=== PATIENT | male | born 1950 | race Caucasian/White ===

== ENCOUNTER 2017-09-17 17:34 | Inpatient (IN) ==
--- NOTE | 2017-09-17 17:44 | ED ---
HPI General Chief Complaint: Stroke Alert Stated Complaint: Evac/Stroke Alert Time Seen by Provider: 09/17/17 17:40 History of Present Illness HPI Narrative: Patient presents to the emergency department as a stroke alert. Apparently patient was at home and he developed left-sided weakness, slurred speech and called his son stating that I think I had a stroke. Son called 911 and stated that his father's speech was in fact slurred. Per EMS patient was complaining of posterior headache that migrated for, he could not do finger to nose, speech was slurred, and he was weak on the left side. Patient denies fever chills, chest pain, shortness of breath, visual change, but is diaphoretic. He also currently does not denies a headache and also denies numbness or tingling but stated that the left side of his face was numb initially. Related Data Home Medications Medication Instructions Recorded Confirmed No Known Home Medications 09/17/17 09/17/17 Allergies Allergy/AdvReac Type Severity Reaction Status Date / Time No Known Allergies Allergy Verified 09/17/17 18:35 Review of Systems ROS: all other systems reviewed are negative [facility] Medical History Medical History Patient denies medical problems (Acute) Surgical History Surgical History No history of previous surgery (Acute) Family History Family History Other Family history of stroke Social History Social History Substance History: No History of Abuse Smoking Status: Former smoker Tobacco Type: Cigarettes How Often Do You Have a Drink Containing Alcohol: Never Recent Travel in [facility] within the Last 8 Weeks: No Recent Out of Country Travel within the Last 8 Weeks: No Exam Narrative Exam Narrative: GENERAL: No acute distress. SKIN: Focused skin assessment diaphoretic HEAD: Atraumatic. Normocephalic. EYES: Pupils equal and round. No scleral icterus. Extraocular muscles intact bilaterally. No injection or drainage. ENT: No nasal bleeding or discharge. Mucous membranes pink and moist. NECK: Trachea midline. No JVD. CARDIOVASCULAR: Regular rate and rhythm. No murmur appreciated. RESPIRATORY: No accessory muscle use. Clear to auscultation. Breath sounds equal bilaterally. GASTROINTESTINAL: Abdomen soft, non-tender, nondistended. Hepatic and splenic margins not palpable. MUSCULOSKELETAL: No obvious deformities. No clubbing. No cyanosis. No edema. NEUROLOGICAL: Awake and alert. No obvious cranial nerve deficits. Motor grossly within normal limits. Normal speech. GCS 15, 5 out of 5 strength bilateral upper and lower extremities, stroke scale score of 0. PSYCHIATRIC: Appropriate mood and affect; insight and judgment normal. Course Initial Documented Vital Signs Temperature 98.5 F 09/17/17 17:37 Pulse Rate 58 L 09/17/17 17:37 Respiratory Rate 16 09/17/17 17:37 Blood Pressure 176/80 H 09/17/17 17:37 Pulse Oximetry 98 09/17/17 17:37 Last Documented Vital Signs Temperature 98.5 F 09/17/17 17:37 Pulse Rate 65 09/17/17 21:36 Respiratory Rate 16 09/17/17 21:36 Blood Pressure 155/90 H 09/17/17 21:36 Pulse Oximetry 99 09/17/17 21:36 Critical Care Time Critical Care Time: Yes Total Critical Care Time: 35 Attestation: Aggregate critical care time was 35 minutes. Time to perform other separately billable procedures was not included in the critical care time. My time did not include minutes spent treating any other patients simultaneously or on activities that did not directly contribute to the patient's treatment. The services I provided to this patient were to treat and/or prevent clinically significant deterioration that could result in: increased morbidity, I provided critical care services requiring my management, as noted below: Chart data review, documentation time, medication orders and management, vital sign assessments/reviewing monitor data, ordering and reviewing lab tests, ordering and interpreting/reviewing x-rays and diagnostic studies, care of the patient and discussion of the patient with the admitting physicians. Sign Out Sign Out Data: Patient Sign Out occurred on 09/17/17 at 20:25. Patient's care was discussed, and care was transferred from Miya Ventura MD to Flo Miller. Sign Out Comment: Patient signed out to Dr. Miller for MRI results, neurology consult, and final dispo. Last updated by Miya Ventura MD at 09/17/17 18:54 Post-Handoff Eval: Patient symptoms have completely resolved he has no left-sided weakness he has no speech difficulties he is awake alert MRI is done of his head patient will be admitted Dr. Prieto was bedside aspirin is given an MRA of the neck is pending at this time admitted to [facility]. PT HAS ACUTE CEREBELLAR INFARCT SEEN ON MRI BRAIN LEFT SIDED RESULTS MRA NECK DONE ORDERED BY FLOYD Medical Decision Making MDM Narrative Medical decision making narrative: Patient presents to the emergency department as a stroke alert. Patient placed on a bus driver/monitor, continuous pulse ox, IV access obtained. Accu-Chek was 121. Labs, chest x-ray, EKG, CT scans ordered. Gas with Dr. Prieto at 1740 (lay flat, NS at 100cc/hr, triple study CT, ASA 325mg po if head CT negative). Patient needs stat MRI per neurologist, Dr. Prieto. Snf monitor cut off by sd, , with permission of family for stat MRI, life and situation. 1756: Dr Lambert advises no acute findings on head CT. Patient given 10mg IV compazine 2/[address] No tPA as patient's symptoms have resolved. CTA head: CONCLUSION:1. No acute occlusive disease demonstrated.2. Intracranial atherosclerosis.3. 2 mm anterior communicating aneurysm. CTA neck: CONCLUSION:1. Occluded left vertebral artery, age indeterminate. Widely patent right vertebral artery and basilar artery.2. Otherwise essentially normal. Trace atherosclerosis seen of both carotid bifurcations without narrowing. Per Dr. Prieto, [facility] MRI brain w/wo ordered. Differential Diagnosis Differential Diagnosis: CVA, TIA, ICH Lab Data Result diagrams: 09/17/17 17:39 09/17/17 17:39 Lab Results 09/17/17 09/17/17 09/17/17 Range/Units 17:39 17:39 17:39 WBC 8.3 (4.0-11.0) th/mm3 RBC 4.72 (4.50-5.90) mil/mm3 Hgb 14.2 (13.0-17.0) gm/dL POC Hgb (Calc) 13.6 (13.0-17.0) g/dL Hct 42.3 (39.0-51.0) % POC Hct 40.0 (39-51.0) % MCV 89.5 (80.0-100.0) fL MCH 30.1 (27.0-34.0) pg MCHC 33.7 (32.0-36.0) % RDW 15.0 (11.6-17.2) % Plt Count 268 (150-450) th/mm3 MPV 6.9 L (7.0-11.0) fL Neut % (Auto) 55.4 (16.0-70.0) % Lymph % (Auto) 36.1 (9.0-44.0) % [place] % (Auto) 6.6 (0.0-8.0) % Eos % (Auto) 1.1 (0.0-4.0) % Baso % (Auto) 0.8 (0.0-2.0) % Neut # (Auto) 4.6 (1.8-7.7) th/mm3 Lymph # (Auto) 3.0 (1.0-4.8) th/mm3 [place] # (Auto) 0.6 (0.0-0.9) th/mm3 Eos # (Auto) 0.1 (0.0-0.4) th/mm3 Baso # (Auto) 0.1 (0.0-0.2) th/mm3 WBC Differential . Differential Comment Auto diff final ESR (0-20) mm/hr PT 10.1 (9.8-11.6) sec INR 1.0 Ratio APTT 21.5 L (24.3-30.1) sec Fibrinogen 375 (227-377) mg/dL POC Sodium 142 (137-144) mmol/L Sodium 142 (136-145) meq/L POC Potassium 3.6 (3.6-5.0) mmol/L Potassium 3.7 (3.5-5.1) meq/L POC Chloride 109 (102-111) mmol/L Chloride 110 H (98-107) meq/L Carbon Dioxide 23.7 (21.0-32.0) meq/L Anion Gap 8 (5-15) meq/L POC BUN 21 (5-21) mg/dL BUN 21 H (7-18) mg/dL Creatinine 0.91 (0.60-1.30) mg/dL POC Creatinine 0.8 (0.6-1.3) mg/dL Estimated GFR 84 L (>89) mL/min POC Glucose 119 H (68-110) mg/dL Random Glucose 115 H (74-106) mg/dL Calcium 8.6 (8.5-10.1) mg/dL Total Creatine Kinase 140 (39-308) U/L Troponin I Less than 0.02 L (0.02-0.05) ng/mL Triglycerides (42-150) mg/dL Cholesterol (120-200) mg/dL LDL Cholesterol, Calc (0-99) mg/dL HDL Cholesterol (40.0-60.0) mg/dL Cholesterol/HDL Ratio Ratio Vitamin B12 (193-986) pg/mL Folate (3.1-17.5) ng/mL TSH (0.358-3.740) uIU/mL Free T4 (0.76-1.46) ng/dL Blood Type Antibody Screen 09/17/17 09/17/17 09/17/17 Range/Units 17:39 19:55 19:55 WBC (4.0-11.0) th/mm3 RBC (4.50-5.90) mil/mm3 Hgb (13.0-17.0) gm/dL POC Hgb (Calc) (13.0-17.0) g/dL Hct (39.0-51.0) % POC Hct (39-51.0) % MCV (80.0-100.0) fL MCH (27.0-34.0) pg MCHC (32.0-36.0) % RDW (11.6-17.2) % Plt Count (150-450) th/mm3 MPV (7.0-11.0) fL Neut % (Auto) (16.0-70.0) % Lymph % (Auto) (9.0-44.0) % [place] % (Auto) (0.0-8.0) % Eos % (Auto) (0.0-4.0) % Baso % (Auto) (0.0-2.0) % Neut # (Auto) (1.8-7.7) th/mm3 Lymph # (Auto) (1.0-4.8) th/mm3 [place] # (Auto) (0.0-0.9) th/mm3 Eos # (Auto) (0.0-0.4) th/mm3 Baso # (Auto) (0.0-0.2) th/mm3 WBC Differential Differential Comment ESR 8 (0-20) mm/hr PT (9.8-11.6) sec INR Ratio APTT (24.3-30.1) sec Fibrinogen (227-377) mg/dL POC Sodium (137-144) mmol/L Sodium (136-145) meq/L POC Potassium (3.6-5.0) mmol/L Potassium (3.5-5.1) meq/L POC Chloride (102-111) mmol/L Chloride (98-107) meq/L Carbon Dioxide (21.0-32.0) meq/L Anion Gap (5-15) meq/L POC BUN (5-21) mg/dL BUN (7-18) mg/dL Creatinine (0.60-1.30) mg/dL POC Creatinine (0.6-1.3) mg/dL Estimated GFR (>89) mL/min POC Glucose (68-110) mg/dL Random Glucose (74-106) mg/dL Calcium (8.5-10.1) mg/dL Total Creatine Kinase (39-308) U/L Troponin I (0.02-0.05) ng/mL Triglycerides 72 (42-150) mg/dL Cholesterol 192 (120-200) mg/dL LDL Cholesterol, Calc 126 H (0-99) mg/dL HDL Cholesterol 51.2 (40.0-60.0) mg/dL Cholesterol/HDL Ratio 3.75 Ratio Vitamin B12 141 L (193-986) pg/mL Folate Greater than 20.0 H (3.1-17.5) ng/mL TSH 0.726 (0.358-3.740) uIU/mL Free T4 1.00 (0.76-1.46) ng/dL Blood Type A Positive Antibody Screen Negative Imaging Data Radiologist's impression: Neck MRA 09/17/17 00:00 CONCLUSION: 1. Near-complete occlusion right vertebral artery, age indeterminant. Prominent caliber and widely patent left vertebral artery. 2. No significant carotid occlusive disease. Percent stenosis is calculated using the diameter of the stenotic region over the diameter of the normal distal internal carotid artery Chest X-Ray 09/17/17 17:37 CONCLUSION: Trace basilar atelectasis. Head CT 09/17/17 17:37 CONCLUSION: 1. No acute intracranial abnormalities. 2. Findings called by telephone by Dr. Lambert to Dr. Ventura at the time of dictation. . Head CTA 09/17/17 17:37 CONCLUSION: 1. No acute occlusive disease demonstrated. 2. Intracranial atherosclerosis. 3. 2 mm anterior communicating aneurysm. Neck CTA 09/17/17 17:37 CONCLUSION: 1. Occluded left vertebral artery, age indeterminate. Widely patent right vertebral artery and basilar artery. 2. Otherwise essentially normal. Trace atherosclerosis seen of both carotid bifurcations without narrowing. Head MRI 09/17/17 18:33 CONCLUSION: 1. Focal acute infarct of the left-sided cerebellum. 2. The rest of the brain is within normal limits. ECG Data Attestation: I personally reviewed and interpreted this ECG as follows: (Sinus bradycardia, rate 42, left axis deviation, T-wave inversion in lead V1, right ventricular conduction delay) Discharge Plan Discharge Disposition Patient Disposition: 30 Still Patient Discharge Details Diagnosis: Acute CVA (cerebrovascular accident) Physicians Team ED Provider: Flo Miller Primary Care Provider: UNKNOWN, Attending Provider: Anna Lunsford Other Providers: Rohan Prieto Discharge Interventions Interventions: Vital Signs Last Done: 09/17/17 20:00 Status ED Status: Admitted Patient
--- NOTE | 2017-09-17 17:57 | CT ---
EXAM DATE: 09/17/2017 5:49 PM EDT AGE/SEX: 66 years / Male INDICATIONS: Stroke alert left sided weakness CLINICAL DATA: This is the patient's initial encounter. Patient reports that signs and symptoms have been present for 1 day and indicates a pain score of 0/10. MEDICAL/SURGICAL HISTORY: . unable to obtain . unable to obtain RADIATION DOSE: 56.35 CTDI (mGy) COMPARISON: No prior exams available for comparison. TECHNIQUE: CT of the head without contrast. Using automated exposure control and adjustment of the mA and/or kV according to patient size, radiation dose was kept as low as reasonably achievable to ob tain optimal diagnostic quality images. DICOM format image data is available electronically for revi ew and comparison. FINDINGS: Cerebrum: No intracranial mass, hemorrhage or shift. No hydrocephalus. No abnormal extra-axial fluid collections. Posterior Fossa: The cerebellum and brainstem are intact. The 4th ventricle is midline . The cerebellopontine angle is unremarkable. Extracranial: The visualized portion of the orbits is intact. Skull: The calvaria is intact. No evidence of skull fracture. CONCLUSION: 1. No acute intracranial abnormalities. 2. Findings called by telephone by Dr. Lambert to Dr. Ventura at the time of dictation. . Electronically signed by: Galileo Lambert MD 09/17/2017 5:56 PM EDT
[2017-09-17] MEDS: Sod Chloride 0.9% Inj 1,000 ML IV.CONT SCH (18:00)
[2017-09-17 18:03] LABS: Baso # (Auto) 0.1 th/mm3 (0.0-0.2); Baso % (Auto) 0.8 % (0.0-2.0); Eos # (Auto) 0.1 th/mm3 (0.0-0.4); Eos % (Auto) 1.1 % (0.0-4.0); Hematocrit 42.3 % (39.0-51.0); Hemoglobin 14.2 gm/dL (13.0-17.0); Lymph % (Auto) 36.1 % (9.0-44.0); Mean Corpuscular HGB Conc 33.7 % (32.0-36.0); Mean Corpuscular Hemoglobin 30.1 pg (27.0-34.0); Mean Corpuscular Volume 89.5 fL (80.0-100.0); Mean Platelet Volume 6.9 fL (7.0-11.0); Mono # (Auto) 0.6 th/mm3 (0.0-0.9); Mono % (Auto) 6.6 % (0.0-8.0); Neut # (Auto) 4.6 th/mm3 (1.8-7.7); Neut % (Auto) 55.4 % (16.0-70.0); Platelet Count 268 th/mm3 (150-450); Red Blood Count 4.72 mil/mm3 (4.50-5.90); White Blood Count 8.3 th/mm3 (4.0-11.0)
--- NOTE | 2017-09-17 18:11 | CT ---
EXAM DATE: 09/17/2017 6:04 PM EDT AGE/SEX: 66 years / Male INDICATIONS: Left side weakness CLINICAL DATA: This is the patient's initial encounter. Patient reports that signs and symptoms have been present for 1 day and indicates a pain score of 3/10. MEDICAL/SURGICAL HISTORY: . Unable to obtain None. unable to abtain RADIATION DOSE: 10.11 CTDI (mGy) ; Combined studies COMPARISON: [facility] [place], CT HEAD W/O CONTRAST, 09/17/2017. . TECHNIQUE: Volumetric scanning was performed using a multi-row detector CT scanner during bolus infu charlie of 75 ml Omnipaque 350 (iohexol) nonionic water-soluble contrast as a cumulative dose for multi ple exams. The data was post processed with a variety of visualization algorithms including full vo lume maximum intensity projection, multi-planar sliding thin slab reformation, curved planar reformat ion, and surface rendering techniques. Using automated exposure control and adjustment of the mA and /or kV according to patient size, radiation dose was kept as low as reasonably achievable to obtain o ptimal diagnostic quality images. DICOM format image data is available electronically for review and comparison. FINDINGS: There is excellent visualization of the major intracranial arteries out to the second-order branch ve ssels. Mild diffuse luminal irregularity typical of intracranial atherosclerosis noted. 2 mm anterio r communicating aneurysm seen, series 309 image 11 There is no evidence for large aneurysm, vessel tr uncation or stenosis, and no evidence for vascular malformation. CONCLUSION: 1. No acute occlusive disease demonstrated. 2. Intracranial atherosclerosis. 3. 2 mm anterior communicating aneurysm. Electronically signed by: Bernabe Pruitt MD 09/17/2017 6:10 PM EDT
--- NOTE | 2017-09-17 18:20 | XR ---
EXAM DATE: 09/17/2017 6:10 PM EDT AGE/SEX: 66 years / Male INDICATIONS: Stroke alert. Congestion. CLINICAL DATA: This is the patient's initial encounter. Patient reports that signs and symptoms have been present for 1 day and indicates a pain score of 4/10. MEDICAL/SURGICAL HISTORY: None. None. COMPARISON: No prior exams available for comparison. FINDINGS: Trace atelectasis at the bases, mostly on the left. No pleural effusion. No pneumothorax. Heart size within normal limits. Thoracic aorta is tortuous and atherosclerotic. CONCLUSION: Trace basilar atelectasis. Electronically signed by: Bernabe Pruitt MD 09/17/2017 6:19 PM EDT
[2017-09-17 18:23] LABS: Activated Partial Thrombo Time 21.5 sec (24.3-30.1); Prothrombin Time 10.1 sec (9.8-11.6)
[2017-09-17 18:32] LABS: Anion Gap 8 meq/L (5-15); Blood Urea Nitrogen 21 mg/dL (7-18); Calcium 8.6 mg/dL (8.5-10.1); Carbon Dioxide 23.7 meq/L (21.0-32.0); Chloride 110 meq/L (98-107); Glomerular Filtration Rate 84 mL/min (>89); Glucose,Random 115 mg/dL (74-106); Potassium 3.7 meq/L (3.5-5.1); Sodium 142 meq/L (136-145)
--- NOTE | 2017-09-17 18:35 | CT ---
EXAM DATE: 09/17/2017 6:27 PM EDT AGE/SEX: 66 years / Male INDICATIONS: Left side weakness CLINICAL DATA: This is the patient's initial encounter. Patient reports that signs and symptoms have been present for 1 day and indicates a pain score of 0/10. MEDICAL/SURGICAL HISTORY: . unable to obtain . unable to obtain RADIATION DOSE: 10.11 CTDI (mGy) ; Combined studies COMPARISON: [facility], CTA HEAD W CONTRAST W 3D, 09/17/2017. . TECHNIQUE: Volumetric scanning was performed using a multirow detector CT scanner during bolus infus ion of 70 ml Omnipaque 350 (iohexol) nonionic water-soluble contrast as a cumulative dose for multip le exams. The data was postprocessed with a variety of visualization algorithms including full-volu me maximum intensity projection, multiplanar sliding thin-slab reformation, curved-planar reformation , and surface-rendering techniques. Using automated exposure control and adjustment of the mA and/or kV according to patient size, radiation dose was kept as low as reasonably achievable to obtain opti mal diagnostic quality images. DICOM format image data is available electronically for review and co mparison. Percent stenosis is calculated using the diameter of the stenotic region over the diameter of the nor mal distal internal carotid artery. FINDINGS: Aortic Arch: There is a three-vessel origin of the great vessels from the aorta. No evidence of ost ial narrowing Right Carotid: The common carotid artery is intact. Trace atherosclerosis of the bulb and proximal ICA without narrowing. The carotid bulb has a otherwise normal configuration without ulceration or na rrowing. The internal carotid artery lumen is otherwise smooth without stenosis. The external carot id artery is intact. Left Carotid: The common carotid artery is intact. Trace atherosclerosis of the bulb and proximal I CA without narrowing. The carotid bulb otherwise has a normal configuration without ulceration or bill rowing. The internal carotid artery lumen is otherwise smooth without stenosis. The external caroti d artery is intact. Vertebrals: Left vertebral artery is occluded at its origin, age indeterminate. Right vertebral italia ry appears to have been slightly dominant relative to the left and is widely patent. The basilar italia ry is well-developed and widely patent. CONCLUSION: 1. Occluded left vertebral artery, age indeterminate. Widely patent right vertebral artery and basil ar artery. 2. Otherwise essentially normal. Trace atherosclerosis seen of both carotid bifurcations without bill rowing. Electronically signed by: Bernabe Pruitt MD 09/17/2017 6:33 PM EDT
[2017-09-17 18:37] LABS: Creatine Kinase 140 U/L (39-308)
[2017-09-17] MEDS ORDERED: Aspirin 325 MG Tablet PO ONE (18:51)
[2017-09-17] MEDS ORDERED: Gadobutrol PF 10 MMOL/10 ML Vial (for RAD) IV.SIG ONE ×2 (19:34→21:43)
--- NOTE | 2017-09-17 19:52 | MR ---
EXAM DATE: 09/17/2017 7:45 PM EDT AGE/SEX: 66 years / Male INDICATIONS: Stroke. Left sided weakness and slurred speech. CLINICAL DATA: This is the patient's initial encounter. Patient reports that signs and symptoms have been present for 1 day and indicates a pain score of 3/10. MEDICAL/SURGICAL HISTORY: None. None. [place] [facility] [place] 09[place]17/2017. . TECHNIQUE: Multiplanar, multisequence examination of the brain was performed without and with 8 ml Ga davist (gadobutrol) contrast as a single exam dose. FINDINGS: Cerebrum: The ventricles are normal for age. No evidence of midline shift, mass lesion, hemorrhage or acute infarction. No extraaxial fluid collections are seen. The pituitary gland and suprasellar cistern are normal in configuration. White Matter: No significant signal abnormalities are seen in the white matter. Posterior Fossa: The cerebellum and brainstem are intact. The 4th ventricle is midline. The cerebel lopontine angle is unremarkable. The cerebellar tonsils are normal in position. Diffusion Imagin x 25 mm focus of restricted diffusion seen posteromedially of the left side of the cerebellum. Extracranial: The visualized portions of the orbits and paranasal sinuses are unremarkable. Post Contrast: No abnormal areas of parenchymal or dural enhancement. No evidence of blood-brain ba rrier breakdown. CONCLUSION: 1. Focal acute infarct of the left-sided cerebellum. 2. The rest of the brain is within normal limits. Electronically signed by: Bernabe Pruitt MD 09/17/2017 7:50 PM EDT
[2017-09-17 20:32] LABS: Cholesterol 192 mg/dL (120-200)
[2017-09-17 20:58] LABS: Chol/HDL Ratio 3.75 Ratio; HDL Cholesterol 51.2 mg/dL (40.0-60.0); LDL Cholesterol,Calculated 126 mg/dL (0-99); Thyroid Stimulating Hormone 0.726 uIU/mL (0.358-3.740); Triglycerides 72 mg/dL (42-150); Vitamin B12 141 pg/mL (193-986)
[2017-09-17] MEDS ORDERED: Dextrose 50% in Water 50 ML Vial IV.PUSH PRN (21:19)
[2017-09-17] MEDS ORDERED: Bisacodyl 10 MG Supp RECTAL PRN (21:20)
--- NOTE | 2017-09-17 21:21 | P.HPIM ---
History of Present Illness Primary Care Physician: UNKNOWN History of Present Illness: This is a 66-year-old male with no significant PMH was brought to the ER by EMS as a Stroke Alert. Pt reports acute onset of posterior headache followed by left-sided facial numbness/droop, slurred speech and unsteady gait. States Son In Law with him and called EMS. No h/o CVA in the past. Not on ASA or anticoagulation. On arrival, BP 176/80, HR 58, O2 sat 98% on 2L NC, Afebrile. CBC unremarkable. INR 1.0. Chemistry essentially unremarkable except for BUN 21. S/p eval by Dr. Prieto in ER, CT Head with no acute findings. CTA Head negative. CTA Neck with occluded left vertebral artery, age indeterminate, widely patent right vertebral artery and basilar artery. MRI Head with focal acute infarct of the left cerebellum. MRA Neck pending. Symptoms currently resolved except for mild residual slurred speech. - Diagnosis (1) CVA (cerebral vascular accident) Review of Systems All other systems reviewed negative except as stated in [facility] - History History Provided By: Patient - Medical History Medical History: Medical History (Last Updated 09/17/17 @ 18:35 by Mahsa Gamble RN) Patient denies medical problems - Surgical History Surgical History: Surgical History (Last Updated 09/17/17 @ 18:35 by Mahsa Gamble RN) No history of previous surgery - Family History Family History: Family History (Last Updated 09/17/17 @ 22:35 by Anna Lunsford MD) Other Family history of stroke - Tobacco History Smoking Status: Former smoker Tobacco Type: Cigarettes - Alcohol History How Often Do You Have a Drink Containing Alcohol: Never - Substance Use History Substance History: No History of Abuse - Travel History Recent Travel in the [place] Within the Last 8 Weeks: No Recent Travel Out of the Country Within the Last 8 Weeks: No - Immunization History Tetanus Immunization: Unsure Hx Influenza Vaccine This Season: No Medications and Allergies Active Medications: Active Medications Aspirin (Aspirin) 325 mg PO DAILY [facility] Heparin Sodium (Porcine) (Heparin Inj) 5,000 units SQ Q8HR [facility] Sodium Chloride (Ns Inj) 1,000 mls @ 100 mls/hr IV.CONT .Q10H [facility] Last Admin: 09/17/17 18:00 Dose: 100 mls/hr Allergies Allergy/AdvReac Type Severity Reaction Status Date / Time No Known Allergies Allergy Verified 09/17/17 18:35 Home Medications Medication Instructions Recorded Confirmed Type No Known Home Medications 09/17/17 09/17/17 History Exam Vital signs: Vital Signs 09/17/17 17:37 09/17/17 17:43 09/17/17 18:17 Temperature 98.5 F Pulse Rate 58 L 61 70 Respiratory Rate 16 18 Blood Pressure 176/80 H 159/97 H Pulse Oximetry 98 98 09/17/17 20:00 Temperature Pulse Rate 55 L Respiratory Rate 16 Blood Pressure 161/83 H Pulse Oximetry 99 Intake & Output 09/17/17 09/17/17 09/18/17 06:59 18:59 06:59 Output Total 500 / 500 Balance -500 / -500 Weight 84.4 kg Output: Urine 500 / 500 Other: # Voids 1 Narrative: PE: GENERAL: Very pleasant middle-aged white male in no acute distress. Family at bedside. HEENT: PERRLA, EOMI. No scleral icterus or conjunctival pallor. No lid lag or facial droop. Minimal slurred speech CARDIOVASCULAR: Regular rate and rhythm. No obvious murmurs to auscultation. No chest tenderness to palpation. RESPIRATORY: No obvious rhonchi or wheezing. Clear to auscultation. Breath sounds equal bilaterally. GASTROINTESTINAL: Abdomen soft, non-tender, nondistended. BS normal. MUSCULOSKELETAL: Extremities without clubbing, cyanosis, or edema. No obvious deformities. NEUROLOGICAL: Awake, alert and oriented x4. No focal neurologic deficits. Moving both upper and lower extremities spontaneously. Results - Labs CBC & Chem 7: 09/17/17 17:39 09/17/17 17:39 Labs: Short CBC 09/17/17 Range/Units 17:39 WBC 8.3 (4.0-11.0) th/mm3 Hgb 14.2 (13.0-17.0) gm/dL Hct 42.3 (39.0-51.0) % Plt Count 268 (150-450) th/mm3 BMP 09/17/17 17:39 Sodium 142 Potassium 3.7 Chloride 110 H Carbon Dioxide 23.7 BUN 21 H Creatinine 0.91 Calcium 8.6 Cardiac Enzymes 09/17/17 Range/Units 17:39 Total Creatine Kinase 140 (39-308) U/L Troponin I Less than 0.02 L (0.02-0.05) ng/mL - Imaging Impressions Chest X-Ray 09/17/17 17:37 CONCLUSION: Trace basilar atelectasis. Head CT 09/17/17 17:37 CONCLUSION: 1. No acute intracranial abnormalities. 2. Findings called by telephone by Dr. Lambert to Dr. Ventura at the time of dictation. . Head CTA 09/17/17 17:37 CONCLUSION: 1. No acute occlusive disease demonstrated. 2. Intracranial atherosclerosis. 3. 2 mm anterior communicating aneurysm. Neck CTA 09/17/17 17:37 CONCLUSION: 1. Occluded left vertebral artery, age indeterminate. Widely patent right vertebral artery and basilar artery. 2. Otherwise essentially normal. Trace atherosclerosis seen of both carotid bifurcations without narrowing. Head MRI 09/17/17 18:33 CONCLUSION: 1. Focal acute infarct of the left-sided cerebellum. 2. The rest of the brain is within normal limits. Caprini VTE Risk Assessment Caprini VTE Risk Assessment: No/Low Risk (score <= 1) Caprini Risk Assessment Model: Point Value = 1 Point Value = 2 Point Value = 3 Point Value = 5 Age 41-60 Minor surgery BMI > 25 kg/m2 Swollen legs Varicose veins or History of unexplained or recurrent spontaneous Oral contraceptives or hormone replacement Sepsis (< 1 month) Serious lung disease, including pneumonia (< 1 month) Abnormal pulmonary function Acute myocardial infarction Congestive heart failure (< 1 month) History of inflammatory bowel disease Medical patient at bed rest Age 61-74 Arthroscopic surgery Major open surgery (> 45 min) Laparoscopic surgery (> 45 min) Malignancy Confined to bed (> 72 hours) Immobilizing plaster cast Central venous access Age >= 75 History of VTE Family history of VTE Factor V Leiden Prothrombin [id number] Lupus anticoagulant Anticardiolipin antibodies Elevated serum homocysteine Heparin-induced thrombocytopenia Other congenital or acquired thrombophilia Stroke (< 1 month) Elective arthroplasty Hip, pelvis, or leg fracture Acute spinal cord injury (< 1 month) Prophylaxis Regimen: Total Risk Factor Score Risk Level Prophylaxis Regimen 0-1 Low Early ambulation 2 Moderate Order ONE of the following: *Sequential Compression Device (SCD) *Heparin 5000 units SQ BID 3-4 Higher Order ONE of the following medications: *Heparin 5000 units SQ TID *Enoxaparin/Lovenox 40 mg SQ daily (WT < 150 kg, CrCl > 30 mL/min) *Enoxaparin/Lovenox 30 mg SQ daily (WT < 150 kg, CrCl > 10-29 mL/min) *Enoxaparin/Lovenox 30 mg SQ BID (WT < 150 kg, CrCl > 30 mL/min) AND/OR *Sequential Compression Device (SCD) 5 or more Highest Order ONE of the following medications: *Heparin 5000 units SQ TID (Preferred with Epidurals) *Enoxaparin/Lovenox 40 mg SQ daily (WT < 150 kg, CrCl > 30 mL/min) *Enoxaparin/Lovenox 30 mg SQ daily (WT < 150 kg, CrCl > 10-29 mL/min) *Enoxaparin/Lovenox 30 mg SQ BID (WT < 150 kg, CrCl > 30 mL/min) AND *Sequential Compression Device (SCD) Assessment and Plan - Assessment (1) CVA (cerebral vascular accident) Code(s): I63.9 - Cerebral infarction, unspecified Status: Acute - Plan A/P: 1. CVA: acute onset left-sided facial droop, slurred speech and gait instability, s/p Stroke Alert. CT Head/CTA Head negative, CTA Neck w/ occluded left vertebral artery, MRI Head w/ acute left cerebellar CVA, MRA Neck pending. S/p eval by Dr. Prieto. NPO, IVF, Neuro Checks, permissive HTN, PT/OT for eval/tx, Speech Tx as needed. On ASA, start Statin. Check Lipid Profile/Hgb A1c. 2. DVT Prophylaxis: SCD/Teds, Heparin sq 3. Social work for d/c planning as needed 4. Case discussed w/ ER physician at length, labs/records/imaging reviewed by me.
[2017-09-17] MEDS: Heparin - SQ 10,000 UNITS/ML Vial SQ SCH ×2 (21:33→22:09)
--- NOTE | 2017-09-17 22:00 | MR ---
EXAM DATE: 09/17/2017 9:42 PM EDT AGE/SEX: 66 years / Male INDICATIONS: . CVA, left vert occlusion. CLINICAL DATA: This is the patient's initial encounter. Patient reports that signs and symptoms have been present for 1 day and indicates a pain score of 1/10. MEDICAL/SURGICAL HISTORY: None. None. COMPARISON: [facility] [place], CTA NECK W CONTRAST W 3D, 09/17/2017. . TECHNIQUE: 10 ml Gadavist (gadobutrol) contrast infused MRA (single exam dose) of the extracranial circulation was performed using a neurovascular coil. Postprocessing was performed, including rotati ng sub-volume maximum intensity projections of each carotid artery, rotating full-volume maximum inte nsity projections of both carotid arteries, sagittal and coronal sliding thin-slab reformations of ea ch carotid artery, and left oblique sliding thin-slab reformation through the aortic arch to include the origin of the arch branch vessels. FINDINGS: Aortic Arch : There is a three-vessel origin of the great vessels from the aorta. No evidence of o stial narrowing. Right Carotid : The common carotid artery is intact. The carotid bulb has a normal configuration wi thout ulceration or narrowing. The internal carotid artery lumen is smooth without stenosis. The ex ternal carotid artery is intact. Left Carotid : The common carotid artery is intact. The carotid bulb has a normal configuration wit hout ulceration or narrowing. The internal carotid artery lumen is smooth without stenosis. The ext ernal carotid artery is intact. Vertebrals : There is very poor flow diffusely in the right vertebral artery. Some flow is seen in t he distal portion of the vessel which is probably retrograde from the left vertebral artery. The left vertebral artery is widely patent. CONCLUSION: 1. Near-complete occlusion right vertebral artery, age indeterminant. Prominent caliber and widely p atent left vertebral artery. 2. No significant carotid occlusive disease. Percent stenosis is calculated using the diameter of the stenotic region over the diameter of the nor mal distal internal carotid artery Electronically signed by: Bernabe Pruitt MD 09/17/2017 9:58 PM [facility]
[2017-09-17 23:00] LABS: Amphetamine Urine With Conf Neg (Neg); Barbiturate Urine With Conf Neg (Neg); Benzodiazepine Urine With Conf Neg (Neg)
[2017-09-17 23:01] LABS: Bacteria,Urine Rare /hpf; Bilirubin,Urine Negative (Negative); Clarity,Urine Clear (Clear); Color,Urine Yellow (Yellw/Straw); Glucose,Urine (UA) Negative (Negative); Leukocyte Esterase,Urine Negative (Negative); Mucus,Urine Few /lpf (Occasional); Nitrite,Urine Negative (Negative); Specific Gravity,Urine 1.036 (1.002-1.035)
[2017-09-18] MEDS: Sod Chloride 0.9% Inj 1,000 ML IV.CONT SCH ×3 (03:26→14:00)
[2017-09-18] MEDS: Heparin - SQ 10,000 UNITS/ML Vial SQ SCH ×3 (06:06→22:18)
[2017-09-18 06:26] LABS: Baso % (Auto) 0.4 % (0.0-2.0); Eos % (Auto) 0.5 % (0.0-4.0); Hematocrit 38.3 % (39.0-51.0); Hemoglobin 12.8 gm/dL (13.0-17.0); Lymph # (Auto) 1.9 th/mm3 (1.0-4.8); Lymph % (Auto) 25.1 % (9.0-44.0); Mean Corpuscular HGB Conc 33.4 % (32.0-36.0); Mean Corpuscular Hemoglobin 29.8 pg (27.0-34.0); Mean Corpuscular Volume 89.3 fL (80.0-100.0); Mean Platelet Volume 7.1 fL (7.0-11.0); Mono # (Auto) 0.6 th/mm3 (0.0-0.9); Mono % (Auto) 7.8 % (0.0-8.0); Neut % (Auto) 66.2 % (16.0-70.0); Platelet Count 238 th/mm3 (150-450); Red Blood Count 4.29 mil/mm3 (4.50-5.90); Red Cell Distribution Width 14.9 % (11.6-17.2); White Blood Count 7.6 th/mm3 (4.0-11.0)
[2017-09-18 06:31] LABS: Alanine Aminotransferase 21 U/L (12-78); Albumin 2.9 g/dL (3.4-5.0); Anion Gap 7 meq/L (5-15); Aspartate Aminotransferase 16 U/L (15-37); Blood Urea Nitrogen 19 mg/dL (7-18); Calcium 7.9 mg/dL (8.5-10.1); Carbon Dioxide 25.2 meq/L (21.0-32.0); Chloride 111 meq/L (98-107); Glomerular Filtration Rate Greater Than 89 mL/min (>89); Glucose,Random 101 mg/dL (74-106); Potassium 3.5 meq/L (3.5-5.1); Sodium 143 meq/L (136-145)
[2017-09-18 06:34] LABS: Alkaline Phosphatase 83 U/L (45-117)
--- NOTE | 2017-09-18 08:01 | ECG ---
Date Performed: 09/17/2017 Time Performed: 18:24:48 PTAGE: 66 years EKG: SINUS BRADYCARDIA WITH SINUS ARRHYTHMIA MARKED LEFT AXIS DEVIATION POSSIBLE RIGHT VENTRICUL AR CONDUCTION DELAY ABNORMAL ECG NO PREVIOUS TRACING DOCTOR: Steve Sutton Interpretating Date/Time 09/18/2017 08:00:39
[2017-09-18] MEDS: Insulin NovoLOG Aspart Correctional Sugar Inj SQ SCH ×4 (08:45→22:19)
[2017-09-18] MEDS: Aspirin 325 MG Tablet PO SCH (08:46)
[2017-09-18] MEDS: Senna/Docusate Sodium 8.6/50 MG Tablet PO SCH ×2 (08:46→22:18)
--- NOTE | 2017-09-18 10:10 | P.PNNEU ---
Subjective Subjective Comments: No acute events reported No headache No chest pain No dyspnea Active Medications: Active Medications Acetaminophen (Tylenol) 650 mg PO Q4H PRN PRN Reason: Temp > 100.4 Al Hydroxide/Mg Hydroxide (Milk Of Magnesia Liq) 30 ml PO Q12H PRN PRN Reason: Mild Constipation Aspirin (Aspirin) 325 mg PO DAILY [facility] Last Admin: 09/18/17 08:46 Dose: 325 mg Bisacodyl (Dulcolax Supp) 10 mg RECTAL DAILY PRN PRN Reason: SEVERE CONSITIPATION Dextrose (D50w Vial) 50 ml IV.PUSH UNSCH PRN PRN Reason: PER HYPOGLYCEMIA PROTOCOL Enalaprilat (Vasotec Inj) 1.25 mg IV.PUSH Q4H PRN PRN Reason: For SBP > 220 or DBP > 120 Glucagon (Glucagon Inj) 1 mg OTHER UNSCH PRN PRN Reason: for Hypoglycemia Protocol Heparin Sodium (Porcine) (Heparin Inj) 5,000 units SQ Q8HR [facility] Last Admin: 09/18/17 06:06 Dose: 5,000 units Sodium Chloride (Ns Inj) 1,000 mls @ 100 mls/hr IV.CONT .Q10H [facility] Last Admin: 09/18/17 08:44 Dose: Not Given Sodium Chloride (Ns Inj) 1,000 mls @ 70 mls/hr IV.CONT .[id number] [facility] Last Admin: 09/18/17 03:26 Dose: 70 mls/hr Insulin Aspart (Novolog Insulin Correctional Sugar Inj) 0 unit SQ [facility]; Protocol Last Admin: 09/18/17 08:45 Dose: Not Given Lactulose (Lactulose Liq) 30 ml PO DAILY PRN PRN Reason: SEVERE CONSITIPATION Ondansetron HCl (Zofran Odt) 4 mg PO Q6H PRN PRN Reason: NAUSEA OR VOMITING Pravastatin Sodium (Pravachol) [address] [facility] Senna/Docusate Sodium (Paty-Colace) 1 tab PO BID [facility] Last Admin: 09/18/17 08:46 Dose: 1 tab Sennosides (Senokot) 17.2 mg PO Q12H PRN PRN Reason: Moderate Constipation Sodium Chloride (Ns Flush) 2 ml IV.FLUSH BID [facility] Last Admin: 09/18/17 09:31 Dose: 2 ml Sodium Chloride (Ns Flush) 2 ml IV.FLUSH PRN PRN PRN Reason: FLUSH AFTER USING IV ACCESS Allergies/Adverse Reactions: Allergies Allergy/AdvReac Type Severity Reaction Status Date / Time No Known Allergies Allergy Verified 09/17/17 18:35 Physical Exam Vital signs: Vital Signs 09/17/17 17:37 09/17/17 17:43 09/17/17 18:17 Temperature 98.5 F Pulse Rate 58 L 61 70 Respiratory Rate 16 18 Blood Pressure 176/80 H 159/97 H Pulse Oximetry 98 98 09/17/17 20:00 09/17/17 21:36 09/17/17 22:30 Temperature Pulse Rate 55 L 65 Respiratory Rate 16 16 Blood Pressure 161/83 H 155/90 H Pulse Oximetry 99 99 98 09/17/17 23:07 09/18/17 00:00 09/18/17 02:00 Temperature 97.6 F Pulse Rate 85 75 87 Respiratory Rate 18 17 Blood Pressure 153/68 H 122/62 Pulse Oximetry 96 98 09/18/17 04:00 09/18/17 08:00 Temperature 97.4 F L 97.6 F Pulse Rate 70 81 Respiratory Rate 16 20 Blood Pressure 126/66 106/62 Pulse Oximetry 95 95 Intake & Output 09/17/17 09/18/17 09/18/17 18:59 06:59 18:59 Intake Total 1000 / 1000 Output Total 500 / 500 Balance 500 / 500 Weight 84.4 kg 84.4 kg Intake: IV 1000 / 1000 NS Inj 1,000 ML @ 100 mls/hr IV 1000 / 1000 .CONT .Q10H [facility] Rx#:[id number] Output: Urine 500 / 500 Other: # Voids 3 Date of Last Bowel Movement 09/17/17 Weight On Admission 84.4 kg Narrative: vff no nystag 5/5 t/o nl neuro exam Objective Laboratory Results - last 24 hr 09/17/17 09/17/17 09/17/17 17:39 17:39 17:39 WBC 8.3 RBC 4.72 Hgb 14.2 POC Hgb (Calc) 13.6 Hct 42.3 POC Hct 40.0 MCV 89.5 MCH 30.1 MCHC 33.7 RDW 15.0 Plt Count 268 MPV 6.9 L Neut % (Auto) 55.4 Lymph % (Auto) 36.1 [place] % (Auto) 6.6 Eos % (Auto) 1.1 Baso % (Auto) 0.8 Neut # (Auto) 4.6 Lymph # (Auto) 3.0 [place] # (Auto) 0.6 Eos # (Auto) 0.1 Baso # (Auto) 0.1 WBC Differential . Differential Comment Auto diff final ESR PT 10.1 INR 1.0 APTT 21.5 L Fibrinogen 375 POC Sodium 142 Sodium 142 POC Potassium 3.6 Potassium 3.7 POC Chloride 109 Chloride 110 H Carbon Dioxide 23.7 Anion Gap 8 POC BUN 21 BUN 21 H Creatinine 0.91 POC Creatinine 0.8 Estimated GFR 84 L POC Glucose 119 H Random Glucose 115 H Calcium 8.6 Total Bilirubin AST ALT Alkaline Phosphatase Total Creatine Kinase 140 Troponin I Less than 0.02 L Total Protein Albumin Triglycerides Cholesterol LDL Cholesterol, Calc HDL Cholesterol Cholesterol/HDL Ratio Vitamin B12 Folate TSH Free T4 Urine Color Urine Clarity Urine pH Ur Specific [place] Urine Protein Urine Glucose (UA) Urine Ketones Urine Occult Blood Urine Nitrate Urine Bilirubin Urine Urobilinogen Ur Leukocyte Esterase Urine RBC Urine WBC Urine Bacteria Urine Mucus Micro UA Comment Urine Culture Comments Urine Opiates Screen Ur Barbiturates Screen Ur Amphetamine Screen U Benzodiazepines Scrn Urine Cocaine Screen U Cannabinoids Screen Blood Type Antibody Screen 09/17/17 09/17/17 09/17/17 17:39 19:55 19:55 WBC RBC Hgb POC Hgb (Calc) Hct POC Hct MCV MCH MCHC RDW Plt Count MPV Neut % (Auto) Lymph % (Auto) [place] % (Auto) Eos % (Auto) Baso % (Auto) Neut # (Auto) Lymph # (Auto) [place] # (Auto) Eos # (Auto) Baso # (Auto) WBC Differential Differential Comment ESR 8 PT INR APTT Fibrinogen POC Sodium Sodium POC Potassium Potassium POC Chloride Chloride Carbon Dioxide Anion Gap POC BUN BUN Creatinine POC Creatinine Estimated GFR POC Glucose Random Glucose Calcium Total Bilirubin AST ALT Alkaline Phosphatase Total Creatine Kinase Troponin I Total Protein Albumin Triglycerides 72 Cholesterol 192 LDL Cholesterol, Calc 126 H HDL Cholesterol 51.2 Cholesterol/HDL Ratio 3.75 Vitamin B12 141 L Folate Greater than 20.0 H TSH 0.726 Free T4 1.00 Urine Color Urine Clarity Urine pH Ur Specific [place] Urine Protein Urine Glucose (UA) Urine Ketones Urine Occult Blood Urine Nitrate Urine Bilirubin Urine Urobilinogen Ur Leukocyte Esterase Urine RBC Urine WBC Urine Bacteria Urine Mucus Micro UA Comment Urine Culture Comments Urine Opiates Screen Ur Barbiturates Screen Ur Amphetamine Screen U Benzodiazepines Scrn Urine Cocaine Screen U Cannabinoids Screen Blood Type A Positive Antibody Screen Negative 09/17/17 09/17/17 09/18/17 20:50 20:50 05:10 WBC 7.6 RBC 4.29 L Hgb 12.8 L POC Hgb (Calc) Hct 38.3 L POC Hct MCV 89.3 MCH 29.8 MCHC 33.4 RDW 14.9 Plt Count 238 MPV 7.1 Neut % (Auto) 66.2 Lymph % (Auto) 25.1 [place] % (Auto) 7.8 Eos % (Auto) 0.5 Baso % (Auto) 0.4 Neut # (Auto) 5.0 Lymph # (Auto) 1.9 [place] # (Auto) 0.6 Eos # (Auto) 0.0 Baso # (Auto) 0.0 WBC Differential . Differential Comment Auto diff final ESR PT INR APTT Fibrinogen POC Sodium Sodium POC Potassium Potassium POC Chloride Chloride Carbon Dioxide Anion Gap POC BUN BUN Creatinine POC Creatinine Estimated GFR POC Glucose Random Glucose Calcium Total Bilirubin AST ALT Alkaline Phosphatase Total Creatine Kinase Troponin I Total Protein Albumin Triglycerides Cholesterol LDL Cholesterol, Calc HDL Cholesterol Cholesterol/HDL Ratio Vitamin B12 Folate TSH Free T4 Urine Color Yellow Urine Clarity Clear Urine pH 7.0 Ur Specific [place] 1.036 H Urine Protein Negative Urine Glucose (UA) Negative Urine Ketones Negative Urine Occult Blood Negative Urine Nitrate Negative Urine Bilirubin Negative Urine Urobilinogen Less than 2 Ur Leukocyte Esterase Negative Urine RBC 4 H Urine WBC 1 Urine Bacteria Rare H Urine Mucus Few H Micro UA Comment Culture not ind Urine Culture Comments Culture not ind Urine Opiates Screen Neg Ur Barbiturates Screen Neg Ur Amphetamine Screen Neg U Benzodiazepines Scrn Neg Urine Cocaine Screen Neg U Cannabinoids Screen Neg Blood Type Antibody Screen 09/18/17 09/18/17 05:10 08:43 WBC RBC Hgb POC Hgb (Calc) Hct POC Hct MCV MCH MCHC RDW Plt Count MPV Neut % (Auto) Lymph % (Auto) [place] % (Auto) Eos % (Auto) Baso % (Auto) Neut # (Auto) Lymph # (Auto) [place] # (Auto) Eos # (Auto) Baso # (Auto) WBC Differential Differential Comment ESR PT INR APTT Fibrinogen POC Sodium Sodium 143 POC Potassium Potassium 3.5 POC Chloride Chloride 111 H Carbon Dioxide 25.2 Anion Gap 7 POC BUN BUN 19 H Creatinine 0.74 POC Creatinine Estimated GFR Greater than 89 POC Glucose 99 Random Glucose 101 Calcium 7.9 L Total Bilirubin 0.9 AST 16 ALT 21 Alkaline Phosphatase 83 Total Creatine Kinase Troponin I Total Protein 6.0 L Albumin 2.9 L Triglycerides Cholesterol LDL Cholesterol, Calc HDL Cholesterol Cholesterol/HDL Ratio Vitamin B12 Folate TSH Free T4 Urine Color Urine Clarity Urine pH Ur Specific [place] Urine Protein Urine Glucose (UA) Urine Ketones Urine Occult Blood Urine Nitrate Urine Bilirubin Urine Urobilinogen Ur Leukocyte Esterase Urine RBC Urine WBC Urine Bacteria Urine Mucus Micro UA Comment Urine Culture Comments Urine Opiates Screen Ur Barbiturates Screen Ur Amphetamine Screen U Benzodiazepines Scrn Urine Cocaine Screen U Cannabinoids Screen Blood Type Antibody Screen Review/Management - Review/Management Plan: imp left vert acute occlusion most ho needs coumadin started tonight and coumadin for 2 months to prevent stump embolism sq hep and asa can be dced when inr>1.9 med team plz start b12 shot ldl 126 on statin ivh keep bp up
[2017-09-18 12:39] LABS: Hemoglobin A1c 5.9 % (4.3-6.0)
--- NOTE | 2017-09-18 13:01 | P.PN ---
Subjective Interval history: Follow-up acute left cerebellar CVA September 18, 2017-patient seen and examined, denies any weakness. No longer with slurred speech per patient's daughter. No acute event overnight. Physical Exam Vital signs: Vital Signs 09/17/17 17:37 09/17/17 17:43 09/17/17 18:17 Temperature 98.5 F Pulse Rate 58 L 61 70 Respiratory Rate 16 18 Blood Pressure 176/80 H 159/97 H Pulse Oximetry 98 98 09/17/17 20:00 09/17/17 21:36 09/17/17 22:30 Temperature Pulse Rate 55 L 65 Respiratory Rate 16 16 Blood Pressure 161/83 H 155/90 H Pulse Oximetry 99 99 98 09/17/17 23:07 09/18/17 00:00 09/18/17 02:00 Temperature 97.6 F Pulse Rate 85 75 87 Respiratory Rate 18 17 Blood Pressure 153/68 H 122/62 Pulse Oximetry 96 98 09/18/17 04:00 09/18/17 08:00 09/18/17 12:00 Temperature 97.4 F L 97.6 F 97.8 F Pulse Rate 70 81 70 Respiratory Rate 16 20 20 Blood Pressure 126/66 106/62 128/66 Pulse Oximetry 95 95 94 L Intake & Output 09/17/17 09/18/17 09/18/17 18:59 06:59 18:59 Intake Total 1000 / 1000 Output Total 500 / 500 Balance 500 / 500 Weight 84.4 kg 84.4 kg Intake: IV 1000 / 1000 NS Inj 1,000 ML @ 100 mls/hr IV 1000 / 1000 .CONT .Q10H FREYA Rx#:[id number] Output: Urine 500 / 500 Other: # Voids 3 Date of Last Bowel Movement 09/17/17 Weight On Admission 84.4 kg Narrative: GENERAL: NAD SKIN: Warm and dry. HEAD: Atraumatic. Normocephalic. EYES: Pupils equal and round. No scleral icterus. No injection or drainage. ENT: No nasal bleeding or discharge. Mucous membranes pink and moist. NECK: Trachea midline. No JVD. CARDIOVASCULAR: Regular rate and rhythm. RESPIRATORY: No accessory muscle use. Clear to auscultation. Breath sounds equal bilaterally. GASTROINTESTINAL: Abdomen soft, non-tender, nondistended. Hepatic and splenic margins not palpable. MUSCULOSKELETAL: Extremities without clubbing, cyanosis, or edema. No obvious deformities. NEUROLOGICAL: Awake and alert. No obvious cranial nerve deficits. Motor grossly within normal limits. Five out of 5 muscle strength in the arms and legs. Normal speech. PSYCHIATRIC: Appropriate mood and affect; insight and judgment normal. Results - Labs CBC & Chem 7: 09/18/17 05:10 09/18/17 05:10 Laboratory Results - last 24 hr 09/17/17 09/17/17 09/17/17 17:39 17:39 17:39 WBC 8.3 RBC 4.72 Hgb 14.2 POC Hgb (Calc) 13.6 Hct 42.3 POC Hct 40.0 MCV 89.5 MCH 30.1 MCHC 33.7 RDW 15.0 Plt Count 268 MPV 6.9 L Neut % (Auto) 55.4 Lymph % (Auto) 36.1 Hamilton % (Auto) 6.6 Eos % (Auto) 1.1 Baso % (Auto) 0.8 Neut # (Auto) 4.6 Lymph # (Auto) 3.0 Hamilton # (Auto) 0.6 Eos # (Auto) 0.1 Baso # (Auto) 0.1 WBC Differential . Differential Comment Auto diff final ESR PT 10.1 INR 1.0 APTT 21.5 L Fibrinogen 375 POC Sodium 142 Sodium 142 POC Potassium 3.6 Potassium 3.7 POC Chloride 109 Chloride 110 H Carbon Dioxide 23.7 Anion Gap 8 POC BUN 21 BUN 21 H Creatinine 0.91 POC Creatinine 0.8 Estimated GFR 84 L POC Glucose 119 H Random Glucose 115 H Calcium 8.6 Total Bilirubin AST ALT Alkaline Phosphatase Total Creatine Kinase 140 Troponin I Less than 0.02 L Total Protein Albumin Triglycerides Cholesterol LDL Cholesterol, Calc HDL Cholesterol Cholesterol/HDL Ratio Vitamin B12 Folate TSH Free T4 Urine Color Urine Clarity Urine pH Ur Specific Harrah Urine Protein Urine Glucose (UA) Urine Ketones Urine Occult Blood Urine Nitrate Urine Bilirubin Urine Urobilinogen Ur Leukocyte Esterase Urine RBC Urine WBC Urine Bacteria Urine Mucus Micro UA Comment Urine Culture Comments Urine Opiates Screen Ur Barbiturates Screen Ur Amphetamine Screen U Benzodiazepines Scrn Urine Cocaine Screen U Cannabinoids Screen Blood Type Antibody Screen 09/17/17 09/17/17 09/17/17 17:39 19:55 19:55 WBC RBC Hgb POC Hgb (Calc) Hct POC Hct MCV MCH MCHC RDW Plt Count MPV Neut % (Auto) Lymph % (Auto) Hamilton % (Auto) Eos % (Auto) Baso % (Auto) Neut # (Auto) Lymph # (Auto) Hamilton # (Auto) Eos # (Auto) Baso # (Auto) WBC Differential Differential Comment ESR 8 PT INR APTT Fibrinogen POC Sodium Sodium POC Potassium Potassium POC Chloride Chloride Carbon Dioxide Anion Gap POC BUN BUN Creatinine POC Creatinine Estimated GFR POC Glucose Random Glucose Calcium Total Bilirubin AST ALT Alkaline Phosphatase Total Creatine Kinase Troponin I Total Protein Albumin Triglycerides 72 Cholesterol 192 LDL Cholesterol, Calc 126 H HDL Cholesterol 51.2 Cholesterol/HDL Ratio 3.75 Vitamin B12 141 L Folate Greater than 20.0 H TSH 0.726 Free T4 1.00 Urine Color Urine Clarity Urine pH Ur Specific Harrah Urine Protein Urine Glucose (UA) Urine Ketones Urine Occult Blood Urine Nitrate Urine Bilirubin Urine Urobilinogen Ur Leukocyte Esterase Urine RBC Urine WBC Urine Bacteria Urine Mucus Micro UA Comment Urine Culture Comments Urine Opiates Screen Ur Barbiturates Screen Ur Amphetamine Screen U Benzodiazepines Scrn Urine Cocaine Screen U Cannabinoids Screen Blood Type A Positive Antibody Screen Negative 09/17/17 09/17/17 09/18/17 20:50 20:50 05:10 WBC 7.6 RBC 4.29 L Hgb 12.8 L POC Hgb (Calc) Hct 38.3 L POC Hct MCV 89.3 MCH 29.8 MCHC 33.4 RDW 14.9 Plt Count 238 MPV 7.1 Neut % (Auto) 66.2 Lymph % (Auto) 25.1 Hamilton % (Auto) 7.8 Eos % (Auto) 0.5 Baso % (Auto) 0.4 Neut # (Auto) 5.0 Lymph # (Auto) 1.9 Hamilton # (Auto) 0.6 Eos # (Auto) 0.0 Baso # (Auto) 0.0 WBC Differential . Differential Comment Auto diff final ESR PT INR APTT Fibrinogen POC Sodium Sodium POC Potassium Potassium POC Chloride Chloride Carbon Dioxide Anion Gap POC BUN BUN Creatinine POC Creatinine Estimated GFR POC Glucose Random Glucose Calcium Total Bilirubin AST ALT Alkaline Phosphatase Total Creatine Kinase Troponin I Total Protein Albumin Triglycerides Cholesterol LDL Cholesterol, Calc HDL Cholesterol Cholesterol/HDL Ratio Vitamin B12 Folate TSH Free T4 Urine Color Yellow Urine Clarity Clear Urine pH 7.0 Ur Specific Harrah 1.036 H Urine Protein Negative Urine Glucose (UA) Negative Urine Ketones Negative Urine Occult Blood Negative Urine Nitrate Negative Urine Bilirubin Negative Urine Urobilinogen Less than 2 Ur Leukocyte Esterase Negative Urine RBC 4 H Urine WBC 1 Urine Bacteria Rare H Urine Mucus Few H Micro UA Comment Culture not ind Urine Culture Comments Culture not ind Urine Opiates Screen Neg Ur Barbiturates Screen Neg Ur Amphetamine Screen Neg U Benzodiazepines Scrn Neg Urine Cocaine Screen Neg U Cannabinoids Screen Neg Blood Type Antibody Screen 09/18/17 09/18/17 09/18/17 05:10 08:43 11:35 WBC RBC Hgb POC Hgb (Calc) Hct POC Hct MCV MCH MCHC RDW Plt Count MPV Neut % (Auto) Lymph % (Auto) Hamilton % (Auto) Eos % (Auto) Baso % (Auto) Neut # (Auto) Lymph # (Auto) Hamilton # (Auto) Eos # (Auto) Baso # (Auto) WBC Differential Differential Comment ESR PT INR APTT Fibrinogen POC Sodium Sodium 143 POC Potassium Potassium 3.5 POC Chloride Chloride 111 H Carbon Dioxide 25.2 Anion Gap 7 POC BUN BUN 19 H Creatinine 0.74 POC Creatinine Estimated GFR Greater than 89 POC Glucose 99 107 Random Glucose 101 Calcium 7.9 L Total Bilirubin 0.9 AST 16 ALT 21 Alkaline Phosphatase 83 Total Creatine Kinase Troponin I Total Protein 6.0 L Albumin 2.9 L Triglycerides Cholesterol LDL Cholesterol, Calc HDL Cholesterol Cholesterol/HDL Ratio Vitamin B12 Folate TSH Free T4 Urine Color Urine Clarity Urine pH Ur Specific Harrah Urine Protein Urine Glucose (UA) Urine Ketones Urine Occult Blood Urine Nitrate Urine Bilirubin Urine Urobilinogen Ur Leukocyte Esterase Urine RBC Urine WBC Urine Bacteria Urine Mucus Micro UA Comment Urine Culture Comments Urine Opiates Screen Ur Barbiturates Screen Ur Amphetamine Screen U Benzodiazepines Scrn Urine Cocaine Screen U Cannabinoids Screen Blood Type Antibody Screen - Imaging Impressions Neck MRA 09/17/17 00:00 CONCLUSION: 1. Near-complete occlusion right vertebral artery, age indeterminant. Prominent caliber and widely patent left vertebral artery. 2. No significant carotid occlusive disease. Percent stenosis is calculated using the diameter of the stenotic region over the diameter of the normal distal internal carotid artery Chest X-Ray 09/17/17 17:37 CONCLUSION: Trace basilar atelectasis. Head CT 09/17/17 17:37 CONCLUSION: 1. No acute intracranial abnormalities. 2. Findings called by telephone by Dr. Lambert to Dr. Ventura at the time of dictation. . Head CTA 09/17/17 17:37 CONCLUSION: 1. No acute occlusive disease demonstrated. 2. Intracranial atherosclerosis. 3. 2 mm anterior communicating aneurysm. Neck CTA 09/17/17 17:37 CONCLUSION: 1. Occluded left vertebral artery, age indeterminate. Widely patent right vertebral artery and basilar artery. 2. Otherwise essentially normal. Trace atherosclerosis seen of both carotid bifurcations without narrowing. Head MRI 09/17/17 18:33 CONCLUSION: 1. Focal acute infarct of the left-sided cerebellum. 2. The rest of the brain is within normal limits. Assessment and Plan - Assessment (1) CVA (cerebral vascular accident) Code(s): I63.9 - Cerebral infarction, unspecified Status: Acute - Plan 66-year-old man with Left acute cerebellar CVA Continue treatment per stroke protocol Start Coumadin tonight, continue with aspirin and subcu heparin however discontinue for INR>1.9 Continue with permissive hypertension Appreciate input from neurology Continue treatment with statin PT/OT/speech therapy for treatment DVT prophylaxis: Coumadin
[2017-09-18] MEDS ORDERED: Warfarin Consult Pharmacy 1 EACH OTHER SCH (14:00)
[2017-09-19] MEDS: Sod Chloride 0.9% Inj 1,000 ML IV.CONT SCH ×3 (02:49→15:37)
[2017-09-19] MEDS: Heparin - SQ 10,000 UNITS/ML Vial SQ SCH ×3 (05:47→21:29)
[2017-09-19] MEDS: Aspirin 325 MG Tablet PO SCH (08:13)
[2017-09-19] MEDS: Insulin NovoLOG Aspart Correctional Sugar Inj SQ SCH ×3 (08:13→17:02)
[2017-09-19] MEDS: Senna/Docusate Sodium 8.6/50 MG Tablet PO SCH (08:14)
--- NOTE | 2017-09-19 08:55 | P.PNNEU ---
Subjective Subjective Comments: No acute events reported No headache No chest pain No dyspnea sr Active Medications: Active Medications Acetaminophen (Tylenol) 650 mg PO Q4H PRN PRN Reason: Temp > 100.4 Al Hydroxide/Mg Hydroxide (Milk Of Magnesia Liq) 30 ml PO Q12H PRN PRN Reason: Mild Constipation Aspirin (Aspirin) 325 mg PO DAILY [facility] Last Admin: 09/19/17 08:13 Dose: 325 mg Bisacodyl (Dulcolax Supp) 10 mg RECTAL DAILY PRN PRN Reason: SEVERE CONSITIPATION Cyanocobalamin (Vitamin B12 Inj) 1,000 mcg SQ DAILY [facility] Last Admin: 09/19/17 08:14 Dose: 1,000 mcg Dextrose (D50w Vial) 50 ml IV.PUSH UNSCH PRN PRN Reason: PER HYPOGLYCEMIA PROTOCOL Enalaprilat (Vasotec Inj) 1.25 mg IV.PUSH Q4H PRN PRN Reason: For SBP > 220 or DBP > 120 Glucagon (Glucagon Inj) 1 mg OTHER UNSCH PRN PRN Reason: for Hypoglycemia Protocol Heparin Sodium (Porcine) (Heparin Inj) 5,000 units SQ Q8HR [facility] Last Admin: 09/19/17 05:47 Dose: 5,000 units Sodium Chloride (Ns Inj) 1,000 mls @ 100 mls/hr IV.CONT .Q10H [facility] Last Admin: 09/19/17 02:49 Dose: Not Given Pharmacy Profile Note (Coumadin Consult Pharmacy) 0 mls @ 0 mls/hr OTHER UNSCH [facility] Insulin Aspart (Novolog Insulin Correctional Sugar Inj) 0 unit SQ ACHS [facility]; Protocol Last Admin: 09/19/17 08:13 Dose: Not Given Lactulose (Lactulose Liq) 30 ml PO DAILY PRN PRN Reason: SEVERE CONSITIPATION Multivitamins (Theragran) 1 tab PO DAILY [facility] Last Admin: 09/19/17 08:14 Dose: 1 tab Ondansetron HCl (Zofran Odt) 4 mg PO Q6H PRN PRN Reason: NAUSEA OR VOMITING Pravastatin Sodium (Pravachol) 40 mg PO HS [facility] Last Admin: 09/18/17 22:18 Dose: 40 mg Senna/Docusate Sodium (Paty-Colace) 1 tab PO BID [facility] Last Admin: 09/19/17 08:14 Dose: Not Given Sennosides (Senokot) 17.2 mg PO Q12H PRN PRN Reason: Moderate Constipation Sodium Chloride (Ns Flush) 2 ml IV.FLUSH BID [facility] Last Admin: 09/19/17 08:13 Dose: 2 ml Sodium Chloride (Ns Flush) 2 ml IV.FLUSH PRN PRN PRN Reason: FLUSH AFTER USING IV ACCESS Warfarin Sodium (Coumadin) 5 mg PO DAILY@1600 [facility] Last Admin: 09/18/17 16:42 Dose: 5 mg Allergies/Adverse Reactions: Allergies Allergy/AdvReac Type Severity Reaction Status Date / Time No Known Allergies Allergy Verified 09/17/17 18:35 Physical Exam Vital signs: Vital Signs 09/18/17 12:00 09/18/17 16:00 09/18/17 20:00 Temperature 97.8 F 97.8 F 98.4 F Pulse Rate 70 68 71 Respiratory Rate 20 18 18 Blood Pressure 128/66 148/83 H 124/75 Pulse Oximetry 94 L 95 95 09/19/17 00:10 09/19/17 02:30 09/19/17 03:28 Temperature 98.3 F 98.2 F Pulse Rate 67 65 Respiratory Rate 18 16 18 Blood Pressure 133/67 123/72 Pulse Oximetry 96 97 09/19/17 06:30 Temperature Pulse Rate Respiratory Rate 16 Blood Pressure Pulse Oximetry Intake & Output 09/18/17 09/19/17 09/19/17 18:59 06:59 18:59 Intake Total 480 / 480 360 / 360 Balance 480 / 480 360 / 360 Weight 84.4 kg Intake: Oral 480 / 480 360 / 360 Other: # Voids 2 1 Date of Last Bowel Movement 09/18/17 # Bowel Movements 0 Narrative: vff face sym nl gait and up walking around Objective Laboratory Results - last 24 hr 09/18/17 09/18/17 09/18/17 05:10 11:35 16:40 POC Glucose 107 92 Hemoglobin A1c 5.9 09/18/17 09/19/17 20:08 08:11 POC Glucose 98 101 Hemoglobin A1c Review/Management - Review/Management Plan: imp left vert acute occlusion most likley needs coumadin started tonight and coumadin for 2 months to prevent stump embolism sq hep and asa can be dced when inr>1.9 med team plz start b12 shot ldl 126 on statin ivh keep bp up looking well echo and holter pend sr so far on statin inr pend he can dc when inr>1.9 erendira cordova keep ivf on
[2017-09-19 09:32] LABS: INR 1.1 Ratio; Prothrombin Time 10.7 sec (9.8-11.6)
--- NOTE | 2017-09-19 11:29 | ECHRPT ---
Indication: CEREBRAL EMBOLISM CONCLUSIONS Normal left ventricular size. Wall thickness is normal. The left ventricular systolic function is normal with an estimated ejection fraction in the range of 55-60%. Trace mitral valve regurgitation. There is trace tricuspid valve regurgitation. BP: / HR: Rhythm: Sinus MEASUREMENTS (Male / Female) Normal Values Technical Quality:Very technically difficult study 2D ECHO LV Diastolic Diameter PLAX 4.8 cm 4.2 - 5.9 / 3.9 - 5.3 cm LV Systolic Diameter PLAX 3.3 cm IVS Diastolic Thickness 1.0 cm 0.6 - 1.0 / 0.6 - 0.9 cm LVPW Diastolic Thickness 1.0 cm 0.6 - 1.0 / 0.6 - 0.9 cm LV Relative Wall Thickness 0.4 RV Internal Dim ED PLAX 2.2 cm LVOT Diameter 2.3 cm Aortic Root Diameter 4.0 cm LA Systolic Diameter LX 3.0 cm 3.0 - 4.0 / 2.7 - 3.8 cm M-MODE AV Cusp Separation MM 1.9 cm DOPPLER AV Peak Velocity 113.0 cm/s AV Peak Gradient 5.1 mmHg AV Mean Gradient 3.0 mmHg AV Velocity Time Integral 20.7 cm LVOT Peak Velocity 88.0 cm/s LVOT Peak Gradient 3.1 mmHg LVOT Velocity Time Integral 20.1 cm AV Area Cont Eq vti 4.0 cm AV Area Cont Eq pk 3.2 cm Mitral E Point Velocity 80.9 cm/s Mitral A Point Velocity 86.9 cm/s Mitral E to A Ratio 0.9 LV E' Lateral Velocity 9.6 cm/s Mitral E to LV E' Lateral Ratio 8.5 LV E' Septal Velocity 8.4 cm/s Mitral E to LV E' Septal Ratio 9.7 TR Peak Velocity 176.0 cm/s TR Peak Gradient 12.4 mmHg Right Atrial Pressure 10.0 mmHg Pulmonary Artery Systolic Pressu 22.4 mmHg Right Ventricular Systolic Press 22.4 mmHg PV Peak Velocity 42.9 cm/s PV Peak Gradient 0.7 mmHg FINDINGS LEFT VENTRICLE Normal left ventricular size. Wall thickness is normal. The left ventricular systolic function is normal with an estimated ejection fraction in the range of 55-60%. RIGHT VENTRICLE Normal right ventricular size and systolic function. LEFT ATRIUM The left atrial size is normal. RIGHT ATRIUM The right atrial size is normal. ATRIAL SEPTUM No atrial level shunt is demonstrated by color flow Doppler interrogation. AORTA The aortic root and proximal ascending aorta are not well visualized. MITRAL VALVE Trace mitral valve regurgitation. AORTIC VALVE Trileaflet aortic valve. No aortic valve stenosis or regurgitation. TRICUSPID VALVE There is trace tricuspid valve regurgitation. PULMONARY VALVE No pulmonary valve regurgitation or stenosis. VESSELS The inferior vena cava is normal in size. PERICARDIUM No pericardial effusion. Panchito Casey MD (Electronically Signed) Final Date:19 September 2017 11:28
--- NOTE | 2017-09-19 15:29 | P.PN ---
Subjective Interval history: Nursing denies any deterioration since last night. Patient himself has no new complaints. He expresses relief in noticing his clinical recovery. Physical Exam Vital signs: Vital Signs 09/18/17 16:00 09/18/17 20:00 09/19/17 00:10 Temperature 97.8 F 98.4 F 98.3 F Pulse Rate 68 71 67 Respiratory Rate 18 18 18 Blood Pressure 148/83 H 124/75 133/67 Pulse Oximetry 95 95 96 09/19/17 02:30 09/19/17 03:28 09/19/17 06:30 Temperature 98.2 F Pulse Rate 65 Respiratory Rate 16 18 16 Blood Pressure 123/72 Pulse Oximetry 97 09/19/17 08:00 09/19/17 12:00 Temperature 97.4 F L 98.0 F Pulse Rate 65 62 Respiratory Rate 18 16 Blood Pressure 131/72 100/58 L Pulse Oximetry 94 L 96 Intake & Output 09/18/17 09/19/17 09/19/17 18:59 06:59 18:59 Intake Total 480 / 480 360 / 360 Balance 480 / 480 360 / 360 Weight 84.4 kg Intake: Oral 480 / 480 360 / 360 Other: # Voids 2 1 Date of Last Bowel Movement 09/18/17 09/18/17 # Bowel Movements 0 Narrative: Ambulating in room from restroom to bed very well Unlabored breathing, clear lungs bilaterally Heart sounds regular rate rhythm, no murmurs No facial droop, no slurred speech Results - Labs CBC & Chem 7: 09/18/17 05:10 09/18/17 05:10 Laboratory Results - last 24 hr 09/18/17 09/18/17 09/19/17 16:40 20:08 08:11 PT INR POC Glucose 92 98 101 09/19/17 09/19/17 08:40 11:52 PT 10.7 INR 1.1 POC Glucose 140 H Assessment and Plan - Assessment (1) CVA (cerebral vascular accident) Code(s): I63.9 - Cerebral infarction, unspecified Status: Acute - Plan 66-year-old man with Left acute cerebellar CVA Continue treatment per stroke protocol Coumadin dose increased to 7.5 mg at 1600 daily, continue with aspirin and subcu heparin however discontinue for INR>1.9 per neurology Continue with permissive hypertension Continue treatment with statin PT/OT/speech therapy for treatment Echo unremarkable Neck CTA demonstrates occluded left vertebral artery of unknown chronicity. otherwise neg on telemetry Vit b12 def b12 daily shot, can be transitioned to po upon discharge DVT prophylaxis: Coumadin
[2017-09-20] MEDS: Insulin NovoLOG Aspart Correctional Sugar Inj SQ SCH ×5 (02:52→20:33)
[2017-09-20] MEDS: Senna/Docusate Sodium 8.6/50 MG Tablet PO SCH ×3 (02:53→20:24)
[2017-09-20] MEDS: Heparin - SQ 10,000 UNITS/ML Vial SQ SCH (06:04)
[2017-09-20 07:19] LABS: INR 1.5 Ratio; Prothrombin Time 14.7 sec (9.8-11.6)
--- NOTE | 2017-09-20 07:39 | MB ---
cc: Rohan Prieot MD DATE: 09/17/2017 HISTORY OF PRESENT ILLNESS: A 66-year-old right-handed man with hypertension and hypercholesterolemia who developed slurred speech and left-sided hemisensory loss in the face and arm for about 30 minutes and then he vomited afterwards. No vertigo or spinning. No chest pain, palpitations. He did have a headache behind his left eye at that time. SOCIAL HISTORY: He is not a smoker or drinker. He lives by himself. He quit smoking and drinking about 8 years ago. For some reason, he has an ankle monitor on. FAMILY HISTORY: Negative for cancer or seizure but positive for stroke in his mother and daughter. REVIEW OF SYSTEMS: He denies any diabetes, [place], stent, angioplasty, AFib, Coumadin, CABG, heart problems, renal, hepatic or pulmonary disease, thyroid disease, lupus, ulcer, cancer, seizure, stroke. SOCIAL HISTORY: He denies any drug use, cocaine, shooting up drugs. MEDICATIONS AT HOME: None. PHYSICAL EXAMINATION: VITAL SIGNS: Afebrile, 176/80, 16, 58. VASCULAR: There are no carotid bruits or vertebral bruits. HEART: Regular rate and rhythm. I did not detect a murmur. NEUROLOGIC: Pupils are equal. Visual perez are full. He does have some fine nystagmus on bihorizontal gaze, but not primary gaze. Face is symmetric with normal sensation. Tongue is midline. There is no drift. He has normal strength in upper and lower extremities bilaterally. DTRs trace throughout. Toes downgoing bilaterally. Pinprick is diminished in the right arm and leg compared to the left side and the right trunk compared to the left side, even though it was his left side that he thought was numb before and he had not noticed that prior. He is not ataxic on [id number] bilaterally. Speech is fluent. He is not aphasic. DIAGNOSTIC DATA: He had a CTA of his head done with a 2 mm anterior communicating artery aneurysm only. It looks like he is right vertebral dominant and may have some disease in the left vertebral artery and some intermittent flow. A left vertebral artery dissection could be considered, although I would have to wait for the official report from the radiologist. The basilar artery fills well. MCAs and dust brush assembler fill well. CTA of the neck results pending. CT of the brain negative. LABORATORY DATA: CBC is normal. Coags normal. Basic metabolic profile is normal. Creatinine is normal. Glucose 119. Other labs are pending at this time. CTA, the radiologist read it as occluded left vertebral artery at its origin with a dominant right vertebral artery. It is unclear if that is new or old. The basilar artery fills well. IMPRESSION: Possibly a posterior circulation infarct with the vomiting that he had, the pain behind the left eye, the nystagmus. We will check an MRI of the brain and give him an aspirin for now and give him IV hydration. Depending on what the MRI looks like, we could consider this left vertebral artery could be an acute occlusion, but we could start him on some heparin. We will see what the rest shows. MD HILLRAY Pink/noe , 06:30 PM , 06:38 PM
--- NOTE | 2017-09-20 07:46 | P.PNNEU ---
Subjective Subjective Comments: No acute events reported No headache No chest pain No dyspnea Active Medications: Active Medications Acetaminophen (Tylenol) 650 mg PO Q4H PRN PRN Reason: Temp > 100.4 Al Hydroxide/Mg Hydroxide (Milk Of Magnesia Liq) 30 ml PO Q12H PRN PRN Reason: Mild Constipation Aspirin (Aspirin) 325 mg PO DAILY [facility] Last Admin: 09/19/17 08:13 Dose: 325 mg Atorvastatin Calcium (Lipitor) 40 mg PO HS [facility] Last Admin: 09/19/17 21:29 Dose: 40 mg Bisacodyl (Dulcolax Supp) 10 mg RECTAL DAILY PRN PRN Reason: SEVERE CONSITIPATION Cyanocobalamin (Vitamin B12 Inj) 1,000 mcg SQ DAILY [facility] Last Admin: 09/19/17 08:14 Dose: 1,000 mcg Dextrose (D50w Vial) 50 ml IV.PUSH UNSCH PRN PRN Reason: PER HYPOGLYCEMIA PROTOCOL Enalaprilat (Vasotec Inj) 1.25 mg IV.PUSH Q4H PRN PRN Reason: For SBP > 220 or DBP > 120 Glucagon (Glucagon Inj) 1 mg OTHER UNSCH PRN PRN Reason: for Hypoglycemia Protocol Heparin Sodium (Porcine) (Heparin Inj) 5,000 units SQ Q8HR [facility] Last Admin: 09/20/17 06:04 Dose: 5,000 units Pharmacy Profile Note (Coumadin Consult Pharmacy) 0 mls @ 0 mls/hr OTHER UNSCH [facility] Sodium Chloride (Ns Inj) 1,000 mls @ 84 mls/hr IV.CONT .[id number] [facility] Last Admin: 09/19/17 15:37 Dose: 84 mls/hr Insulin Aspart (Novolog Insulin Correctional Sugar Inj) 0 unit SQ [facility]; Protocol Last Admin: 09/20/17 02:52 Dose: Not Given Lactulose (Lactulose Liq) 30 ml PO DAILY PRN PRN Reason: SEVERE CONSITIPATION Multivitamins (Theragran) 1 tab PO DAILY [facility] Last Admin: 09/19/17 08:14 Dose: 1 tab Ondansetron HCl (Zofran Odt) 4 mg PO Q6H PRN PRN Reason: NAUSEA OR VOMITING Senna/Docusate Sodium (Paty-Colace) 1 tab PO BID [facility] Last Admin: 09/20/17 02:53 Dose: Not Given Sennosides (Senokot) 17.2 mg PO Q12H PRN PRN Reason: Moderate Constipation Sodium Chloride (Ns Flush) 2 ml IV.FLUSH BID [facility] Last Admin: 09/19/17 21:29 Dose: 2 ml Sodium Chloride (Ns Flush) 2 ml IV.FLUSH PRN PRN PRN Reason: FLUSH AFTER USING IV ACCESS Warfarin Sodium (Coumadin) 7.5 mg PO DAILY@1600 [facility] Last Admin: 09/19/17 15:37 Dose: 7.5 mg Allergies/Adverse Reactions: Allergies Allergy/AdvReac Type Severity Reaction Status Date / Time No Known Allergies Allergy Verified 09/17/17 18:35 Physical Exam Vital signs: Vital Signs 09/19/17 08:00 09/19/17 08:06 09/19/17 12:00 Temperature 97.4 F L 98.0 F Pulse Rate 65 69 62 Respiratory Rate 18 16 Blood Pressure 131/72 100/58 L Pulse Oximetry 94 L 96 09/19/17 16:00 09/19/17 19:57 09/19/17 20:00 Temperature 97.7 F 97.7 F Pulse Rate 59 L 62 Respiratory Rate 17 18 Blood Pressure 118/69 123/74 Pulse Oximetry 97 97 96 09/20/17 00:00 09/20/17 01:30 09/20/17 05:09 Temperature 98.1 F 97.4 F L Pulse Rate 80 63 Respiratory Rate 18 15 18 Blood Pressure 133/72 133/83 Pulse Oximetry 97 96 Intake & Output 09/19/17 09/20/17 09/20/17 18:59 06:59 18:59 Intake Total 300 / 300 480 / 480 Balance 300 / 300 480 / 480 Weight 84.4 kg Intake: Oral 480 / 480 Tube Feeding 300 / 300 Other: # Voids 3 2 Date of Last Bowel Movement 09/18/17 09/18/17 # Bowel Movements 0 Narrative: sr vff face sym 5/5 t/o no ataxic Objective Laboratory Results - last 24 hr 09/19/17 09/19/17 09/19/17 08:11 08:40 11:52 PT 10.7 INR 1.1 POC Glucose 101 140 H 09/19/17 09/19/17 09/20/17 16:03 21:43 06:27 PT 14.7 H INR 1.5 POC Glucose 101 115 H Review/Management - Review/Management Plan: imp left vert acute occlusion most ho needs coumadin started tonight and coumadin for 2 months to prevent stump embolism sq hep and asa can be dced when inr>1.9 med team valentín set all this up thank u mahad laura start b12 shot ldl 126 on statin ivh keep bp up looking well echo and holter pend sr so far on statin inr pend he can dc when inr>1.9 keft vert occlusion keep ivf on 09/20/17 doing well echo nl sr inr 1.5 ok to dc when inr >1.9 will need residents clinic o/p inr draws daily this week and someone to follow it reliably will need [place] [facility] [place] and fu with me after that in office so i can review it med kiran laura set all this up thank you
[2017-09-20] MEDS: Aspirin 325 MG Tablet PO SCH (10:30)
[2017-09-20 10:43] LABS: Baso # (Auto) 0.1 th/mm3 (0.0-0.2); Baso % (Auto) 0.6 % (0.0-2.0); Eos # (Auto) 0.2 th/mm3 (0.0-0.4); Eos % (Auto) 1.6 % (0.0-4.0); Hemoglobin 15.1 gm/dL (13.0-17.0); Lymph # (Auto) 4.5 th/mm3 (1.0-4.8); Lymph % (Auto) 41.8 % (9.0-44.0); Mean Corpuscular HGB Conc 34.2 % (32.0-36.0); Mean Corpuscular Hemoglobin 30.3 pg (27.0-34.0); Mean Corpuscular Volume 88.4 fL (80.0-100.0); Mean Platelet Volume 6.9 fL (7.0-11.0); Mono # (Auto) 0.9 th/mm3 (0.0-0.9); Mono % (Auto) 8.5 % (0.0-8.0); Neut # (Auto) 5.1 th/mm3 (1.8-7.7); Neut % (Auto) 47.5 % (16.0-70.0); Platelet Count 336 th/mm3 (150-450); Red Blood Count 4.97 mil/mm3 (4.50-5.90); Red Cell Distribution Width 14.6 % (11.6-17.2); White Blood Count 10.8 th/mm3 (4.0-11.0)
--- NOTE | 2017-09-20 10:51 | CT ---
EXAM DATE: 09/20/2017 10:45 AM EDT AGE/SEX: 66 years / Male INDICATIONS: Stroke alert, change in consciousness, right sided gaze and slurred speech. CLINICAL DATA: This is the patient's initial encounter. Patient reports that signs and symptoms have been present for 1 day and indicates a pain score of 0/10. MEDICAL/SURGICAL HISTORY: Congestive heart failure. None. RADIATION DOSE: 56.35 CTDI (mGy) COMPARISON: [facility] [place] HEAD W/O CONTRAST, 09/20/2017. . TECHNIQUE: CT of the head without contrast. Using automated exposure control and adjustment of the mA and/or kV according to patient size, radiation dose was kept as low as reasonably achievable to ob tain optimal diagnostic quality images. DICOM format image data is available electronically for revi ew and comparison. FINDINGS: Cerebrum: The ventricles are normal for age. No evidence of midline shift, mass lesion, hemorrhage or acute infarction. No extraaxial fluid collections are seen. Posterior Fossa: The cerebellum and brainstem are intact. The 4th ventricle is midline. The cerebe llopontine angle is unremarkable. Extracranial: The visualized portion of the orbits is intact. Skull: The calvaria is intact. No evidence of skull fracture. CONCLUSION: 1. Negative for hemorrhage. Cerebellum remains normal. Report was called to Dr. Prieto Electronically signed by: Brijesh Chao MD 09/20/2017 10:50 AM EDT
[2017-09-20 10:52] LABS: Activated Partial Thrombo Time 26.8 sec (24.3-30.1); INR 1.5 Ratio; Prothrombin Time 15.4 sec (9.8-11.6)
[2017-09-20 11:04] LABS: Creatine Kinase 66 U/L (39-308)
--- NOTE | 2017-09-20 11:16 | MR ---
EXAM DATE: 09/20/2017 11:08 AM EDT AGE/SEX: 66 years / Male INDICATIONS: Stroke alert. Altered mental status. CLINICAL DATA: This is the patient's initial encounter. Patient reports that signs and symptoms have been present for 1 day and indicates a pain score of 0/10. MEDICAL/SURGICAL HISTORY: None. None. COMPARISON: [facility] – [place], [place] HEAD W & W/O CONTRAST, 09/17/2017. . TECHNIQUE: Multiplanar, multisequence examination of the brain was performed without contrast. FINDINGS: There is significant progression of the restricted diffusion in the left perihilar hemisphere, PICA d istribution. The right cerebellar hemisphere is spared. There is no supratentorial restricted diffusi on. Ventricular size remains appropriate. There is no parenchymal hemorrhage on the gradient echo acquisi tion. There is minimal localized mass effect. There is moderate periventricular white matter changes evident. CONCLUSION: 1. Significant interval change with a large area redistribution in the left cerebellar hemisphere, P ICA distribution without hemorrhage. Electronically signed by: Brijesh Chao MD 09/20/2017 11:14 AM EDT
--- NOTE | 2017-09-20 11:20 | P.PN ---
Subjective Interval history: Stroke alert was called this morning. Patient was experiencing left-sided weakness nausea and vomiting. Denies having any chest pain. I myself spoke to the patient, he denies having any headache. Highly cat nurse noted that the patient was having a deviated right-sided gaze. Physical Exam Vital signs: Vital Signs 09/19/17 12:00 09/19/17 16:00 09/19/17 19:57 Temperature 98.0 F 97.7 F Pulse Rate 62 59 L Respiratory Rate 16 17 Blood Pressure 100/58 L 118/69 Pulse Oximetry 96 97 97 09/19/17 20:00 09/20/17 00:00 09/20/17 01:30 Temperature 97.7 F 98.1 F Pulse Rate 62 80 Respiratory Rate 18 18 15 Blood Pressure 123/74 133/72 Pulse Oximetry 96 97 09/20/17 05:09 09/20/17 05:30 09/20/17 08:00 Temperature 97.4 F L 97.5 F L Pulse Rate 63 59 L Respiratory Rate 18 16 18 Blood Pressure 133/83 127/79 Pulse Oximetry 96 94 L 09/20/17 09:15 Temperature Pulse Rate Respiratory Rate Blood Pressure Pulse Oximetry 96 Intake & Output 09/19/17 09/20/17 09/20/17 18:59 06:59 18:59 Intake Total 300 / 300 480 / 480 Balance 300 / 300 480 / 480 Weight 84.4 kg Intake: Oral 480 / 480 Tube Feeding 300 / 300 Other: # Voids 3 2 Date of Last Bowel Movement 09/18/17 09/18/17 # Bowel Movements 0 Narrative: Diaphoretic appearance Unlabored breathing Right-sided gaze, pupils are minimally reactive, about 3 mm symmetrical otherwise Unable to track finger across midline to the left Has 3/5 proximal left upper extremity strength, 5 out of 5 on the right, 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, 5 out of 5 mold shop supervisor strength on the right 5/5 strength on left straight leg raise as well as the right Has intact sensation to right upper and lower extremities to soft finger touch, Has decreased sensation to finger touch on the left upper and lower extremities Results - Labs CBC & Chem 7: 09/20/17 10:20 09/18/17 05:10 Laboratory Results - last 24 hr 09/17/17 09/19/17 09/19/17 19:55 11:52 16:03 WBC RBC Hgb Hct MCV MCH MCHC RDW Plt Count MPV Neut % (Auto) Lymph % (Auto) Elbert % (Auto) Eos % (Auto) Baso % (Auto) Neut # (Auto) Lymph # (Auto) Elbert # (Auto) Eos # (Auto) Baso # (Auto) WBC Differential Differential Comment PT INR APTT Fibrinogen POC Glucose 140 H 101 Total Creatine Kinase Troponin I RPR Nonreactive 09/19/17 09/20/17 09/20/17 21:43 06:27 10:14 WBC RBC Hgb Hct MCV MCH MCHC RDW Plt Count MPV Neut % (Auto) Lymph % (Auto) Elbert % (Auto) Eos % (Auto) Baso % (Auto) Neut # (Auto) Lymph # (Auto) Elbert # (Auto) Eos # (Auto) Baso # (Auto) WBC Differential Differential Comment PT 14.7 H INR 1.5 APTT Fibrinogen POC Glucose 115 H 119 H Total Creatine Kinase Troponin I RPR 09/20/17 09/20/17 09/20/17 10:20 10:20 10:20 WBC 10.8 RBC 4.97 Hgb 15.1 Hct 44.0 MCV 88.4 MCH 30.3 MCHC 34.2 RDW 14.6 Plt Count 336 D MPV 6.9 L Neut % (Auto) 47.5 Lymph % (Auto) 41.8 Elbert % (Auto) 8.5 H Eos % (Auto) 1.6 Baso % (Auto) 0.6 Neut # (Auto) 5.1 Lymph # (Auto) 4.5 Elbert # (Auto) 0.9 Eos # (Auto) 0.2 Baso # (Auto) 0.1 WBC Differential . Differential Comment Auto diff final PT 15.4 H INR 1.5 APTT 26.8 Fibrinogen 392 H POC Glucose Total Creatine Kinase 66 Troponin I Less than 0.02 L RPR - Imaging Impressions Head CT 09/20/17 10:35 CONCLUSION: 1. Negative for hemorrhage. Cerebellum remains normal. Report was called to Dr. Prieto Assessment and Plan - Assessment (1) CVA (cerebral vascular accident) Code(s): I63.9 - Cerebral infarction, unspecified Status: Acute - Plan 66-year-old man with Stroke alert called, nurse already spoke with Dr. Prieto from neurology, ordering stat head CT which is negative for any acute bleeds. MRI is pending. Per patient's request, daughter has been updated. Will be transferred to [facility]. Left acute cerebellar CVA Continue treatment per stroke protocol Coumadin 7.5 mg at 1600 daily, continue with aspirin and subcu heparin however discontinue for INR>1.9 per neurology Continue with permissive hypertension Continue treatment with statin PT/OT/speech therapy for treatment Echo unremarkable Neck CTA demonstrates occluded left vertebral artery of unknown chronicity. otherwise neg on telemetry Vit b12 def b12 daily shot, can be transitioned to po upon discharge DVT prophylaxis: Coumadin
[2017-09-20] MEDS: Sod Chloride 0.9% Inj 1,000 ML IV.CONT SCH ×3 (11:42→17:04)
[2017-09-20 12:28] LABS: Anti-Nuclear Antibody Screen Neg (Neg)
--- NOTE | 2017-09-20 13:17 | P.CONCC ---
History of Present Illness Service: Critical Care Consult date: 09/20/17 Requesting Physician: Geo Landry Reason for Consult: Worsening stroke symptoms Primary Care Provider: UNKNOWN Chief Complaint: Worsening stroke History of Present Illness: Patient is a 66-year-old male who was admitted to the hospital on 09/17/2017 for acute left cerebellar stroke secondary to acute left vertebral artery occlusion. Patient was seen by Dr. Prieto. Patient had denied any previous medical problems. He had been placed on aspirin, subcu heparin and Coumadin had been started. INR 1.[address] Prieto saw the patient today he had 5 out of 5 power all 4 extremities. A Stroke alert was called later this morning as the patient developed left-sided weakness nausea and vomiting. He also had a right-sided gaze, and worsening aphasia. An MRI done in the a.m. today showed worsening left cerebellar stroke. I evaluated the patient in the ICU. He has expressive aphasia, follows commands on the right side. He has right-sided gaze unable to look to the left side, his left upper extremity is flaccid, 3 out of 5 power on the left lower extremity. These findings were new. I reviewed the MRI with Dr. 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 Start patient on IV heparin ischemic stroke protocol. Continue Coumadin Review of Systems unobtainable due to mental condition PMFSH - History History Provided By: Patient - Medical History Medical History: Medical History (Last Reviewed 09/20/17 @ 13:55 by Osmel Kidd MD) Patient denies medical problems - Surgical History Surgical History: Surgical History (Last Reviewed 09/20/17 @ 13:55 by Osmel Kidd MD) No history of previous surgery - Family History Family History: Family History (Last Reviewed 09/20/17 @ 13:55 by Osmel Kidd MD) Other Family history of stroke - Tobacco History Second Hand Smoke Exposure: No Tobacco Use In Past 30 Days: No Smoking Status: Former smoker Tobacco Type: Cigarettes - Alcohol History How Often Do You Have a Drink Containing Alcohol: Never - Substance Use History Substance History: No History of Abuse - Travel History Recent Travel in the [place] Within the Last 8 Weeks: No Recent Travel Out of the Country Within the Last 8 Weeks: No - Immunization History Tetanus Immunization: Unsure Hx Influenza Vaccine This Season: No Medications and Allergies Active Medications: Active Medications Acetaminophen (Tylenol) 650 mg PO Q4H PRN PRN Reason: Temp > 100.4 Al Hydroxide/Mg Hydroxide (Milk Of Magnesia Liq) 30 ml PO Q12H PRN PRN Reason: Mild Constipation Aspirin (Aspirin) 325 mg PO DAILY [facility] Last Admin: 09/20/17 10:30 Dose: Not Given Atorvastatin Calcium (Lipitor) 40 mg PO HS [facility] Last Admin: 09/19/17 21:29 Dose: 40 mg Bisacodyl (Dulcolax Supp) 10 mg RECTAL DAILY PRN PRN Reason: SEVERE CONSITIPATION Cyanocobalamin (Vitamin B12 Inj) 1,000 mcg SQ DAILY [facility] Last Admin: 09/20/17 10:30 Dose: Not Given Dextrose (D50w Vial) 50 ml IV.PUSH UNSCH PRN PRN Reason: PER HYPOGLYCEMIA PROTOCOL Enalaprilat (Vasotec Inj) 1.25 mg IV.PUSH Q4H PRN PRN Reason: For SBP > 220 or DBP > 120 Glucagon (Glucagon Inj) 1 mg OTHER UNSCH PRN PRN Reason: for Hypoglycemia Protocol Pharmacy Profile Note (Coumadin Consult Pharmacy) 0 mls @ 0 mls/hr OTHER UNSCH [facility] Sodium Chloride (Ns Inj) 1,000 mls @ 84 mls/hr IV.CONT .[id number] [facility] Last Admin: 09/20/17 12:24 Dose: Not Given Insulin Aspart (Novolog Insulin Correctional Sugar Inj) 0 unit SQ ACHS [facility]; Protocol Last Admin: 09/20/17 08:00 Dose: Not Given Lactulose (Lactulose Liq) 30 ml PO DAILY PRN PRN Reason: SEVERE CONSITIPATION Multivitamins (Theragran) 1 tab PO DAILY [facility] Last Admin: 09/20/17 10:30 Dose: Not Given Ondansetron HCl (Zofran Odt) 4 mg PO Q6H PRN PRN Reason: NAUSEA OR VOMITING Senna/Docusate Sodium (Paty-Colace) 1 tab PO BID [facility] Last Admin: 09/20/17 10:30 Dose: Not Given Sennosides (Senokot) 17.2 mg PO Q12H PRN PRN Reason: Moderate Constipation Sodium Chloride (Ns Flush) 2 ml IV.FLUSH BID [facility] Last Admin: 09/20/17 10:30 Dose: Not Given Sodium Chloride (Ns Flush) 2 ml IV.FLUSH PRN PRN PRN Reason: FLUSH AFTER USING IV ACCESS Warfarin Sodium (Coumadin) 7.5 mg PO DAILY@1600 [facility] Last Admin: 09/19/17 15:37 Dose: 7.5 mg Allergies Allergy/AdvReac Type Severity Reaction Status Date / Time No Known Allergies Allergy Verified 09/17/17 18:35 Home Medications Medication Instructions Recorded Confirmed Type No Known Home Medications 09/17/17 09/17/17 History Physical Exam Vital signs: Vital Signs 09/19/17 16:00 09/19/17 19:57 09/19/17 20:00 Temperature 97.7 F 97.7 F Pulse Rate 59 L 62 Respiratory Rate 17 18 Blood Pressure 118/69 123/74 Pulse Oximetry 97 97 96 09/20/17 00:00 09/20/17 01:30 09/20/17 05:09 Temperature 98.1 F 97.4 F L Pulse Rate 80 63 Respiratory Rate 18 15 18 Blood Pressure 133/72 133/83 Pulse Oximetry 97 96 09/20/17 05:30 09/20/17 08:00 09/20/17 09:15 Temperature 97.5 F L Pulse Rate 68 Respiratory Rate 16 18 Blood Pressure 127/79 Pulse Oximetry 94 L 96 09/20/17 11:54 09/20/17 12:00 Temperature Pulse Rate 60 Respiratory Rate Blood Pressure Pulse Oximetry 99 Intake & Output 09/19/17 09/20/17 09/20/17 18:59 06:59 18:59 Intake Total 300 / 300 1480 / 1480 Balance 300 / 300 1480 / 1480 Weight 84.4 kg Intake: IV 1000 / 1000 NS Inj 1,000 ML @ 84 mls/hr IV. 1000 / 1000 CONT .[id number] [facility] Rx#:[id number] Oral 480 / 480 Tube Feeding 300 / 300 Other: # Voids 3 2 Date of Last Bowel Movement 09/18/17 09/18/17 # Bowel Movements 0 Narrative: GEN: 66-year-old male lying in bed, moderate distress prominent expressive aphasia HEENT: PERRL. Left gaze palsy with, left horizontal nystagmus. Left facial droop CARDIOVASCULAR: Regular rate and rhythm. No obvious murmurs to auscultation. RESPIRATORY: No obvious rhonchi or wheezing. Clear to auscultation. Breath sounds equal bilaterally. GASTROINTESTINAL: Abdomen soft, non-tender, nondistended. BS normal. MUSCULOSKELETAL: Extremities without clubbing, cyanosis, or edema. NEURO: Right-sided gaze, pupils are minimally reactive, patient has left gaze palsy. Positive expressive aphasia. Attempt to look to the left elicits horizontal nystagmus. Positive left facial droop. Has 3/5 proximal left upper and lower extremity strength, 5 out of 5 on the right side. 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 Patient is agreeable to anticoagulation -Target systolic blood pressure 180-200 -Keep head of the blood flat -Continue pravastatin RESP: -DuoNeb every 2 hours as needed -Aggressive pulmonary toilet -Watch closely for airway protection CV: -Normal saline IV fluids 84 ml per hour -Keep systolic blood pressure 180-200 -IV enalapril to treat SBP more than 200 diastolic more than 110 -2d echo essentially normal GI: -N.p.o., IV famotidine -Speech therapy for aphasia and swallow eval : -Monitor renal function closely. Mcbride catheter if needed. ID: -Monitor closely for infection HEME: -Monitor CBC, coags -IV heparin per ischemic stroke protocol -Continue vitamin B12 replacements ENDO: -Electrolyte replacement per protocol -Sliding scale insulin PROPH: -Bilateral lower extremity SCDs. IV Heparin/famotidine LINES: -Utilize peripheral IVs, central line if needed CC time 55 min Code Status: Full Discussed Condition With: Dr. Prieto neurology Dr. Landry hospitalist Dr. Barton radiology Also updated patient and patient's daughter Teri Samuels
[2017-09-20] MEDS ORDERED: Heparin Drip 25,000 UNIT/250 ML BAG IV.CONT PRN (13:19)
[2017-09-20] MEDS ORDERED: Potassium Chlor 40 mEq Premix 40 MEQ/100 ML PIGGYBACK IV.SIG PRN ×2 (14:07)
[2017-09-20] MEDS ORDERED: Sodium Phosphate Inj 30 MMOL in Sodium Chlor 0.9% Inj 250 ML IV.SIG PRN (14:07)
[2017-09-20] MEDS ORDERED: Potassium Phosphate Inj 30 MMOL in Sodium Chlor 0.9% Inj 250 ML IV.SIG PRN (14:07)
[2017-09-20] MEDS ORDERED: Potassium Chlor 20 mEq Premix 20 MEQ/100 ML PIGGYBACK IV.SIG PRN ×2 (14:07)
[2017-09-20] MEDS ORDERED: Potassium Phosphate 500 MG Soluble Tablet PO PRN ×2 (14:07)
[2017-09-20] MEDS ORDERED: Potassium Chloride 25 MEQ Effervescent Tablet PO PRN (14:07)
[2017-09-20] MEDS ORDERED: Magnesium Sulfate Inj 2 GM in Sodium Chlor 0.9% Inj 96 ML IV.SIG PRN (14:07)
[2017-09-20] MEDS ORDERED: Magnesium Sulfate Inj 4 GM in Sodium Chlor 0.9% Inj 92 ML IV.SIG PRN (14:07)
[2017-09-20] MEDS ORDERED: Magnesium Oxide 400 MG Tablet PO PRN (14:07)
[2017-09-20 14:58] LABS: Alanine Aminotransferase 26 U/L (12-78); Albumin 3.6 g/dL (3.4-5.0); Alkaline Phosphatase 100 U/L (45-117); Anion Gap 8 meq/L (5-15); Aspartate Aminotransferase 22 U/L (15-37); Blood Urea Nitrogen 15 mg/dL (7-18); Calcium 8.9 mg/dL (8.5-10.1); Carbon Dioxide 27.2 meq/L (21.0-32.0); Chloride 107 meq/L (98-107); Glomerular Filtration Rate 85 mL/min (>89); Glucose,Random 110 mg/dL (74-106); Potassium 4.2 meq/L (3.5-5.1); Sodium 142 meq/L (136-145); Total Protein 7.1 g/dL (6.4-8.2)
[2017-09-20] MEDS ORDERED: Gadobutrol PF 10 MMOL/10 ML Vial (for RAD) IV.SIG ONE (15:30)
--- NOTE | 2017-09-20 15:39 | P.PNNEU ---
Subjective Subjective Comments: late this am sudden worse mri shows new left pica cva and transfer to icu iv heparin started Active Medications: Active Medications Acetaminophen (Tylenol) 650 mg PO Q4H PRN PRN Reason: Temp > 100.4 Al Hydroxide/Mg Hydroxide (Milk Of Kandice Liq) 30 ml PO Q12H PRN PRN Reason: Mild Constipation Albuterol (Duoneb Neb (Prn)) 1 ampul NEB Q2HR NEB PRN PRN Reason: SHORTNESS OF BREATH Aspirin (Aspirin) 325 mg PO DAILY [facility] Last Admin: 09/20/17 10:30 Dose: Not Given Atorvastatin Calcium (Lipitor) 40 mg PO HS [facility] Last Admin: 09/19/17 21:29 Dose: 40 mg Bisacodyl (Dulcolax Supp) 10 mg RECTAL DAILY PRN PRN Reason: SEVERE CONSITIPATION Cyanocobalamin (Vitamin B12 Inj) 1,000 mcg SQ DAILY [facility] Last Admin: 09/20/17 10:30 Dose: Not Given Dextrose (D50w Vial) 50 ml IV.PUSH UNSCH PRN PRN Reason: PER HYPOGLYCEMIA PROTOCOL Enalaprilat (Vasotec Inj) 1.25 mg IV.PUSH Q4H PRN PRN Reason: For SBP > 220 or DBP > 120 Famotidine (Pepcid Pf Inj) 20 mg IV.PUSH Q12HR [facility] Glucagon (Glucagon Inj) 1 mg OTHER UNSCH PRN PRN Reason: for Hypoglycemia Protocol Pharmacy Profile Note (Coumadin Consult Pharmacy) 0 mls @ 0 mls/hr OTHER UNSCH [facility] Sodium Chloride (Ns Inj) 1,000 mls @ 84 mls/hr IV.CONT .[id number] [facility] Last Admin: 09/20/17 12:24 Dose: Not Given Heparin Sodium/Dextrose (Heparin/D5w 25,000 U/250 Ml) 25,000 unit in 250 mls @ 10 mls/hr IV.CONT TITRATE PRN; Protocol PRN Reason: Per Protocol Last Admin: 09/20/17 13:45 Dose: 1,200 units/hr, 12 mls/hr Magnesium Sulfate Inj 4 gm/ (Sodium Chloride) 100 mls @ 50 mls/hr IV.SIG UNSCH PRN PRN Reason: For Magnesium 0.9 - 1.1 mg/dL Magnesium Sulfate Inj 2 gm/ (Sodium Chloride) 100 mls @ 50 mls/hr IV.SIG UNSCH PRN PRN Reason: For Magnesium 1.2 - 1.6 mg/dL Potassium Chloride (Kcl 40 Meq Premix Inj) 40 meq in 100 mls @ 50 mls/hr IV.SIG Q2H PRN PRN Reason: For Potassium 2.8 - 3.2 mEq/L Potassium Chloride (Kcl 20 Meq Premix Inj) 20 meq in 100 mls @ 50 mls/hr IV.SIG Q2H PRN PRN Reason: For Potassium 3.3 - 3.5 mEq/L Potassium Chloride (Kcl 40 Meq Premix Inj) 40 meq in 100 mls @ 25 mls/hr IV.SIG UNSCH PRN PRN Reason: For Potassium 3.3 - 3.5 mEq/L Potassium Phosphate 30 mmol/ (Sodium Chloride) 260 mls @ 42 mls/hr IV.SIG UNSCH PRN PRN Reason: SEE LABEL COMMENTS Sodium Phosphate 30 mmol/ (Sodium Chloride) 260 mls @ 42 mls/hr IV.SIG UNSCH PRN PRN Reason: For Phosphorus < 2.5 mg/dL Potassium Chloride (Kcl 20 Meq Premix Inj) 20 meq in 100 mls @ 50 mls/hr IV.SIG Q2H PRN PRN Reason: For Potassium 2.8 - 3.2 mEq/L Insulin Aspart (Novolog Insulin Correctional Sugar Inj) 0 unit SQ ACHS [facility]; Protocol Last Admin: 09/20/17 13:19 Dose: Not Given Lactulose (Lactulose Liq) 30 ml PO DAILY PRN PRN Reason: SEVERE CONSITIPATION Magnesium Oxide (Mag-Ox) 800 mg PO UNSCH PRN PRN Reason: For Magnesium 1.2 - 1.6 mg/dL Multivitamins (Theragran) 1 tab PO DAILY [facility] Last Admin: 09/20/17 10:30 Dose: Not Given Ondansetron HCl (Zofran Odt) 4 mg PO Q6H PRN PRN Reason: NAUSEA OR VOMITING Potassium Bicarb/Potassium Chloride (K-Lyte Cl Eff) 50 meq PO UNSCH PRN PRN Reason: For Potassium 3.3 - 3.5 mEq/L Potassium Phosphate (K-Phos Original) 2,000 mg PO Q4H PRN PRN Reason: Phosphorus Less Than 2.5 mg/dL Potassium Phosphate (K-Phos Original) 2,000 mg PO UNSCH PRN PRN Reason: SEE LABEL COMMENTS Senna/Docusate Sodium (Paty-Colace) 1 tab PO BID [facility] Last Admin: 09/20/17 10:30 Dose: Not Given Sennosides (Senokot) 17.2 mg PO Q12H PRN PRN Reason: Moderate Constipation Sodium Chloride (Ns Flush) 2 ml IV.FLUSH BID [facility] Last Admin: 09/20/17 10:30 Dose: Not Given Sodium Chloride (Ns Flush) 2 ml IV.FLUSH PRN PRN PRN Reason: FLUSH AFTER USING IV ACCESS Warfarin Sodium (Coumadin) 7.5 mg PO DAILY@1600 [facility] Last Admin: 09/19/17 15:37 Dose: 7.5 mg Allergies/Adverse Reactions: Allergies Allergy/AdvReac Type Severity Reaction Status Date / Time No Known Allergies Allergy Verified 09/17/17 18:35 Physical Exam Vital signs: Vital Signs 09/19/17 16:00 09/19/17 19:57 09/19/17 20:00 Temperature 97.7 F 97.7 F Pulse Rate 59 L 62 Respiratory Rate 17 18 Blood Pressure 118/69 123/74 Pulse Oximetry 97 97 96 09/20/17 00:00 09/20/17 01:30 09/20/17 05:09 Temperature 98.1 F 97.4 F L Pulse Rate 80 63 Respiratory Rate 18 15 18 Blood Pressure 133/72 133/83 Pulse Oximetry 97 96 09/20/17 05:30 09/20/17 08:00 09/20/17 09:15 Temperature 97.5 F L Pulse Rate 68 Respiratory Rate 16 18 Blood Pressure 127/79 Pulse Oximetry 94 L 96 09/20/17 11:54 09/20/17 12:00 09/20/17 14:00 Temperature 96.7 F L Pulse Rate 65 70 Respiratory Rate 14 Blood Pressure 148/70 H Pulse Oximetry 99 98 Intake & Output 09/19/17 09/20/17 09/20/17 18:59 06:59 18:59 Intake Total 300 / 300 1480 / 1480 Balance 300 / 300 1480 / 1480 Weight 84.4 kg Intake: IV 1000 / 1000 NS Inj 1,000 ML @ 84 mls/hr IV. 1000 / 1000 CONT .[id number] [facility] Rx#:[id number] Oral 480 / 480 Tube Feeding 300 / 300 Other: # Voids 3 2 Date of Last Bowel Movement 09/18/17 09/18/17 # Bowel Movements 0 Narrative: awke alert looks like lhh nystagmus 5/5 lue and lle Objective Laboratory Results - last 24 hr 09/17/17 09/19/17 09/19/17 19:55 16:03 21:43 WBC RBC Hgb Hct MCV MCH MCHC RDW Plt Count MPV Neut % (Auto) Lymph % (Auto) Glynn % (Auto) Eos % (Auto) Baso % (Auto) Neut # (Auto) Lymph # (Auto) Glynn # (Auto) Eos # (Auto) Baso # (Auto) WBC Differential Differential Comment PT INR APTT Fibrinogen Sodium Potassium Chloride Carbon Dioxide Anion Gap BUN Creatinine Estimated GFR POC Glucose 101 115 H Random Glucose Calcium Total Bilirubin AST ALT Alkaline Phosphatase Total Creatine Kinase Troponin I Total Protein Albumin JHON Screen Neg RPR Nonreactive 09/20/17 09/20/17 09/20/17 06:27 10:14 10:20 WBC 10.8 RBC 4.97 Hgb 15.1 Hct 44.0 MCV 88.4 MCH 30.3 MCHC 34.2 RDW 14.6 Plt Count 336 D MPV 6.9 L Neut % (Auto) 47.5 Lymph % (Auto) 41.8 Glynn % (Auto) 8.5 H Eos % (Auto) 1.6 Baso % (Auto) 0.6 Neut # (Auto) 5.1 Lymph # (Auto) 4.5 Glynn # (Auto) 0.9 Eos # (Auto) 0.2 Baso # (Auto) 0.1 WBC Differential . Differential Comment Auto diff final PT 14.7 H INR 1.5 APTT Fibrinogen Sodium Potassium Chloride Carbon Dioxide Anion Gap BUN Creatinine Estimated GFR POC Glucose 119 H Random Glucose Calcium Total Bilirubin AST ALT Alkaline Phosphatase Total Creatine Kinase Troponin I Total Protein Albumin JHON Screen RPR 09/20/17 09/20/17 09/20/17 10:20 10:20 13:09 WBC RBC Hgb Hct MCV MCH MCHC RDW Plt Count MPV Neut % (Auto) Lymph % (Auto) Glynn % (Auto) Eos % (Auto) Baso % (Auto) Neut # (Auto) Lymph # (Auto) Glynn # (Auto) Eos # (Auto) Baso # (Auto) WBC Differential Differential Comment PT 15.4 H INR 1.5 APTT 26.8 Fibrinogen 392 H Sodium Potassium Chloride Carbon Dioxide Anion Gap BUN Creatinine Estimated GFR POC Glucose 103 Random Glucose Calcium Total Bilirubin AST ALT Alkaline Phosphatase Total Creatine Kinase 66 Troponin I Less than 0.02 L Total Protein Albumin JHON Screen RPR 09/20/17 13:37 WBC RBC Hgb Hct MCV MCH MCHC RDW Plt Count MPV Neut % (Auto) Lymph % (Auto) Glynn % (Auto) Eos % (Auto) Baso % (Auto) Neut # (Auto) Lymph # (Auto) Glynn # (Auto) Eos # (Auto) Baso # (Auto) WBC Differential Differential Comment PT INR APTT Fibrinogen Sodium 142 Potassium 4.2 Chloride 107 Carbon Dioxide 27.2 Anion Gap 8 BUN 15 Creatinine 0.90 Estimated GFR 85 L POC Glucose Random Glucose 110 H Calcium 8.9 Total Bilirubin 0.8 AST 22 ALT 26 Alkaline Phosphatase 100 Total Creatine Kinase Troponin I Total Protein 7.1 D Albumin 3.6 JHON Screen RPR Review/Management - Review/Management Plan: imp left vert acute occlusion most antunezcrista needs coumadin started tonight and coumadin for 2 months to prevent stump embolism sq hep and asa can be dced when inr>1.9 med team plz set all this up thank u med team plz start b12 shot ldl 126 on statin ivh keep bp up looking well echo and holter pend sr so far on statin inr pend he can dc when inr>1.9 keft vert occlusion keep ivf on 09/20/17 doing well echo nl sr inr 1.5 ok to dc when inr >1.9 will need residents clinic o/p inr draws daily this week and someone to follow it reliably will need repeat mra neck in 2 months [place] [facility] [place] and fu with me after that in office so i can review it med team plz set all this up thank you ----- 09/20/17 mraprelim no clot in basilar 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
--- NOTE | 2017-09-20 15:45 | MR ---
EXAM DATE: 09/20/2017 3:36 PM EDT AGE/SEX: 66 years / Male INDICATIONS: Stroke. Left sided weakness. CLINICAL DATA: This is the patient's initial encounter. Patient reports that signs and symptoms have been present for 2 days and indicates a pain score of 0/10. MEDICAL/SURGICAL HISTORY: None. None. [place] [facility] [place]. . TECHNIQUE: MR cerebral venography is performed without contrast. Source images, 3D volume MIP, and s liding thin slab MIP reconstructions were reviewed. FINDINGS: MRV shows some narrowing of the dural sinuses in the region of the torcula. However, this may be dickson omic. Dural sinuses are otherwise patent. CONCLUSION: 1. Narrowing of the dural sinuses at the confluence of the torcula. This is probably anatomic, howev er. No obvious thrombosis identified on the previous MRI. 2. Dural sinuses are otherwise widely patent. Electronically signed by: Shola Barton MD 09/20/2017 3:44 PM EDT
--- NOTE | 2017-09-20 16:22 | MR ---
EXAM DATE: 09/20/2017 4:11 PM EDT AGE/SEX: 66 years / Male INDICATIONS: Stroke. CLINICAL DATA: This is the patient's initial encounter. Patient reports that signs and symptoms have been present for 1 day and indicates a pain score of 0/10. MEDICAL/SURGICAL HISTORY: None. None. COMPARISON: [facility] – [place]ECK W CONTRAST, 09/17/2017. . TECHNIQUE: 10 ml Gadavist (gadobutrol) contrast infused MRA (single exam dose) of the extracranial circulation was performed using a neurovascular coil. Postprocessing was performed, including rotati ng sub-volume maximum intensity projections of each carotid artery, rotating full-volume maximum inte nsity projections of both carotid arteries, sagittal and coronal sliding thin-slab reformations of ea ch carotid artery, and left oblique sliding thin-slab reformation through the aortic arch to include the origin of the arch branch vessels. FINDINGS: Aortic Arch : There is a three-vessel origin of the great vessels from the aorta. No evidence of o stial narrowing. Right Carotid : The common carotid artery is intact. The carotid bulb has a normal configuration wi thout ulceration or narrowing. The internal carotid artery lumen is smooth without stenosis. The ex ternal carotid artery is intact. Left Carotid : The common carotid artery is intact. The carotid bulb has a normal configuration wit hout ulceration or narrowing. The internal carotid artery lumen is smooth without stenosis. The ext ernal carotid artery is intact. Vertebrals : Patient is right vertebral dominant. Left vertebral is diffusely diminutive with possib ly a high-grade stenosis or near occlusion at the origin. Remaining portions of the vessel are patent up to the basilar. CONCLUSION: 1. Arch vessels and both carotids are widely patent throughout. 2. Patient is right vertebral dominant. Right vertebral artery is patent throughout. 3. The origin of the left vertebral is not well seen and there may be a high-grade stenosis or near occlusion in this location. Remaining portions of the left vertebral artery are diminutive but patent . CTA of the cervical vessels could be performed for further characterization if clinically warranted . Percent stenosis is calculated using the diameter of the stenotic region over the diameter of the nor mal distal internal carotid artery Electronically signed by: Shola Barton MD 09/20/2017 4:20 PM [facility]
--- NOTE | 2017-09-20 16:23 | MR ---
EXAM DATE: 09/20/2017 4:16 PM EDT AGE/SEX: 66 years / Male INDICATIONS: CVA. Left sided numbness. CLINICAL DATA: This is the patient's initial encounter. Patient reports that signs and symptoms have been present for 2 days and indicates a pain score of 0/10. MEDICAL/SURGICAL HISTORY: None. None. COMPARISON: [facility] – [place], MRV HEAD W/O CONTRAST, 09/20/2017. . TECHNIQUE: 3D [id number] MRA was performed. Source images, multiplanar STS MIP, and 3D volum e MIP reconstructions were reviewed. FINDINGS: There is excellent visualization of the major intracranial arteries out to the second-order branch ve ssels. The right posterior cerebral artery occludes at the junction of the P1 and P2 segments. Intrac ranial vessels are otherwise patent CONCLUSION: 1. Occlusion of the right posterior cerebral artery at the junction of the P1 and P2 segments. 2. Intracranial vessels are otherwise patent. Electronically signed by: Shola Barton MD 09/20/2017 4:22 PM EDT
--- NOTE | 2017-09-20 16:54 | HM ---
Date Performed: 09/18/2017 Time Performed: 11:17:00 HOOKUP DATE: 09/18/17 11:17:00 AM Sat ANALYSIS START TIME: 09/18/2017 11:22:00 AM ANALYSIS END TIME: 09/19/2017 10:39:48 AM PATIENT AGE: 66 PATIENT HEIGHT: 69 PATIENT WEIGHT: 186 DRUG LIST: ROOM 1619 PATIENT DIAGNOSIS: STROKE ALERT TEST NARRATIVE: The patient's average heart rate was 69 BPM. No episodes of tachycardia wer e noted. No episodes of bradycardia were noted. No pauses exceeding 2.0 seconds were noted. 2 ventricular ectopics, which represented < 1% of the total beat count, were noted. The highest vent ricular ectopic frequency occurred from 12:00 AM to 01:00 AM Sun. During this time 1 VE(s) occurred. Ventricular ectopics were observed as 2 isolated beat(s) only. No couplets or runs were noted. 38 supraventricular ectopics, which represented < 1% of the total beat count, were noted. The highe st supraventricular ectopic frequency occurred from 12:00 AM to 01:00 AM Sun. During this time 5 SVE (s) occurred. No episodes of ST depression (defined as -1.0 mm or more) were noted in channel 1. No episodes of ST depression (defined as -1.0 mm or more) were noted in channel 2. No episodes of S T depression (defined as -1.0 mm or more) were noted in channel 3. NO DIARY WAS GIVEN TO PATIENT TEST INTERPRETATION: Minimum heart rate 51, maximum 102, average 69. Underlying rhythm is normal sinus. occasional PVC's, occasional PAC's, no atrial fibrillation seen. Signed by : Yanet Patel
[2017-09-20 18:43] LABS: Activated Partial Thrombo Time 43.6 sec (24.3-30.1); INR 1.8 Ratio; Prothrombin Time 18.1 sec (9.8-11.6)
[2017-09-20] MEDS: Famotidine PF Inj 20 MG/2 ML Vial IV.PUSH SCH (20:24)
[2017-09-21] MEDS: Sod Chloride 0.9% Inj 1,000 ML IV.CONT SCH ×2 (01:00→11:12)
[2017-09-21 04:23] LABS: Hematocrit 41.8 % (39.0-51.0); Hemoglobin 14.1 gm/dL (13.0-17.0); Mean Corpuscular HGB Conc 33.7 % (32.0-36.0); Mean Corpuscular Hemoglobin 30.1 pg (27.0-34.0); Mean Corpuscular Volume 89.3 fL (80.0-100.0); Mean Platelet Volume 7.4 fL (7.0-11.0); Platelet Count 293 th/mm3 (150-450); Red Blood Count 4.68 mil/mm3 (4.50-5.90); Red Cell Distribution Width 14.3 % (11.6-17.2); White Blood Count 9.7 th/mm3 (4.0-11.0)
[2017-09-21 04:47] LABS: Activated Partial Thrombo Time 79.5 sec (24.3-30.1); INR 2.2 Ratio; Prothrombin Time 22.3 sec (9.8-11.6)
--- NOTE | 2017-09-21 06:10 | ECG ---
Date Performed: 09/20/2017 Time Performed: 10:15:52 PTAGE: 66 years EKG: Sinus rhythm MARKED LEFT AXIS DEVIATION MODERATE INTRAVENTRICULAR CONDUCTION DELAY ABNORMAL ECG Compared to prior electrocardiogram, rate has increased PREVIOUS TRACING : 09/17/2017 18.24 DOCTOR: Elan Lopez Interpretating Date/Time 09/21/2017 06:10:00
--- NOTE | 2017-09-21 06:59 | P.PNCC ---
Subjective Subjective Remarks/Hospital Course: Patient is a 66-year-old male who was admitted to the hospital on 09/17/2017 for acute left cerebellar stroke secondary to acute left vertebral artery occlusion. Patient was seen by Dr. Prieto. Patient had denied any previous medical problems. He had been placed on aspirin, subcu heparin and Coumadin had been started. INR 1.[address] Prieto saw the patient today he had 5 out of 5 power all 4 extremities. A Stroke alert was called later this morning as the patient developed left-sided weakness nausea and vomiting. He also had a right-sided gaze, and worsening aphasia. An MRI done in the a.m. today showed worsening left cerebellar stroke. I evaluated the patient in the ICU. He has expressive aphasia, follows commands on the right side. He has right-sided gaze unable to look to the left side, his left upper extremity is flaccid, 3 out of 5 power on the left lower extremity. These findings were new. I reviewed the MRI with Dr. 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 Start patient on IV heparin ischemic stroke protocol. Continue Coumadin SUBJ 09/21/17: INR up to goal, 2.2 IV Heparin DCd. Left side strength 4 out of 5. Aphasia improving. Left gaze palsy persist Objective Vital Signs / I&O: Vital Signs 09/20/17 08:00 09/20/17 09:15 09/20/17 11:54 Temperature 97.5 F L Pulse Rate 68 Respiratory Rate 18 Blood Pressure 127/79 Pulse Oximetry 94 L 96 99 09/20/17 12:00 09/20/17 14:00 09/20/17 16:00 Temperature 96.7 F L 98.0 F Pulse Rate 65 70 74 Respiratory Rate 14 11 L Blood Pressure 148/70 H 148/84 H Pulse Oximetry 98 96 09/20/17 18:00 09/20/17 19:47 09/20/17 20:00 Temperature 97.9 F Pulse Rate 88 85 Respiratory Rate 13 Blood Pressure 136/68 Pulse Oximetry 96 97 09/20/17 22:00 09/21/17 00:00 09/21/17 02:00 Temperature 98.2 F Pulse Rate 80 87 81 Respiratory Rate 15 Blood Pressure 149/79 H Pulse Oximetry 97 09/21/17 04:00 09/21/17 06:00 Temperature 98.2 F Pulse Rate 59 L 67 Respiratory Rate 20 Blood Pressure 162/86 H Pulse Oximetry 98 Intake & Output 09/20/17 09/20/17 09/21/17 06:59 18:59 06:59 Intake Total 1480 / 1480 1000 / 1000 1750 / 1750 Output Total 650 / 650 600 / 600 Balance 1480 / 1480 350 / 350 1150 / 1150 Weight 84.4 kg 83.3 kg Intake: IV 1000 / 1000 1000 / 1000 1710 / 1710 Heparin/D5W 25,000 U/250 mL 25, 150 / 150 000 unit In 250 ml @ Per Protocol 10 mls/hr IV.CONT TITRATE PRN Rx#:[id number] NS Inj 1,000 ML @ 100 mls/hr IV 1000 / 1000 1000 / 1000 1560 / 1560 .CONT .Q10H [facility] Rx#:[id number] Oral 480 / 480 Tube Irrigant 40 / 40 Output: Urine Amount (Catheter) 650 / 650 600 / 600 Indwelling Urethral Catheter 650 / 650 600 / 600 Other: # Voids 2 Date of Last Bowel Movement 09/18/17 09/18/17 # Bowel Movements 0 Result Diagrams: 09/21/17 03:26 09/20/17 13:37 Objective Remarks: GEN: 66-year-old male lying in bed, no distress prominent expressive aphasia improving HEENT: PERRL. Left gaze palsy no horizontal nystagmus today. Left facial droop CARDIOVASCULAR: Regular rate and rhythm. No obvious murmurs to auscultation. RESPIRATORY: No obvious rhonchi or wheezing. Clear to auscultation. Breath sounds equal bilaterally. GASTROINTESTINAL: Abdomen soft, non-tender, nondistended. BS normal. MUSCULOSKELETAL: Extremities without clubbing, cyanosis, or edema. NEURO: Pupils are minimally reactive, patient has left gaze palsy. Improving expressive aphasia. Positive left facial droop. Has 4/5 left upper and lower extremity strength, 5 out of 5 on the right side. 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 Clark has discontinued aspirin 09/20/17 -There is increased risk of bleeding and hemorrhagic conversion because of the extensive left cerebellar stroke however patient is at risk of further ischemic strokes, which may itself have life-threatening consequences. Patient is agreeable to anticoagulation -Target systolic blood pressure 180-200 -Keep head of the blood flat per Dr. Prieto request -Continue pravastatin RESP: -DuoNeb every 2 hours as needed -Aggressive pulmonary toilet -Watch closely for airway protection CV: -Normal saline IV fluids 50 ml per hour -Keep systolic blood pressure 180-200 -IV enalapril to treat SBP more than 200 diastolic more than 110 -2d echo essentially normal GI: -N.p.o., IV famotidine. Continue NG tube -Speech therapy for aphasia and swallow eval : -Monitor renal function closely. Mcbride catheter if needed. ID: -Monitor closely for infection HEME: -Monitor CBC, coags. INR 2.2 Pharmacy is dosing coumadin -IV heparin discontinued, continue Coumadin and pharmacy to dose -Continue vitamin B12 replacements ENDO: -Electrolyte replacement per protocol -Sliding scale insulin PROPH: -Bilateral lower extremity SCDs. IV Heparin/famotidine LINES: -Utilize peripheral IVs, central line if needed Level 3 Continue ICU for another 24 hours. Consult [facility] to assume care 09/22/2017. Patient previously known to Dr. Landry consult placed for him Code Status: Full
--- NOTE | 2017-09-21 07:23 | P.PNNEU ---
Subjective Subjective Comments: sr Active Medications: Active Medications Acetaminophen (Tylenol) 650 mg PO Q4H PRN PRN Reason: Temp > 100.4 Al Hydroxide/Mg Hydroxide (Milk Of Magncrissy Liq) 30 ml PO Q12H PRN PRN Reason: Mild Constipation Albuterol (Duoneb Neb (Prn)) 1 ampul NEB Q2HR NEB PRN PRN Reason: SHORTNESS OF BREATH Atorvastatin Calcium (Lipitor) 40 mg PO HS [facility] Last Admin: 09/20/17 20:24 Dose: 40 mg Bisacodyl (Dulcolax Supp) 10 mg RECTAL DAILY PRN PRN Reason: SEVERE CONSITIPATION Cyanocobalamin (Vitamin B12 Inj) 1,000 mcg SQ DAILY [facility] Last Admin: 09/20/17 10:30 Dose: Not Given Dextrose (D50w Vial) 50 ml IV.PUSH UNSCH PRN PRN Reason: PER HYPOGLYCEMIA PROTOCOL Enalaprilat (Vasotec Inj) 1.25 mg IV.PUSH Q4H PRN PRN Reason: For SBP > 220 or DBP > 120 Famotidine (Pepcid Pf Inj) 20 mg IV.PUSH Q12HR [facility] Last Admin: 09/20/17 20:24 Dose: 20 mg Glucagon (Glucagon Inj) 1 mg OTHER UNSCH PRN PRN Reason: for Hypoglycemia Protocol Pharmacy Profile Note (Coumadin Consult Pharmacy) 0 mls @ 0 mls/hr OTHER UNSCH [facility] Magnesium Sulfate Inj 4 gm/ (Sodium Chloride) 100 mls @ 50 mls/hr IV.SIG UNSCH PRN PRN Reason: For Magnesium 0.9 - 1.1 mg/dL Magnesium Sulfate Inj 2 gm/ (Sodium Chloride) 100 mls @ 50 mls/hr IV.SIG UNSCH PRN PRN Reason: For Magnesium 1.2 - 1.6 mg/dL Potassium Chloride (Kcl 40 Meq Premix Inj) 40 meq in 100 mls @ 50 mls/hr IV.SIG Q2H PRN PRN Reason: For Potassium 2.8 - 3.2 mEq/L Potassium Chloride (Kcl 20 Meq Premix Inj) 20 meq in 100 mls @ 50 mls/hr IV.SIG Q2H PRN PRN Reason: For Potassium 3.3 - 3.5 mEq/L Potassium Chloride (Kcl 40 Meq Premix Inj) 40 meq in 100 mls @ 25 mls/hr IV.SIG UNSCH PRN PRN Reason: For Potassium 3.3 - 3.5 mEq/L Potassium Phosphate 30 mmol/ (Sodium Chloride) 260 mls @ 42 mls/hr IV.SIG UNSCH PRN PRN Reason: SEE LABEL COMMENTS Sodium Phosphate 30 mmol/ (Sodium Chloride) 260 mls @ 42 mls/hr IV.SIG UNSCH PRN PRN Reason: For Phosphorus < 2.5 mg/dL Potassium Chloride (Kcl 20 Meq Premix Inj) 20 meq in 100 mls @ 50 mls/hr IV.SIG Q2H PRN PRN Reason: For Potassium 2.8 - 3.2 mEq/L Sodium Chloride (Ns Inj) 1,000 mls @ 50 mls/hr IV.CONT .Q20H [facility] Last Infusion: 09/21/17 06:44 Dose: 100 mls/hr Insulin Aspart (Novolog Insulin Correctional Sugar Inj) 0 unit SQ ACHS [facility]; Protocol Last Admin: 09/20/17 20:33 Dose: Not Given Lactulose (Lactulose Liq) 30 ml PO DAILY PRN PRN Reason: SEVERE CONSITIPATION Magnesium Oxide (Mag-Ox) 800 mg PO UNSCH PRN PRN Reason: For Magnesium 1.2 - 1.6 mg/dL Multivitamins (Theragran) 1 tab PO DAILY [facility] Last Admin: 09/20/17 10:30 Dose: Not Given Ondansetron HCl (Zofran Odt) 4 mg PO Q6H PRN PRN Reason: NAUSEA OR VOMITING Potassium Bicarb/Potassium Chloride (K-Lyte Cl Eff) 50 meq PO UNSCH PRN PRN Reason: For Potassium 3.3 - 3.5 mEq/L Potassium Phosphate (K-Phos Original) 2,000 mg PO Q4H PRN PRN Reason: Phosphorus Less Than 2.5 mg/dL Potassium Phosphate (K-Phos Original) 2,000 mg PO UNSCH PRN PRN Reason: SEE LABEL COMMENTS Senna/Docusate Sodium (Paty-Colace) 1 tab PO BID [facility] Last Admin: 09/20/17 20:24 Dose: 1 tab Sennosides (Senokot) 17.2 mg PO Q12H PRN PRN Reason: Moderate Constipation Sodium Chloride (Ns Flush) 2 ml IV.FLUSH BID [facility] Last Admin: 09/20/17 20:24 Dose: 2 ml Sodium Chloride (Ns Flush) 2 ml IV.FLUSH PRN PRN PRN Reason: FLUSH AFTER USING IV ACCESS Warfarin Sodium (Coumadin) 7.5 mg PO DAILY@1600 [facility] Last Admin: 09/20/17 18:05 Dose: 7.5 mg Allergies/Adverse Reactions: Allergies Allergy/AdvReac Type Severity Reaction Status Date / Time No Known Allergies Allergy Verified 09/17/17 18:35 Physical Exam Vital signs: Vital Signs 09/20/17 08:00 09/20/17 09:15 09/20/17 11:54 Temperature 97.5 F L Pulse Rate 68 Respiratory Rate 18 Blood Pressure 127/79 Pulse Oximetry 94 L 96 99 09/20/17 12:00 09/20/17 14:00 09/20/17 16:00 Temperature 96.7 F L 98.0 F Pulse Rate 65 70 74 Respiratory Rate 14 11 L Blood Pressure 148/70 H 148/84 H Pulse Oximetry 98 96 09/20/17 18:00 09/20/17 19:47 09/20/17 20:00 Temperature 97.9 F Pulse Rate 88 85 Respiratory Rate 13 Blood Pressure 136/68 Pulse Oximetry 96 97 09/20/17 22:00 09/21/17 00:00 09/21/17 02:00 Temperature 98.2 F Pulse Rate 80 87 81 Respiratory Rate 15 Blood Pressure 149/79 H Pulse Oximetry 97 09/21/17 04:00 09/21/17 06:00 Temperature 98.2 F Pulse Rate 59 L 67 Respiratory Rate 20 Blood Pressure 162/86 H Pulse Oximetry 98 Intake & Output 09/20/17 09/21/17 09/21/17 18:59 06:59 18:59 Intake Total 1000 / 1000 1750 / 1750 5 / 5 Output Total 650 / 650 600 / 600 Balance 350 / 350 1150 / 1150 5 / 5 Weight 83.3 kg Intake: IV 1000 / 1000 1710 / 1710 5 / 5 Heparin/D5W 25,000 U/250 mL 25, 150 / 150 5 / 5 000 unit In 250 ml @ Per Protocol 10 mls/hr IV.CONT TITRATE PRN Rx#:[id number] NS Inj 1,000 ML @ 100 mls/hr IV 1000 / 1000 1560 / 1560 .CONT .Q10H [facility] Rx#:[id number] Tube Irrigant 40 / 40 Output: Urine Amount (Catheter) 650 / 650 600 / 600 Indwelling Urethral Catheter 650 / 650 600 / 600 Other: Date of Last Bowel Movement 09/18/17 Narrative: l hh 5/5 lue and lle some inc tone left ankle awake alert can see to right left visual neglect too - Urinary Catheter Management Indwelling Urethral Catheter Cath placed during this visit: yes Reason for continuing: Acute urinary retention Insertion date: 09/20/17 Insertion time: 18:04 Objective Laboratory Results - last 24 hr 09/17/17 09/20/17 09/20/17 19:55 10:14 10:20 WBC 10.8 RBC 4.97 Hgb 15.1 Hct 44.0 MCV 88.4 MCH 30.3 MCHC 34.2 RDW 14.6 Plt Count 336 D MPV 6.9 L Neut % (Auto) 47.5 Lymph % (Auto) 41.8 [place] % (Auto) 8.5 H Eos % (Auto) 1.6 Baso % (Auto) 0.6 Neut # (Auto) 5.1 Lymph # (Auto) 4.5 [place] # (Auto) 0.9 Eos # (Auto) 0.2 Baso # (Auto) 0.1 WBC Differential . Differential Comment Auto diff final PT INR APTT Fibrinogen Sodium Potassium Chloride Carbon Dioxide Anion Gap BUN Creatinine Estimated GFR POC Glucose 119 H Random Glucose Calcium Total Bilirubin AST ALT Alkaline Phosphatase Total Creatine Kinase Troponin I Total Protein Albumin JHON Screen Neg RPR Nonreactive 09/20/17 09/20/17 09/20/17 10:20 10:20 13:09 WBC RBC Hgb Hct MCV MCH MCHC RDW Plt Count MPV Neut % (Auto) Lymph % (Auto) [place] % (Auto) Eos % (Auto) Baso % (Auto) Neut # (Auto) Lymph # (Auto) [place] # (Auto) Eos # (Auto) Baso # (Auto) WBC Differential Differential Comment PT 15.4 H INR 1.5 APTT 26.8 Fibrinogen 392 H Sodium Potassium Chloride Carbon Dioxide Anion Gap BUN Creatinine Estimated GFR POC Glucose 103 Random Glucose Calcium Total Bilirubin AST ALT Alkaline Phosphatase Total Creatine Kinase 66 Troponin I Less than 0.02 L Total Protein Albumin JHON Screen RPR 09/20/17 09/20/17 09/20/17 13:37 17:17 17:55 WBC RBC Hgb Hct MCV MCH MCHC RDW Plt Count MPV Neut % (Auto) Lymph % (Auto) [place] % (Auto) Eos % (Auto) Baso % (Auto) Neut # (Auto) Lymph # (Auto) [place] # (Auto) Eos # (Auto) Baso # (Auto) WBC Differential Differential Comment PT 18.1 H INR 1.8 APTT 43.6 H D Fibrinogen Sodium 142 Potassium 4.2 Chloride 107 Carbon Dioxide 27.2 Anion Gap 8 BUN 15 Creatinine 0.90 Estimated GFR 85 L POC Glucose 111 H Random Glucose 110 H Calcium 8.9 Total Bilirubin 0.8 AST 22 ALT 26 Alkaline Phosphatase 100 Total Creatine Kinase Troponin I Total Protein 7.1 D Albumin 3.6 JHON Screen RPR 09/20/17 09/20/17 09/21/17 20:26 20:47 03:26 WBC 9.7 RBC 4.68 Hgb 14.1 Hct 41.8 MCV 89.3 MCH 30.1 MCHC 33.7 RDW 14.3 Plt Count 293 MPV 7.4 Neut % (Auto) Lymph % (Auto) [place] % (Auto) Eos % (Auto) Baso % (Auto) Neut # (Auto) Lymph # (Auto) [place] # (Auto) Eos # (Auto) Baso # (Auto) WBC Differential Differential Comment PT INR APTT 58.4 H D Fibrinogen Sodium Potassium Chloride Carbon Dioxide Anion Gap BUN Creatinine Estimated GFR POC Glucose 108 Random Glucose Calcium Total Bilirubin AST ALT Alkaline Phosphatase Total Creatine Kinase Troponin I Total Protein Albumin JHON Screen RPR 09/21/17 03:26 WBC RBC Hgb Hct MCV MCH MCHC RDW Plt Count MPV Neut % (Auto) Lymph % (Auto) [place] % (Auto) Eos % (Auto) Baso % (Auto) Neut # (Auto) Lymph # (Auto) [place] # (Auto) Eos # (Auto) Baso # (Auto) WBC Differential Differential Comment PT 22.3 H INR 2.2 APTT 79.5 H D Fibrinogen Sodium Potassium Chloride Carbon Dioxide Anion Gap BUN Creatinine Estimated GFR POC Glucose Random Glucose Calcium Total Bilirubin AST ALT Alkaline Phosphatase Total Creatine Kinase Troponin I Total Protein Albumin JHON Screen RPR Review/Management - Review/Management Plan: imp left vert acute occlusion most [place] needs coumadin started tonight and coumadin for 2 months to prevent stump embolism sq hep and asa can be dced when inr>1.9 med team plz set all this up thank u med team valentín start b12 shot ldl 126 on statin ivh keep bp up looking well echo and holter pend sr so far on statin inr pend he can dc when inr>1.9 keft vert occlusion keep ivf on 09/20/17 doing well echo nl sr inr 1.5 ok to dc when inr >1.9 will need residents clinic o/p inr draws daily this week and someone to follow it reliably will need repeat [place] [facility] [place] and fu with me after that in office so i can review it med team valentín set all this up thank you ----- 09/20/17 mraprelim no clot in basilar 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
[2017-09-21] MEDS: Famotidine PF Inj 20 MG/2 ML Vial IV.PUSH SCH ×2 (08:11→20:43)
[2017-09-21] MEDS: Senna/Docusate Sodium 8.6/50 MG Tablet PO SCH ×2 (08:11→20:43)
[2017-09-21] MEDS: Insulin NovoLOG Aspart Correctional Sugar Inj SQ SCH (11:42)
[2017-09-21] MEDS: Acetaminophen 325 MG Tablet PO PRN (20:44)
[2017-09-22] MEDS: Sod Chloride 0.9% Inj 1,000 ML IV.CONT SCH ×3 (02:48→23:41)
[2017-09-22 04:31] LABS: Hemoglobin 14.9 gm/dL (13.0-17.0); Mean Corpuscular HGB Conc 34.7 % (32.0-36.0); Mean Corpuscular Volume 86.4 fL (80.0-100.0); Platelet Count 283 th/mm3 (150-450); Red Blood Count 4.97 mil/mm3 (4.50-5.90); Red Cell Distribution Width 14.5 % (11.6-17.2); White Blood Count 8.7 th/mm3 (4.0-11.0)
[2017-09-22 04:48] LABS: INR 3.9 Ratio; Prothrombin Time 39.1 sec (9.8-11.6)
--- NOTE | 2017-09-22 07:44 | P.PNNEU ---
Subjective Subjective Comments: No acute events reported No headache No chest pain No dyspnea Active Medications: Active Medications Acetaminophen (Tylenol) 650 mg PO Q4H PRN PRN Reason: Temp > 100.4 Last Admin: 09/21/17 20:44 Dose: 650 mg Al Hydroxide/Mg Hydroxide (Milk Of Magncrissy Liq) 30 ml PO Q12H PRN PRN Reason: Mild Constipation Albuterol (Duoneb Neb (Prn)) 1 ampul NEB Q2HR NEB PRN PRN Reason: SHORTNESS OF BREATH Atorvastatin Calcium (Lipitor) 40 mg PO [facility] Last Admin: 09/21/17 21:31 Dose: 40 mg Bisacodyl (Dulcolax Supp) 10 mg RECTAL DAILY PRN PRN Reason: SEVERE CONSITIPATION Cyanocobalamin (Vitamin B12 Inj) 1,000 mcg SQ DAILY [facility] Last Admin: 09/21/17 10:04 Dose: Not Given Enalaprilat (Vasotec Inj) 1.25 mg IV.PUSH Q4H PRN PRN Reason: For SBP > 220 or DBP > 120 Famotidine (Pepcid Pf Inj) 20 mg IV.PUSH Q12HR [facility] Last Admin: 09/21/17 20:43 Dose: 20 mg Pharmacy Profile Note (Coumadin Consult Pharmacy) 0 mls @ 0 mls/hr OTHER UNSCH [facility] Magnesium Sulfate Inj 4 gm/ (Sodium Chloride) 100 mls @ 50 mls/hr IV.SIG UNSCH PRN PRN Reason: For Magnesium 0.9 - 1.1 mg/dL Magnesium Sulfate Inj 2 gm/ (Sodium Chloride) 100 mls @ 50 mls/hr IV.SIG UNSCH PRN PRN Reason: For Magnesium 1.2 - 1.6 mg/dL Potassium Chloride (Kcl 40 Meq Premix Inj) 40 meq in 100 mls @ 50 mls/hr IV.SIG Q2H PRN PRN Reason: For Potassium 2.8 - 3.2 mEq/L Potassium Chloride (Kcl 20 Meq Premix Inj) 20 meq in 100 mls @ 50 mls/hr IV.SIG Q2H PRN PRN Reason: For Potassium 3.3 - 3.5 mEq/L Potassium Chloride (Kcl 40 Meq Premix Inj) 40 meq in 100 mls @ 25 mls/hr IV.SIG UNSCH PRN PRN Reason: For Potassium 3.3 - 3.5 mEq/L Potassium Phosphate 30 mmol/ (Sodium Chloride) 260 mls @ 42 mls/hr IV.SIG UNSCH PRN PRN Reason: SEE LABEL COMMENTS Sodium Phosphate 30 mmol/ (Sodium Chloride) 260 mls @ 42 mls/hr IV.SIG UNSCH PRN PRN Reason: For Phosphorus < 2.5 mg/dL Potassium Chloride (Kcl 20 Meq Premix Inj) 20 meq in 100 mls @ 50 mls/hr IV.SIG Q2H PRN PRN Reason: For Potassium 2.8 - 3.2 mEq/L Sodium Chloride (Ns Inj) 1,000 mls @ 50 mls/hr IV.CONT .Q20H [facility] Last Admin: 09/22/17 02:48 Dose: 50 mls/hr Lactulose (Lactulose Liq) 30 ml PO DAILY PRN PRN Reason: SEVERE CONSITIPATION Magnesium Oxide (Mag-Ox) 800 mg PO UNSCH PRN PRN Reason: For Magnesium 1.2 - 1.6 mg/dL Multivitamins (Theragran) 1 tab PO DAILY [facility] Last Admin: 09/21/17 08:11 Dose: 1 tab Ondansetron HCl (Zofran Odt) 4 mg PO Q6H PRN PRN Reason: NAUSEA OR VOMITING Potassium Bicarb/Potassium Chloride (K-Lyte Cl Eff) 50 meq PO UNSCH PRN PRN Reason: For Potassium 3.3 - 3.5 mEq/L Potassium Phosphate (K-Phos Original) 2,000 mg PO Q4H PRN PRN Reason: Phosphorus Less Than 2.5 mg/dL Potassium Phosphate (K-Phos Original) 2,000 mg PO UNSCH PRN PRN Reason: SEE LABEL COMMENTS Senna/Docusate Sodium (Paty-Colace) 1 tab PO BID [facility] Last Admin: 09/21/17 20:43 Dose: 1 tab Sennosides (Senokot) 17.2 mg PO Q12H PRN PRN Reason: Moderate Constipation Sodium Chloride (Ns Flush) 2 ml IV.FLUSH BID [facility] Last Admin: 09/21/17 21:32 Dose: Not Given Sodium Chloride (Ns Flush) 2 ml IV.FLUSH PRN PRN PRN Reason: FLUSH AFTER USING IV ACCESS Warfarin Sodium (Coumadin) 6 mg PO DAILY@1600 [facility] Last Admin: 09/21/17 16:37 Dose: 6 mg Allergies/Adverse Reactions: Allergies Allergy/AdvReac Type Severity Reaction Status Date / Time No Known Allergies Allergy Verified 09/17/17 18:35 Physical Exam Vital signs: Vital Signs 09/21/17 08:00 09/21/17 08:11 09/21/17 09:00 Temperature 99.1 F Pulse Rate 67 74 Respiratory Rate 18 19 Blood Pressure 168/87 H 180/87 H Pulse Oximetry 98 99 98 09/21/17 10:00 09/21/17 11:00 09/21/17 12:00 Temperature 98.9 F Pulse Rate 61 79 62 Respiratory Rate 17 30 H 20 Blood Pressure 164/79 H 186/88 H 164/80 H Pulse Oximetry 98 99 97 09/21/17 13:00 09/21/17 14:00 09/21/17 15:00 Temperature Pulse Rate 67 68 66 Respiratory Rate 18 14 15 Blood Pressure 203/86 H 163/94 H 156/83 H Pulse Oximetry 97 96 97 09/21/17 16:00 09/21/17 17:00 09/21/17 18:00 Temperature 98.6 F Pulse Rate 72 70 70 Respiratory Rate 16 17 25 H Blood Pressure 164/87 H 149/88 H 191/93 H Pulse Oximetry 97 98 98 09/21/17 18:12 09/21/17 19:00 09/21/17 20:00 Temperature 97.6 F Pulse Rate 65 75 65 Respiratory Rate 19 30 H 21 Blood Pressure 160/81 H 162/85 H 168/83 H Pulse Oximetry 96 99 98 09/21/17 21:00 09/21/17 22:00 09/21/17 23:00 Temperature Pulse Rate 64 68 65 Respiratory Rate 15 20 19 Blood Pressure 169/87 H 175/88 H 160/86 H Pulse Oximetry 97 97 97 09/22/17 00:00 09/22/17 01:00 09/22/17 02:00 Temperature Pulse Rate 63 72 72 Respiratory Rate 14 27 H Blood Pressure 151/82 H 174/81 H Pulse Oximetry 95 95 09/22/17 04:00 09/22/17 06:00 Temperature 97.8 F Pulse Rate 61 61 Respiratory Rate 12 Blood Pressure 132/73 Pulse Oximetry 94 L Intake & Output 09/21/17 09/22/17 09/22/17 18:59 06:59 18:59 Intake Total 820 / 820 745 / 745 Output Total 1475 / 1475 2800 / 2800 Balance -655 / -655 -2054 / -2054 Weight 80.4 kg Intake: IV 820 / 820 625 / 625 Heparin/D5W 25,000 U/250 mL 25, 5 / 5 000 unit In 250 ml @ Per Protocol 10 mls/hr IV.CONT TITRATE PRN Rx#:[id number] NS Inj 1,000 ML @ 50 mls/hr IV. 815 / 815 625 / 625 CONT .Q20H [facility] Rx#:[id number] Oral 120 / 120 Output: Urine 2800 / 2800 Urine Amount (Catheter) 1475 / 1475 Indwelling Urethral Catheter 1475 / 1475 Other: Date of Last Bowel Movement 09/18/17 # Bowel Movements 0 0 Narrative: looks better can see to left some face sym speech clear moving ledft well follow commands some inc tone left still left vision neglects - Urinary Catheter Management Indwelling Urethral Catheter Cath placed during this visit: yes Reason for continuing: Acute urinary retention Insertion date: 09/20/17 Insertion time: 18:04 Objective Laboratory Results - last 24 hr 09/21/17 09/22/17 09/22/17 11:10 03:07 03:07 WBC 8.7 RBC 4.97 Hgb 14.9 Hct 43.0 MCV 86.4 MCH 30.0 MCHC 34.7 RDW 14.5 Plt Count 283 MPV 7.0 PT 39.1 H D INR 3.9 APTT 29.9 D Review/Management - Review/Management Plan: imp left vert acute occlusion most ho needs coumadin started tonight and coumadin for 2 months to prevent stump embolism sq hep and asa can be dced when inr>1.9 med team plz set all this up thank u med team plz start b12 shot ldl 126 on statin ivh keep bp up looking well echo and holter pend sr so far on statin inr pend he can dc when inr>1.9 keft vert occlusion keep ivf on 09/20/17 doing well echo nl sr inr 1.5 ok to dc when inr >1.9 will need residents clinic o/p inr draws daily this week and someone to follow it reliably will need repeat [place] [facility] [place] and fu with me after that in office so i can review it med team valentín set all this up thank you ----- 09/20/17 mraprelim no clot in basilar 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 09/22/17 doing better inr inc recheck 2 pm hold coumadin on statin watch for any digression with inr up i [facility] med team
[2017-09-22] MEDS: Famotidine PF Inj 20 MG/2 ML Vial IV.PUSH SCH ×2 (10:44→21:14)
[2017-09-22] MEDS: Senna/Docusate Sodium 8.6/50 MG Tablet PO SCH ×2 (10:45→21:14)
--- NOTE | 2017-09-22 12:20 | MR ---
EXAM DATE: 09/22/2017 12:10 PM EDT AGE/SEX: 66 years / Male INDICATIONS: CVA. CLINICAL DATA: This is the patient's subsequent encounter. Patient reports that signs and symptoms h ave been present for 4 - 6 days and indicates a pain score of 0/10. MEDICAL/SURGICAL HISTORY: None. None. COMPARISON: [facility], MR HEAD W/O CONTRAST, 09/20/2017. . TECHNIQUE: Multiplanar, multisequence examination of the brain was performed without contrast. FINDINGS: There is a large left-sided cerebellar infarct measuring up to 5.6 cm in diameter. The signal abnorma lity associated with this infarct is more intense than on prior examination. There is also a tiny lac unar infarct in the right cerebellar hemisphere not seen on the prior exam. There is interval evolution of an infarct in the posterior right thalamic region measuring about 2.8 cm in diameter which appears slightly more prominent in size than the previous exam on September 20. Inf arct in the medial right temporal lobe also appears slightly more prominent but this may simply be du e to evolution of signal abnormality and not actual increase in size of infarct. No significant assoc iated hemorrhage is identified There is some mass effect on the posterior brainstem at the sariah from the left cerebellar infarct. Th is is increased since September 20. No hydrocephalus. No abnormal extra-axial fluid collections. CONCLUSION: 1. Evolving infarcts in the left cerebellum, right posterior thalamus and right medial temporal lobe as above. Signal abnormality of infarcts has clearly increased with questionable increase in size. T here is slightly more mass effect and some compression on the sariah from the left posterior aspect. Al so tiny lacunar infarct right cerebellar hemisphere not seen on prior exam Electronically signed by: Galileo Lambert MD 09/22/2017 12:19 PM EDT
--- NOTE | 2017-09-22 14:28 | P.PN ---
Subjective Interval history: Nursing denies any deterioration since last night. Patient denies any nausea vomiting or sweating. Physical Exam Vital signs: Vital Signs 09/21/17 15:00 09/21/17 16:00 09/21/17 17:00 Temperature 98.6 F Pulse Rate 66 72 70 Respiratory Rate 15 16 17 Blood Pressure 156/83 H 164/87 H 149/88 H Pulse Oximetry 97 97 98 09/21/17 18:00 09/21/17 18:12 09/21/17 19:00 Temperature Pulse Rate 70 65 75 Respiratory Rate 25 H 19 30 H Blood Pressure 191/93 H 160/81 H 162/85 H Pulse Oximetry 98 96 99 09/21/17 20:00 09/21/17 21:00 09/21/17 22:00 Temperature 97.6 F Pulse Rate 65 64 68 Respiratory Rate 21 15 20 Blood Pressure 168/83 H 169/87 H 175/88 H Pulse Oximetry 98 97 97 09/21/17 23:00 09/22/17 00:00 09/22/17 01:00 Temperature Pulse Rate 65 63 72 Respiratory Rate 19 14 27 H Blood Pressure 160/86 H 151/82 H 174/81 H Pulse Oximetry 97 95 95 09/22/17 02:00 09/22/17 04:00 09/22/17 06:00 Temperature 97.8 F Pulse Rate 72 61 61 Respiratory Rate 12 Blood Pressure 132/73 Pulse Oximetry 94 L 09/22/17 08:00 09/22/17 10:00 09/22/17 12:00 Temperature 98.8 F 97.5 F L Pulse Rate 61 63 60 Respiratory Rate 13 21 Blood Pressure 172/86 H 137/68 Pulse Oximetry 96 96 Intake & Output 09/21/17 09/22/17 09/22/17 18:59 06:59 18:59 Intake Total 820 / 820 745 / 745 660 / 660 Output Total 1475 / 1475 2800 / 2800 Balance -655 / -655 -2055 / -2055 660 / 660 Weight 80.4 kg Intake: IV 820 / 820 625 / 625 Heparin/D5W 25,000 U/250 mL 25, 5 / 5 000 unit In 250 ml @ Per Protocol 10 mls/hr IV.CONT TITRATE PRN Rx#:[id number] NS Inj 1,000 ML @ 50 mls/hr IV. 815 / 815 625 / 625 CONT .Q20H [facility] Rx#:[id number] Oral 120 / 120 660 / 660 Output: Urine 2800 / 2800 Urine Amount (Catheter) 1475 / 1475 Indwelling Urethral Catheter 147 / 147 Other: Date of Last Bowel Movement 09/18/17 # Bowel Movements 0 0 Narrative: Patient has 3/5 left shoulder shrug while 5/5 on the right shoulder strength, 5/ 5 left upper extremity proximal growth strength today, right side is all normal strength in upper and lower extremities Has a facial droop on the left face Has slowed tracking across the midline today and has intact but slow extraocular movements all throughout today Has intact sensation to light finger touch on bilateral feet - Urinary Catheter Management Indwelling Urethral Catheter Cath placed during this visit: yes Reason for continuing: Acute urinary retention Insertion date: 09/20/17 Insertion time: 18:04 Results - Labs CBC & Chem 7: 09/22/17 03:07 09/20/17 13:37 Laboratory Results - last 24 hr 09/22/17 09/22/17 03:07 03:07 WBC 8.7 RBC 4.97 Hgb 14.9 Hct 43.0 MCV 86.4 MCH 30.0 MCHC 34.7 RDW 14.5 Plt Count 283 MPV 7.0 PT 39.1 H D INR 3.9 - Imaging Impressions Head MRI 09/22/17 06:00 CONCLUSION: 1. Evolving infarcts in the left cerebellum, right posterior thalamus and right medial temporal lobe as above. Signal abnormality of infarcts has clearly increased with questionable increase in size. There is slightly more mass effect and some compression on the sariah from the left posterior aspect. Also tiny lacunar infarct right cerebellar hemisphere not seen on prior exam Assessment and Plan - Assessment (1) CVA (cerebral vascular accident) Code(s): I63.9 - Cerebral infarction, unspecified Status: Acute - Plan 66-year-old man admitted with stroke like symptoms. Originally was admitted to the floor, started on heparin, neurology was consulted and started Coumadin with bridge. However patient had recurring and extension of original stroke, was transferred to the ICU. Now stable and back on hospitalist service. Extensive stroke Originally left cerebellar hemisphere, now is now has extended to right medial temporal lobe and right posterior thalamus. Radiology report read off to Dr. Prieto. Midline compression shift is also reported as well. Will maintain in ICU and recheck INR today and tomorrow morning. Continue aspirin, holding Coumadin, continuing heparin Continue treatment with statin PT/OT/speech therapy for treatment Echo unremarkable on telemetry Vit b12 def b12 daily shot, can be transitioned to po upon discharge DVT prophylaxis: Coumadin
[2017-09-22 15:50] LABS: INR 4.9 Ratio; Prothrombin Time 49.5 sec (9.8-11.6)
[2017-09-22] MEDS ORDERED: Phytonadione Inj 10 MG/ML Vial SQ ONE (18:45)
--- NOTE | 2017-09-22 20:14 | P.CONNS ---
History of Present Illness Primary Care Provider: UNKNOWN Chief Complaint: Cerebellar ischemic stroke History of Present Illness: Mr. Samuels is a 66 y/o male who presented on 09/17/17 with headache, nausea, dizziness, and vomiting. 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 He was initiated on anti-coagulant therapy and was neurologically stable until 09/20 when he developed worsening headache, renewed vomiting, and a new right gaze deviation. He underwent a stat MRI that demonstrated a new, more extensive left cerebellar infarction in a left PICA distribution and a new right thalamic stroke infarction. He was transferred to the ICU. He has been neurologically stable. He underwent a new routine MRI of the brain this morning that demonstrated worsening cerebellar edema with compression of the left cerebellar peduncle with moderate brainstem compression. His fourth ventricle is patent, no evidence of ventriculomegaly or hydrocephalus. INR is 4.9. His coumadin has been discontinued and he was administered 5 mg of vitamin K. Neurosurgery was consulted to be aware of the patient should he experience neurologic deterioration and need a decompressive suboccipital craniectomy. His daughter, Teri, is his health care surrogate should he not be able to make decisions on his own. Review of Systems All other systems reviewed negative except as stated in HPI PMFSH - History History Provided By: Patient - Medical History Medical History: Medical History (Last Reviewed 09/22/17 @ 19:29 by Jessica Post RN) Patient denies medical problems - Surgical History Surgical History: Surgical History (Last Reviewed 09/22/17 @ 08:05 by Parker Maravilla) No history of previous surgery - Family History Family History: Family History (Last Reviewed 09/22/17 @ 08:05 by Parker Maravilla) Other Family history of stroke - Tobacco History Second Hand Smoke Exposure: No Tobacco Use In Past 30 Days: No Smoking Status: Former smoker Tobacco Type: Cigarettes - Alcohol History How Often Do You Have a Drink Containing Alcohol: Never - Substance Use History Substance History: No History of Abuse - Travel History Recent Travel in the [place] Within the Last 8 Weeks: No Recent Travel Out of the Country Within the Last 8 Weeks: No - Immunization History Tetanus Immunization: Unsure Hx Influenza Vaccine This Season: No Medications and Allergies Active Medications: Active Medications Acetaminophen (Tylenol) 650 mg PO Q4H PRN PRN Reason: Temp > 100.4 Last Admin: 09/21/17 20:44 Dose: 650 mg Al Hydroxide/Mg Hydroxide (Milk Of Kandice Liq) 30 ml PO Q12H PRN PRN Reason: Mild Constipation Albuterol (Duoneb Neb (Prn)) 1 ampul NEB Q2HR NEB PRN PRN Reason: SHORTNESS OF BREATH Bisacodyl (Dulcolax Supp) 10 mg RECTAL DAILY PRN PRN Reason: SEVERE CONSITIPATION Cyanocobalamin (Vitamin B12 Inj) 1,000 mcg SQ DAILY [facility] Last Admin: 09/22/17 10:48 Dose: 1,000 mcg Enalaprilat (Vasotec Inj) 1.25 mg IV.PUSH Q4H PRN PRN Reason: For SBP > 220 or DBP > 120 Famotidine (Pepcid Pf Inj) 20 mg IV.PUSH Q12HR [facility] Last Admin: 09/22/17 10:44 Dose: 20 mg Pharmacy Profile Note (Coumadin Consult Pharmacy) 0 mls @ 0 mls/hr OTHER UNSCH [facility] Magnesium Sulfate Inj 4 gm/ (Sodium Chloride) 100 mls @ 50 mls/hr IV.SIG UNSCH PRN PRN Reason: For Magnesium 0.9 - 1.1 mg/dL Magnesium Sulfate Inj 2 gm/ (Sodium Chloride) 100 mls @ 50 mls/hr IV.SIG UNSCH PRN PRN Reason: For Magnesium 1.2 - 1.6 mg/dL Potassium Chloride (Kcl 40 Meq Premix Inj) 40 meq in 100 mls @ 50 mls/hr IV.SIG Q2H PRN PRN Reason: For Potassium 2.8 - 3.2 mEq/L Potassium Chloride (Kcl 20 Meq Premix Inj) 20 meq in 100 mls @ 50 mls/hr IV.SIG Q2H PRN PRN Reason: For Potassium 3.3 - 3.5 mEq/L Potassium Chloride (Kcl 40 Meq Premix Inj) 40 meq in 100 mls @ 25 mls/hr IV.SIG UNSCH PRN PRN Reason: For Potassium 3.3 - 3.5 mEq/L Potassium Phosphate 30 mmol/ (Sodium Chloride) 260 mls @ 42 mls/hr IV.SIG UNSCH PRN PRN Reason: SEE LABEL COMMENTS Sodium Phosphate 30 mmol/ (Sodium Chloride) 260 mls @ 42 mls/hr IV.SIG UNSCH PRN PRN Reason: For Phosphorus < 2.5 mg/dL Potassium Chloride (Kcl 20 Meq Premix Inj) 20 meq in 100 mls @ 50 mls/hr IV.SIG Q2H PRN PRN Reason: For Potassium 2.8 - 3.2 mEq/L Sodium Chloride (Ns Inj) 1,000 mls @ 50 mls/hr IV.CONT .Q20H [facility] Last Admin: 09/22/17 10:47 Dose: Not Given Lactulose (Lactulose Liq) 30 ml PO DAILY PRN PRN Reason: SEVERE CONSITIPATION Magnesium Oxide (Mag-Ox) 800 mg PO UNSCH PRN PRN Reason: For Magnesium 1.2 - 1.6 mg/dL Multivitamins (Theragran) 1 tab PO DAILY [facility] Last Admin: 09/22/17 10:45 Dose: 1 tab Ondansetron HCl (Zofran Odt) 4 mg PO Q6H PRN PRN Reason: NAUSEA OR VOMITING Potassium Bicarb/Potassium Chloride (K-Lyte Cl Eff) 50 meq PO UNSCH PRN PRN Reason: For Potassium 3.3 - 3.5 mEq/L Potassium Phosphate (K-Phos Original) 2,000 mg PO Q4H PRN PRN Reason: Phosphorus Less Than 2.5 mg/dL Potassium Phosphate (K-Phos Original) 2,000 mg PO UNSCH PRN PRN Reason: SEE LABEL COMMENTS Senna/Docusate Sodium (Paty-Colace) 1 tab PO BID [facility] Last Admin: 09/22/17 10:45 Dose: 1 tab Sennosides (Senokot) 17.2 mg PO Q12H PRN PRN Reason: Moderate Constipation Sodium Chloride (Ns Flush) 2 ml IV.FLUSH BID [facility] Last Admin: 09/22/17 10:45 Dose: 2 ml Sodium Chloride (Ns Flush) 2 ml IV.FLUSH PRN PRN PRN Reason: FLUSH AFTER USING IV ACCESS Warfarin Sodium (Coumadin) 6 mg PO DAILY@1600 [facility] Last Admin: 09/21/17 16:37 Dose: 6 mg Allergies Allergy/AdvReac Type Severity Reaction Status Date / Time No Known Allergies Allergy Verified 09/17/17 18:35 Home Medications Medication Instructions Recorded Confirmed Type No Known Home Medications 09/17/17 09/17/17 History Exam Vital signs: Vital Signs 09/21/17 21:00 08/14/18 22:00 09/21/17 23:00 Temperature Pulse Rate 64 68 65 Respiratory Rate 15 20 19 Blood Pressure 169/87 H 175/88 H 160/86 H Pulse Oximetry 97 97 97 09/22/17 00:00 09/22/17 01:00 09/22/17 02:00 Temperature Pulse Rate 63 72 72 Respiratory Rate 14 27 H Blood Pressure 151/82 H 174/81 H Pulse Oximetry 95 95 09/22/17 04:00 09/22/17 06:00 09/22/17 08:00 Temperature 97.8 F 98.8 F Pulse Rate 61 61 61 Respiratory Rate 12 13 Blood Pressure 132/73 172/86 H Pulse Oximetry 94 L 96 09/22/17 10:00 09/22/17 12:00 09/22/17 14:00 Temperature 97.5 F L Pulse Rate 63 60 64 Respiratory Rate 21 Blood Pressure 137/68 Pulse Oximetry 96 09/22/17 16:00 09/22/17 18:00 Temperature 98.4 F Pulse Rate 68 82 Respiratory Rate 16 Blood Pressure 167/99 H Pulse Oximetry 95 Intake & Output 09/22/17 09/22/17 09/23/17 06:59 18:59 06:59 Intake Total 745 / 745 1210 / 1210 Output Total 2800 / 2800 675 / 675 Balance -2054 / -2054 535 / 535 Weight 80.4 kg Intake: IV 625 / 625 NS Inj 1,000 ML @ 50 mls/hr IV. 625 / 625 CONT .Q20H [facility] Rx#:[id number] Oral 120 / 120 1210 / 1210 Output: Urine 2800 / 2800 Urine Amount (Catheter) 675 / 675 Indwelling Urethral Catheter 675 / 675 Other: Date of Last Bowel Movement 09/18/17 09/20/17 # Bowel Movements 0 Narrative: Opens eyes spontaneously Bright, awake Alert and oriented x3 Conversant PERRL EOMI Diminished trapezius on the left Tongue midline Follows commands x4; 5/5 strength on the right; ~4/5 strength throughout left upper and left lower extremity Left upper extremity and left lower extremity slower to activate Impaired finger to nose and coordination with left upper extremity - Constitutional no acute distress - Routine HEENT Exam Head: Present: normocephalic Eye: Present: EOMI, PERRL ENT: Present: mucous membranes moist - Routine Neck Exam Present: supple - Routine Chest/Breast/Axilla Exam Chest wall: Absent: tenderness - Routine Respiratory Exam Absent: respiratory distress - Routine Cardiovascular Exam Present: RRR - Routine Abdominal Exam Present: soft - Routine Extremities Exam Present: cyanosis - Routine Skin Exam Present: intact - Routine Neurological Exam Present: alert, oriented X3 Results - Laboratory Findings CBC and BMP: 09/22/17 03:07 09/20/17 13:37 Abnormal lab findings: Abnormal Labs 09/17/17 09/17/17 09/17/17 17:39 17:39 17:39 RBC Hgb Hct MPV 6.9 L [place] % (Auto) PT APTT 21.5 L Fibrinogen Chloride 110 H BUN 21 H Estimated GFR 84 L POC Glucose 119 H Random Glucose 115 H Calcium Troponin I Less than 0.02 L Total Protein Albumin LDL Cholesterol, Calc Vitamin B12 Folate Ur Specific [place] Urine RBC Urine Bacteria Urine Mucus 09/17/17 09/17/17 09/18/17 19:55 20:50 05:10 RBC 4.29 L Hgb 12.8 L Hct 38.3 L MPV [place] % (Auto) PT APTT Fibrinogen Chloride BUN Estimated GFR POC Glucose Random Glucose Calcium Troponin I Total Protein Albumin LDL Cholesterol, Calc 126 H Vitamin B12 141 L Folate Greater than 20.0 H Ur Specific [place] 1.036 H Urine RBC 4 H Urine Bacteria Rare H Urine Mucus Few H 09/18/17 09/19/17 09/19/17 05:10 11:52 21:43 RBC Hgb Hct MPV [place] % (Auto) PT APTT Fibrinogen Chloride 111 H BUN 19 H Estimated GFR POC Glucose 140 H 115 H Random Glucose Calcium 7.9 L Troponin I Total Protein 6.0 L Albumin 2.9 L LDL Cholesterol, Calc Vitamin B12 Folate Ur Specific [place] Urine RBC Urine Bacteria Urine Mucus 09/20/17 09/20/17 09/20/17 06:27 10:14 10:20 RBC Hgb Hct MPV 6.9 L [place] % (Auto) 8.5 H PT 14.7 H APTT Fibrinogen Chloride BUN Estimated GFR POC Glucose 119 H Random Glucose Calcium Troponin I Total Protein Albumin LDL Cholesterol, Calc Vitamin B12 Folate Ur Specific [place] Urine RBC Urine Bacteria Urine Mucus 08/13/18 08/13/18 08/13/18 10:20 10:20 13:37 RBC Hgb Hct MPV [place] % (Auto) PT 15.4 H APTT Fibrinogen 392 H Chloride BUN Estimated GFR 85 L POC Glucose Random Glucose 110 H Calcium Troponin I Less than 0.02 L Total Protein Albumin LDL Cholesterol, Calc Vitamin B12 Folate Ur Specific [place] Urine RBC Urine Bacteria Urine Mucus 09/20/17 09/20/17 09/20/17 17:17 17:55 20:47 RBC Hgb Hct MPV [place] % (Auto) PT 18.1 H APTT 43.6 H D 58.4 H D Fibrinogen Chloride BUN Estimated GFR POC Glucose 111 H Random Glucose Calcium Troponin I Total Protein Albumin LDL Cholesterol, Calc Vitamin B12 Folate Ur Specific [place] Urine RBC Urine Bacteria Urine Mucus 09/21/17 09/22/17 09/22/17 03:26 03:07 15:34 RBC Hgb Hct MPV [place] % (Auto) PT 22.3 H 39.1 H D 49.5 H D APTT 79.5 H D Fibrinogen Chloride BUN Estimated GFR POC Glucose Random Glucose Calcium Troponin I Total Protein Albumin LDL Cholesterol, Calc Vitamin B12 Folate Ur Specific [place] Urine RBC Urine Bacteria Urine Mucus - Diagnostic Findings Additional findings: MRI of the brain 09/22 demonstrates worsening left cerebellar edema with compression of the left cerebellar peduncle with moderate brainstem compression. His fourth ventricle is patent, no evidence of ventriculomegaly or hydrocephalus. Assessment and Plan - Assessment (1) CVA (cerebral vascular accident) Code(s): I63.9 - Cerebral infarction, unspecified Status: Acute - Plan Mr. Samuels is a 66 y/o male on coumadin who presented with a left vertebral artery occlusion. 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 His left cerebellar infarct has a significant amount of edema associated with it and is resulting in mass effect upon the brainstem. He does not have hydrocephalus. On examination, he is conversant, bright and awake. He does not meet criteria for surgical intervention (suboccipital decompressive craniectomy) as this point in time. I counseled him on the natural history of cerebellar infarctions and discussed with him the need for possible surgery in the future. He expressed understanding and assented to surgery should he need it. I discussed his care with Dr. Swann, his neurologist. Specifically, we discussed that we would not rapidly reverse his elevated INR given his thromboembolic strokes that he has experienced during his admission. While he is at an elevated risk for hemorrhagic conversion of his ischemic stroke, the risk of a thromboembolic event with rapid reversal of his INR is also high. We agreed that 5 mg of Vitamin K, cessation of his coumadin, and daily INR checks is appropriate for now. Should he develop a hemorrhagic conversion or necessitate surgical intervention, we will administer KCentra to normalize his INR. Plan: 1. Q1H neuro checks. Notify neurosurgery if patient experiences neurologic deterioration. 2. Avoid narcotics/sedating medications that could confound his neurologic examination 3. Monitor INR, hold coumadin. KCentra if need for operative intervention. 4. Na goal 145-150
[2017-09-23] MEDS: Sod Chloride 0.9% Inj 1,000 ML IV.CONT SCH (03:45)
[2017-09-23 04:46] LABS: Prothrombin Time 40.6 sec (9.8-11.6)
--- NOTE | 2017-09-23 08:50 | P.PNNEU ---
Subjective Active Medications: Active Medications Acetaminophen (Tylenol) 650 mg PO Q4H PRN PRN Reason: Temp > 100.4 Last Admin: 09/21/17 20:44 Dose: 650 mg Al Hydroxide/Mg Hydroxide (Milk Of Kandice Seo) 30 ml PO Q12H PRN PRN Reason: Mild Constipation Albuterol (Duoneb Neb (Prn)) 1 ampul NEB Q2HR NEB PRN PRN Reason: SHORTNESS OF BREATH Bisacodyl (Dulcolax Supp) 10 mg RECTAL DAILY PRN PRN Reason: SEVERE CONSITIPATION Cyanocobalamin (Vitamin B12 Inj) 1,000 mcg SQ DAILY [facility] Last Admin: 09/22/17 10:48 Dose: 1,000 mcg Enalaprilat (Vasotec Inj) 1.25 mg IV.PUSH Q4H PRN PRN Reason: For SBP > 220 or DBP > 120 Famotidine (Pepcid Pf Inj) 20 mg IV.PUSH Q12HR [facility] Last Admin: 09/22/17 21:14 Dose: 20 mg Pharmacy Profile Note (Coumadin Consult Pharmacy) 0 mls @ 0 mls/hr OTHER UNSCH [facility] Magnesium Sulfate Inj 4 gm/ (Sodium Chloride) 100 mls @ 50 mls/hr IV.SIG UNSCH PRN PRN Reason: For Magnesium 0.9 - 1.1 mg/dL Magnesium Sulfate Inj 2 gm/ (Sodium Chloride) 100 mls @ 50 mls/hr IV.SIG UNSCH PRN PRN Reason: For Magnesium 1.2 - 1.6 mg/dL Potassium Chloride (Kcl 40 Meq Premix Inj) 40 meq in 100 mls @ 50 mls/hr IV.SIG Q2H PRN PRN Reason: For Potassium 2.8 - 3.2 mEq/L Potassium Chloride (Kcl 20 Meq Premix Inj) 20 meq in 100 mls @ 50 mls/hr IV.SIG Q2H PRN PRN Reason: For Potassium 3.3 - 3.5 mEq/L Potassium Chloride (Kcl 40 Meq Premix Inj) 40 meq in 100 mls @ 25 mls/hr IV.SIG UNSCH PRN PRN Reason: For Potassium 3.3 - 3.5 mEq/L Potassium Phosphate 30 mmol/ (Sodium Chloride) 260 mls @ 42 mls/hr IV.SIG UNSCH PRN PRN Reason: SEE LABEL COMMENTS Sodium Phosphate 30 mmol/ (Sodium Chloride) 260 mls @ 42 mls/hr IV.SIG UNSCH PRN PRN Reason: For Phosphorus < 2.5 mg/dL Potassium Chloride (Kcl 20 Meq Premix Inj) 20 meq in 100 mls @ 50 mls/hr IV.SIG Q2H PRN PRN Reason: For Potassium 2.8 - 3.2 mEq/L Sodium Chloride (Ns Inj) 1,000 mls @ 50 mls/hr IV.CONT .Q20H [facility] Last Admin: 09/23/17 03:45 Dose: Not Given Lactulose (Lactulose Liq) 30 ml PO DAILY PRN PRN Reason: SEVERE CONSITIPATION Magnesium Oxide (Mag-Ox) 800 mg PO UNSCH PRN PRN Reason: For Magnesium 1.2 - 1.6 mg/dL Multivitamins (Theragran) 1 tab PO DAILY [facility] Last Admin: 09/22/17 10:45 Dose: 1 tab Ondansetron HCl (Zofran Odt) 4 mg PO Q6H PRN PRN Reason: NAUSEA OR VOMITING Potassium Bicarb/Potassium Chloride (K-Lyte Cl Eff) 50 meq PO UNSCH PRN PRN Reason: For Potassium 3.3 - 3.5 mEq/L Potassium Phosphate (K-Phos Original) 2,000 mg PO Q4H PRN PRN Reason: Phosphorus Less Than 2.5 mg/dL Potassium Phosphate (K-Phos Original) 2,000 mg PO UNSCH PRN PRN Reason: SEE LABEL COMMENTS Senna/Docusate Sodium (Paty-Colace) 1 tab PO BID [facility] Last Admin: 09/22/17 21:14 Dose: 1 tab Sennosides (Senokot) 17.2 mg PO Q12H PRN PRN Reason: Moderate Constipation Sodium Chloride (Ns Flush) 2 ml IV.FLUSH BID [facility] Last Admin: 09/22/17 21:14 Dose: 2 ml Sodium Chloride (Ns Flush) 2 ml IV.FLUSH PRN PRN PRN Reason: FLUSH AFTER USING IV ACCESS Allergies/Adverse Reactions: Allergies Allergy/AdvReac Type Severity Reaction Status Date / Time No Known Allergies Allergy Verified 09/17/17 18:35 Physical Exam Vital signs: Vital Signs 09/22/17 10:00 09/22/17 12:00 08/15/18 14:00 Temperature 97.5 F L Pulse Rate 63 60 64 Respiratory Rate 21 Blood Pressure 137/68 Pulse Oximetry 96 09/22/17 16:00 09/22/17 18:00 09/22/17 20:00 Temperature 98.4 F 97.7 F Pulse Rate 68 82 78 Respiratory Rate 16 15 Blood Pressure 167/99 H 158/83 H Pulse Oximetry 95 94 L 09/22/17 22:00 09/23/17 00:00 09/23/17 02:00 Temperature 98.0 F Pulse Rate 86 80 72 Respiratory Rate 19 Blood Pressure 143/84 H Pulse Oximetry 94 L 09/23/17 04:00 09/23/17 06:00 Temperature 98.0 F Pulse Rate 72 60 Respiratory Rate 24 Blood Pressure 127/66 Pulse Oximetry 97 Intake & Output 09/22/17 09/23/17 09/23/17 18:59 06:59 18:59 Intake Total 1210 / 1210 1480 / 1480 Output Total 675 / 675 1100 / 1100 Balance 535 / 535 380 / 380 Weight 83.8 kg Intake: IV 1000 / 1000 NS Inj 1,000 ML @ 50 mls/hr IV. 1000 / 1000 CONT .Q20H [facility] Rx#:[id number] Oral 1210 / 1210 480 / 480 Output: Urine 1100 / 1100 Urine Amount (Catheter) 675 / 675 Indwelling Urethral Catheter 675 / 675 Other: # Voids 2 Date of Last Bowel Movement 09/20/17 09/20/17 Narrative: pupil = 5/5 left side but inc tone no moore awake alert can see to left less neglect and turns head to left - Urinary Catheter Management Indwelling Urethral Catheter Cath placed during this visit: yes, but has since been removed by the nurse Reason for continuing: Not indwelling catheter Insertion date: 09/20/17 Insertion time: 18:04 Removal date: 09/22/17 Removal time: 15:00 Objective Laboratory Results - last 24 hr 09/22/17 09/23/17 15:34 03:29 PT 49.5 H D 40.6 H INR 4.9 4.0 Review/Management - Review/Management Plan: imp left vert acute occlusion most ho needs coumadin started tonight and coumadin for 2 months to prevent stump embolism sq hep and asa can be dced when inr>1.9 med team plz set all this up thank u med team plguadalupe start b12 shot ldl 126 on statin ivh keep bp up looking well echo and holter pend sr so far on statin inr pend he can dc when inr>1.9 jaelft vert occlusion keep ivf on 09/20/17 doing well echo nl sr inr 1.5 ok to dc when inr >1.9 will need residents clinic o/p inr draws daily this week and someone to follow it reliably will need repeat [place] [facility] [place] and fu with me after that in office so i can review it med team plguadalupe set all this up thank you ----- 09/20/17 mraprelim no clot in basilar probably threw a clot 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 09/22/17 doing better inr inc recheck 2 pm hold coumadin on statin watch for any digression with inr up i dw med team 09/23/17 stable overnoc inr 4.0 after 5 sq vit k would like lower so will give 2mg po vit k recheck mri hob 40 degrees nusu on case
[2017-09-23] MEDS ORDERED: Phytonadione 5 MG/SWFI 5 ML Oral Syringe PO ONE (08:51)
[2017-09-23] MEDS: Senna/Docusate Sodium 8.6/50 MG Tablet PO SCH ×2 (09:33→20:26)
--- NOTE | 2017-09-23 10:45 | MR ---
EXAM DATE: 09/23/2017 10:23 AM EDT AGE/SEX: 66 years / Male INDICATIONS: CVA. CLINICAL DATA: This is the patient's subsequent encounter. Patient reports that signs and symptoms h ave been present for 4 - 6 days and indicates a pain score of 0/10. MEDICAL/SURGICAL HISTORY: None. None. COMPARISON: [facility] [place], MR HEAD W/O CONTRAST, 09/22/2017. . TECHNIQUE: Multiplanar, multisequence examination of the brain was performed without contrast. FINDINGS: Cerebrum: There is mild generalized atrophy with ventricular size within normal limits given the degr ee of atrophy. No midline shift, mass lesion, or hemorrhage. There is persistent edema in the right thalamus and right medial temporal lobe with associated restricted diffusion. No hemorrhagic transfor mation. No extraaxial fluid collections are seen. The pituitary gland and suprasellar cistern are n ormal in configuration. White Matter: There is mild periventricular and subcortical white matter signal change. Posterior Fossa: There is a stable large area of restricted diffusion involving most of the left cere bellar hemisphere. Punctate area of restricted diffusion also remains present in the left sariah. The e ramya related to the infarct causes local mass effect and impression upon the brainstem and causes com pression of the cerebral aqueduct and mass effect on the fourth ventricle. Diffusion Imaging: There is stable restricted diffusion in the right thalamus, right medial temporal lobe, left cerebellum, left sariah, and right cerebellum versus right occipital lobe. Extracranial: The visualized sinuses are clear. CONCLUSION: 1. Stable examination with multifocal areas of edema related to recent ischemia. The edema associate d with the left cerebellar infarct has local mass effect on the brainstem and narrows the cerebral aq ueduct and fourth ventricle. However, ventricles remain stable in size and not enlarged. 2. No hemorrhagic transformation has occurred. Electronically signed by: Bernabe Stinson MD 09/23/2017 10:44 AM EDT
[2017-09-23] MEDS: Famotidine PF Inj 20 MG/2 ML Vial IV.PUSH SCH ×2 (11:44→20:26)
--- NOTE | 2017-09-23 17:38 | P.PN ---
Subjective Interval history: Follow-up left cerebellar infarct September 23, 2017-patient seen and examined, stable and no acute event overnight Physical Exam Vital signs: Vital Signs 09/22/17 18:00 09/22/17 20:00 09/22/17 22:00 Temperature 97.7 F Pulse Rate 82 78 86 Respiratory Rate 15 Blood Pressure 158/83 H Pulse Oximetry 94 L 09/23/17 00:00 09/23/17 02:00 09/23/17 04:00 Temperature 98.0 F 98.0 F Pulse Rate 80 72 72 Respiratory Rate 19 24 Blood Pressure 143/84 H 127/66 Pulse Oximetry 94 L 97 09/23/17 06:00 09/23/17 08:00 09/23/17 10:00 Temperature 97.1 F L Pulse Rate 60 60 64 Respiratory Rate 24 Blood Pressure 140/74 Pulse Oximetry 95 09/23/17 12:00 09/23/17 14:00 09/23/17 16:00 Temperature 97 F L 98.3 F Pulse Rate 65 98 H 74 Respiratory Rate 19 22 Blood Pressure 176/82 H 128/69 Pulse Oximetry 99 100 Intake & Output 09/22/17 09/23/17 09/23/17 18:59 06:59 18:59 Intake Total 1210 / 1210 1480 / 1480 Output Total 675 / 675 1100 / 1100 Balance 535 / 535 380 / 380 Weight 83.8 kg Intake: IV 1000 / 1000 NS Inj 1,000 ML @ 50 mls/hr IV. 1000 / 1000 CONT .Q20H [facility] Rx#:[id number] Oral 1210 / 1210 480 / 480 Output: Urine 1100 / 1100 Urine Amount (Catheter) 675 / 675 Indwelling Urethral Catheter 675 / 675 Other: # Voids 2 Date of Last Bowel Movement 09/20/17 09/20/17 09/20/17 Narrative: GENERAL: NAD SKIN: Warm and dry. HEAD: Normocephalic. EYES: No scleral icterus. No injection or drainage. NECK: Supple, trachea midline. No JVD or lymphadenopathy. CARDIOVASCULAR: Regular rate and rhythm without murmurs, gallops, or rubs. RESPIRATORY: Breath sounds equal bilaterally. No accessory muscle use. GASTROINTESTINAL: Abdomen soft, non-tender, nondistended. MUSCULOSKELETAL: No cyanosis, or edema. Neuro: Left-sided hemiparesis BACK: Nontender without obvious deformity. No CVA tenderness. - Urinary Catheter Management Indwelling Urethral Catheter Cath placed during this visit: yes, but has since been removed by the nurse Reason for continuing: Not indwelling catheter Insertion date: 09/20/17 Insertion time: 18:04 Removal date: 09/22/17 Removal time: 15:00 Results - Labs CBC & Chem 7: 09/22/17 03:07 09/20/17 13:37 Laboratory Results - last 24 hr 09/23/17 03:29 PT 40.6 H INR 4.0 - Imaging Impressions Head MRI 09/23/17 08:52 CONCLUSION: 1. Stable examination with multifocal areas of edema related to recent ischemia. The edema associated with the left cerebellar infarct has local mass effect on the brainstem and narrows the cerebral aqueduct and fourth ventricle. However, ventricles remain stable in size and not enlarged. 2. No hemorrhagic transformation has occurred. Assessment and Plan - Assessment (1) CVA (cerebral vascular accident) Code(s): I63.9 - Cerebral infarction, unspecified Status: Acute - Plan 66-year-old man with Left acute cerebellar CVA Continue treatment per stroke protocol Coumadin on hold due to supra therapeutic INR Brain MRI September 23, 2017 noted and reviewed by me Appreciate input from neurology Continue treatment with statin PT/OT/speech therapy for treatment Supratherapeutic INR Status post vitamin K, continue to monitor INR Hold Coumadin Vit b12 def b12 daily shot, can be transitioned to po upon discharge DVT prophylaxis: Coumadin
--- NOTE | 2017-09-23 21:43 | P.PNNS ---
Subjective Interval history: No events overnight, stable Physical Exam Vital signs: Vital Signs 09/22/17 22:00 09/23/17 00:00 09/23/17 02:00 Temperature 98.0 F Pulse Rate 86 80 72 Respiratory Rate 19 Blood Pressure 143/84 H Pulse Oximetry 94 L 09/23/17 04:00 09/23/17 06:00 09/23/17 08:00 Temperature 98.0 F 97.1 F L Pulse Rate 72 60 60 Respiratory Rate 24 24 Blood Pressure 127/66 140/74 Pulse Oximetry 97 95 09/23/17 10:00 09/23/17 12:00 09/23/17 14:00 Temperature 97 F L Pulse Rate 64 65 98 H Respiratory Rate 19 Blood Pressure 176/82 H Pulse Oximetry 99 09/23/17 16:00 09/23/17 18:00 09/23/17 20:00 Temperature 98.3 F 98.8 F Pulse Rate 74 72 69 Respiratory Rate 22 22 Blood Pressure 128/69 143/73 H Pulse Oximetry 100 99 Intake & Output 09/23/17 09/23/17 09/24/17 06:59 18:59 06:59 Intake Total 1480 / 1480 750 / 750 Output Total 1100 / 1100 Balance 380 / 380 750 / 750 Weight 83.8 kg Intake: IV 1000 / 1000 NS Inj 1,000 ML @ 50 mls/hr IV. 1000 / 1000 CONT .Q20H [facility] Rx#:[id number] Oral 480 / 480 750 / 750 Output: Urine 1100 / 1100 Other: # Voids 2 4 Date of Last Bowel Movement 09/20/17 09/20/17 09/20/17 Narrative: A&O x 3, bright awake No complaint of headache CN -- left sided neglect and left lateral gaze restriction Neuro: Left-sided hemiparesis 4/5, right side 5/5 Slow to activate left side - Urinary Catheter Management Indwelling Urethral Catheter Cath placed during this visit: yes, but has since been removed by the nurse Reason for continuing: Not indwelling catheter Insertion date: 09/20/17 Insertion time: 18:04 Removal date: 09/22/17 Removal time: 15:00 Assessment and Plan - Assessment (1) CVA (cerebral vascular accident) Code(s): I63.9 - Cerebral infarction, unspecified Status: Acute - Plan Mr. Arvind is a 66 y/o male on coumadin who presented with a left vertebral artery occlusion. 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 His left cerebellar infarct has a significant amount of edema associated with it and is resulting in mass effect upon the brainstem. He does not have hydrocephalus. On examination, he is conversant, bright and awake. He does not meet criteria for surgical intervention (suboccipital decompressive craniectomy) as this point in time. I counseled him on the natural history of cerebellar infarctions and discussed with him the need for possible surgery in the future. He expressed understanding and assented to surgery should he need it. 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 While he is at an elevated risk for hemorrhagic conversion of his ischemic stroke, the risk of a thromboembolic event with rapid reversal of his INR is also high. Planning for repeat Vit K today given persistently elevated INR > 4. Should he develop a hemorrhagic conversion or necessitate surgical intervention, we will administer KCentra to normalize his INR. Plan: 1. Q1H neuro checks. Notify neurosurgery if patient experiences neurologic deterioration. 2. Avoid narcotics/sedating medications that could confound his neurologic examination 3. Monitor INR, hold coumadin. KCentra if need for operative intervention. 4. Na goal 145-150 5. Repeat MRI stable today, no hydrocephalus but there is mass effect on the aqueduct and v4 as on day prior (09/22). Patient is now 3 days out from second stroke.
[2017-09-24] MEDS: Sod Chloride 0.9% Inj 1,000 ML IV.CONT SCH (00:27)
[2017-09-24 04:22] LABS: INR 1.5 Ratio; Prothrombin Time 14.9 sec (9.8-11.6)
--- NOTE | 2017-09-24 07:29 | P.PNNEU ---
Subjective Active Medications: Active Medications Acetaminophen (Tylenol) 650 mg PO Q4H PRN PRN Reason: Temp > 100.4 Last Admin: 09/21/17 20:44 Dose: 650 mg Al Hydroxide/Mg Hydroxide (Milk Of Kandice Seo) 30 ml PO Q12H PRN PRN Reason: Mild Constipation Albuterol (Duoneb Neb (Prn)) 1 ampul NEB Q2HR NEB PRN PRN Reason: SHORTNESS OF BREATH Bisacodyl (Dulcolax Supp) 10 mg RECTAL DAILY PRN PRN Reason: SEVERE CONSITIPATION Cyanocobalamin (Vitamin B12 Inj) 1,000 mcg SQ DAILY [facility] Last Admin: 09/23/17 09:33 Dose: 1,000 mcg Enalaprilat (Vasotec Inj) 1.25 mg IV.PUSH Q4H PRN PRN Reason: For SBP > 220 or DBP > 120 Famotidine (Pepcid Pf Inj) 20 mg IV.PUSH Q12HR [facility] Last Admin: 09/23/17 20:26 Dose: 20 mg Pharmacy Profile Note (Coumadin Consult Pharmacy) 0 mls @ 0 mls/hr OTHER UNSCH [facility] Magnesium Sulfate Inj 4 gm/ (Sodium Chloride) 100 mls @ 50 mls/hr IV.SIG UNSCH PRN PRN Reason: For Magnesium 0.9 - 1.1 mg/dL Magnesium Sulfate Inj 2 gm/ (Sodium Chloride) 100 mls @ 50 mls/hr IV.SIG UNSCH PRN PRN Reason: For Magnesium 1.2 - 1.6 mg/dL Potassium Chloride (Kcl 40 Meq Premix Inj) 40 meq in 100 mls @ 50 mls/hr IV.SIG Q2H PRN PRN Reason: For Potassium 2.8 - 3.2 mEq/L Potassium Chloride (Kcl 20 Meq Premix Inj) 20 meq in 100 mls @ 50 mls/hr IV.SIG Q2H PRN PRN Reason: For Potassium 3.3 - 3.5 mEq/L Potassium Chloride (Kcl 40 Meq Premix Inj) 40 meq in 100 mls @ 25 mls/hr IV.SIG UNSCH PRN PRN Reason: For Potassium 3.3 - 3.5 mEq/L Potassium Phosphate 30 mmol/ (Sodium Chloride) 260 mls @ 42 mls/hr IV.SIG UNSCH PRN PRN Reason: SEE LABEL COMMENTS Sodium Phosphate 30 mmol/ (Sodium Chloride) 260 mls @ 42 mls/hr IV.SIG UNSCH PRN PRN Reason: For Phosphorus < 2.5 mg/dL Potassium Chloride (Kcl 20 Meq Premix Inj) 20 meq in 100 mls @ 50 mls/hr IV.SIG Q2H PRN PRN Reason: For Potassium 2.8 - 3.2 mEq/L Sodium Chloride (Ns Inj) 1,000 mls @ 50 mls/hr IV.CONT .Q20H [facility] Last Admin: 09/24/17 00:27 Dose: 50 mls/hr Lactulose (Lactulose Liq) 30 ml PO DAILY PRN PRN Reason: SEVERE CONSITIPATION Magnesium Oxide (Mag-Ox) 800 mg PO UNSCH PRN PRN Reason: For Magnesium 1.2 - 1.6 mg/dL Multivitamins (Theragran) 1 tab PO DAILY [facility] Last Admin: 09/23/17 09:33 Dose: 1 tab Ondansetron HCl (Zofran Odt) 4 mg PO Q6H PRN PRN Reason: NAUSEA OR VOMITING Potassium Bicarb/Potassium Chloride (K-Lyte Cl Eff) 50 meq PO UNSCH PRN PRN Reason: For Potassium 3.3 - 3.5 mEq/L Potassium Phosphate (K-Phos Original) 2,000 mg PO Q4H PRN PRN Reason: Phosphorus Less Than 2.5 mg/dL Potassium Phosphate (K-Phos Original) 2,000 mg PO UNSCH PRN PRN Reason: SEE LABEL COMMENTS Senna/Docusate Sodium (Paty-Colace) 1 tab PO BID [facility] Last Admin: 09/23/17 20:26 Dose: 1 tab Sennosides (Senokot) 17.2 mg PO Q12H PRN PRN Reason: Moderate Constipation Sodium Chloride (Ns Flush) 2 ml IV.FLUSH BID [facility] Last Admin: 09/23/17 20:26 Dose: 2 ml Sodium Chloride (Ns Flush) 2 ml IV.FLUSH PRN PRN PRN Reason: FLUSH AFTER USING IV ACCESS Allergies/Adverse Reactions: Allergies Allergy/AdvReac Type Severity Reaction Status Date / Time No Known Allergies Allergy Verified 09/17/17 18:35 Physical Exam Vital signs: Vital Signs 09/23/17 08:00 09/23/17 10:00 09/23/17 12:00 Temperature 97.1 F L 97 F L Pulse Rate 60 64 65 Respiratory Rate 24 19 Blood Pressure 140/74 176/82 H Pulse Oximetry 95 99 09/23/17 14:00 09/23/17 16:00 09/23/17 18:00 Temperature 98.3 F Pulse Rate 98 H 74 72 Respiratory Rate 22 Blood Pressure 128/69 Pulse Oximetry 100 09/23/17 20:00 09/23/17 22:00 09/24/17 00:00 Temperature 98.8 F 97.3 F L Pulse Rate 69 66 59 L Respiratory Rate 22 15 Blood Pressure 143/73 H 162/61 H Pulse Oximetry 99 97 09/24/17 02:00 09/24/17 03:28 09/24/17 04:00 Temperature 97.8 F Pulse Rate 63 65 58 L Respiratory Rate Blood Pressure Pulse Oximetry 09/24/17 06:00 Temperature Pulse Rate 65 Respiratory Rate Blood Pressure Pulse Oximetry Intake & Output 09/23/17 09/24/17 09/24/17 18:59 06:59 18:59 Intake Total 750 / 750 1480 / 1480 Output Total 900 / 900 Balance 750 / 750 580 / 580 Intake: IV 1000 / 1000 NS Inj 1,000 ML @ 50 mls/hr IV. 1000 / 1000 CONT .Q20H [facility] Rx#:[id number] Oral 750 / 750 480 / 480 Output: Urine 900 / 900 Other: # Voids 4 2 Date of Last Bowel Movement 09/20/17 09/20/17 Narrative: r pupil just a hint larger than left both about 2mm some left vsion dec can look to left but restricted face minimal left droop 5/5 lue lle awakens alert well nl speech no moore - Urinary Catheter Management Indwelling Urethral Catheter Cath placed during this visit: yes, but has since been removed by the nurse Reason for continuing: Not indwelling catheter Insertion date: 09/20/17 Insertion time: 18:04 Removal date: 09/22/17 Removal time: 15:00 Objective Laboratory Results - last 24 hr 09/24/17 03:30 PT 14.9 H D INR 1.5 Review/Management - Review/Management Plan: imp left vert acute occlusion most [place] needs coumadin started tonight and coumadin for 2 months to prevent stump embolism sq hep and asa can be dced when inr>1.9 med team plz set all this up thank u med team plguadalupe start b12 shot ldl 126 on statin ivh keep bp up looking well echo and holter pend sr so far on statin inr pend he can dc when inr>1.9 keft vert occlusion keep ivf on 09/20/17 doing well echo nl sr inr 1.5 ok to dc when inr >1.9 will need residents clinic o/p inr draws daily this week and someone to follow it reliably will need repeat mra neck [place] 2 [place] [facility] [place] [facility] [place] and fu with me after that in office so i can review it med team plguadalupe set all this up thank you ----- 09/20/17 mraprelim no clot in basilar probably threw a clot to the r alcohol rubber 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 09/22/17 doing better inr inc recheck 2 pm hold coumadin on statin watch for any digression with inr up i dw med team 09/23/17 stable overnoc inr 4.0 after 5 sq vit k would like lower so will give 2mg po vit k recheck mri hob 40 degrees nusu on case 09/24/17 he needs to stay in icu mri no change but major mass effect on sariah and small left pontine cva no change 09/22-09/23 inr 1.5 i am conflicted but with that much mass effect i do not think he should be on anticoagulation stable overnoc
[2017-09-24] MEDS: Famotidine PF Inj 20 MG/2 ML Vial IV.PUSH SCH ×2 (08:12→21:17)
[2017-09-24] MEDS: Senna/Docusate Sodium 8.6/50 MG Tablet PO SCH ×2 (08:13→21:17)
--- NOTE | 2017-09-24 12:30 | P.PNNS ---
Subjective Interval history: No change, Mild headache at one point resolved Physical Exam Vital signs: Vital Signs 09/23/17 14:00 09/23/17 16:00 09/23/17 18:00 Temperature 98.3 F Pulse Rate 98 H 74 72 Respiratory Rate 22 Blood Pressure 128/69 Pulse Oximetry 100 09/23/17 20:00 09/23/17 22:00 09/24/17 00:00 Temperature 98.8 F 97.3 F L Pulse Rate 69 66 59 L Respiratory Rate 22 15 Blood Pressure 143/73 H 162/61 H Pulse Oximetry 99 97 09/24/17 02:00 09/24/17 03:28 09/24/17 04:00 Temperature 97.8 F Pulse Rate 63 65 58 L Respiratory Rate Blood Pressure Pulse Oximetry 09/24/17 06:00 09/24/17 08:00 09/24/17 10:00 Temperature 97.0 F L Pulse Rate 65 71 65 Respiratory Rate 16 Blood Pressure 123/62 Pulse Oximetry Intake & Output 09/23/17 09/24/17 09/24/17 18:59 06:59 18:59 Intake Total 750 / 750 1480 / 1480 Output Total 900 / 900 Balance 750 / 750 580 / 580 Intake: IV 1000 / 1000 NS Inj 1,000 ML @ 50 mls/hr IV. 1000 / 1000 CONT .Q20H [facility] Rx#:[id number] Oral 750 / 750 480 / 480 Output: Urine 900 / 900 Other: # Voids 4 2 Date of Last Bowel Movement 09/20/17 09/20/17 Narrative: r pupil just a hint larger than left both about 2mm some left vision dec can look to left but restricted face minimal left droop 5/5 LUE and LLE awakens alert well oriented x 3 nl speech, no headache - Urinary Catheter Management Indwelling Urethral Catheter Cath placed during this visit: yes, but has since been removed by the nurse Reason for continuing: Not indwelling catheter Insertion date: 09/20/17 Insertion time: 18:04 Removal date: 09/22/17 Removal time: 15:00 Assessment and Plan - Assessment (1) CVA (cerebral vascular accident) Code(s): I63.9 - Cerebral infarction, unspecified Status: Acute - Plan Mr. Samuels is a 66 y/o male on coumadin who presented with a left vertebral artery occlusion. 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 His left cerebellar infarct has a significant amount of edema associated with it and is resulting in mass effect upon the brainstem. He does not have hydrocephalus. On examination, he is conversant, bright and awake. He does not meet criteria for surgical intervention (suboccipital decompressive craniectomy) as this point in time. I counseled him on the natural history of cerebellar infarctions and discussed with him the need for possible surgery in the future. He expressed understanding and assented to surgery should he need it. 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 While he is at an elevated risk for hemorrhagic conversion of his ischemic stroke, the risk of a thromboembolic event with rapid reversal of his INR is also high. Planning for repeat Vit K today given persistently elevated INR > 4. Should he develop a hemorrhagic conversion or necessitate surgical intervention, we will administer KCentra to normalize his INR. Plan: 1. Q1H neuro checks. Notify neurosurgery if patient experiences neurologic deterioration. 2. Avoid narcotics/sedating medications that could confound his neurologic examination 3. Monitor INR, hold coumadin. KCentra if need for operative intervention. INR is now normalized. 4. Na goal 145-150 5. Repeat MRI 09/23 today, no hydrocephalus but there is mass effect on the aqueduct and v4 as on day prior (09/22). Patient is now 4 days out from second stroke (09/20), so will likely avoid surgery.
--- NOTE | 2017-09-24 12:41 | P.PN ---
Subjective Interval history: Follow-up left cerebellar infarct September 23, 2017-patient seen and examined, stable and no acute event overnight September 24, 2017-patient seen and examined, moving Left side better today. No slurred speech. Son by the bedside Physical Exam Vital signs: Vital Signs 09/23/17 14:00 09/23/17 16:00 09/23/17 18:00 Temperature 98.3 F Pulse Rate 98 H 74 72 Respiratory Rate 22 Blood Pressure 128/69 Pulse Oximetry 100 09/23/17 20:00 09/23/17 22:00 09/24/17 00:00 Temperature 98.8 F 97.3 F L Pulse Rate 69 66 59 L Respiratory Rate 22 15 Blood Pressure 143/73 H 162/61 H Pulse Oximetry 99 97 09/24/17 02:00 09/24/17 03:28 09/24/17 04:00 Temperature 97.8 F Pulse Rate 63 65 58 L Respiratory Rate Blood Pressure Pulse Oximetry 09/24/17 06:00 09/24/17 08:00 09/24/17 10:00 Temperature 97.0 F L Pulse Rate 65 71 65 Respiratory Rate 16 Blood Pressure 123/62 Pulse Oximetry Intake & Output 09/23/17 09/24/17 09/24/17 18:59 06:59 18:59 Intake Total 750 / 750 1480 / 1480 Output Total 900 / 900 Balance 750 / 750 580 / 580 Intake: IV 1000 / 1000 NS Inj 1,000 ML @ 50 mls/hr IV. 1000 / 1000 CONT .Q20H [facility] Rx#:[id number] Oral 750 / 750 480 / 480 Output: Urine 900 / 900 Other: # Voids 4 2 Date of Last Bowel Movement 09/20/17 09/20/17 Narrative: GENERAL: NAD SKIN: Warm and dry. HEAD: Normocephalic. EYES: No scleral icterus. No injection or drainage. NECK: Supple, trachea midline. No JVD or lymphadenopathy. CARDIOVASCULAR: Regular rate and rhythm without murmurs, gallops, or rubs. RESPIRATORY: Breath sounds equal bilaterally. No accessory muscle use. GASTROINTESTINAL: Abdomen soft, non-tender, nondistended. MUSCULOSKELETAL: No cyanosis, or edema. BACK: Nontender without obvious deformity. No CVA tenderness. - Urinary Catheter Management Indwelling Urethral Catheter Cath placed during this visit: yes, but has since been removed by the nurse Reason for continuing: Not indwelling catheter Insertion date: 09/20/17 Insertion time: 18:04 Removal date: 09/22/17 Removal time: 15:00 Results - Labs CBC & Chem 7: 09/22/17 03:07 09/20/17 13:37 Laboratory Results - last 24 hr 09/24/17 03:30 PT 14.9 H D INR 1.5 Assessment and Plan - Assessment (1) CVA (cerebral vascular accident) Code(s): I63.9 - Cerebral infarction, unspecified Status: Acute - Plan 66-year-old man with Left acute cerebellar CVA Continue treatment per stroke protocol Coumadin on hold due to supra therapeutic INR Brain MRI September 23, 2017 noted and reviewed by me Appreciate input from neurology, NSG Continue treatment with statin PT/OT/speech therapy for treatment Supratherapeutic INR Status post vitamin K, continue to monitor INR Hold Coumadin Vit b12 def b12 daily shot, DVT prophylaxis: Coumadin
[2017-09-25 04:38] LABS: INR 1.1 Ratio; Prothrombin Time 11.4 sec (9.8-11.6)
[2017-09-25] MEDS: Famotidine PF Inj 20 MG/2 ML Vial IV.PUSH SCH ×2 (09:41→20:19)
[2017-09-25] MEDS: Senna/Docusate Sodium 8.6/50 MG Tablet PO SCH ×2 (09:41→20:20)
--- NOTE | 2017-09-25 12:24 | P.PN ---
Subjective Interval history: Follow-up left cerebellar infarct September 23, 2017-patient seen and examined, stable and no acute event overnight September 24, 2017-patient seen and examined, moving Left side better today. No slurred speech. Son by the bedside September 25, 2017-patient seen and examined, resting comfortably, no acute event overnight. Physical Exam Vital signs: Vital Signs 09/24/17 14:00 09/24/17 16:00 09/24/17 18:00 Temperature 98.3 F Pulse Rate 65 79 65 Respiratory Rate 16 Blood Pressure 131/70 Pulse Oximetry 93 L 09/24/17 20:00 09/24/17 22:00 09/25/17 00:00 Temperature 98.0 F 98.0 F Pulse Rate 84 84 70 Respiratory Rate 19 12 Blood Pressure 147/75 H 137/85 Pulse Oximetry 09/25/17 04:00 09/25/17 06:00 09/25/17 08:00 Temperature 98.4 F 97.8 F Pulse Rate 76 76 62 Respiratory Rate 12 Blood Pressure 137/87 145/73 H Pulse Oximetry 96 97 09/25/17 08:39 09/25/17 10:00 09/25/17 12:00 Temperature Pulse Rate 72 76 Respiratory Rate Blood Pressure Pulse Oximetry 96 Intake & Output 09/24/17 09/25/17 09/25/17 18:59 06:59 18:59 Intake Total 480 / 480 Output Total 1400 / 1400 900 / 900 Balance -920 / -920 -900 / -900 Weight 87.2 kg Intake: Oral 480 / 480 Output: Urine 900 / 900 Urine Amount (Catheter) 1400 / 1400 Indwelling Urethral Catheter 1400 / 1400 Other: # Voids 2 # Incontinent Voids 2 Date of Last Bowel Movement 09/20/17 09/20/17 Narrative: GENERAL: NAD SKIN: Warm and dry. HEAD: Normocephalic. EYES: No scleral icterus. No injection or drainage. NECK: Supple, trachea midline. No JVD or lymphadenopathy. CARDIOVASCULAR: Regular rate and rhythm without murmurs, gallops, or rubs. RESPIRATORY: Breath sounds equal bilaterally. No accessory muscle use. GASTROINTESTINAL: Abdomen soft, non-tender, nondistended. MUSCULOSKELETAL: No cyanosis, or edema. BACK: Nontender without obvious deformity. No CVA tenderness. - Urinary Catheter Management Indwelling Urethral Catheter Cath placed during this visit: yes, but has since been removed by the nurse Reason for continuing: Not indwelling catheter Insertion date: 09/20/17 Insertion time: 18:04 Removal date: 09/22/17 Removal time: 15:00 Results - Labs CBC & Chem 7: 09/22/17 03:07 09/20/17 13:37 Laboratory Results - last 24 hr 09/25/17 03:55 PT 11.4 INR 1.1 Assessment and Plan - Assessment (1) CVA (cerebral vascular accident) Code(s): I63.9 - Cerebral infarction, unspecified Status: Acute - Plan 66-year-old man with Left acute cerebellar CVA Continue treatment per stroke protocol Coumadin on hold due to supra therapeutic INR Brain MRI September 23, 2017 noted and reviewed by me Appreciate input from neurology, NSG Continue treatment with statin PT/OT/speech therapy for treatment Supratherapeutic INR Status post vitamin K, continue to monitor INR Continue to hold Coumadin per neurology Vit b12 def b12 daily shot, DVT prophylaxis: Bilateral SCDs
--- NOTE | 2017-09-25 15:52 | P.PNNS ---
Subjective Interval history: patient without any issues Physical Exam Vital signs: Vital Signs 09/24/17 16:00 09/24/17 18:00 09/24/17 20:00 Temperature 98.3 F 98.0 F Pulse Rate 79 65 84 Respiratory Rate 16 19 Blood Pressure 131/70 147/75 H Pulse Oximetry 93 L 09/24/17 22:00 09/25/17 00:00 09/25/17 04:00 Temperature 98.0 F 98.4 F Pulse Rate 84 70 76 Respiratory Rate 12 Blood Pressure 137/85 137/87 Pulse Oximetry 96 09/25/17 06:00 09/25/17 08:00 09/25/17 08:39 Temperature 97.8 F Pulse Rate 76 62 Respiratory Rate 12 Blood Pressure 145/73 H Pulse Oximetry 97 96 09/25/17 10:00 09/25/17 12:00 09/25/17 14:00 Temperature 98.2 F Pulse Rate 72 76 80 Respiratory Rate 24 Blood Pressure 152/88 H Pulse Oximetry 97 Intake & Output 09/24/17 09/25/17 09/25/17 18:59 06:59 18:59 Intake Total 480 / 480 Output Total 1400 / 1400 900 / 900 Balance -920 / -920 -900 / -900 Weight 87.2 kg Intake: Oral 480 / 480 Output: Urine 900 / 900 Urine Amount (Catheter) 1400 / 1400 Indwelling Urethral Catheter 1400 / 1400 Other: # Voids 2 # Incontinent Voids 2 Date of Last Bowel Movement 09/20/17 09/20/17 Narrative: E4 bright AOx3 Fc x4 4/5 on the left 5/5 on the right - Urinary Catheter Management Indwelling Urethral Catheter Cath placed during this visit: yes, but has since been removed by the nurse Reason for continuing: Not indwelling catheter Insertion date: 09/20/17 Insertion time: 18:04 Removal date: 09/22/17 Removal time: 15:00 Assessment and Plan - Assessment (1) CVA (cerebral vascular accident) Code(s): I63.9 - Cerebral infarction, unspecified Status: Acute - Plan Mr. Samuels is a 66 y/o male with no signifant PMH found to have Lt vert occlusion on 09/17 with small cerebellar infarct. 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 Discussed with patients the current risks of further CVA while at the same time concern for anticoagulation. Patient now 5 days post significant CVA with stable neurological exam. Plan: -continue Q1H neuro checks. Notify neurosurgery if patient experiences neurologic deterioration. -continue aggressive medical prevention of cerebral edema with goal Na 140-150 -Due to high recurrent stroke risk, consider starting heparin ggt today -Will continue to monitor patient, if stable for 48 hours on heparin ggt, ok to transition to heparin
--- NOTE | 2017-09-25 17:41 | P.PNNEU ---
Subjective Subjective Comments: No new C/O Active Medications: Active Medications Acetaminophen (Tylenol) 650 mg PO Q4H PRN PRN Reason: Temp > 100.4 Last Admin: 09/21/17 20:44 Dose: 650 mg Al Hydroxide/Mg Hydroxide (Milk Of Kandice Seo) 30 ml PO Q12H PRN PRN Reason: Mild Constipation Albuterol (Duoneb Neb (Prn)) 1 ampul NEB Q2HR NEB PRN PRN Reason: SHORTNESS OF BREATH Bisacodyl (Dulcolax Supp) 10 mg RECTAL DAILY PRN PRN Reason: SEVERE CONSITIPATION Cyanocobalamin (Vitamin B12 Inj) 1,000 mcg SQ DAILY [facility] Last Admin: 09/25/17 09:42 Dose: 1,000 mcg Enalaprilat (Vasotec Inj) 1.25 mg IV.PUSH Q4H PRN PRN Reason: For SBP > 220 or DBP > 120 Famotidine (Pepcid Pf Inj) 20 mg IV.PUSH Q12HR [facility] Last Admin: 09/25/17 09:41 Dose: 20 mg Magnesium Sulfate Inj 4 gm/ (Sodium Chloride) 100 mls @ 50 mls/hr IV.SIG UNSCH PRN PRN Reason: For Magnesium 0.9 - 1.1 mg/dL Magnesium Sulfate Inj 2 gm/ (Sodium Chloride) 100 mls @ 50 mls/hr IV.SIG UNSCH PRN PRN Reason: For Magnesium 1.2 - 1.6 mg/dL Potassium Chloride (Kcl 40 Meq Premix Inj) 40 meq in 100 mls @ 50 mls/hr IV.SIG Q2H PRN PRN Reason: For Potassium 2.8 - 3.2 mEq/L Potassium Chloride (Kcl 20 Meq Premix Inj) 20 meq in 100 mls @ 50 mls/hr IV.SIG Q2H PRN PRN Reason: For Potassium 3.3 - 3.5 mEq/L Potassium Chloride (Kcl 40 Meq Premix Inj) 40 meq in 100 mls @ 25 mls/hr IV.SIG UNSCH PRN PRN Reason: For Potassium 3.3 - 3.5 mEq/L Potassium Phosphate 30 mmol/ (Sodium Chloride) 260 mls @ 42 mls/hr IV.SIG UNSCH PRN PRN Reason: SEE LABEL COMMENTS Sodium Phosphate 30 mmol/ (Sodium Chloride) 260 mls @ 42 mls/hr IV.SIG UNSCH PRN PRN Reason: For Phosphorus < 2.5 mg/dL Potassium Chloride (Kcl 20 Meq Premix Inj) 20 meq in 100 mls @ 50 mls/hr IV.SIG Q2H PRN PRN Reason: For Potassium 2.8 - 3.2 mEq/L Sodium Chloride (Ns Inj) 1,000 mls @ 50 mls/hr IV.CONT .Q20H [facility] Last Admin: 09/24/17 00:27 Dose: 50 mls/hr Lactulose (Lactulose Liq) 30 ml PO DAILY PRN PRN Reason: SEVERE CONSITIPATION Magnesium Oxide (Mag-Ox) 800 mg PO UNSCH PRN PRN Reason: For Magnesium 1.2 - 1.6 mg/dL Multivitamins (Theragran) 1 tab PO DAILY [facility] Last Admin: 09/25/17 09:43 Dose: 1 tab Ondansetron HCl (Zofran Odt) 4 mg PO Q6H PRN PRN Reason: NAUSEA OR VOMITING Potassium Bicarb/Potassium Chloride (K-Lyte Cl Eff) 50 meq PO UNSCH PRN PRN Reason: For Potassium 3.3 - 3.5 mEq/L Potassium Phosphate (K-Phos Original) 2,000 mg PO Q4H PRN PRN Reason: Phosphorus Less Than 2.5 mg/dL Potassium Phosphate (K-Phos Original) 2,000 mg PO UNSCH PRN PRN Reason: SEE LABEL COMMENTS Senna/Docusate Sodium (Paty-Colace) 1 tab PO BID [facility] Last Admin: 09/25/17 09:41 Dose: 1 tab Sennosides (Senokot) 17.2 mg PO Q12H PRN PRN Reason: Moderate Constipation Sodium Chloride (Ns Flush) 2 ml IV.FLUSH BID [facility] Last Admin: 09/25/17 09:43 Dose: Not Given Sodium Chloride (Ns Flush) 2 ml IV.FLUSH PRN PRN PRN Reason: FLUSH AFTER USING IV ACCESS Last Admin: 09/24/17 21:17 Dose: 2 ml Allergies/Adverse Reactions: Allergies Allergy/AdvReac Type Severity Reaction Status Date / Time No Known Allergies Allergy Verified 09/17/17 18:35 Physical Exam Vital signs: Vital Signs 09/24/17 18:00 09/24/17 20:00 09/24/17 22:00 Temperature 98.0 F Pulse Rate 65 84 84 Respiratory Rate 19 Blood Pressure 147/75 H Pulse Oximetry 09/25/17 00:00 09/25/17 04:00 09/25/17 06:00 Temperature 98.0 F 98.4 F Pulse Rate 70 76 76 Respiratory Rate 12 Blood Pressure 137/85 137/87 Pulse Oximetry 96 09/25/17 08:00 09/25/17 08:39 09/25/17 10:00 Temperature 97.8 F Pulse Rate 62 72 Respiratory Rate 12 Blood Pressure 145/73 H Pulse Oximetry 97 96 09/25/17 12:00 09/25/17 14:00 09/25/17 16:00 Temperature 98.2 F 98.0 F Pulse Rate 76 80 76 Respiratory Rate 24 16 Blood Pressure 152/88 H 147/85 H Pulse Oximetry 97 96 Intake & Output 09/24/17 09/25/17 09/25/17 18:59 06:59 18:59 Intake Total 480 / 480 Output Total 1400 / 1400 900 / 900 Balance -920 / -920 -900 / -900 Weight 87.2 kg Intake: Oral 480 / 480 Output: Urine 900 / 900 Urine Amount (Catheter) 1400 / 1400 Indwelling Urethral Catheter 1400 / 1400 Other: # Voids 2 # Incontinent Voids 2 Date of Last Bowel Movement 09/20/17 09/20/17 - Routine Neurological Exam alert, speech normal CN intact MOTOR 5/5 BUE - Urinary Catheter Management Indwelling Urethral Catheter Cath placed during this visit: yes, but has since been removed by the nurse Reason for continuing: Not indwelling catheter Insertion date: 09/20/17 Insertion time: 18:04 Removal date: 09/22/17 Removal time: 15:00 Objective Laboratory Results - last 24 hr 09/25/17 03:55 PT 11.4 INR 1.1 Review/Management - Diagnosis (1) CVA (cerebral vascular accident) Code(s): I63.9 - Cerebral infarction, unspecified Status: Acute Current Visit: Yes - Review/Management Plan: imp left vert acute occlusion most ho needs coumadin started tonight and coumadin for 2 months to prevent stump embolism sq hep and asa can be dced when inr>1.9 med team plz set all this up thank u med team plz start b12 shot ldl 126 on statin ivh keep bp up looking well echo and holter pend sr so far on statin inr pend he can dc when inr>1.9 keft vert occlusion keep ivf on 09/20/17 doing well echo nl sr inr 1.5 ok to dc when inr >1.9 will need residents clinic o/p inr draws daily this week and someone to follow it reliably will need repeat mra neck in 2 months at [facility] [place] as not insurance and fu with me after that in office so i can review it med team plguadalupe set all this up thank you ----- 09/20/17 mraprelim no clot in basilar 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
[2017-09-25] MEDS: Sod Chloride 0.9% Inj 1,000 ML IV.CONT SCH (20:19)
[2017-09-26 05:38] LABS: INR 1.1 Ratio; Prothrombin Time 10.7 sec (9.8-11.6)
[2017-09-26] MEDS: Famotidine PF Inj 20 MG/2 ML Vial IV.PUSH SCH ×2 (09:04→20:55)
[2017-09-26] MEDS: Senna/Docusate Sodium 8.6/50 MG Tablet PO SCH ×2 (09:04→20:57)
--- NOTE | 2017-09-26 12:36 | P.PN ---
Subjective Interval history: Follow-up left cerebellar infarct September 23, 2017-patient seen and examined, stable and no acute event overnight September 24, 2017-patient seen and examined, moving Left side better today. No slurred speech. Son by the bedside September 25, 2017-patient seen and examined, resting comfortably, no acute event overnight. September 26, 2017-patient seen and examined, remains stable, no complaints. Moving his left side of her body well. Physical Exam Vital signs: Vital Signs 09/25/17 13:00 09/25/17 14:00 09/25/17 14:08 Temperature Pulse Rate 83 81 81 Respiratory Rate 14 15 24 Blood Pressure 156/89 H 155/115 H 131/81 Pulse Oximetry 100 09/25/17 15:00 09/25/17 16:00 09/25/17 17:00 Temperature 98.0 F Pulse Rate 71 73 75 Respiratory Rate 11 L 17 26 H Blood Pressure 135/84 147/85 H 142/90 H Pulse Oximetry 96 97 09/25/17 18:00 09/25/17 19:00 09/25/17 20:00 Temperature 98.1 F Pulse Rate 71 88 78 Respiratory Rate 14 22 16 Blood Pressure 132/79 130/94 H 134/83 Pulse Oximetry 95 96 96 09/25/17 22:00 09/26/17 00:00 09/26/17 02:00 Temperature 98.0 F Pulse Rate 78 64 64 Respiratory Rate 17 Blood Pressure 121/56 L Pulse Oximetry 98 09/26/17 04:00 09/26/17 06:00 09/26/17 08:00 Temperature 98.4 F 97.8 F Pulse Rate 67 63 74 Respiratory Rate Blood Pressure 129/78 155/83 H Pulse Oximetry 99 95 09/26/17 10:00 09/26/17 12:00 Temperature Pulse Rate 67 72 Respiratory Rate Blood Pressure Pulse Oximetry Intake & Output 09/25/17 09/26/17 09/26/17 18:59 06:59 18:59 Intake Total 480 / 480 200 / 200 Output Total 975 / 975 1200 / 1200 Balance -495 / -495 -1000 / -1000 Weight 84.9 kg Intake: Oral 480 / 480 200 / 200 Output: Urine 975 / 975 1200 / 1200 Other: # Voids 2 3 Date of Last Bowel Movement 09/20/17 09/20/17 09/20/17 # Bowel Movements 0 Narrative: GENERAL: NAD SKIN: Warm and dry. HEAD: Normocephalic. EYES: No scleral icterus. No injection or drainage. NECK: Supple, trachea midline. No JVD or lymphadenopathy. CARDIOVASCULAR: Regular rate and rhythm without murmurs, gallops, or rubs. RESPIRATORY: Breath sounds equal bilaterally. No accessory muscle use. GASTROINTESTINAL: Abdomen soft, non-tender, nondistended. MUSCULOSKELETAL: No cyanosis, or edema. 4/5motor LLE BACK: Nontender without obvious deformity. No CVA tenderness. - Urinary Catheter Management Indwelling Urethral Catheter Cath placed during this visit: yes, but has since been removed by the nurse Reason for continuing: Not indwelling catheter Insertion date: 09/20/17 Insertion time: 18:04 Removal date: 09/22/17 Removal time: 15:00 Results - Labs CBC & Chem 7: 09/22/17 03:07 09/20/17 13:37 Laboratory Results - last 24 hr 09/26/17 04:15 PT 10.7 INR 1.1 Assessment and Plan - Assessment (1) CVA (cerebral vascular accident) Code(s): I63.9 - Cerebral infarction, unspecified Status: Acute - Plan 66-year-old man with Left acute cerebellar CVA Continue treatment per stroke protocol Coumadin on hold per Neurology Brain MRI September 23, 2017 noted and reviewed by me Appreciate input from neurology, NSG Continue treatment with statin PT/OT/speech therapy for treatment Supratherapeutic INR Status post vitamin K, continue to monitor INR Continue to hold Coumadin per neurology Vit b12 def b12 daily shot, DVT prophylaxis: Bilateral SCDs
--- NOTE | 2017-09-26 14:32 | P.PNNS ---
Subjective Interval history: patient without any issues. denies headache/nausea/vomiting Physical Exam Vital signs: Vital Signs 09/25/17 15:00 09/25/17 16:00 09/25/17 17:00 Temperature 98.0 F Pulse Rate 71 73 75 Respiratory Rate 11 L 17 26 H Blood Pressure 135/84 147/85 H 142/90 H Pulse Oximetry 96 97 09/25/17 18:00 09/25/17 19:00 09/25/17 20:00 Temperature 98.1 F Pulse Rate 71 88 78 Respiratory Rate 14 22 16 Blood Pressure 132/79 130/94 H 134/83 Pulse Oximetry 95 96 96 09/25/17 22:00 09/26/17 00:00 09/26/17 02:00 Temperature 98.0 F Pulse Rate 78 64 64 Respiratory Rate 17 Blood Pressure 121/56 L Pulse Oximetry 98 09/26/17 04:00 09/26/17 06:00 09/26/17 08:00 Temperature 98.4 F 97.8 F Pulse Rate 67 63 74 Respiratory Rate Blood Pressure 129/78 155/83 H Pulse Oximetry 99 95 09/26/17 10:00 09/26/17 12:00 Temperature 98.1 F Pulse Rate 67 72 Respiratory Rate 17 Blood Pressure 134/71 Pulse Oximetry 97 Intake & Output 09/25/17 09/26/17 09/26/17 18:59 06:59 18:59 Intake Total 480 / 480 200 / 200 Output Total 975 / 975 1200 / 1200 Balance -495 / -495 -1000 / -1000 Weight 84.9 kg Intake: Oral 480 / 480 200 / 200 Output: Urine 975 / 975 1200 / 1200 Other: # Voids 2 3 Date of Last Bowel Movement 09/20/17 09/20/17 09/20/17 # Bowel Movements 0 Narrative: E4 bright AOx3 Fc x4 4/5 on the left 5/5 on the right - Urinary Catheter Management Indwelling Urethral Catheter Cath placed during this visit: yes, but has since been removed by the nurse Reason for continuing: Not indwelling catheter Insertion date: 09/20/17 Insertion time: 18:04 Removal date: 09/22/17 Removal time: 15:00 Assessment and Plan - Assessment (1) CVA (cerebral vascular accident) Code(s): I63.9 - Cerebral infarction, unspecified Status: Acute - Plan Mr. 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 Discussed with patients the current risks of further CVA while at the same time concern for anticoagulation. Patient now 6 days post significant CVA with stable neurological exam. Plan: -continue Q1H neuro checks. Notify neurosurgery if patient experiences neurologic deterioration. -continue aggressive medical prevention of cerebral edema with goal Na 140-150 -Due to high recurrent stroke risk, consider starting heparin ggt -If exam stable on heparin for 48 hours, ok to transition to heparin
--- NOTE | 2017-09-26 14:55 | P.PNADD ---
Addendum to Inpatient Note Reason for Addendum: Additional Documentation Additional information: Case discussed with DR Prince, Jonathon READ, and states Due to high recurrent stroke risk, will should consider starting heparin ggt x couple days, then transition to OAC. Therefore will start Heparin ggt today
[2017-09-26] MEDS: Sod Chloride 0.9% Inj 1,000 ML IV.CONT SCH ×2 (16:20→17:09)
[2017-09-26 16:42] LABS: Activated Partial Thrombo Time 25.3 sec (24.3-30.1); INR 1.1 Ratio; Prothrombin Time 10.9 sec (9.8-11.6)
[2017-09-26] MEDS: Heparin 10,000 UNITS/10 ML Vial (for IV use) IV.PUSH STA ×2 (17:21→17:57)
[2017-09-26] MEDS: Heparin Drip 25,000 UNIT/250 ML BAG IV.CONT PRN (18:24)
--- NOTE | 2017-09-27 07:36 | P.PNNS ---
Subjective Interval history: Patient asymptomatic. stable left UE weakness and dysmetria Physical Exam Vital signs: Vital Signs 09/26/17 08:00 09/26/17 10:00 09/26/17 12:00 Temperature 97.8 F 98.1 F Pulse Rate 74 67 72 Respiratory Rate 17 Blood Pressure 155/83 H 134/71 Pulse Oximetry 95 97 09/26/17 14:00 09/26/17 16:00 09/26/17 18:00 Temperature 98.3 F Pulse Rate 68 75 70 Respiratory Rate 18 Blood Pressure 138/83 Pulse Oximetry 97 09/26/17 20:00 09/26/17 22:00 09/27/17 00:00 Temperature 98.0 F 98.1 F Pulse Rate 94 H 75 89 Respiratory Rate Blood Pressure 143/81 H 141/75 H Pulse Oximetry 95 95 09/27/17 02:00 09/27/17 04:00 09/27/17 06:00 Temperature 98.3 F Pulse Rate 64 79 72 Respiratory Rate 16 Blood Pressure 144/86 H Pulse Oximetry 96 Intake & Output 09/26/17 09/27/17 09/27/17 18:59 06:59 18:59 Intake Total 1480 / 1480 100 / 100 Output Total 1100 / 1100 900 / 900 Balance 380 / 380 -800 / -800 Weight 81.5 kg Intake: IV 1000 / 1000 NS Inj 1,000 ML @ 50 mls/hr IV. 1000 / 1000 CONT .Q20H FREYA Rx#:[id number] Oral 480 / 480 100 / 100 Output: Urine 1100 / 1100 900 / 900 Other: # Voids 2 Date of Last Bowel Movement 09/20/17 09/20/17 # Bowel Movements 0 0 Narrative: E4 bright AOx3 Fc x4 4/5 on the left 5/5 on the right dysmetria in b/l UEs - Urinary Catheter Management Indwelling Urethral Catheter Cath placed during this visit: yes, but has since been removed by the nurse Reason for continuing: Not indwelling catheter Insertion date: 09/20/17 Insertion time: 18:04 Removal date: 09/22/17 Removal time: 15:00 Assessment and Plan - Assessment (1) CVA (cerebral vascular accident) Code(s): I63.9 - Cerebral infarction, unspecified Status: Acute - Plan Mr. 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 Discussed with patients the current risks of further CVA while at the same time concern for anticoagulation. Patient now 6 days post significant CVA with stable neurological exam. Plan: -continue Q1H neuro checks. Notify neurosurgery if patient experiences neurologic deterioration. -begin to relax sodium goal -continue heparin ggt for 48 hours, bridge to coumadin on evening of 09/28 if clinically stable
[2017-09-27] MEDS: Famotidine PF Inj 20 MG/2 ML Vial IV.PUSH SCH ×2 (08:01→20:40)
[2017-09-27] MEDS: Senna/Docusate Sodium 8.6/50 MG Tablet PO SCH ×2 (08:02→20:41)
[2017-09-27] MEDS: Sod Chloride 0.9% Inj 1,000 ML IV.CONT SCH (09:15)
--- NOTE | 2017-09-27 09:30 | P.PNNEU ---
Subjective Subjective Comments: alejandrina started iv heparin and rec change to coumadin in am did well over weekend Active Medications: Active Medications Acetaminophen (Tylenol) 650 mg PO Q4H PRN PRN Reason: Temp > 100.4 Last Admin: 09/21/17 20:44 Dose: 650 mg Al Hydroxide/Mg Hydroxide (Milk Of Kandice Liq) 30 ml PO Q12H PRN PRN Reason: Mild Constipation Albuterol (Duoneb Neb (Prn)) 1 ampul NEB Q2HR NEB PRN PRN Reason: SHORTNESS OF BREATH Bisacodyl (Dulcolax Supp) 10 mg RECTAL DAILY PRN PRN Reason: SEVERE CONSITIPATION Cyanocobalamin (Vitamin B12 Inj) 1,000 mcg SQ DAILY [facility] Last Admin: 09/27/17 08:01 Dose: 1,000 mcg Enalaprilat (Vasotec Inj) 1.25 mg IV.PUSH Q4H PRN PRN Reason: For SBP > 220 or DBP > 120 Famotidine (Pepcid Pf Inj) 20 mg IV.PUSH Q12HR [facility] Last Admin: 09/27/17 08:01 Dose: 20 mg Magnesium Sulfate Inj 4 gm/ (Sodium Chloride) 100 mls @ 50 mls/hr IV.SIG UNSCH PRN PRN Reason: For Magnesium 0.9 - 1.1 mg/dL Magnesium Sulfate Inj 2 gm/ (Sodium Chloride) 100 mls @ 50 mls/hr IV.SIG UNSCH PRN PRN Reason: For Magnesium 1.2 - 1.6 mg/dL Potassium Chloride (Kcl 40 Meq Premix Inj) 40 meq in 100 mls @ 50 mls/hr IV.SIG Q2H PRN PRN Reason: For Potassium 2.8 - 3.2 mEq/L Potassium Chloride (Kcl 20 Meq Premix Inj) 20 meq in 100 mls @ 50 mls/hr IV.SIG Q2H PRN PRN Reason: For Potassium 3.3 - 3.5 mEq/L Potassium Chloride (Kcl 40 Meq Premix Inj) 40 meq in 100 mls @ 25 mls/hr IV.SIG UNSCH PRN PRN Reason: For Potassium 3.3 - 3.5 mEq/L Potassium Phosphate 30 mmol/ (Sodium Chloride) 260 mls @ 42 mls/hr IV.SIG UNSCH PRN PRN Reason: SEE LABEL COMMENTS Sodium Phosphate 30 mmol/ (Sodium Chloride) 260 mls @ 42 mls/hr IV.SIG UNSCH PRN PRN Reason: For Phosphorus < 2.5 mg/dL Potassium Chloride (Kcl 20 Meq Premix Inj) 20 meq in 100 mls @ 50 mls/hr IV.SIG Q2H PRN PRN Reason: For Potassium 2.8 - 3.2 mEq/L Sodium Chloride (Ns Inj) 1,000 mls @ 50 mls/hr IV.CONT .Q20H [facility] Last Admin: 09/27/17 09:15 Dose: Not Given Heparin Sodium/Dextrose (Heparin/D5w 25,000 U/250 Ml) 25,000 unit in 250 mls @ 10 mls/hr IV.CONT TITRATE PRN; Protocol PRN Reason: Per Protocol Last Titration: 09/27/17 00:50 Dose: 1,100 units/hr, 11 mls/hr Lactulose (Lactulose Liq) 30 ml PO DAILY PRN PRN Reason: SEVERE CONSITIPATION Magnesium Oxide (Mag-Ox) 800 mg PO UNSCH PRN PRN Reason: For Magnesium 1.2 - 1.6 mg/dL Multivitamins (Theragran) 1 tab PO DAILY [facility] Last Admin: 09/27/17 08:01 Dose: 1 tab Ondansetron HCl (Zofran Odt) 4 mg PO Q6H PRN PRN Reason: NAUSEA OR VOMITING Potassium Bicarb/Potassium Chloride (K-Lyte Cl Eff) 50 meq PO UNSCH PRN PRN Reason: For Potassium 3.3 - 3.5 mEq/L Potassium Phosphate (K-Phos Original) 2,000 mg PO Q4H PRN PRN Reason: Phosphorus Less Than 2.5 mg/dL Potassium Phosphate (K-Phos Original) 2,000 mg PO UNSCH PRN PRN Reason: SEE LABEL COMMENTS Senna/Docusate Sodium (Paty-Colace) 1 tab PO BID [facility] Last Admin: 09/27/17 08:02 Dose: Not Given Sennosides (Senokot) 17.2 mg PO Q12H PRN PRN Reason: Moderate Constipation Sodium Chloride (Ns Flush) 2 ml IV.FLUSH BID [facility] Last Admin: 09/27/17 08:01 Dose: 2 ml Sodium Chloride (Ns Flush) 2 ml IV.FLUSH PRN PRN PRN Reason: FLUSH AFTER USING IV ACCESS Last Admin: 09/24/17 21:17 Dose: 2 ml Allergies/Adverse Reactions: Allergies Allergy/AdvReac Type Severity Reaction Status Date / Time No Known Allergies Allergy Verified 09/17/17 18:35 Physical Exam Vital signs: Vital Signs 09/26/17 10:00 09/26/17 12:00 09/26/17 14:00 Temperature 98.1 F Pulse Rate 67 72 68 Respiratory Rate 17 Blood Pressure 134/71 Pulse Oximetry 97 09/26/17 16:00 09/26/17 18:00 09/26/17 20:00 Temperature 98.3 F 98.0 F Pulse Rate 75 70 94 H Respiratory Rate 18 Blood Pressure 138/83 143/81 H Pulse Oximetry 97 95 09/26/17 22:00 09/27/17 00:00 09/27/17 02:00 Temperature 98.1 F Pulse Rate 75 89 64 Respiratory Rate Blood Pressure 141/75 H Pulse Oximetry 95 09/27/17 04:00 09/27/17 06:00 09/27/17 08:00 Temperature 98.3 F 98.2 F Pulse Rate 79 72 60 Respiratory Rate 16 14 Blood Pressure 144/86 H 151/80 H Pulse Oximetry 96 98 Intake & Output 09/26/17 09/27/17 09/27/17 18:59 06:59 18:59 Intake Total 1480 / 1480 100 / 100 Output Total 1100 / 1100 900 / 900 Balance 380 / 380 -800 / -800 Weight 81.5 kg Intake: IV 1000 / 1000 NS Inj 1,000 ML @ 50 mls/hr IV. 1000 / 1000 CONT .Q20H [facility] Rx#:[id number] Oral 480 / 480 100 / 100 Output: Urine 1100 / 1100 900 / 900 Other: # Voids 2 Date of Last Bowel Movement 09/20/17 09/20/17 09/20/17 # Bowel Movements 0 0 Narrative: awake alert lhh vs severe neglect moving left well - Urinary Catheter Management Indwelling Urethral Catheter Cath placed during this visit: yes, but has since been removed by the nurse Reason for continuing: Not indwelling catheter Insertion date: 09/20/17 Insertion time: 18:04 Removal date: 09/22/17 Removal time: 15:00 Objective Laboratory Results - last 24 hr 09/26/17 09/27/17 15:55 00:05 PT 10.9 INR 1.1 APTT 25.3 36.7 H D Review/Management - Diagnosis (1) CVA (cerebral vascular accident) Code(s): I63.9 - Cerebral infarction, unspecified Status: Acute Current Visit: Yes - Review/Management Plan: imp left vert acute occlusion most ho needs coumadin started tonight and coumadin for 2 months to prevent stump embolism sq hep and asa can be dced when inr>1.9 med team plguadalupe set all this up thank u med team plguadalupe start b12 shot ldl 126 on statin ivh keep bp up looking well echo and holter pend sr so far on statin inr pend he can dc when inr>1.9 jaelft vert occlusion keep ivf on 09/20/17 doing well echo nl sr inr 1.5 ok to dc when inr >1.9 will need residents clinic o/p inr draws daily this week and someone to follow it reliably will need repeat mra neck in 2 months at [facility] [place] as not insurance and fu with me after that in office so i can review it med team plguadalupe set all this up thank you ----- 09/20/17 mraprelim no clot in basilar 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
--- NOTE | 2017-09-27 12:48 | P.PN ---
Subjective Interval history: Follow-up left cerebellar infarct September 23, 2017-patient seen and examined, stable and no acute event overnight September 24, 2017-patient seen and examined, moving Left side better today. No slurred speech. Son by the bedside September 25, 2017-patient seen and examined, resting comfortably, no acute event overnight. September 26, 2017-patient seen and examined, remains stable, no complaints. Moving his left side of her body well. September 27, 2017-patient seen and examined; doing well. Heparin drip started yesterday. Physical Exam Vital signs: Vital Signs 09/26/17 14:00 09/26/17 16:00 09/26/17 18:00 Temperature 98.3 F Pulse Rate 68 75 70 Respiratory Rate 18 Blood Pressure 138/83 Pulse Oximetry 97 09/26/17 20:00 09/26/17 22:00 09/27/17 00:00 Temperature 98.0 F 98.1 F Pulse Rate 94 H 75 89 Respiratory Rate Blood Pressure 143/81 H 141/75 H Pulse Oximetry 95 95 09/27/17 02:00 09/27/17 04:00 09/27/17 06:00 Temperature 98.3 F Pulse Rate 64 79 72 Respiratory Rate 16 Blood Pressure 144/86 H Pulse Oximetry 96 09/27/17 08:00 09/27/17 10:00 09/27/17 10:01 Temperature 98.2 F Pulse Rate 60 75 Respiratory Rate 14 Blood Pressure 151/80 H Pulse Oximetry 98 98 09/27/17 12:00 Temperature Pulse Rate 75 Respiratory Rate Blood Pressure Pulse Oximetry Intake & Output 09/26/17 09/27/17 09/27/17 18:59 06:59 18:59 Intake Total 1480 / 1480 100 / 100 Output Total 1100 / 1100 900 / 900 Balance 380 / 380 -800 / -800 Weight 81.5 kg Intake: IV 1000 / 1000 NS Inj 1,000 ML @ 50 mls/hr IV. 1000 / 1000 CONT .Q20H [facility] Rx#:[id number] Oral 480 / 480 100 / 100 Output: Urine 1100 / 1100 900 / 900 Other: # Voids 2 Date of Last Bowel Movement 09/20/17 09/20/17 09/27/17 # Bowel Movements 0 0 Narrative: GENERAL: NAD SKIN: Warm and dry. HEAD: Normocephalic. EYES: No scleral icterus. No injection or drainage. NECK: Supple, trachea midline. No JVD or lymphadenopathy. CARDIOVASCULAR: Regular rate and rhythm without murmurs, gallops, or rubs. RESPIRATORY: Breath sounds equal bilaterally. No accessory muscle use. GASTROINTESTINAL: Abdomen soft, non-tender, nondistended. MUSCULOSKELETAL: No cyanosis, or edema. BACK: Nontender without obvious deformity. No CVA tenderness. - Urinary Catheter Management Indwelling Urethral Catheter Cath placed during this visit: yes, but has since been removed by the nurse Reason for continuing: Not indwelling catheter Insertion date: 09/20/17 Insertion time: 18:04 Removal date: 09/22/17 Removal time: 15:00 Results - Labs CBC & Chem 7: 09/22/17 03:07 09/20/17 13:37 Laboratory Results - last 24 hr 09/26/17 09/27/17 15:55 00:05 PT 10.9 INR 1.1 APTT 25.3 36.7 H D Assessment and Plan - Assessment (1) CVA (cerebral vascular accident) Code(s): I63.9 - Cerebral infarction, unspecified Status: Acute - Plan 66-year-old man with Left acute cerebellar CVA Continue treatment per stroke protocol Currently on Heparin drip and bridge to Coumadin on 09/28/17 Brain MRI September 23, 2017 noted and reviewed by me Appreciate input from neurology, NSG Continue treatment with statin PT/OT/speech therapy for treatment Vit b12 def b12 daily shot, DVT prophylaxis: Bilateral SCDs
[2017-09-27] MEDS: Heparin Drip 25,000 UNIT/250 ML BAG IV.CONT PRN (13:05)
[2017-09-27 14:31] LABS: Hematocrit 42.9 % (39.0-51.0); Hemoglobin 14.7 gm/dL (13.0-17.0); Mean Corpuscular HGB Conc 34.1 % (32.0-36.0); Mean Corpuscular Volume 87.9 fL (80.0-100.0); Mean Platelet Volume 6.8 fL (7.0-11.0); Platelet Count 351 th/mm3 (150-450); Red Blood Count 4.89 mil/mm3 (4.50-5.90); Red Cell Distribution Width 14.5 % (11.6-17.2); White Blood Count 6.7 th/mm3 (4.0-11.0)
[2017-09-28] MEDS: Sod Chloride 0.9% Inj 1,000 ML IV.CONT SCH (03:50)
[2017-09-28 04:24] LABS: Hematocrit 43.2 % (39.0-51.0); Hemoglobin 14.4 gm/dL (13.0-17.0); Mean Corpuscular HGB Conc 33.3 % (32.0-36.0); Mean Corpuscular Hemoglobin 30.1 pg (27.0-34.0); Mean Corpuscular Volume 90.4 fL (80.0-100.0); Mean Platelet Volume 6.9 fL (7.0-11.0); Platelet Count 317 th/mm3 (150-450); Red Blood Count 4.78 mil/mm3 (4.50-5.90); Red Cell Distribution Width 14.5 % (11.6-17.2); White Blood Count 8.3 th/mm3 (4.0-11.0)
--- NOTE | 2017-09-28 07:25 | P.PNNEU ---
Subjective Active Medications: Active Medications Acetaminophen (Tylenol) 650 mg PO Q4H PRN PRN Reason: Temp > 100.4 Last Admin: 09/21/17 20:44 Dose: 650 mg Al Hydroxide/Mg Hydroxide (Milk Of Kandice Seo) 30 ml PO Q12H PRN PRN Reason: Mild Constipation Albuterol (Duoneb Neb (Prn)) 1 ampul NEB Q2HR NEB PRN PRN Reason: SHORTNESS OF BREATH Bisacodyl (Dulcolax Supp) 10 mg RECTAL DAILY PRN PRN Reason: SEVERE CONSITIPATION Cyanocobalamin (Vitamin B12 Inj) 1,000 mcg SQ DAILY [facility] Last Admin: 09/27/17 08:01 Dose: 1,000 mcg Enalaprilat (Vasotec Inj) 1.25 mg IV.PUSH Q4H PRN PRN Reason: For SBP > 220 or DBP > 120 Famotidine (Pepcid Pf Inj) 20 mg IV.PUSH Q12HR [facility] Last Admin: 09/27/17 20:40 Dose: 20 mg Magnesium Sulfate Inj 4 gm/ (Sodium Chloride) 100 mls @ 50 mls/hr IV.SIG UNSCH PRN PRN Reason: For Magnesium 0.9 - 1.1 mg/dL Magnesium Sulfate Inj 2 gm/ (Sodium Chloride) 100 mls @ 50 mls/hr IV.SIG UNSCH PRN PRN Reason: For Magnesium 1.2 - 1.6 mg/dL Potassium Chloride (Kcl 40 Meq Premix Inj) 40 meq in 100 mls @ 50 mls/hr IV.SIG Q2H PRN PRN Reason: For Potassium 2.8 - 3.2 mEq/L Potassium Chloride (Kcl 20 Meq Premix Inj) 20 meq in 100 mls @ 50 mls/hr IV.SIG Q2H PRN PRN Reason: For Potassium 3.3 - 3.5 mEq/L Potassium Chloride (Kcl 40 Meq Premix Inj) 40 meq in 100 mls @ 25 mls/hr IV.SIG UNSCH PRN PRN Reason: For Potassium 3.3 - 3.5 mEq/L Potassium Phosphate 30 mmol/ (Sodium Chloride) 260 mls @ 42 mls/hr IV.SIG UNSCH PRN PRN Reason: SEE LABEL COMMENTS Sodium Phosphate 30 mmol/ (Sodium Chloride) 260 mls @ 42 mls/hr IV.SIG UNSCH PRN PRN Reason: For Phosphorus < 2.5 mg/dL Potassium Chloride (Kcl 20 Meq Premix Inj) 20 meq in 100 mls @ 50 mls/hr IV.SIG Q2H PRN PRN Reason: For Potassium 2.8 - 3.2 mEq/L Sodium Chloride (Ns Inj) 1,000 mls @ 50 mls/hr IV.CONT .Q20H [facility] Last Admin: 09/28/17 03:50 Dose: Not Given Heparin Sodium/Dextrose (Heparin/D5w 25,000 U/250 Ml) 25,000 unit in 250 mls @ 10 mls/hr IV.CONT TITRATE PRN; Protocol PRN Reason: Per Protocol Last Titration: 09/27/17 21:50 Dose: 1,300 units/hr, 13 mls/hr Lactulose (Lactulose Liq) 30 ml PO DAILY PRN PRN Reason: SEVERE CONSITIPATION Magnesium Oxide (Mag-Ox) 800 mg PO UNSCH PRN PRN Reason: For Magnesium 1.2 - 1.6 mg/dL Multivitamins (Theragran) 1 tab PO DAILY [facility] Last Admin: 09/27/17 08:01 Dose: 1 tab Ondansetron HCl (Zofran Odt) 4 mg PO Q6H PRN PRN Reason: NAUSEA OR VOMITING Potassium Bicarb/Potassium Chloride (K-Lyte Cl Eff) 50 meq PO UNSCH PRN PRN Reason: For Potassium 3.3 - 3.5 mEq/L Potassium Phosphate (K-Phos Original) 2,000 mg PO Q4H PRN PRN Reason: Phosphorus Less Than 2.5 mg/dL Potassium Phosphate (K-Phos Original) 2,000 mg PO UNSCH PRN PRN Reason: SEE LABEL COMMENTS Senna/Docusate Sodium (Paty-Colace) 1 tab PO BID [facility] Last Admin: 09/27/17 20:41 Dose: Not Given Sennosides (Senokot) 17.2 mg PO Q12H PRN PRN Reason: Moderate Constipation Sodium Chloride (Ns Flush) 2 ml IV.FLUSH BID [facility] Last Admin: 09/27/17 20:41 Dose: 2 ml Sodium Chloride (Ns Flush) 2 ml IV.FLUSH PRN PRN PRN Reason: FLUSH AFTER USING IV ACCESS Last Admin: 09/24/17 21:17 Dose: 2 ml Allergies/Adverse Reactions: Allergies Allergy/AdvReac Type Severity Reaction Status Date / Time No Known Allergies Allergy Verified 09/17/17 18:35 Physical Exam Vital signs: Vital Signs 09/27/17 08:00 09/27/17 10:00 09/27/17 10:01 Temperature 98.2 F Pulse Rate 60 75 Respiratory Rate 14 Blood Pressure 151/80 H Pulse Oximetry 98 98 09/27/17 12:00 09/27/17 14:00 09/27/17 16:00 Temperature 98.7 F 98.4 F Pulse Rate 65 80 68 Respiratory Rate 24 18 Blood Pressure 122/71 138/72 Pulse Oximetry 97 97 09/27/17 18:00 09/27/17 20:00 09/27/17 20:32 Temperature 98.1 F Pulse Rate 66 75 Respiratory Rate 25 H Blood Pressure 129/74 Pulse Oximetry 95 94 L 09/27/17 22:00 09/28/17 00:00 09/28/17 02:00 Temperature 98.4 F Pulse Rate 70 86 86 Respiratory Rate 20 Blood Pressure 140/72 Pulse Oximetry 95 09/28/17 04:00 09/28/17 06:00 Temperature 98.4 F Pulse Rate 64 74 Respiratory Rate 21 Blood Pressure 116/73 Pulse Oximetry 95 Intake & Output 09/27/17 09/28/17 09/28/17 18:59 06:59 18:59 Intake Total 2250 / 2250 Output Total 1300 / 1300 400 / 400 Balance 950 / 950 -400 / -400 Weight 81.5 kg Intake: IV 1250 / 1250 Heparin/D5W 25,000 U/250 mL 25, 250 / 250 000 unit In 250 ml @ 1,000 UNITS/HR 10 mls/hr IV.CONT TITRATE PRN Rx#:[id number] NS Inj 1,000 ML @ 50 mls/hr IV. 1000 / 1000 CONT .Q20H [facility] Rx#:[id number] Oral 1000 / 1000 Output: Urine 1300 / 1300 400 / 400 Other: Date of Last Bowel Movement 09/20/17 09/20/17 Narrative: awake alert sees better to left oob in chair - Urinary Catheter Management Indwelling Urethral Catheter Cath placed during this visit: yes, but has since been removed by the nurse Reason for continuing: Not indwelling catheter Insertion date: 09/20/17 Insertion time: 18:04 Removal date: 09/22/17 Removal time: 15:00 Objective Laboratory Results - last 24 hr 09/27/17 09/27/17 09/27/17 14:23 14:23 21:46 WBC 6.7 RBC 4.89 Hgb 14.7 Hct 42.9 MCV 87.9 MCH 30.0 MCHC 34.1 RDW 14.5 Plt Count 351 MPV 6.8 L APTT 36.6 H 37.9 H 09/28/17 09/28/17 04:03 04:03 WBC 8.3 RBC 4.78 Hgb 14.4 Hct 43.2 MCV 90.4 MCH 30.1 MCHC 33.3 RDW 14.5 Plt Count 317 MPV 6.9 L APTT 59.4 H D Review/Management - Diagnosis (1) CVA (cerebral vascular accident) Code(s): I63.9 - Cerebral infarction, unspecified Status: Acute Current Visit: Yes - Review/Management Plan: imp left vert acute occlusion [place] needs coumadin started tonight and coumadin for 2 months to prevent stump embolism sq hep and asa can be dced when inr>1.9 med team plz set all this up thank u med team plguadalupe start b12 shot ldl 126 on statin ivh keep bp up looking well echo and holter pend sr so far on statin inr pend he can dc when inr>1.9 keft vert occlusion keep ivf on 09/20/17 doing well echo nl sr inr 1.5 ok to dc when inr >1.9 will need residents clinic o/p inr draws daily this week and someone to follow it reliably will need repeat mra neck in 2 months at [facility] [place] as not insurance and fu with me after that in office so i can review it med team plz set all this up thank you ----- 09/20/17 mraprelim no clot in basilar probably threw a clot to the r metal loader 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 09/22/17 doing better inr inc recheck 2 pm hold coumadin on statin watch for any digression with inr up i med team 09/23/17 stable overnoc inr 4.0 after 5 sq vit k would like lower so will give 2mg po vit k recheck mri hob 40 degrees [facility] on case 09/24/17 he needs to stay in icu mri no change but major mass effect on sariah and small left pontine cva no change 09/22-09/23 inr 1.5 i am conflicted but with that much mass effect i do not think he should be on anticoagulation stable overnoc 09/27/17 exam is stable doing well neurowise he is due for coumadin dose tomorrow per [facility] will defer to them on the bleed risk will recheck mri on 09/28/17 a little better every day check mr in am [facility] managing coumadin
[2017-09-28] MEDS: Heparin Drip 25,000 UNIT/250 ML BAG IV.CONT PRN (07:51)
[2017-09-28] MEDS: Famotidine PF Inj 20 MG/2 ML Vial IV.PUSH SCH ×2 (09:25→21:37)
[2017-09-28] MEDS: Senna/Docusate Sodium 8.6/50 MG Tablet PO SCH ×2 (09:26→21:37)
--- NOTE | 2017-09-28 12:11 | P.PNIM ---
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 Patient was seen by Dr. Prieto. Patient had denied any previous medical problems. He had been placed on aspirin, subcu heparin and Coumadin had been started. INR 1.[address] Prieto saw the patient today he had 5 out of 5 power all 4 extremities. A Stroke alert was called later this morning as the patient developed left-sided weakness nausea and vomiting. He also had a right-sided gaze, and worsening aphasia. An MRI done in the a.m. today showed worsening left cerebellar stroke. I evaluated the patient in the ICU. He has expressive aphasia, follows commands on the right side. He has right-sided gaze unable to look to the left side, his left upper extremity is flaccid, 3 out of 5 power on the left lower extremity. These findings were new. I reviewed the MRI with Dr. 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 Start patient on IV heparin ischemic stroke protocol. Continue Coumadin SUBJ 09/21/17: INR up to goal, 2.2 IV Heparin DCd. Left side strength 4 out of 5. Aphasia improving. Left gaze palsy persist Follow-up left cerebellar infarct September 23, 2017-patient seen and examined, stable and no acute event overnight September 24, 2017-patient seen and examined, moving Left side better today. No slurred speech. Son by the bedside September 25, 2017-patient seen and examined, resting comfortably, no acute event overnight. September 26, 2017-patient seen and examined, remains stable, no complaints. Moving his left side of her body well. September 27, 2017-patient seen and examined; doing well. Heparin drip started yesterday. 09-28 still on heparin drip KAREN RN AND PATIENT START COUMADIN 5MG PO DAILY TONIGHT AM LABS FOLLOW INRS PT AND OT AND ST Physical Exam Vital signs: Vital Signs 09/27/17 14:00 09/27/17 16:00 09/27/17 18:00 Temperature 98.4 F Pulse Rate 80 68 66 Respiratory Rate 18 Blood Pressure 138/72 Pulse Oximetry 97 09/27/17 20:00 09/27/17 20:32 09/27/17 22:00 Temperature 98.1 F Pulse Rate 75 70 Respiratory Rate 25 H Blood Pressure 129/74 Pulse Oximetry 95 94 L 09/28/17 00:00 09/28/17 02:00 09/28/17 04:00 Temperature 98.4 F 98.4 F Pulse Rate 86 86 64 Respiratory Rate 20 21 Blood Pressure 140/72 116/73 Pulse Oximetry 95 95 09/28/17 06:00 09/28/17 07:28 09/28/17 08:00 Temperature 97.6 F Pulse Rate 74 73 Respiratory Rate 21 Blood Pressure 148/89 H Pulse Oximetry 96 96 Intake & Output 09/27/17 09/28/17 09/28/17 18:59 06:59 18:59 Intake Total 2250 / 2250 250 / 250 Output Total 1300 / 1300 400 / 400 Balance 950 / 950 -400 / -400 250 / 250 Weight 81.5 kg Intake: IV 1250 / 1250 250 / 250 Heparin/D5W 25,000 U/250 mL 25, 250 / 250 250 / 250 000 unit In 250 ml @ 1,000 UNITS/HR 10 mls/hr IV.CONT TITRATE PRN Rx#:[id number] NS Inj 1,000 ML @ 50 mls/hr IV. 1000 / 1000 CONT .Q20H RFEYA Rx#:[id number] Oral 1000 / 1000 Output: Urine 1300 / 1300 400 / 400 Other: Date of Last Bowel Movement 09/20/17 09/20/17 09/20/17 Narrative: GENERAL: NAD SKIN: Warm and dry. HEAD: Normocephalic. EYES: No scleral icterus. No injection or drainage. NECK: Supple, trachea midline. No JVD or lymphadenopathy. CARDIOVASCULAR: Regular rate and rhythm without murmurs, gallops, or rubs. RESPIRATORY: Breath sounds equal bilaterally. No accessory muscle use. GASTROINTESTINAL: Abdomen soft, non-tender, nondistended. MUSCULOSKELETAL: No cyanosis, or edema. BACK: Nontender without obvious deformity. No CVA tenderness. - Urinary Catheter Management Indwelling Urethral Catheter Cath placed during this visit: yes, but has since been removed by the nurse Reason for continuing: Not indwelling catheter Insertion date: 09/20/17 Insertion time: 18:04 Removal date: 09/22/17 Removal time: 15:00 Results - Labs CBC & Chem 7: 09/28/17 04:03 09/20/17 13:37 Laboratory Results - last 24 hr 09/27/17 09/27/17 09/27/17 14:23 14:23 21:46 WBC 6.7 RBC 4.89 Hgb 14.7 Hct 42.9 MCV 87.9 MCH 30.0 MCHC 34.1 RDW 14.5 Plt Count 351 MPV 6.8 L APTT 36.6 H 37.9 H 09/28/17 09/28/17 09/28/17 04:03 04:03 11:02 WBC 8.3 RBC 4.78 Hgb 14.4 Hct 43.2 MCV 90.4 MCH 30.1 MCHC 33.3 RDW 14.5 Plt Count 317 MPV 6.9 L APTT 59.4 H D 73.2 H D - Imaging Neck MRA 09/17/17 00:00 CONCLUSION: 1. Near-complete occlusion right vertebral artery, age indeterminant. Prominent caliber and widely patent left vertebral artery. 2. No significant carotid occlusive disease. Percent stenosis is calculated using the diameter of the stenotic region over the diameter of the normal distal internal carotid artery Chest X-Ray 09/17/17 17:37 CONCLUSION: Trace basilar atelectasis. Head CT 09/17/17 17:37 CONCLUSION: 1. No acute intracranial abnormalities. 2. Findings called by telephone by Dr. Lambert to Dr. Ventura at the time of dictation. . Head CTA 09/17/17 17:37 CONCLUSION: 1. No acute occlusive disease demonstrated. 2. Intracranial atherosclerosis. 3. 2 mm anterior communicating aneurysm. Neck CTA 09/17/17 17:37 CONCLUSION: 1. Occluded left vertebral artery, age indeterminate. Widely patent right vertebral artery and basilar artery. 2. Otherwise essentially normal. Trace atherosclerosis seen of both carotid bifurcations without narrowing. Head MRI 09/17/17 18:33 CONCLUSION: 1. Focal acute infarct of the left-sided cerebellum. 2. The rest of the brain is within normal limits. Head MRA 09/20/17 00:00 CONCLUSION: 1. Occlusion of the right posterior cerebral artery at the junction of the P1 and P2 segments. 2. Intracranial vessels are otherwise patent. Head/Brain Mag Res Venography 09/20/17 00:00 CONCLUSION: 1. Narrowing of the dural sinuses at the confluence of the torcula. This is probably anatomic, however. No obvious thrombosis identified on the previous MRI. 2. Dural sinuses are otherwise widely patent. Neck MRA 09/20/17 00:00 CONCLUSION: 1. Arch vessels and both carotids are widely patent throughout. 2. Patient is right vertebral dominant. Right vertebral artery is patent throughout. 3. The origin of the left vertebral is not well seen and there may be a high- grade stenosis or near occlusion in this location. Remaining portions of the left vertebral artery are diminutive but patent. CTA of the cervical vessels could be performed for further characterization if clinically warranted. Percent stenosis is calculated using the diameter of the stenotic region over the diameter of the normal distal internal carotid artery Head MRI 09/20/17 10:28 CONCLUSION: 1. Significant interval change with a large area redistribution in the left cerebellar hemisphere, PICA distribution without hemorrhage. Head CT 09/20/17 10:35 CONCLUSION: 1. Negative for hemorrhage. Cerebellum remains normal. Report was called to Dr. Prieto Head MRI 09/22/17 06:00 CONCLUSION: 1. Evolving infarcts in the left cerebellum, right posterior thalamus and right medial temporal lobe as above. Signal abnormality of infarcts has clearly increased with questionable increase in size. There is slightly more mass effect and some compression on the sariah from the left posterior aspect. Also tiny lacunar infarct right cerebellar hemisphere not seen on prior exam Head MRI 09/23/17 08:52 CONCLUSION: 1. Stable examination with multifocal areas of edema related to recent ischemia. The edema associated with the left cerebellar infarct has local mass effect on the brainstem and narrows the cerebral aqueduct and fourth ventricle. However, ventricles remain stable in size and not enlarged. 2. No hemorrhagic transformation has occurred. - Procedures TPA Assessment and Plan - Assessment (1) CVA (cerebral vascular accident) Code(s): I63.9 - Cerebral infarction, unspecified Status: Acute - Plan 66-year-old man with Left acute cerebellar CVA AND ACUTE INFARCT INVOLVING RIGHT THALAMUS KNOWN NEAR COMPLETE OCCLUSION OF THE LEFT VERTEBRAL ARTERY Continue treatment per stroke protocol Currently on Heparin drip and bridge to Coumadin on 09/28/17 Brain MRI September 23, 2017 noted and reviewed by me Appreciate input from neurology, NSG Continue treatment with statin PT/OT/speech therapy for treatment Vit b12 def b12 daily shot, DVT prophylaxis: Bilateral SCDs PT AND OT AND ST Code Status: FULL CODED Discussed Condition With: RN AND PT Discharge Planning: NEEDS THERAPEUTIC INR 2.0 TO 3.0 PRIOR TO DISCHARGE
--- NOTE | 2017-09-28 17:04 | P.PNNS ---
Subjective Interval history: 09/28: reports to be doing well, denies headaches or neuro changes. <Misty Teresa - Last Filed: 09/28/17 17:02> Physical Exam Vital signs: Vital Signs 09/27/17 18:00 09/27/17 20:00 09/27/17 20:32 Temperature 98.1 F Pulse Rate 66 75 Respiratory Rate 25 H Blood Pressure 129/74 Pulse Oximetry 95 94 L 09/27/17 22:00 09/28/17 00:00 09/28/17 02:00 Temperature 98.4 F Pulse Rate 70 86 86 Respiratory Rate 20 Blood Pressure 140/72 Pulse Oximetry 95 09/28/17 04:00 09/28/17 06:00 09/28/17 07:28 Temperature 98.4 F Pulse Rate 64 74 Respiratory Rate 21 Blood Pressure 116/73 Pulse Oximetry 95 96 09/28/17 08:00 09/28/17 10:00 09/28/17 12:00 Temperature 97.6 F 98.2 F Pulse Rate 73 92 H 78 Respiratory Rate 21 20 Blood Pressure 148/89 H 135/84 Pulse Oximetry 96 99 09/28/17 14:00 09/28/17 16:00 Temperature 98.3 F Pulse Rate 89 83 Respiratory Rate 22 Blood Pressure 134/69 Pulse Oximetry 100 Intake & Output 09/27/17 09/28/17 09/28/17 18:59 06:59 18:59 Intake Total 2250 / 2250 850 / 850 Output Total 1300 / 1300 400 / 400 1000 / 1000 Balance 950 / 950 -400 / -400 -150 / -150 Weight 81.5 kg Intake: IV 1250 / 1250 250 / 250 Heparin/D5W 25,000 U/250 mL 25, 250 / 250 250 / 250 000 unit In 250 ml @ 1,000 UNITS/HR 10 mls/hr IV.CONT TITRATE PRN Rx#:[id number] NS Inj 1,000 ML @ 50 mls/hr IV. 1000 / 1000 CONT .Q20H FREYA Rx#:[id number] Oral 1000 / 1000 600 / 600 Output: Urine 1300 / 1300 400 / 400 1000 / 1000 Other: Date of Last Bowel Movement 09/20/17 09/20/17 09/20/17 # Bowel Movements 0 Narrative: GENERAL: NAD, Sitting up in chair SKIN: Warm and dry. HEAD: Normocephalic. EYES: No scleral icterus. No injection or drainage. NECK: Supple, trachea midline. No JVD or lymphadenopathy. CARDIOVASCULAR: Regular rate and rhythm RESPIRATORY: Breath sounds equal bilaterally. No accessory muscle use. MUSCULOSKELETAL: No cyanosis, or edema. NEURO: Awake, alert. Conversing well, speech fluent. Follows commands without difficulties. Motor: moves all four extremities with left hemiparesis, and dysmetria. - Urinary Catheter Management Indwelling Urethral Catheter Cath placed during this visit: yes, but has since been removed by the nurse Reason for continuing: Not indwelling catheter Insertion date: 09/20/17 Insertion time: 18:04 Removal date: 09/22/17 Removal time: 15:00 <Misty Teresa - Last Filed: 09/28/17 17:02> Vital signs: Vital Signs 09/27/17 20:00 09/27/17 20:32 09/27/17 22:00 Temperature 98.1 F Pulse Rate 75 70 Respiratory Rate 25 H Blood Pressure 129/74 Pulse Oximetry 95 94 L 09/28/17 00:00 09/28/17 02:00 09/28/17 04:00 Temperature 98.4 F 98.4 F Pulse Rate 86 86 64 Respiratory Rate 20 21 Blood Pressure 140/72 116/73 Pulse Oximetry 95 95 09/28/17 06:00 09/28/17 07:28 09/28/17 08:00 Temperature 97.6 F Pulse Rate 74 73 Respiratory Rate 21 Blood Pressure 148/89 H Pulse Oximetry 96 96 09/28/17 10:00 09/28/17 12:00 09/28/17 14:00 Temperature 98.2 F Pulse Rate 92 H 78 89 Respiratory Rate 20 Blood Pressure 135/84 Pulse Oximetry 99 09/28/17 16:00 Temperature 98.3 F Pulse Rate 83 Respiratory Rate 22 Blood Pressure 134/69 Pulse Oximetry 100 Intake & Output 09/27/17 09/28/17 09/28/17 18:59 06:59 18:59 Intake Total 2250 / 2250 850 / 850 Output Total 1300 / 1300 400 / 400 1000 / 1000 Balance 950 / 950 -400 / -400 -150 / -150 Weight 81.5 kg Intake: IV 1250 / 1250 250 / 250 Heparin/D5W 25,000 U/250 mL 25, 250 / 250 250 / 250 000 unit In 250 ml @ 1,000 UNITS/HR 10 mls/hr IV.CONT TITRATE PRN Rx#:[id number] NS Inj 1,000 ML @ 50 mls/hr IV. 1000 / 1000 CONT .Q20H FREYA Rx#:[id number] Oral 1000 / 1000 600 / 600 Output: Urine 1300 / 1300 400 / 400 1000 / 1000 Other: Date of Last Bowel Movement 09/20/17 09/20/17 09/20/17 # Bowel Movements 0 - Urinary Catheter Management Indwelling Urethral Catheter Cath placed during this visit: no <Antonio Mark - Last Filed: 09/28/17 18:39> Assessment and Plan - Plan Mr. 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 Discussed with patients the current risks of further CVA while at the same time concern for anticoagulation. Patient now 6 days post significant CVA with stable neurological exam. Plan: -continue Q1H neuro checks. Notify neurosurgery if patient experiences neurologic deterioration. -heparin to coumadin bridge, mgt per medical team -f/u MRI Brain ordered tomorrow, <Misty Teresa - Last Filed: 09/28/17 17:02> - Attending Attestation The exam, history, and the medical decision-making described in the above note were completed with the assistance of the mid-level provider. I reviewed and agree with the findings presented. I attest that I had a [id number] encounter with the patient on the same day, and personally performed and documented my assessment and findings in the medical record. <Antonio Mark - Last Filed: 09/28/17 18:39>
[2017-09-29] MEDS: Sod Chloride 0.9% Inj 1,000 ML IV.CONT SCH (03:47)
[2017-09-29 04:08] LABS: Baso # (Auto) 0.1 th/mm3 (0.0-0.2); Baso % (Auto) 0.9 % (0.0-2.0); Eos # (Auto) 0.1 th/mm3 (0.0-0.4); Eos % (Auto) 1.4 % (0.0-4.0); Hematocrit 43.9 % (39.0-51.0); Hemoglobin 14.9 gm/dL (13.0-17.0); Lymph # (Auto) 2.4 th/mm3 (1.0-4.8); Lymph % (Auto) 25.5 % (9.0-44.0); Mean Corpuscular Hemoglobin 30.5 pg (27.0-34.0); Mean Corpuscular Volume 89.7 fL (80.0-100.0); Mean Platelet Volume 7.4 fL (7.0-11.0); Mono # (Auto) 0.7 th/mm3 (0.0-0.9); Mono % (Auto) 7.8 % (0.0-8.0); Neut % (Auto) 64.4 % (16.0-70.0); Platelet Count 318 th/mm3 (150-450); Red Blood Count 4.89 mil/mm3 (4.50-5.90); Red Cell Distribution Width 14.5 % (11.6-17.2); White Blood Count 9.3 th/mm3 (4.0-11.0)
[2017-09-29 04:20] LABS: Activated Partial Thrombo Time 56.8 sec (24.3-30.1); INR 1.1 Ratio
[2017-09-29] MEDS: Famotidine PF Inj 20 MG/2 ML Vial IV.PUSH SCH ×2 (08:01→22:31)
[2017-09-29] MEDS: Senna/Docusate Sodium 8.6/50 MG Tablet PO SCH ×2 (08:01→22:31)
[2017-09-29] MEDS: Heparin Drip 25,000 UNIT/250 ML BAG IV.CONT PRN (08:05)
--- NOTE | 2017-09-29 09:42 | P.PNIM ---
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 Patient was seen by Dr. Prieto. Patient had denied any previous medical problems. He had been placed on aspirin, subcu heparin and Coumadin had been started. INR 1.[address] Prieto saw the patient today he had 5 out of 5 power all 4 extremities. A Stroke alert was called later this morning as the patient developed left-sided weakness nausea and vomiting. He also had a right-sided gaze, and worsening aphasia. An MRI done in the a.m. today showed worsening left cerebellar stroke. I evaluated the patient in the ICU. He has expressive aphasia, follows commands on the right side. He has right-sided gaze unable to look to the left side, his left upper extremity is flaccid, 3 out of 5 power on the left lower extremity. These findings were new. I reviewed the MRI with Dr. 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 Start patient on IV heparin ischemic stroke protocol. Continue Coumadin SUBJ 09/21/17: INR up to goal, 2.2 IV Heparin DCd. Left side strength 4 out of 5. Aphasia improving. Left gaze palsy persist Follow-up left cerebellar infarct September 23, 2017-patient seen and examined, stable and no acute event overnight September 24, 2017-patient seen and examined, moving Left side better today. No slurred speech. Son by the bedside September 25, 2017-patient seen and examined, resting comfortably, no acute event overnight. September 26, 2017-patient seen and examined, remains stable, no complaints. Moving his left side of her body well. September 27, 2017-patient seen and examined; doing well. Heparin drip started yesterday. 09-28 still on heparin drip KAREN RN AND PATIENT START COUMADIN 5MG PO DAILY TONIGHT AM LABS FOLLOW INRS PT AND OT AND ST 09-29 CONTINUE TO LOAD COUMADIN WILL GIVE 7.5 MG PO TODAY AM LABS REMAINS ON HEPARIN DRIP GOAL INR 2.0 TO 3.0 DW RN AND PT AND CM Physical Exam Vital signs: Vital Signs 09/28/17 10:00 09/28/17 12:00 09/28/17 14:00 Temperature 98.2 F Pulse Rate 92 H 78 89 Respiratory Rate 20 Blood Pressure 135/84 Pulse Oximetry 99 09/28/17 16:00 09/28/17 19:33 09/28/17 20:00 Temperature 98.3 F 98.8 F Pulse Rate 83 81 83 Respiratory Rate 22 18 Blood Pressure 134/69 138/81 Pulse Oximetry 100 98 09/28/17 23:33 09/29/17 00:00 09/29/17 03:33 Temperature 98 F Pulse Rate 76 69 88 Respiratory Rate 18 Blood Pressure 131/61 Pulse Oximetry 94 L 09/29/17 04:00 09/29/17 07:15 Temperature 97.8 F Pulse Rate 69 Respiratory Rate 18 12 Blood Pressure 115/64 Pulse Oximetry 95 Intake & Output 09/28/17 09/29/17 09/29/17 18:59 06:59 18:59 Intake Total 850 / 850 550 / 550 60 / 60 Output Total 1000 / 1000 850 / 850 Balance -150 / -150 -300 / -300 60 / 60 Intake: IV 250 / 250 190 / 190 60 / 60 Heparin/D5W 25,000 U/250 mL 25, 250 / 250 190 / 190 60 / 60 000 unit In 250 ml @ 1,000 UNITS/HR 10 mls/hr IV.CONT TITRATE PRN Rx#:[id number] Oral 600 / 600 360 / 360 Output: Urine 1000 / 1000 850 / 850 Other: # Voids 1 Date of Last Bowel Movement 09/20/17 09/28/17 # Bowel Movements 0 1 Narrative: GENERAL: NAD, Sitting up in chair SKIN: Warm and dry. HEAD: Normocephalic. EYES: No scleral icterus. No injection or drainage. NECK: Supple, trachea midline. No JVD or lymphadenopathy. CARDIOVASCULAR: Regular rate and rhythm RESPIRATORY: Breath sounds equal bilaterally. No accessory muscle use. MUSCULOSKELETAL: No cyanosis, or edema. NEURO: Awake, alert. Conversing well, speech fluent. Follows commands without difficulties. Motor: moves all four extremities with left hemiparesis, and dysmetria. - Urinary Catheter Management Indwelling Urethral Catheter Cath placed during this visit: yes, but has since been removed by the nurse Reason for continuing: Not indwelling catheter Insertion date: 09/20/17 Insertion time: 18:04 Removal date: 09/22/17 Removal time: 15:00 Results - Labs CBC & Chem 7: 09/29/17 03:40 09/20/17 13:37 Laboratory Results - last 24 hr 09/28/17 09/28/17 09/29/17 11:02 20:55 03:40 WBC 9.3 RBC 4.89 Hgb 14.9 Hct 43.9 MCV 89.7 MCH 30.5 MCHC 34.0 RDW 14.5 Plt Count 318 MPV 7.4 Prelim Diff (Auto) Slide review pending Neut % (Auto) 64.4 Lymph % (Auto) 25.5 [place] % (Auto) 7.8 Eos % (Auto) 1.4 Baso % (Auto) 0.9 Neut # (Auto) 6.0 Lymph # (Auto) 2.4 [place] # (Auto) 0.7 Eos # (Auto) 0.1 Baso # (Auto) 0.1 WBC Differential . Diff Scan Auto diff confirmed Differential Comment . PT INR APTT 73.2 H D 51.2 H D 09/29/17 03:40 WBC RBC Hgb Hct MCV MCH MCHC RDW Plt Count MPV Prelim Diff (Auto) Neut % (Auto) Lymph % (Auto) [place] % (Auto) Eos % (Auto) Baso % (Auto) Neut # (Auto) Lymph # (Auto) [place] # (Auto) Eos # (Auto) Baso # (Auto) WBC Differential Diff Scan Differential Comment PT 11.0 INR 1.1 APTT 56.8 H - Imaging Neck MRA 09/17/17 00:00 CONCLUSION: 1. Near-complete occlusion right vertebral artery, age indeterminant. Prominent caliber and widely patent left vertebral artery. 2. No significant carotid occlusive disease. Percent stenosis is calculated using the diameter of the stenotic region over the diameter of the normal distal internal carotid artery Chest X-Ray 09/17/17 17:37 CONCLUSION: Trace basilar atelectasis. Head CT 09/17/17 17:37 CONCLUSION: 1. No acute intracranial abnormalities. 2. Findings called by telephone by Dr. Lambert to Dr. Ventura at the time of dictation. . Head CTA 09/17/17 17:37 CONCLUSION: 1. No acute occlusive disease demonstrated. 2. Intracranial atherosclerosis. 3. 2 mm anterior communicating aneurysm. Neck CTA 09/17/17 17:37 CONCLUSION: 1. Occluded left vertebral artery, age indeterminate. Widely patent right vertebral artery and basilar artery. 2. Otherwise essentially normal. Trace atherosclerosis seen of both carotid bifurcations without narrowing. Head MRI 09/17/17 18:33 CONCLUSION: 1. Focal acute infarct of the left-sided cerebellum. 2. The rest of the brain is within normal limits. Head MRA 09/20/17 00:00 CONCLUSION: 1. Occlusion of the right posterior cerebral artery at the junction of the P1 and P2 segments. 2. Intracranial vessels are otherwise patent. Head/Brain Mag Res Venography 09/20/17 00:00 CONCLUSION: 1. Narrowing of the dural sinuses at the confluence of the torcula. This is probably anatomic, however. No obvious thrombosis identified on the previous MRI. 2. Dural sinuses are otherwise widely patent. Neck MRA 09/20/17 00:00 CONCLUSION: 1. Arch vessels and both carotids are widely patent throughout. 2. Patient is right vertebral dominant. Right vertebral artery is patent throughout. 3. The origin of the left vertebral is not well seen and there may be a high- grade stenosis or near occlusion in this location. Remaining portions of the left vertebral artery are diminutive but patent. CTA of the cervical vessels could be performed for further characterization if clinically warranted. Percent stenosis is calculated using the diameter of the stenotic region over the diameter of the normal distal internal carotid artery Head MRI 09/20/17 10:28 CONCLUSION: 1. Significant interval change with a large area redistribution in the left cerebellar hemisphere, PICA distribution without hemorrhage. Head CT 09/20/17 10:35 CONCLUSION: 1. Negative for hemorrhage. Cerebellum remains normal. Report was called to Dr. Prieto Head MRI 09/22/17 06:00 CONCLUSION: 1. Evolving infarcts in the left cerebellum, right posterior thalamus and right medial temporal lobe as above. Signal abnormality of infarcts has clearly increased with questionable increase in size. There is slightly more mass effect and some compression on the sariah from the left posterior aspect. Also tiny lacunar infarct right cerebellar hemisphere not seen on prior exam Head MRI 09/23/17 08:52 CONCLUSION: 1. Stable examination with multifocal areas of edema related to recent ischemia. The edema associated with the left cerebellar infarct has local mass effect on the brainstem and narrows the cerebral aqueduct and fourth ventricle. However, ventricles remain stable in size and not enlarged. 2. No hemorrhagic transformation has occurred. - Procedures TPA Assessment and Plan - Assessment (1) CVA (cerebral vascular accident) Code(s): I63.9 - Cerebral infarction, unspecified Status: Acute - Plan 66-year-old man with Left acute cerebellar CVA AND ACUTE INFARCT INVOLVING RIGHT THALAMUS KNOWN NEAR COMPLETE OCCLUSION OF THE LEFT VERTEBRAL ARTERY Continue treatment per stroke protocol Currently on Heparin drip and bridge to Coumadin on 09/28/17 Brain MRI September 23, 2017 noted and reviewed by me Appreciate input from neurology, NSG Continue treatment with statin PT/OT/speech therapy for treatment Vit b12 def b12 daily shot, DVT prophylaxis: Bilateral SCDs PT AND OT AND ST AM INR INCREASE WARFARIN TO 7.5MG PO DAILY AM LABS Code Status: FULL CODE Discussed Condition With: RN AND PT AND CM Discharge Planning: NEEDS THERAPEUTIC INR 2.0 TO 3.0 PRIOR TO DISCHARGE
--- NOTE | 2017-09-29 10:11 | P.PNNEU ---
Subjective Active Medications: Active Medications Acetaminophen (Tylenol) 650 mg PO Q4H PRN PRN Reason: Temp > 100.4 Last Admin: 09/21/17 20:44 Dose: 650 mg Al Hydroxide/Mg Hydroxide (Milk Of Magnesia Liq) 30 ml PO Q12H PRN PRN Reason: Mild Constipation Albuterol (Duoneb Neb (Prn)) 1 ampul NEB Q2HR NEB PRN PRN Reason: SHORTNESS OF BREATH Bisacodyl (Dulcolax Supp) 10 mg RECTAL DAILY PRN PRN Reason: SEVERE CONSITIPATION Cyanocobalamin (Vitamin B12 Inj) 1,000 mcg SQ DAILY COUNT INCLUDES THE [facility] Last Admin: 09/29/17 08:02 Dose: 1,000 mcg Enalaprilat (Vasotec Inj) 1.25 mg IV.PUSH Q4H PRN PRN Reason: For SBP > 220 or DBP > 120 Famotidine (Pepcid Pf Inj) 20 mg IV.PUSH Q12HR COUNT INCLUDES THE [facility] Last Admin: 09/29/17 08:01 Dose: 20 mg Sodium Chloride (Ns Inj) 1,000 mls @ 50 mls/hr IV.CONT .Q20H COUNT INCLUDES THE [facility] Last Admin: 09/29/17 03:47 Dose: Not Given Heparin Sodium/Dextrose (Heparin/D5w 25,000 U/250 Ml) 25,000 unit in 250 mls @ 10 mls/hr IV.CONT TITRATE PRN; Protocol PRN Reason: Per Protocol Last Admin: 09/29/17 08:05 Dose: 1,200 units/hr, 12 mls/hr Lactulose (Lactulose Liq) 30 ml PO DAILY PRN PRN Reason: SEVERE CONSITIPATION Multivitamins (Theragran) 1 tab PO DAILY COUNT INCLUDES [facility] Last Admin: 09/29/17 08:00 Dose: 1 tab Ondansetron HCl (Zofran Odt) 4 mg PO Q6H PRN PRN Reason: NAUSEA OR VOMITING Senna/Docusate Sodium (Paty-Colace) 1 tab PO BID COUNT INCLUDES THE [facility] Last Admin: 09/29/17 08:01 Dose: Not Given Sennosides (Senokot) 17.2 mg PO Q12H PRN PRN Reason: Moderate Constipation Sodium Chloride (Ns Flush) 2 ml IV.FLUSH BID COUNT INCLUDES THE [facility] Last Admin: 09/29/17 08:00 Dose: 2 ml Sodium Chloride (Ns Flush) 2 ml IV.FLUSH PRN PRN PRN Reason: FLUSH AFTER USING IV ACCESS Last Admin: 09/24/17 21:17 Dose: 2 ml Warfarin Sodium (Coumadin) 7.5 mg PO DAILY@1600 FREYA Allergies/Adverse Reactions: Allergies Allergy/AdvReac Type Severity Reaction Status Date / Time No Known Allergies Allergy Verified 09/17/17 18:35 Physical Exam Vital signs: Vital Signs 09/28/17 12:00 09/28/17 14:00 09/28/17 16:00 Temperature 98.2 F 98.3 F Pulse Rate 78 89 83 Respiratory Rate 20 22 Blood Pressure 135/84 134/69 Pulse Oximetry 99 100 09/28/17 19:33 09/28/17 20:00 09/28/17 23:33 Temperature 98.8 F Pulse Rate 81 83 76 Respiratory Rate 18 Blood Pressure 138/81 Pulse Oximetry 98 09/29/17 00:00 09/29/17 03:33 09/29/17 04:00 Temperature 98 F 97.8 F Pulse Rate 69 88 69 Respiratory Rate 18 18 Blood Pressure 131/61 115/64 Pulse Oximetry 94 L 95 09/29/17 07:15 09/29/17 08:00 Temperature 97.6 F Pulse Rate 61 Respiratory Rate 12 20 Blood Pressure 139/84 Pulse Oximetry 98 Intake & Output 09/28/17 09/29/17 09/29/17 18:59 06:59 18:59 Intake Total 850 / 850 550 / 550 60 / 60 Output Total 1000 / 1000 850 / 850 Balance -150 / -150 -300 / -300 60 / 60 Intake: IV 250 / 250 190 / 190 60 / 60 Heparin/D5W 25,000 U/250 mL 25, 250 / 250 190 / 190 60 / 60 000 unit In 250 ml @ 1,000 UNITS/HR 10 mls/hr IV.CONT TITRATE PRN Rx#:[id number] Oral 600 / 600 360 / 360 Output: Urine 1000 / 1000 850 / 850 Other: # Voids 1 Date of Last Bowel Movement 09/20/17 09/28/17 # Bowel Movements 0 1 Narrative: pupil = awakens easily nl speech seeing better to left 5/5 left very ataxic there though - Urinary Catheter Management Indwelling Urethral Catheter Cath placed during this visit: yes, but has since been removed by the nurse Reason for continuing: Not indwelling catheter Insertion date: 09/20/17 Insertion time: 18:04 Removal date: 09/22/17 Removal time: 15:00 Objective Laboratory Results - last 24 hr 09/28/17 09/28/17 09/29/17 11:02 20:55 03:40 WBC 9.3 RBC 4.89 Hgb 14.9 Hct 43.9 MCV 89.7 MCH 30.5 MCHC 34.0 RDW 14.5 Plt Count 318 MPV 7.4 Prelim Diff (Auto) Slide review pending Neut % (Auto) 64.4 Lymph % (Auto) 25.5 [place] % (Auto) 7.8 Eos % (Auto) 1.4 Baso % (Auto) 0.9 Neut # (Auto) 6.0 Lymph # (Auto) 2.4 [place] # (Auto) 0.7 Eos # (Auto) 0.1 Baso # (Auto) 0.1 WBC Differential . Diff Scan Auto diff confirmed Differential Comment . PT INR APTT 73.2 H D 51.2 H D 09/29/17 03:40 WBC RBC Hgb Hct MCV MCH MCHC RDW Plt Count MPV Prelim Diff (Auto) Neut % (Auto) Lymph % (Auto) [place] % (Auto) Eos % (Auto) Baso % (Auto) Neut # (Auto) Lymph # (Auto) [place] # (Auto) Eos # (Auto) Baso # (Auto) WBC Differential Diff Scan Differential Comment PT 11.0 INR 1.1 APTT 56.8 H Review/Management - Diagnosis (1) CVA (cerebral vascular accident) Code(s): I63.9 - Cerebral infarction, unspecified Status: Acute Current Visit: Yes - Review/Management Plan: imp left vert acute occlusion most ho needs coumadin started tonight and coumadin for 2 months to prevent stump embolism sq hep and asa can be dced when inr>1.9 med team plz set all this up thank u med team plz start b12 shot ldl 126 on statin ivh keep bp up 09/19* looking well echo and holter pend sr so far on statin inr pend he can dc when inr>1.9 keft vert occlusion keep ivf on 09/20/17 doing well echo nl sr inr 1.5 ok to dc when inr >1.9 will need residents clinic o/p inr draws daily this week and someone to follow it reliably will need repeat mra neck in 2 months at [facility] [place] as not insurance and fu with me after that in office so i can review it med team valentín set all this up thank you ----- 09/20/17 mraprelim no clot in basilar probably threw a clot to the r psychotherapist counselor 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 09/22/17 doing better inr inc recheck 2 pm hold coumadin on statin watch for any digression with inr up i dw med team 09/23/17 stable overnoc inr 4.0 after 5 sq vit k would like lower so will give 2mg po vit k recheck mri hob 40 degrees nu on case 09/24/17 he needs to stay in icu mri no change but major mass effect on sariah and small left pontine cva no change 09/22-09/23 inr 1.5 i am conflicted but with that much mass effect i do not think he should be on anticoagulation stable overnoc 09/27/17 exam is stable doing well neurowise he is due for coumadin dose tomorrow per nusu will defer to them on the bleed risk will recheck mri on 09/28/17 a little better every day check mr in am nusu managing coumadin 09/29/17 better every day recheck mr for any bleeding nusu on coumadin dont overshoot inr
--- NOTE | 2017-09-29 11:43 | MR ---
EXAM DATE: 09/29/2017 11:34 AM EDT AGE/SEX: 66 years / Male INDICATIONS: . Residual left sided weakness. CLINICAL DATA: This is the patient's subsequent encounter. Patient reports that signs and symptoms h ave been present for 2 weeks and indicates a pain score of 0/10. MEDICAL/SURGICAL HISTORY: None. None. COMPARISON: [facility] [place]AST, 09/23/2017. . TECHNIQUE: Multiplanar, multisequence examination of the brain was performed without contrast. FINDINGS: There is a large evolving infarct in the left cerebral hemisphere extending into the left brachium po ntis and left cerebral peduncle becoming less apparent on the diffusion-weighted images. There is min imal localized mass effect. There is no parenchymal hemorrhage. The right side the cerebellum is unremarkable. In the supratentorial brain there is an evolving infarct in the basal ganglia, globus pallidus becomi ng less apparent on today's images without hemorrhage. Supratentorial ventricular size is appropriate. There are no extra-axial fluid collections appreciate d. There is no parenchymal hemorrhage. CONCLUSION: 1. Evolving left cerebellar and right thalamus the medial temporal lobe and less apparent in the int erval without hemorrhage. 2. No new areas of infarction are identified. Electronically signed by: Brijesh Chao MD 09/29/2017 11:42 AM EDT
--- NOTE | 2017-09-29 13:43 | P.PNNS ---
Subjective Interval history: 09/29: feeling well, no new neuro complaints. MRI Brain completed this morning. Physical Exam Vital signs: Vital Signs 09/28/17 14:00 09/28/17 16:00 09/28/17 19:33 Temperature 98.3 F Pulse Rate 89 83 81 Respiratory Rate 22 Blood Pressure 134/69 Pulse Oximetry 100 09/28/17 20:00 09/28/17 23:33 09/29/17 00:00 Temperature 98.8 F 98 F Pulse Rate 83 76 69 Respiratory Rate 18 18 Blood Pressure 138/81 131/61 Pulse Oximetry 98 94 L 09/29/17 03:33 09/29/17 04:00 09/29/17 07:00 Temperature 97.8 F Pulse Rate 88 69 72 Respiratory Rate 18 Blood Pressure 115/64 Pulse Oximetry 95 09/29/17 07:15 09/29/17 08:00 09/29/17 12:00 Temperature 97.6 F 97.5 F L Pulse Rate 61 68 Respiratory Rate 12 20 20 Blood Pressure 139/84 136/78 Pulse Oximetry 98 98 Intake & Output 09/28/17 09/29/17 09/29/17 18:59 06:59 18:59 Intake Total 850 / 850 550 / 550 60 / 60 Output Total 1000 / 1000 850 / 850 Balance -150 / -150 -300 / -300 60 / 60 Intake: IV 250 / 250 190 / 190 60 / 60 Heparin/D5W 25,000 U/250 mL 25, 250 / 250 190 / 190 60 / 60 000 unit In 250 ml @ 1,000 UNITS/HR 10 mls/hr IV.CONT TITRATE PRN Rx#:[id number] Oral 600 / 600 360 / 360 Output: Urine 1000 / 1000 850 / 850 Other: # Voids 1 Date of Last Bowel Movement 09/20/17 09/28/17 # Bowel Movements 0 1 Narrative: GENERAL: NAD, Sitting up in chair SKIN: Warm and dry. HEAD: Normocephalic. EYES: No scleral icterus. No injection or drainage. NECK: Supple, trachea midline. No JVD or lymphadenopathy. CARDIOVASCULAR: Regular rate and rhythm RESPIRATORY: Breath sounds equal bilaterally. No accessory muscle use. MUSCULOSKELETAL: No cyanosis, or edema. NEURO: Awake, alert. Conversing well, speech fluent. Follows commands without difficulties. Motor: moves all four extremities with left hemiparesis, and dysmetria. - Urinary Catheter Management Indwelling Urethral Catheter Cath placed during this visit: yes, but has since been removed by the nurse Reason for continuing: Not indwelling catheter Insertion date: 09/20/17 Insertion time: 18:04 Removal date: 09/22/17 Removal time: 15:00 Assessment and Plan - Plan Mr. 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 Discussed with patients the current risks of further CVA while at the same time concern for anticoagulation. Patient now 6 days post significant CVA with stable neurological exam. follow up MRI Brain 09/29/17 reviewed, reports: 1. Evolving left cerebellar and right thalamus the medial temporal lobe and less apparent in the interval without hemorrhage. 2. No new areas of infarction are identified. Plan: repeat MRI Brain reviewed today cont heparin to coumadin bridge per medical team neurology following cont neuro checks cont therapy
[2017-09-29 15:50] LABS: Hemoglobin A1c 5.3 % (4.3-6.0)
[2017-09-29 16:05] LABS: Albumin 3.2 g/dL (3.4-5.0); Anion Gap 9 meq/L (5-15); Aspartate Aminotransferase 24 U/L (15-37); Blood Urea Nitrogen 17 mg/dL (7-18); Calcium 8.6 mg/dL (8.5-10.1); Carbon Dioxide 26.3 meq/L (21.0-32.0); Chloride 104 meq/L (98-107); Glomerular Filtration Rate 86 mL/min (>89); Glucose,Random 106 mg/dL (74-106); Magnesium 2.4 mg/dL (1.5-2.5); Potassium 3.9 meq/L (3.5-5.1); Sodium 139 meq/L (136-145)
[2017-09-29 16:14] LABS: Alanine Aminotransferase 39 U/L (12-78); Alkaline Phosphatase 121 U/L (45-117); Phosphorus 3.7 mg/dL (2.5-4.9); Total Protein 7.1 g/dL (6.4-8.2)
[2017-09-30] MEDS: Heparin Drip 25,000 UNIT/250 ML BAG IV.CONT PRN (04:48)
--- NOTE | 2017-09-30 07:47 | P.PNNEU ---
Subjective Active Medications: Active Medications Acetaminophen (Tylenol) 650 mg PO Q4H PRN PRN Reason: Temp > 100.4 Last Admin: 09/21/17 20:44 Dose: 650 mg Al Hydroxide/Mg Hydroxide (Milk Of Magnesia Liq) 30 ml PO Q12H PRN PRN Reason: Mild Constipation Albuterol (Duoneb Neb (Prn)) 1 ampul NEB Q2HR NEB PRN PRN Reason: SHORTNESS OF BREATH Bisacodyl (Dulcolax Supp) 10 mg RECTAL DAILY PRN PRN Reason: SEVERE CONSITIPATION Cyanocobalamin (Vitamin B12 Inj) 1,000 mcg SQ DAILY [facility] Last Admin: 09/29/17 08:02 Dose: 1,000 mcg Enalaprilat (Vasotec Inj) 1.25 mg IV.PUSH Q4H PRN PRN Reason: For SBP > 220 or DBP > 120 Famotidine (Pepcid Pf Inj) 20 mg IV.PUSH Q12HR [facility] Last Admin: 09/29/17 22:31 Dose: 20 mg Heparin Sodium/Dextrose (Heparin/D5w 25,000 U/250 Ml) 25,000 unit in 250 mls @ 10 mls/hr IV.CONT TITRATE PRN; Protocol PRN Reason: Per Protocol Last Admin: 09/30/17 04:48 Dose: 1,200 units/hr, 12 mls/hr Lactulose (Lactulose Liq) 30 ml PO DAILY PRN PRN Reason: SEVERE CONSITIPATION Multivitamins (Theragran) 1 tab PO DAILY [facility] Last Admin: 09/29/17 08:00 Dose: 1 tab Ondansetron HCl (Zofran Odt) 4 mg PO Q6H PRN PRN Reason: NAUSEA OR VOMITING Senna/Docusate Sodium (Paty-Colace) 1 tab PO BID [facility] Last Admin: 09/29/17 22:31 Dose: 1 tab Sennosides (Senokot) 17.2 mg PO Q12H PRN PRN Reason: Moderate Constipation Sodium Chloride (Ns Flush) 2 ml IV.FLUSH BID [facility] Last Admin: 09/29/17 22:29 Dose: 2 ml Sodium Chloride (Ns Flush) 2 ml IV.FLUSH PRN PRN PRN Reason: FLUSH AFTER USING IV ACCESS Last Admin: 08/17/18 21:17 Dose: 2 ml Warfarin Sodium (Coumadin) 7.5 mg PO DAILY@1600 FREYA Last Admin: 09/29/17 15:39 Dose: 7.5 mg Allergies/Adverse Reactions: Allergies Allergy/AdvReac Type Severity Reaction Status Date / Time No Known Allergies Allergy Verified 09/17/17 18:35 Physical Exam Vital signs: Vital Signs 09/29/17 08:00 09/29/17 12:00 09/29/17 16:00 Temperature 97.6 F 97.5 F L 97.6 F Pulse Rate 61 68 74 Respiratory Rate 20 20 20 Blood Pressure 139/84 136/78 165/79 H Pulse Oximetry 98 98 97 09/29/17 19:00 09/29/17 19:51 09/29/17 23:00 Temperature 97.6 F Pulse Rate 87 71 76 Respiratory Rate 18 Blood Pressure 139/89 Pulse Oximetry 97 09/30/17 00:30 09/30/17 03:00 09/30/17 05:50 Temperature 98.7 F 98 F Pulse Rate 80 83 78 Respiratory Rate 18 17 Blood Pressure 125/76 118/75 Pulse Oximetry 96 97 Intake & Output 09/29/17 09/30/17 09/30/17 18:59 06:59 18:59 Intake Total 300 / 300 870 / 870 Output Total 300 / 300 1650 / 1650 Balance 0 / 0 -780 / -780 Weight 81.5 kg Intake: IV 60 / 60 250 / 250 Heparin/D5W 25,000 U/250 mL 25, 60 / 60 250 / 250 000 unit In 250 ml @ 1,000 UNITS/HR 10 mls/hr IV.CONT TITRATE PRN Rx#:[id number] Oral 240 / 240 620 / 620 Output: Urine 300 / 300 1650 / 1650 Other: Date of Last Bowel Movement 09/28/17 # Bowel Movements 0 Narrative: stable awake voice clear - Urinary Catheter Management Indwelling Urethral Catheter Cath placed during this visit: yes, but has since been removed by the nurse Reason for continuing: Not indwelling catheter Insertion date: 09/20/17 Insertion time: 18:04 Removal date: 09/22/17 Removal time: 15:00 Objective Laboratory Results - last 24 hr 09/29/17 09/29/17 03:40 14:37 Sodium 139 Potassium 3.9 Chloride 104 Carbon Dioxide 26.3 Anion Gap 9 BUN 17 Creatinine 0.89 Estimated GFR 86 L Random Glucose 106 Hemoglobin A1c 5.3 Calcium 8.6 Phosphorus 3.7 Magnesium 2.4 Total Bilirubin 0.6 AST 24 ALT 39 Alkaline Phosphatase 121 H Total Protein 7.1 Albumin 3.2 L TSH 1.430 Free T4 1.10 Review/Management - Diagnosis (1) CVA (cerebral vascular accident) Code(s): I63.9 - Cerebral infarction, unspecified Status: Acute Current Visit: Yes - Review/Management Plan: imp left vert acute occlusion most ho needs coumadin started tonight and coumadin for 2 months to prevent stump embolism sq hep and asa can be dced when inr>1.9 med team plguadalupe set all this up thank u med team plguadalupe start b12 shot ldl 126 on statin ivh keep bp up looking well echo and holter pend sr so far on statin inr pend he can dc when inr>1.9 keft vert occlusion keep ivf on 09/20/17 doing well echo nl sr inr 1.5 ok to dc when inr >1.9 will need residents clinic o/p inr draws daily this week and someone to follow it reliably will need repeat mra neck in 2 months at [facility] [place] as not insurance and fu with me after that in office so i can review it med team plguadalupe set all this up thank you ----- 09/20/17 mraprelim no clot in basilar probably threw a clot to the r ctc 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 09/22/17 doing better inr inc recheck 2 pm hold coumadin on statin watch for any digression with inr up i dw med team 09/23/17 stable overnoc inr 4.0 after 5 sq vit k would like lower so will give 2mg po vit k recheck mri hob 40 degrees nu on case 09/24/17 he needs to stay in icu mri no change but major mass effect on sariah and small left pontine cva no change 09/22-09/23 inr 1.5 i am conflicted but with that much mass effect i do not think he should be on anticoagulation stable overnoc 09/27/17 exam is stable doing well neurowise he is due for coumadin dose tomorrow per nusu will defer to them on the bleed risk will recheck mri on 09/28/17 a little better every day check mr in am [facility] managing coumadin 09/29/17 better every day recheck mr for any bleeding nu on coumadin dont overshoot inr -------- 09/30/17 stable neuro and mri shows much less edema on coumadin but he was sensitive last time so please do not overshoot inir on him may only need small dose as went up to 4.9 inr last time ready for rehab o/w
[2017-09-30 08:58] LABS: Baso # (Auto) 0.1 th/mm3 (0.0-0.2); Baso % (Auto) 0.9 % (0.0-2.0); Eos # (Auto) 0.2 th/mm3 (0.0-0.4); Hematocrit 44.8 % (39.0-51.0); Hemoglobin 15.2 gm/dL (13.0-17.0); Lymph # (Auto) 2.1 th/mm3 (1.0-4.8); Lymph % (Auto) 25.7 % (9.0-44.0); Mean Corpuscular HGB Conc 33.9 % (32.0-36.0); Mean Corpuscular Hemoglobin 30.3 pg (27.0-34.0); Mean Corpuscular Volume 89.4 fL (80.0-100.0); Mean Platelet Volume 7.4 fL (7.0-11.0); Mono # (Auto) 0.6 th/mm3 (0.0-0.9); Mono % (Auto) 7.7 % (0.0-8.0); Neut # (Auto) 5.3 th/mm3 (1.8-7.7); Neut % (Auto) 63.7 % (16.0-70.0); Platelet Count 351 th/mm3 (150-450); Red Blood Count 5.01 mil/mm3 (4.50-5.90); Red Cell Distribution Width 14.7 % (11.6-17.2); White Blood Count 8.3 th/mm3 (4.0-11.0)
[2017-09-30 09:10] LABS: Activated Partial Thrombo Time 73.7 sec (24.3-30.1); INR 1.5 Ratio
[2017-09-30 09:21] LABS: Albumin 3.4 g/dL (3.4-5.0); Anion Gap 9 meq/L (5-15); Aspartate Aminotransferase 28 U/L (15-37); Blood Urea Nitrogen 15 mg/dL (7-18); Calcium 9.1 mg/dL (8.5-10.1); Carbon Dioxide 27.5 meq/L (21.0-32.0); Chloride 103 meq/L (98-107); Glomerular Filtration Rate 85 mL/min (>89); Glucose,Random 88 mg/dL (74-106); Magnesium 2.5 mg/dL (1.5-2.5); Sodium 139 meq/L (136-145)
[2017-09-30 09:22] LABS: Alanine Aminotransferase 43 U/L (12-78); Phosphorus 3.5 mg/dL (2.5-4.9)
--- NOTE | 2017-09-30 09:26 | P.PNIM ---
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 Patient was seen by Dr. Prieto. Patient had denied any previous medical problems. He had been placed on aspirin, subcu heparin and Coumadin had been started. INR 1.[address] Prieto saw the patient today he had 5 out of 5 power all 4 extremities. A Stroke alert was called later this morning as the patient developed left-sided weakness nausea and vomiting. He also had a right-sided gaze, and worsening aphasia. An MRI done in the a.m. today showed worsening left cerebellar stroke. I evaluated the patient in the ICU. He has expressive aphasia, follows commands on the right side. He has right-sided gaze unable to look to the left side, his left upper extremity is flaccid, 3 out of 5 power on the left lower extremity. These findings were new. I reviewed the MRI with Dr. 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 Start patient on IV heparin ischemic stroke protocol. Continue Coumadin SUBJ 09/21/17: INR up to goal, 2.2 IV Heparin DCd. Left side strength 4 out of 5. Aphasia improving. Left gaze palsy persist Follow-up left cerebellar infarct September 23, 2017-patient seen and examined, stable and no acute event overnight September 24, 2017-patient seen and examined, moving Left side better today. No slurred speech. Son by the bedside September 25, 2017-patient seen and examined, resting comfortably, no acute event overnight. September 26, 2017-patient seen and examined, remains stable, no complaints. Moving his left side of her body well. September 27, 2017-patient seen and examined; doing well. Heparin drip started yesterday. 09-28 still on heparin drip DW RN AND PATIENT START COUMADIN 5MG PO DAILY TONIGHT AM LABS FOLLOW INRS PT AND OT AND ST 09-29 CONTINUE TO LOAD COUMADIN WILL GIVE 7.5 MG PO TODAY AM LABS REMAINS ON HEPARIN DRIP GOAL INR 2.0 TO 3.0 DW RN AND PT AND CM 09-30 DW RN AND PT WILL DECREASE COUMADIN TO 5MG SINCE INR IS NOW 1.5 AM LABS GOAL INR 2.0 TO 3.0 Physical Exam Vital signs: Vital Signs 09/29/17 12:00 09/29/17 16:00 09/29/17 19:00 Temperature 97.5 F L 97.6 F Pulse Rate 68 74 87 Respiratory Rate 20 20 Blood Pressure 136/78 165/79 H Pulse Oximetry 98 97 09/29/17 19:51 09/29/17 23:00 09/30/17 00:30 Temperature 97.6 F 98.7 F Pulse Rate 71 76 80 Respiratory Rate 18 18 Blood Pressure 139/89 125/76 Pulse Oximetry 97 96 09/30/17 03:00 09/30/17 05:50 09/30/17 08:00 Temperature 98 F 97.6 F Pulse Rate 83 78 63 Respiratory Rate 17 16 Blood Pressure 118/75 144/79 H Pulse Oximetry 97 97 Intake & Output 09/29/17 09/30/17 09/30/17 18:59 06:59 18:59 Intake Total 300 / 300 870 / 870 Output Total 300 / 300 1650 / 1650 Balance 0 / 0 -780 / -780 Weight 81.5 kg Intake: IV 60 / 60 250 / 250 Heparin/D5W 25,000 U/250 mL 25, 60 / 60 250 / 250 000 unit In 250 ml @ 1,000 UNITS/HR 10 mls/hr IV.CONT TITRATE PRN Rx#:[id number] Oral 240 / 240 620 / 620 Output: Urine 300 / 300 1650 / 1650 Other: Date of Last Bowel Movement 09/28/17 # Bowel Movements 0 Narrative: GENERAL: NAD, Sitting up in chair SKIN: Warm and dry. HEAD: Normocephalic. EYES: No scleral icterus. No injection or drainage. NECK: Supple, trachea midline. No JVD or lymphadenopathy. CARDIOVASCULAR: Regular rate and rhythm RESPIRATORY: Breath sounds equal bilaterally. No accessory muscle use. MUSCULOSKELETAL: No cyanosis, or edema. NEURO: Awake, alert. Conversing well, speech fluent. Follows commands without difficulties. Motor: moves all four extremities with left hemiparesis, and dysmetria. - Urinary Catheter Management Indwelling Urethral Catheter Cath placed during this visit: yes, but has since been removed by the nurse Reason for continuing: Not indwelling catheter Insertion date: 09/20/17 Insertion time: 18:04 Removal date: 09/22/17 Removal time: 15:00 Results - Labs CBC & Chem 7: 09/30/17 08:13 09/30/17 08:13 Laboratory Results - last 24 hr 09/29/17 09/29/17 09/30/17 03:40 14:37 08:13 WBC RBC Hgb Hct MCV MCH MCHC RDW Plt Count MPV Neut % (Auto) Lymph % (Auto) [place] % (Auto) Eos % (Auto) Baso % (Auto) Neut # (Auto) Lymph # (Auto) [place] # (Auto) Eos # (Auto) Baso # (Auto) WBC Differential Differential Comment PT 15.0 H INR 1.5 APTT 73.7 H D Sodium 139 Potassium 3.9 Chloride 104 Carbon Dioxide 26.3 Anion Gap 9 BUN 17 Creatinine 0.89 Estimated GFR 86 L Random Glucose 106 Hemoglobin A1c 5.3 Calcium 8.6 Phosphorus 3.7 Magnesium 2.4 Total Bilirubin 0.6 AST 24 ALT 39 Alkaline Phosphatase 121 H Total Protein 7.1 Albumin 3.2 L TSH 1.430 Free T4 1.10 09/30/17 09/30/17 08:13 08:13 WBC 8.3 RBC 5.01 Hgb 15.2 Hct 44.8 MCV 89.4 MCH 30.3 MCHC 33.9 RDW 14.7 Plt Count 351 MPV 7.4 Neut % (Auto) 63.7 Lymph % (Auto) 25.7 [place] % (Auto) 7.7 Eos % (Auto) 2.0 Baso % (Auto) 0.9 Neut # (Auto) 5.3 Lymph # (Auto) 2.1 [place] # (Auto) 0.6 Eos # (Auto) 0.2 Baso # (Auto) 0.1 WBC Differential . Differential Comment Auto diff final PT INR APTT Sodium 139 Potassium 4.0 Chloride 103 Carbon Dioxide 27.5 Anion Gap 9 BUN 15 Creatinine 0.90 Estimated GFR 85 L Random Glucose 88 Hemoglobin A1c Calcium 9.1 Phosphorus 3.5 Magnesium 2.5 Total Bilirubin AST 28 ALT 43 Alkaline Phosphatase Total Protein Albumin 3.4 TSH Free T4 - Imaging Impressions Head MRI 09/29/17 07:25 CONCLUSION: 1. Evolving left cerebellar and right thalamus the medial temporal lobe and less apparent in the interval without hemorrhage. 2. No new areas of infarction are identified. - Procedures TPA Assessment and Plan - Assessment (1) CVA (cerebral vascular accident) Code(s): I63.9 - Cerebral infarction, unspecified Status: Acute - Plan 66-year-old man with Left acute cerebellar CVA AND ACUTE INFARCT INVOLVING RIGHT THALAMUS KNOWN NEAR COMPLETE OCCLUSION OF THE LEFT VERTEBRAL ARTERY Continue treatment per stroke protocol Currently on Heparin drip and bridge to Coumadin on 09/28/17 Brain MRI September 23, 2017 noted and reviewed by me Appreciate input from neurology, NSG Continue treatment with statin PT/OT/speech therapy for treatment Vit b12 def b12 daily shot, DVT prophylaxis: Bilateral SCDs PT AND OT AND ST AM INR DECREASE WARFARIN TO 5MG PO DAILY AM LABS Code Status: FULL CODE Discussed Condition With: RN AND PT AND CM Discharge Planning: NEEDS THERAPEUTIC INR 2.0 TO 3.0 PRIOR TO DISCHARGE
[2017-09-30 09:29] LABS: Alkaline Phosphatase 128 U/L (45-117); Total Protein 7.6 g/dL (6.4-8.2)
[2017-09-30] MEDS: Famotidine PF Inj 20 MG/2 ML Vial IV.PUSH SCH ×2 (09:40→22:56)
[2017-09-30] MEDS: Senna/Docusate Sodium 8.6/50 MG Tablet PO SCH ×2 (09:41→22:56)
[2017-10-01] MEDS: Heparin Drip 25,000 UNIT/250 ML BAG IV.CONT PRN (04:17)
--- NOTE | 2017-10-01 07:41 | P.PNNEU ---
Subjective Active Medications: Active Medications Acetaminophen (Tylenol) 650 mg PO Q4H PRN PRN Reason: Temp > 100.4 Last Admin: 09/21/17 20:44 Dose: 650 mg Al Hydroxide/Mg Hydroxide (Milk Of Magnesia Liq) 30 ml PO Q12H PRN PRN Reason: Mild Constipation Albuterol (Duoneb Neb (Prn)) 1 ampul NEB Q2HR NEB PRN PRN Reason: SHORTNESS OF BREATH Bisacodyl (Dulcolax Supp) 10 mg RECTAL DAILY PRN PRN Reason: SEVERE CONSITIPATION Cyanocobalamin (Vitamin B12 Inj) 1,000 mcg SQ DAILY [facility] Last Admin: 09/30/17 09:41 Dose: 1,000 mcg Enalaprilat (Vasotec Inj) 1.25 mg IV.PUSH Q4H PRN PRN Reason: For SBP > 220 or DBP > 120 Famotidine (Pepcid Pf Inj) 20 mg IV.PUSH Q12HR [facility] Last Admin: 09/30/17 22:56 Dose: 20 mg Heparin Sodium/Dextrose (Heparin/D5w 25,000 U/250 Ml) 25,000 unit in 250 mls @ 10 mls/hr IV.CONT TITRATE PRN; Protocol PRN Reason: Per Protocol Last Admin: 10/01/17 04:17 Dose: 900 units/hr, 9 mls/hr Lactulose (Lactulose Liq) 30 ml PO DAILY PRN PRN Reason: SEVERE CONSITIPATION Multivitamins (Theragran) 1 tab PO DAILY [facility] Last Admin: 09/30/17 09:40 Dose: 1 tab Ondansetron HCl (Zofran Odt) 4 mg PO Q6H PRN PRN Reason: NAUSEA OR VOMITING Senna/Docusate Sodium (Paty-Colace) 1 tab PO BID [facility] Last Admin: 09/30/17 22:56 Dose: 1 tab Sennosides (Senokot) 17.2 mg PO Q12H PRN PRN Reason: Moderate Constipation Sodium Chloride (Ns Flush) 2 ml IV.FLUSH BID [facility] Last Admin: 09/30/17 22:56 Dose: 2 ml Sodium Chloride (Ns Flush) 2 ml IV.FLUSH PRN PRN PRN Reason: FLUSH AFTER USING IV ACCESS Last Admin: 09/24/17 21:17 Dose: 2 ml Warfarin Sodium (Coumadin) 5 mg PO DAILY@1600 FREYA Last Admin: 09/30/17 17:39 Dose: 5 mg Allergies/Adverse Reactions: Allergies Allergy/AdvReac Type Severity Reaction Status Date / Time No Known Allergies Allergy Verified 09/17/17 18:35 Physical Exam Vital signs: Vital Signs 09/30/17 08:00 09/30/17 11:00 09/30/17 12:00 Temperature 97.6 F 97.4 F L Pulse Rate 63 65 69 Respiratory Rate 16 14 Blood Pressure 144/79 H 126/66 Pulse Oximetry 97 99 09/30/17 16:00 09/30/17 19:00 09/30/17 19:49 Temperature 97.4 F L 97.7 F Pulse Rate 84 72 84 Respiratory Rate 16 16 Blood Pressure 127/79 139/75 Pulse Oximetry 95 96 10/01/17 00:00 10/01/17 04:00 10/01/17 07:20 Temperature 97.6 F 97.8 F 97.8 F Pulse Rate 68 79 80 Respiratory Rate 17 18 18 Blood Pressure 151/71 H 147/78 H 136/77 Pulse Oximetry 98 97 97 Intake & Output 09/30/17 10/01/17 10/01/17 18:59 06:59 18:59 Intake Total 250 / 250 Output Total 750 / 750 400 / 400 Balance -750 / -750 -150 / -150 Intake: IV 250 / 250 Heparin/D5W 25,000 U/250 mL 25, 250 / 250 000 unit In 250 ml @ 1,000 UNITS/HR 10 mls/hr IV.CONT TITRATE PRN Rx#:[id number] Output: Urine 750 / 750 400 / 400 Other: Date of Last Bowel Movement 10/01/17 Narrative: better q day seeing better to left 5/5 left ataxia - Urinary Catheter Management Indwelling Urethral Catheter Cath placed during this visit: yes, but has since been removed by the nurse Reason for continuing: Not indwelling catheter Insertion date: 09/20/17 Insertion time: 18:04 Removal date: 09/22/17 Removal time: 15:00 Objective Laboratory Results - last 24 hr 09/30/17 09/30/17 09/30/17 08:13 08:13 08:13 WBC 8.3 RBC 5.01 Hgb 15.2 Hct 44.8 MCV 89.4 MCH 30.3 MCHC 33.9 RDW 14.7 Plt Count 351 MPV 7.4 Neut % (Auto) 63.7 Lymph % (Auto) 25.7 [place] % (Auto) 7.7 Eos % (Auto) 2.0 Baso % (Auto) 0.9 Neut # (Auto) 5.3 Lymph # (Auto) 2.1 [place] # (Auto) 0.6 Eos # (Auto) 0.2 Baso # (Auto) 0.1 WBC Differential . Differential Comment Auto diff final PT 15.0 H INR 1.5 APTT 73.7 H D Sodium 139 Potassium 4.0 Chloride 103 Carbon Dioxide 27.5 Anion Gap 9 BUN 15 Creatinine 0.90 Estimated GFR 85 L Random Glucose 88 Calcium 9.1 Phosphorus 3.5 Magnesium 2.5 Total Bilirubin 0.6 AST 28 ALT 43 Alkaline Phosphatase 128 H Total Protein 7.6 Albumin 3.4 09/30/17 09/30/17 15:46 22:36 WBC RBC Hgb Hct MCV MCH MCHC RDW Plt Count MPV Neut % (Auto) Lymph % (Auto) [place] % (Auto) Eos % (Auto) Baso % (Auto) Neut # (Auto) Lymph # (Auto) [place] # (Auto) Eos # (Auto) Baso # (Auto) WBC Differential Differential Comment PT INR APTT 66.8 H 66.5 H Sodium Potassium Chloride Carbon Dioxide Anion Gap BUN Creatinine Estimated GFR Random Glucose Calcium Phosphorus Magnesium Total Bilirubin AST ALT Alkaline Phosphatase Total Protein Albumin Review/Management - Diagnosis (1) CVA (cerebral vascular accident) Code(s): I63.9 - Cerebral infarction, unspecified Status: Acute Current Visit: Yes - Review/Management Plan: imp left vert acute occlusion most ho needs coumadin started tonight and coumadin for 2 months to prevent stump embolism sq hep and asa can be dced when inr>1.9 med team plz set all this up thank u med team plz start b12 shot ldl 126 on statin ivh keep bp up looking well echo and holter pend sr so far on statin inr pend he can dc when inr>1.9 keft vert occlusion keep ivf on 09/20/17 doing well echo nl sr inr 1.5 ok to dc when inr >1.9 will need residents clinic o/p inr draws daily this week and someone to follow it reliably will need repeat [place] [facility] [place] and fu with me after that in office so i can review it med team valentín set all this up thank you ----- 09/20/17 mraprelim no clot in basilar probably threw a clot to the r heavy cleaner 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 09/22/17 doing better inr inc recheck 2 pm hold coumadin on statin watch for any digression with inr up i dw med team 09/23/17 stable overnoc inr 4.0 after 5 sq vit k would like lower so will give 2mg po vit k recheck mri hob [address] [facility] on case 09/24/17 he needs to stay in icu mri no change but major mass effect on sariah and small left pontine cva no change 09/22-09/23 inr 1.5 i am conflicted but with that much mass effect i do not think he should be on anticoagulation stable overnoc 09/27/17 exam is stable doing well neurowise he is due for coumadin dose tomorrow per nu will defer to them on the bleed risk will recheck mri on 09/28/17 a little better every day check mr in am nusu managing coumadin 09/29/17 better every day recheck mr for any bleeding nusu on coumadin dont overshoot inr -------- 09/30/17 stable neuro and mri shows much less edema on coumadin but he was sensitive last time so please do not overshoot inir on him may only need small dose as went up to 4.9 inr last time ready for rehab o/w 10/01/17 inr pend really looking well needs rehab inpt fall risk
[2017-10-01 08:45] LABS: Activated Partial Thrombo Time 48.7 sec (24.3-30.1); INR 2.1 Ratio; Prothrombin Time 20.8 sec (9.8-11.6)
[2017-10-01] MEDS: Famotidine PF Inj 20 MG/2 ML Vial IV.PUSH SCH ×2 (09:22→21:37)
[2017-10-01] MEDS: Senna/Docusate Sodium 8.6/50 MG Tablet PO SCH ×2 (09:22→21:37)
--- NOTE | 2017-10-01 10:34 | P.PNIM ---
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 Patient was seen by Dr. Prieto. Patient had denied any previous medical problems. He had been placed on aspirin, subcu heparin and Coumadin had been started. INR 1.[address] Prieto saw the patient today he had 5 out of 5 power all 4 extremities. A Stroke alert was called later this morning as the patient developed left-sided weakness nausea and vomiting. He also had a right-sided gaze, and worsening aphasia. An MRI done in the a.m. today showed worsening left cerebellar stroke. I evaluated the patient in the ICU. He has expressive aphasia, follows commands on the right side. He has right-sided gaze unable to look to the left side, his left upper extremity is flaccid, 3 out of 5 power on the left lower extremity. These findings were new. I reviewed the MRI with Dr. 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 Start patient on IV heparin ischemic stroke protocol. Continue Coumadin SUBJ 09/21/17: INR up to goal, 2.2 IV Heparin DCd. Left side strength 4 out of 5. Aphasia improving. Left gaze palsy persist Follow-up left cerebellar infarct September 23, 2017-patient seen and examined, stable and no acute event overnight September 24, 2017-patient seen and examined, moving Left side better today. No slurred speech. Son by the bedside September 25, 2017-patient seen and examined, resting comfortably, no acute event overnight. September 26, 2017-patient seen and examined, remains stable, no complaints. Moving his left side of her body well. September 27, 2017-patient seen and examined; doing well. Heparin drip started yesterday. 09-28 still on heparin drip DW RN AND PATIENT START COUMADIN 5MG PO DAILY TONIGHT AM LABS FOLLOW INRS PT AND OT AND ST 09-29 CONTINUE TO LOAD COUMADIN WILL GIVE 7.5 MG PO TODAY AM LABS REMAINS ON HEPARIN DRIP GOAL INR 2.0 TO 3.0 DW RN AND PT AND CM 09-30 DW RN AND PT WILL DECREASE COUMADIN TO 5MG SINCE INR IS NOW 1.5 AM LABS GOAL INR 2.0 TO 3.0 10-01 IN IS 2.1 TODAY CAN HOLD HEPARIN DRIP AM LABS GOAL INR 2.0 TO 3.0 AWAIT SNF VS [facility] DUE TO CVA Physical Exam Vital signs: Vital Signs 09/30/17 11:00 09/30/17 12:00 09/30/17 16:00 Temperature 97.4 F L 97.4 F L Pulse Rate 65 69 84 Respiratory Rate 14 16 Blood Pressure 126/66 127/79 Pulse Oximetry 99 95 09/30/17 19:00 09/30/17 19:49 10/01/17 00:00 Temperature 97.7 F 97.6 F Pulse Rate 72 84 68 Respiratory Rate 16 17 Blood Pressure 139/75 151/71 H Pulse Oximetry 96 98 10/01/17 04:00 10/01/17 07:20 Temperature 97.8 F 97.8 F Pulse Rate 79 80 Respiratory Rate 18 18 Blood Pressure 147/78 H 136/77 Pulse Oximetry 97 97 Intake & Output 09/30/17 10/01/17 10/01/17 18:59 06:59 18:59 Intake Total 250 / 250 Output Total 750 / 750 400 / 400 Balance -750 / -750 -150 / -150 Intake: IV 250 / 250 Heparin/D5W 25,000 U/250 mL 25, 250 / 250 000 unit In 250 ml @ 1,000 UNITS/HR 10 mls/hr IV.CONT TITRATE PRN Rx#:[id number] Output: Urine 750 / 750 400 / 400 Other: Date of Last Bowel Movement 10/01/17 Narrative: GENERAL: NAD, Sitting up in chair SKIN: Warm and dry. HEAD: Normocephalic. EYES: No scleral icterus. No injection or drainage. NECK: Supple, trachea midline. No JVD or lymphadenopathy. CARDIOVASCULAR: Regular rate and rhythm RESPIRATORY: Breath sounds equal bilaterally. No accessory muscle use. MUSCULOSKELETAL: No cyanosis, or edema. NEURO: Awake, alert. Conversing well, speech fluent. Follows commands without difficulties. Motor: moves all four extremities with left hemiparesis, and dysmetria. - Urinary Catheter Management Indwelling Urethral Catheter Cath placed during this visit: yes, but has since been removed by the nurse Reason for continuing: Not indwelling catheter Insertion date: 09/20/17 Insertion time: 18:04 Removal date: 09/22/17 Removal time: 15:00 Results - Labs CBC & Chem 7: 09/30/17 08:13 09/30/17 08:13 Laboratory Results - last 24 hr 09/30/17 09/30/17 10/01/17 15:46 22:36 06:03 PT 20.8 H INR 2.1 APTT 66.8 H 66.5 H 48.7 H D - Procedures TPA Assessment and Plan - Assessment (1) CVA (cerebral vascular accident) Code(s): I63.9 - Cerebral infarction, unspecified Status: Acute - Plan 66-year-old man with Left acute cerebellar CVA AND ACUTE INFARCT INVOLVING RIGHT THALAMUS KNOWN NEAR COMPLETE OCCLUSION OF THE LEFT VERTEBRAL ARTERY Continue treatment per stroke protocol Currently on Heparin drip and bridge to Coumadin on 09/28/17 Brain MRI September 23, 2017 noted and reviewed by me Appreciate input from neurology, NSG Continue treatment with statin PT/OT/speech therapy for treatment INR IS 2.1 8-24 HOLD HEPARIN DRIP Vit b12 def b12 daily shot, DVT prophylaxis: Bilateral SCDs PT AND OT AND ST AM INR DECREASE WARFARIN TO 5MG PO DAILY AM LABS Code Status: FULL CODE Discussed Condition With: RN AND PT AND CM Discharge Planning: NEEDS THERAPEUTIC INR 2.0 TO 3.0 PRIOR TO DISCHARGE AND SAFE DC
[2017-10-02] LABS: Bacteria,Urine Few /hpf; Bilirubin,Urine Negative (Negative); Clarity,Urine Cloudy (Clear); Color,Urine Red (Yellw/Straw); Glucose,Urine (UA) Negative (Negative); Leukocyte Esterase,Urine Trace (Negative); Mucus,Urine Few /lpf (Occasional); Nitrite,Urine Negative (Negative); Specific Gravity,Urine 1.015 (1.002-1.035); Squamous Epithelial Cell,Urine 2 /hpf (0-5)
[2017-10-02 01:08] LABS: Baso % (Auto) 0.6 % (0.0-2.0); Eos # (Auto) 0.1 th/mm3 (0.0-0.4); Eos % (Auto) 1.3 % (0.0-4.0); Hematocrit 47.1 % (39.0-51.0); Hemoglobin 15.5 gm/dL (13.0-17.0); Lymph # (Auto) 1.9 th/mm3 (1.0-4.8); Lymph % (Auto) 22.3 % (9.0-44.0); Mean Corpuscular HGB Conc 32.8 % (32.0-36.0); Mean Corpuscular Hemoglobin 29.6 pg (27.0-34.0); Mean Corpuscular Volume 90.2 fL (80.0-100.0); Mean Platelet Volume 6.9 fL (7.0-11.0); Mono # (Auto) 0.7 th/mm3 (0.0-0.9); Mono % (Auto) 8.3 % (0.0-8.0); Neut # (Auto) 5.7 th/mm3 (1.8-7.7); Neut % (Auto) 67.5 % (16.0-70.0); Platelet Count 321 th/mm3 (150-450); Red Blood Count 5.22 mil/mm3 (4.50-5.90); Red Cell Distribution Width 14.7 % (11.6-17.2); White Blood Count 8.4 th/mm3 (4.0-11.0)
[2017-10-02 01:21] LABS: Calcium 9.2 mg/dL (8.5-10.1); Carbon Dioxide 28.1 meq/L (21.0-32.0); Potassium 4.5 meq/L (3.5-5.1)
[2017-10-02] MEDS: Famotidine PF Inj 20 MG/2 ML Vial IV.PUSH SCH ×2 (10:41→22:36)
[2017-10-02] MEDS: Senna/Docusate Sodium 8.6/50 MG Tablet PO SCH ×2 (10:41→22:36)
--- NOTE | 2017-10-02 11:25 | P.PNIM ---
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 Patient was seen by Dr. Prieto. Patient had denied any previous medical problems. He had been placed on aspirin, subcu heparin and Coumadin had been started. INR 1.[address] Prieto saw the patient today he had 5 out of 5 power all 4 extremities. A Stroke alert was called later this morning as the patient developed left-sided weakness nausea and vomiting. He also had a right-sided gaze, and worsening aphasia. An MRI done in the a.m. today showed worsening left cerebellar stroke. I evaluated the patient in the ICU. He has expressive aphasia, follows commands on the right side. He has right-sided gaze unable to look to the left side, his left upper extremity is flaccid, 3 out of 5 power on the left lower extremity. These findings were new. I reviewed the MRI with Dr. 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 Start patient on IV heparin ischemic stroke protocol. Continue Coumadin SUBJ 09/21/17: INR up to goal, 2.2 IV Heparin DCd. Left side strength 4 out of 5. Aphasia improving. Left gaze palsy persist Follow-up left cerebellar infarct September 23, 2017-patient seen and examined, stable and no acute event overnight September 24, 2017-patient seen and examined, moving Left side better today. No slurred speech. Son by the bedside September 25, 2017-patient seen and examined, resting comfortably, no acute event overnight. September 26, 2017-patient seen and examined, remains stable, no complaints. Moving his left side of her body well. September 27, 2017-patient seen and examined; doing well. Heparin drip started yesterday. 09-28 still on heparin drip DW RN AND PATIENT START COUMADIN 5MG PO DAILY TONIGHT AM LABS FOLLOW INRS PT AND OT AND ST 09-29 CONTINUE TO LOAD COUMADIN WILL GIVE 7.5 MG PO TODAY AM LABS REMAINS ON HEPARIN DRIP GOAL INR 2.0 TO 3.0 DW RN AND PT AND CM 09-30 DW RN AND PT WILL DECREASE COUMADIN TO 5MG SINCE INR IS NOW 1.5 AM LABS GOAL INR 2.0 TO 3.0 10-01 IN IS 2.1 TODAY CAN HOLD HEPARIN DRIP AM LABS GOAL INR 2.0 TO 3.0 AWAIT SNF VS [facility] DUE TO CVA 8-25 INR IS STILL PENDING ADJUST COUMADIN BASED ON INR Physical Exam Vital signs: Vital Signs 10/01/17 12:00 10/01/17 16:00 10/01/17 20:00 Temperature 97.8 F 97.6 F 97.8 F Pulse Rate 80 80 77 Respiratory Rate 18 16 18 Blood Pressure 142/83 H 147/78 H 137/78 Pulse Oximetry 98 98 98 10/02/17 00:00 10/02/17 04:00 10/02/17 08:00 Temperature 97.6 F 98.0 F 97.8 F Pulse Rate 66 59 L 85 Respiratory Rate 18 18 18 Blood Pressure 147/84 H 141/83 H 146/87 H Pulse Oximetry 100 96 97 Intake & Output 10/01/17 10/02/17 10/02/17 18:59 06:59 18:59 Output Total 800 / 800 Balance -800 / -800 Weight 77.7 kg Output: Urine 800 / 800 Other: # Voids 4 Date of Last Bowel Movement 10/01/17 # Bowel Movements 1 Narrative: GENERAL: NAD, Sitting up in chair SKIN: Warm and dry. HEAD: Normocephalic. EYES: No scleral icterus. No injection or drainage. NECK: Supple, trachea midline. No JVD or lymphadenopathy. CARDIOVASCULAR: Regular rate and rhythm RESPIRATORY: Breath sounds equal bilaterally. No accessory muscle use. MUSCULOSKELETAL: No cyanosis, or edema. NEURO: Awake, alert. Conversing well, speech fluent. Follows commands without difficulties. Motor: moves all four extremities with left hemiparesis, and dysmetria. - Urinary Catheter Management Indwelling Urethral Catheter Cath placed during this visit: yes, but has since been removed by the nurse Reason for continuing: Not indwelling catheter Insertion date: 09/20/17 Insertion time: 18:04 Removal date: 09/22/17 Removal time: 15:00 Results - Labs CBC & Chem 7: 10/02/17 00:47 10/02/17 00:47 Laboratory Results - last 24 hr 10/01/17 10/02/17 10/02/17 23:10 00:47 00:47 WBC 8.4 RBC 5.22 Hgb 15.5 Hct 47.1 MCV 90.2 MCH 29.6 MCHC 32.8 RDW 14.7 Plt Count 321 MPV 6.9 L Neut % (Auto) 67.5 Lymph % (Auto) 22.3 [place] % (Auto) 8.3 H Eos % (Auto) 1.3 Baso % (Auto) 0.6 Neut # (Auto) 5.7 Lymph # (Auto) 1.9 [place] # (Auto) 0.7 Eos # (Auto) 0.1 Baso # (Auto) 0.0 WBC Differential . Differential Comment Auto diff final Sodium 138 Potassium 4.5 Chloride 103 Carbon Dioxide 28.1 Anion Gap 7 BUN 18 Creatinine 0.98 Estimated GFR 77 L Random Glucose 85 Calcium 9.2 Urine Color Red Urine Clarity Cloudy H Urine pH 6.0 Ur Specific [place] 1.015 Urine Protein 100 H Urine Glucose (UA) Negative Urine Ketones Negative Urine Occult Blood Large H Urine Nitrate Negative Urine Bilirubin Negative Urine Urobilinogen Less than 2 Ur Leukocyte Esterase Trace H Urine RBC Urine WBC Urine WBC Clumps Many H Ur Squamous Epith Cells 2 Urine Bacteria Few H Urine Mucus Few H Micro UA Comment Culture indicated Ur Microscopic Review Not Reportable Urine Culture Comments Culture indicated Microbiology 10/01/17 23:10 Clean Catch Urine Urine Culture - Preliminary Immature growth - reincubate - Imaging ITS Impressions Chest X-Ray 09/17/17 17:37 CONCLUSION: Trace basilar atelectasis. Head CTA 09/17/17 17:37 CONCLUSION: 1. No acute occlusive disease demonstrated. 2. Intracranial atherosclerosis. 3. 2 mm anterior communicating aneurysm. Neck CTA 09/17/17 17:37 CONCLUSION: 1. Occluded left vertebral artery, age indeterminate. Widely patent right vertebral artery and basilar artery. 2. Otherwise essentially normal. Trace atherosclerosis seen of both carotid bifurcations without narrowing. Head MRA 09/20/17 00:00 CONCLUSION: 1. Occlusion of the right posterior cerebral artery at the junction of the P1 and P2 segments. 2. Intracranial vessels are otherwise patent. Head/Brain Mag Res Venography 09/20/17 00:00 CONCLUSION: 1. Narrowing of the dural sinuses at the confluence of the torcula. This is probably anatomic, however. No obvious thrombosis identified on the previous MRI. 2. Dural sinuses are otherwise widely patent. Neck MRA 09/20/17 00:00 CONCLUSION: 1. Arch vessels and both carotids are widely patent throughout. 2. Patient is right vertebral dominant. Right vertebral artery is patent throughout. 3. The origin of the left vertebral is not well seen and there may be a high- grade stenosis or near occlusion in this location. Remaining portions of the left vertebral artery are diminutive but patent. CTA of the cervical vessels could be performed for further characterization if clinically warranted. Percent stenosis is calculated using the diameter of the stenotic region over the diameter of the normal distal internal carotid artery Head CT 09/20/17 10:35 CONCLUSION: 1. Negative for hemorrhage. Cerebellum remains normal. Report was called to Dr. Prieto Head MRI 09/29/17 07:25 CONCLUSION: 1. Evolving left cerebellar and right thalamus the medial temporal lobe and less apparent in the interval without hemorrhage. 2. No new areas of infarction are identified. - Procedures TPA Assessment and Plan - Assessment (1) CVA (cerebral vascular accident) Code(s): I63.9 - Cerebral infarction, unspecified Status: Acute - Plan 66-year-old man with Left acute cerebellar CVA AND ACUTE INFARCT INVOLVING RIGHT THALAMUS KNOWN NEAR COMPLETE OCCLUSION OF THE LEFT VERTEBRAL ARTERY Continue treatment per stroke protocol Currently on Heparin drip and bridge to Coumadin on 09/28/17 Brain MRI September 23, 2017 noted and reviewed by me Appreciate input from neurology, NSG Continue treatment with statin PT/OT/speech therapy for treatment INR IS 2.1 8-24 HOLD HEPARIN DRIP Vit b12 def b12 daily shot, DVT prophylaxis: Bilateral SCDs PT AND OT AND ST AM INR DECREASE WARFARIN TO 5MG PO DAILY AM LABS AWAIT SAFE PLACE FOR DC Code Status: FULL CODE Discussed Condition With: RN AND PT AND CM Discharge Planning: NEEDS THERAPEUTIC INR 2.0 TO 3.0 PRIOR TO DISCHARGE AND SAFE DC
[2017-10-02 13:02] LABS: INR 2.8 Ratio; Prothrombin Time 28.4 sec (9.8-11.6)
[2017-10-03 05:20] LABS: INR 3.1 Ratio; Prothrombin Time 31.6 sec (9.8-11.6)
--- NOTE | 2017-10-03 08:58 | P.PNIM ---
Subjective Interval history: Pt seen and examined for f/u CVA and UTI. AFVSS. No acute events overnight. Patient reports urine has cleared up since starting antibiotics. Denies dysuria , abdominal pain, N/V. No CP or SOB. Physical Exam Vital signs: Vital Signs 10/02/17 12:00 10/02/17 16:00 10/02/17 21:20 Temperature 97.6 F 97.6 F 98.6 F Pulse Rate 74 80 74 Respiratory Rate 18 18 17 Blood Pressure 125/84 120/78 140/80 Pulse Oximetry 95 97 97 10/03/17 00:00 10/03/17 05:00 Temperature 97.6 F 97.9 F Pulse Rate 66 60 Respiratory Rate 16 16 Blood Pressure 132/72 130/67 Pulse Oximetry 98 97 Intake & Output 10/02/17 10/03/17 10/03/17 18:59 06:59 18:59 Intake Total 480 / 480 1650 / 1650 Output Total 400 / 400 1500 / 1500 Balance 80 / 80 150 / 150 Weight 78 kg Intake: IV 100 / 100 Rocephin Inj 1,000 MG In NS Inj 100 / 100 100 ML @ 200 mls/hr IV.SIG Q24H [facility] Rx#:[id number] Oral 480 / 480 1550 / 1550 Output: Urine 400 / 400 1500 / 1500 Other: Date of Last Bowel Movement 10/01/17 10/01/17 # Bowel Movements 0 Narrative: GENERAL: WN, WD male resting in bed in NAD. SKIN: Warm and dry. HEENT: AT/NC. Pupils equal and round. MMM. HEART: RRR no m/r/g. LUNGS: CTAB without wheezes or crackles. ABDOMEN: +BS, soft, NT, ND. EXTREMITIES: No LE edema. NEURO: Awake and alert. Moving all extremities. - Urinary Catheter Management Indwelling Urethral Catheter Cath placed during this visit: yes, but has since been removed by the nurse Reason for continuing: Not indwelling catheter Insertion date: 09/20/17 Insertion time: 18:04 Removal date: 09/22/17 Removal time: 15:00 Results - Labs CBC & Chem 7: 10/02/17 00:47 10/02/17 00:47 Laboratory Results - last 24 hr 10/01/17 10/02/17 10/03/17 23:10 12:07 04:16 PT 28.4 H 31.6 H INR 2.8 3.1 Urine Color Red Urine Clarity Cloudy H Urine pH 6.0 Ur Specific [place] 1.015 Urine Protein 100 H Urine Glucose (UA) Negative Urine Ketones Negative Urine Occult Blood Large H Urine Nitrate Negative Urine Bilirubin Negative Urine Urobilinogen Less than 2 Ur Leukocyte Esterase Trace H Urine RBC Urine WBC Urine WBC Clumps Many H Ur Squamous Epith Cells 2 Urine Bacteria Few H Urine Mucus Few H Micro UA Comment Culture indicated Urine Culture Comments Culture indicated Microbiology 10/01/17 23:10 Clean Catch Urine Urine Culture - Preliminary gram negative rods - Procedures TPA Assessment and Plan - Assessment (1) CVA (cerebral vascular accident) Code(s): I63.9 - Cerebral infarction, unspecified Status: Acute - Plan 66 year old male with no significant PMH admitted on 09/17 as a stroke alert after having acute onset posterior headache followed by left-sided facial numbness/droop, slurred speech and unsteady gait. 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 MRI brain showed focal acute infarction of the left cerebellum. He weas started on ASA, SQ heparin, and Coumadin. On 09/20, the patient developed acute left-sided weakness , nausea, vomiting, worsening aphasia, and right-sided gaze. MRI showed worsening L cerebellar infarct and probable acute infarct of the right thalamus. He was started on a heparin drip and transferred to the unit. 1. Acute L cerebellar CVA and R thalamus - Initial CT and CTA brain negative - CTA neck with occlusion of L vertebral artery - Brain MRA showing occlusion of R SNACK BAR COOK - Brain MRV showing no obvious thrombosis - Neck MRA showing high-grade stenosis or near occlusion at the origin of left vertebral artery - Repeat head CT negative for hemorrhage - Repeat brain MRI showing evolving left cerebellar and R thalamus infarcts, no new infarcts or hemorrhage - 2D echo showed EF 55-60% - A1c 5.3 - TC 192, LDL 126, HDL 51, TG 72 - Troponins negative - Neuro following, recommending Coumadin with goal INR 2-3. Stable for d/c to rehab - INR 3.1 this AM, hold today's Coumadin dose - Pharm consult for Coumadin dosing - PT/OT/ST - Continue statin 2. UTI - U/A showing blood and trace leukocyte esterase - Culture growing Gram negative rods - Continue Rocephin while in-house - Await final culture and sensitivities DVT prophylaxis: on Coumadin Code Status: Full Discussed Condition With: Patient and case management Discharge Planning: Stable for D/C to SNF. Case management assisting
[2017-10-03] MEDS: Senna/Docusate Sodium 8.6/50 MG Tablet PO SCH ×2 (09:33→21:16)
[2017-10-03] MEDS: Famotidine PF Inj 20 MG/2 ML Vial IV.PUSH SCH ×2 (09:33→21:16)
[2017-10-03] MEDS ORDERED: Warfarin Consult Pharmacy OTHER PRN (14:20)
[2017-10-04 06:09] LABS: INR 2.7 Ratio
--- NOTE | 2017-10-04 08:01 | P.PNNEU ---
Subjective Active Medications: Active Medications Acetaminophen (Tylenol) 650 mg PO Q4H PRN PRN Reason: Temp > 100.4 Last Admin: 09/21/17 20:44 Dose: 650 mg Al Hydroxide/Mg Hydroxide (Milk Of Magnesia Liq) 30 ml PO Q12H PRN PRN Reason: Mild Constipation Albuterol (Duoneb Neb (Prn)) 1 ampul NEB Q2HR NEB PRN PRN Reason: SHORTNESS OF BREATH Bisacodyl (Dulcolax Supp) 10 mg RECTAL DAILY PRN PRN Reason: SEVERE CONSITIPATION Cyanocobalamin (Vitamin B12 Inj) 1,000 mcg SQ DAILY [facility] Last Admin: 10/03/17 09:33 Dose: 1,000 mcg Enalaprilat (Vasotec Inj) 1.25 mg IV.PUSH Q4H PRN PRN Reason: For SBP > 220 or DBP > 120 Famotidine (Pepcid Pf Inj) 20 mg IV.PUSH Q12HR [facility] Last Admin: 10/03/17 21:16 Dose: 20 mg Heparin Sodium/Dextrose (Heparin/D5w 25,000 U/250 Ml) 25,000 unit in 250 mls @ 10 mls/hr IV.CONT TITRATE PRN; Protocol PRN Reason: Per Protocol Last Titration: 10/01/17 09:29 Dose: 0 units/hr, 0 mls/hr Ceftriaxone Sodium 1,000 mg/ (Sodium Chloride) 100 mls @ 200 mls/hr IV.SIG Q24H [facility] Last Infusion: 10/03/17 14:20 Dose: Infused Lactulose (Lactulose Liq) 30 ml PO DAILY PRN PRN Reason: SEVERE CONSITIPATION Multivitamins (Theragran) 1 tab PO DAILY [facility] Last Admin: 10/03/17 09:34 Dose: 1 tab Ondansetron HCl (Zofran Odt) 4 mg PO Q6H PRN PRN Reason: NAUSEA OR VOMITING Pharmacy Profile Note (Coumadin Consult Pharmacy) 1 each OTHER UNSCH PRN PRN Reason: PHARMACY DOCUMENTATION Senna/Docusate Sodium (Paty-Colace) 1 tab PO BID [facility] Last Admin: 10/03/17 21:16 Dose: 1 tab Sennosides (Senokot) 17.2 mg PO Q12H PRN PRN Reason: Moderate Constipation Sodium Chloride (Ns Flush) 2 ml IV.FLUSH BID [facility] Last Admin: 10/03/17 21:15 Dose: 2 ml Sodium Chloride (Ns Flush) 2 ml IV.FLUSH PRN PRN PRN Reason: FLUSH AFTER USING IV ACCESS Last Admin: 09/24/17 21:17 Dose: 2 ml Warfarin Sodium (Coumadin) 3 mg PO DAILY@1600 [facility] Allergies/Adverse Reactions: Allergies Allergy/AdvReac Type Severity Reaction Status Date / Time No Known Allergies Allergy Verified 09/17/17 18:35 Physical Exam Vital signs: Vital Signs 10/03/17 12:00 10/03/17 16:00 10/03/17 20:00 Temperature 97.8 F 97.6 F Pulse Rate 77 82 79 Respiratory Rate 18 18 Blood Pressure 130/87 122/72 Pulse Oximetry 98 95 10/03/17 21:00 10/04/17 00:00 10/04/17 04:00 Temperature 98 F Pulse Rate 16 L 66 63 Respiratory Rate 17 Blood Pressure 122/69 Pulse Oximetry 97 10/04/17 05:10 Temperature 98 F Pulse Rate 63 Respiratory Rate 16 Blood Pressure 117/67 Pulse Oximetry 99 Intake & Output 10/03/17 10/04/17 10/04/17 18:59 06:59 18:59 Intake Total 820 / 820 1450 / 1450 Output Total 700 / 700 Balance 820 / 820 750 / 750 Weight 78 kg Intake: IV 100 / 100 Rocephin Inj 1,000 MG In NS Inj 100 / 100 100 ML @ 200 mls/hr IV.SIG Q24H [facility] Rx#:[id number] Oral 720 / 720 1450 / 1450 Output: Urine 700 / 700 Other: # Voids 5 3 Date of Last Bowel Movement 10/01/17 10/02/17 # Bowel Movements 0 Narrative: awake alert sees to left still ataxic on left 5/5 t/o - Urinary Catheter Management Indwelling Urethral Catheter Cath placed during this visit: yes, but has since been removed by the nurse Reason for continuing: Not indwelling catheter Insertion date: 09/20/17 Insertion time: 18:04 Removal date: 09/22/17 Removal time: 15:00 Objective Laboratory Results - last 24 hr 10/04/17 03:48 PT 27.0 H INR 2.7 Microbiology 10/01/17 23:10 Urine Culture - Preliminary Clean Catch Urine gram negative rods Review/Management - Diagnosis (1) CVA (cerebral vascular accident) Code(s): I63.9 - Cerebral infarction, unspecified Status: Acute Current Visit: Yes - Review/Management Plan: imp left vert acute occlusion most ho needs coumadin started tonight and coumadin for 2 months to prevent stump embolism sq hep and asa can be dced when inr>1.9 med team plguadalupe set all this up thank u med team plguadalupe start b12 shot ldl 126 on statin ivh keep bp up looking well echo and holter pend sr so far on statin inr pend he can dc when inr>1.9 erendira vert occlusion keep ivf on 09/20/17 doing well echo nl sr inr 1.5 ok to dc when inr >1.9 will need residents clinic o/p inr draws daily this week and someone to follow it reliably will need repeat mra neck in [address] [facility] as not insurance and fu with me after that in office so i can review it med team plguadalupe set all this up thank you ----- 09/20/17 mraprelim no clot in basilar probably threw a clot to the r residency director 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 09/22/17 doing better inr inc recheck 2 pm hold coumadin on statin watch for any digression with inr up i dw med team 09/23/17 stable overnoc inr 4.0 after 5 sq vit k would like lower so will give 2mg po vit k recheck mri hob 40 degrees nusu on case 09/24/17 he needs to stay in icu mri no change but major mass effect on sariah and small left pontine cva no change 09/22-09/23 inr 1.5 i am conflicted but with that much mass effect i do not think he should be on anticoagulation stable overnoc 09/27/17 exam is stable doing well neurowise he is due for coumadin dose tomorrow per nusu will defer to them on the bleed risk will recheck mri on 09/28/17 a little better every day check mr in am nu managing coumadin 09/29/17 better every day recheck mr for any bleeding nu on coumadin dont overshoot inr -------- 09/30/17 stable neuro and mri shows much less edema on coumadin but he was sensitive last time so please do not overshoot inir on him may only need small dose as went up to 4.9 inr last time ready for rehab o/w 10/01/17 inr pend really looking well needs rehab inpt fall risk 10/04/17 inr 2.7 stable neuro keep inr 2-2.5 ready for rehab placement issue
[2017-10-04] MEDS: Senna/Docusate Sodium 8.6/50 MG Tablet PO SCH ×2 (08:44→22:19)
[2017-10-04] MEDS: Famotidine PF Inj 20 MG/2 ML Vial IV.PUSH SCH ×2 (08:45→22:19)
--- NOTE | 2017-10-04 09:10 | P.PNIM ---
Subjective Interval history: Pt seen and examined. AFVSS. No acute events. Pt has no complaints. Moving all his extremities but continues to have gait instability. He is scared of falling , especially since being on Coumadin. Denies CP or SOB. Physical Exam Vital signs: Vital Signs 10/03/17 12:00 10/03/17 16:00 10/03/17 20:00 Temperature 97.8 F 97.6 F Pulse Rate 77 82 79 Respiratory Rate 18 18 Blood Pressure 130/87 122/72 Pulse Oximetry 98 95 10/03/17 21:00 10/04/17 00:00 10/04/17 04:00 Temperature 98 F Pulse Rate 16 L 66 63 Respiratory Rate 17 Blood Pressure 122/69 Pulse Oximetry 97 10/04/17 05:10 10/04/17 08:00 Temperature 98 F 97.9 F Pulse Rate 63 75 Respiratory Rate 16 14 Blood Pressure 117/67 148/76 H Pulse Oximetry 99 96 Intake & Output 10/03/17 10/04/17 10/04/17 18:59 06:59 18:59 Intake Total 820 / 820 1450 / 1450 Output Total 700 / 700 Balance 820 / 820 750 / 750 Weight 78 kg Intake: IV 100 / 100 Rocephin Inj 1,000 MG In NS Inj 100 / 100 100 ML @ 200 mls/hr IV.SIG Q24H [facility] Rx#:[id number] Oral 720 / 720 1450 / 1450 Output: Urine 700 / 700 Other: # Voids 5 3 Date of Last Bowel Movement 10/01/17 10/02/17 # Bowel Movements 0 Narrative: GENERAL: WN, WD male resting in bed in [facility]. SKIN: Warm and dry. HEENT: AT/NC. Pupils equal and round. MMM. HEART: RRR no m/r/g. LUNGS: CTAB without wheezes or crackles. ABDOMEN: +BS, soft, NT, ND. EXTREMITIES: No LE edema. NEURO: Awake and alert. Moving all extremities. UE and LE strength 5/5. Ataxic on the left. - Urinary Catheter Management Indwelling Urethral Catheter Cath placed during this visit: yes, but has since been removed by the nurse Reason for continuing: Not indwelling catheter Insertion date: 09/20/17 Insertion time: 18:04 Removal date: 08/15/18 Removal time: 15:00 Results - Labs CBC & Chem 7: 10/02/17 00:47 10/02/17 00:47 Laboratory Results - last 24 hr 10/04/17 03:48 PT 27.0 H INR 2.7 Microbiology 10/01/17 23:10 Clean Catch Urine Urine Culture - Preliminary gram negative rods - Procedures TPA Assessment and Plan - Assessment (1) CVA (cerebral vascular accident) Code(s): I63.9 - Cerebral infarction, unspecified Status: Acute - Plan 66 year old male with no significant PMH admitted on 09/17 as a stroke alert after having acute onset posterior headache followed by left-sided facial numbness/droop, slurred speech and unsteady gait. 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 MRI brain showed focal acute infarction of the left cerebellum. He weas started on ASA, SQ heparin, and Coumadin. On 09/20, the patient developed acute left-sided weakness , nausea, vomiting, worsening aphasia, and right-sided gaze. MRI showed worsening L cerebellar infarct and probable acute infarct of the right thalamus. He was started on a heparin drip and transferred to the unit. Clear for d/c. PT recommending SNF/rehab. Case management assisting. Possible eval by CIR today. 1. 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 Stable for d/c to rehab - INR 2.7 this AM - Pharmacy dosing Coumadin - PT/OT/ST - Continue statin 2. UTI - U/A showing blood and trace leukocyte esterase - Culture growing pansensitive Klebsiella - Continue Rocephin while in-house DVT prophylaxis: on Coumadin Discharge Planning: Stable for D/C to SNF. Case management assisting
[2017-10-05 07:08] LABS: INR 1.7 Ratio; Prothrombin Time 17.7 sec (9.8-11.6)
[2017-10-05] MEDS: Senna/Docusate Sodium 8.6/50 MG Tablet PO SCH ×2 (08:05→21:06)
[2017-10-05] MEDS: Famotidine PF Inj 20 MG/2 ML Vial IV.PUSH SCH ×2 (08:05→21:06)
--- NOTE | 2017-10-05 11:17 | P.PNIM ---
Subjective Interval history: Pt seen and examined. AFVSS. No acute complaints. No new neuro changes. Awaiting plan for discharge since patient requiring rehab and a safe discharge isn't in place yet. He states he is working with his daughter to see if he can live with her since prior to hospitalization he was living by himself in a motel. Physical Exam Vital signs: Vital Signs 10/04/17 12:00 10/04/17 16:00 10/04/17 20:00 Temperature 97.5 F L 97.4 F L 97.7 F Pulse Rate 82 81 88 Respiratory Rate 14 16 18 Blood Pressure 122/82 143/81 H 148/83 H Pulse Oximetry 96 96 98 10/04/17 21:00 10/05/17 00:00 10/05/17 04:00 Temperature 97.9 F 97.1 F L Pulse Rate 88 72 68 Respiratory Rate 16 18 Blood Pressure 131/80 121/83 Pulse Oximetry 99 96 10/05/17 08:00 Temperature 97.4 F L Pulse Rate 77 Respiratory Rate 16 Blood Pressure 117/75 Pulse Oximetry 97 Intake & Output 10/04/17 10/05/17 10/05/17 18:59 06:59 18:59 Intake Total 900 / 900 800 / 800 Output Total 600 / 600 400 / 400 Balance 300 / 300 400 / 400 Weight 79.7 kg Intake: IV 100 / 100 Rocephin Inj 1,000 MG In NS Inj 100 / 100 100 ML @ 200 mls/hr IV.SIG Q24H [facility] Rx#:[id number] Oral 800 / 800 800 / 800 Output: Urine 600 / 600 400 / 400 Other: Date of Last Bowel Movement 10/02/17 10/04/17 10/04/17 # Bowel Movements 0 Narrative: GENERAL: WN, WD male resting in bed in NAD. SKIN: Warm and dry. HEENT: AT/NC. Pupils equal and round. MMM. HEART: RRR no m/r/g. LUNGS: CTAB without wheezes or crackles. ABDOMEN: +BS, soft, NT, ND. EXTREMITIES: No LE edema. NEURO: Awake and alert. Moving all extremities. UE and LE strength 5/5. Ataxic on the left. - Urinary Catheter Management Indwelling Urethral Catheter Cath placed during this visit: yes, but has since been removed by the nurse Reason for continuing: Not indwelling catheter Insertion date: 09/20/17 Insertion time: 18:04 Removal date: 09/22/17 Removal time: 15:00 Results - Labs CBC & Chem 7: 10/02/17 00:47 10/02/17 00:47 Laboratory Results - last 24 hr 10/05/17 05:43 PT 17.7 H INR 1.7 Microbiology 10/01/17 23:10 Clean Catch Urine Urine Culture - Final Klebsiella pneumoniae - Procedures TPA Assessment and Plan - Assessment (1) CVA (cerebral vascular accident) Code(s): I63.9 - Cerebral infarction, unspecified Status: Acute - Plan 66 year old male with no significant PMH admitted on 09/17 as a stroke alert after having acute onset posterior headache followed by left-sided facial numbness/droop, slurred speech and unsteady gait. 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 MRI brain showed focal acute infarction of the left cerebellum. He weas started on ASA, SQ heparin, and Coumadin. On 09/20, the patient developed acute left-sided weakness , nausea, vomiting, worsening aphasia, and right-sided gaze. MRI showed worsening L cerebellar infarct and probable acute infarct of the right thalamus. He was started on a heparin drip and transferred to the unit. Clear for d/c. PT recommending SNF/rehab. Case management assisting. CIR following. 1. 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 Stable for d/c to rehab - INR 1.7 this AM - Pharmacy dosing Coumadin - PT/OT/ST - Continue statin 2. UTI - U/A showing blood and trace leukocyte esterase - Culture growing pansensitive Klebsiella - Continue Rocephin while in-house, stop date after five days of treatment DVT prophylaxis: on Coumadin Discharge Planning: Stable for D/C to SNF/rehab. Case management assisting with placement.
[2017-10-06 07:34] LABS: INR 1.6 Ratio; Prothrombin Time 15.9 sec (9.8-11.6)
[2017-10-06] MEDS: Famotidine 20 MG Tablet PO SCH ×2 (08:51→20:42)
[2017-10-06] MEDS: Senna/Docusate Sodium 8.6/50 MG Tablet PO SCH ×2 (08:51→20:42)
--- NOTE | 2017-10-06 13:43 | P.PNIM ---
Subjective Interval history: Patient reports he is feeling stronger but still very afraid of falling. He denies headache or dizziness. Physical Exam Vital signs: Vital Signs 10/05/17 16:00 10/05/17 20:00 10/05/17 21:00 Temperature 98.2 F 97.3 F L Pulse Rate 76 85 82 Respiratory Rate 16 18 Blood Pressure 130/77 134/86 Pulse Oximetry 130 H 10/05/17 23:04 10/06/17 00:00 10/06/17 00:45 Temperature 97.1 F L Pulse Rate 80 73 Respiratory Rate 20 18 Blood Pressure 132/84 Pulse Oximetry 96 10/06/17 04:00 10/06/17 04:03 10/06/17 08:00 Temperature 97.3 F L 97.5 F L Pulse Rate 72 73 80 Respiratory Rate 18 17 Blood Pressure 138/85 138/82 Pulse Oximetry 97 99 10/06/17 09:00 Temperature Pulse Rate 74 Respiratory Rate Blood Pressure Pulse Oximetry Intake & Output 10/05/17 10/06/17 10/06/17 18:59 06:59 18:59 Intake Total 1140 / 1140 Output Total 100 / 100 Balance 1140 / 1140 -100 / -100 Weight 79.1 kg Intake: IV 100 / 100 Rocephin Inj 1,000 MG In NS Inj 100 / 100 100 ML @ 200 mls/hr IV.SIG Q24H [facility] Rx#:[id number] Oral 1040 / 1040 Output: Urine 100 / 100 Other: # Voids 4 Date of Last Bowel Movement 10/05/17 10/05/17 # Bowel Movements 1 Narrative: GENERAL: WN, WD male resting in bed in NAD. SKIN: Warm and dry. HEENT: AT/NC. Pupils equal and round. MMM. HEART: RRR no m/r/g. LUNGS: CTAB without wheezes or crackles. ABDOMEN: +BS, soft, NT, ND. EXTREMITIES: No LE edema. NEURO: Awake and alert. Moving all extremities. UE and LE strength 5/5. Has issue with ataxia. - Urinary Catheter Management Indwelling Urethral Catheter Cath placed during this visit: yes, but has since been removed by the nurse Reason for continuing: Not indwelling catheter Insertion date: 09/20/17 Insertion time: 18:04 Removal date: 09/22/17 Removal time: 15:00 Results - Labs CBC & Chem 7: 10/02/17 00:47 10/02/17 00:47 Laboratory Results - last 24 hr 10/06/17 06:30 PT 15.9 H INR 1.6 - Procedures TPA Assessment and Plan - Assessment (1) CVA (cerebral vascular accident) Code(s): I63.9 - Cerebral infarction, unspecified Status: Acute - Plan 66 year old male with no significant PMH admitted on 09/17 as a stroke alert after having acute onset posterior headache followed by left-sided facial numbness/droop, slurred speech and unsteady gait. 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 MRI brain showed focal acute infarction of the left cerebellum. He was started on ASA, SQ heparin , and Coumadin. On 09/20, the patient developed acute left-sided weakness, nausea , vomiting, worsening aphasia, and right-sided gaze. MRI showed worsening L cerebellar infarct and probable acute infarct of the right thalamus. He was started on a heparin drip and transferred to the unit. The patient have since been transferred to the medical floor under the hospitalist service. Strength is improving 1. 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 - INR 1. 6 today. Pharmacy assisting with dosing. - PT/OT/ST -Patient feels stronger but still having issues with ataxia. Will consult rehab medicine to determine if he is a candidate for inpatient rehabilitation. 2. UTI - U/A showing blood and trace leukocyte esterase - Culture growing pansensitive Klebsiella - Continue Rocephin while in-house, stop date tomorrow. DVT prophylaxis: on Coumadin Discharge Planning: DC planning to [facility] versus SNF placement. Discussed with case management.
[2017-10-07 05:39] LABS: INR 1.5 Ratio; Prothrombin Time 15.6 sec (9.8-11.6)
[2017-10-07] MEDS: Senna/Docusate Sodium 8.6/50 MG Tablet PO SCH ×2 (08:37→23:07)
[2017-10-07] MEDS: Famotidine 20 MG Tablet PO SCH ×2 (08:37→23:07)
--- NOTE | 2017-10-07 09:26 | P.PNNEU ---
Subjective Subjective Comments: no new co Active Medications: Active Medications Acetaminophen (Tylenol) 650 mg PO Q4H PRN PRN Reason: Temp > 100.4 Last Admin: 09/21/17 20:44 Dose: 650 mg Al Hydroxide/Mg Hydroxide (Milk Of Magnesia Liq) 30 ml PO Q12H PRN PRN Reason: Mild Constipation Albuterol (Duoneb Neb (Prn)) 1 ampul NEB Q2HR NEB PRN PRN Reason: SHORTNESS OF BREATH Bisacodyl (Dulcolax Supp) 10 mg RECTAL DAILY PRN PRN Reason: SEVERE CONSITIPATION Cyanocobalamin (Vitamin B12 Inj) 1,000 mcg SQ DAILY REPLACED BY [facility] Last Admin: 10/07/17 08:37 Dose: 1,000 mcg Enalaprilat (Vasotec Inj) 1.25 mg IV.PUSH Q4H PRN PRN Reason: For SBP > 220 or DBP > 120 Famotidine (Pepcid) 20 mg PO BID REPLACED BY [facility] Last Admin: 10/07/17 08:37 Dose: 20 mg Heparin Sodium/Dextrose (Heparin/D5w 25,000 U/250 Ml) 25,000 unit in 250 mls @ 10 mls/hr IV.CONT TITRATE PRN; Protocol PRN Reason: Per Protocol Last Titration: 10/01/17 09:29 Dose: 0 units/hr, 0 mls/hr Ceftriaxone Sodium 1,000 mg/ (Sodium Chloride) 100 mls @ 200 mls/hr IV.SIG Q24H REPLACED BY [facility] Stop: 10/07/17 16:00 Last Infusion: 10/06/17 14:00 Dose: Infused Lactulose (Lactulose Liq) 30 ml PO DAILY PRN PRN Reason: SEVERE CONSITIPATION Multivitamins (Theragran) 1 tab PO DAILY REPLACED BY [facility] Last Admin: 10/07/17 08:37 Dose: 1 tab Ondansetron HCl (Zofran Odt) 4 mg PO Q6H PRN PRN Reason: NAUSEA OR VOMITING Pharmacy Profile Note (Coumadin Consult Pharmacy) 1 each OTHER UNSCH PRN PRN Reason: PHARMACY DOCUMENTATION Senna/Docusate Sodium (Paty-Colace) 1 tab PO BID REPLACED BY [facility] Last Admin: 10/07/17 08:37 Dose: Not Given Sennosides (Senokot) 17.2 mg PO Q12H PRN PRN Reason: Moderate Constipation Sodium Chloride (Ns Flush) 2 ml IV.FLUSH BID REPLACED BY [facility] Last Admin: 10/07/17 08:37 Dose: 2 ml Sodium Chloride (Ns Flush) 2 ml IV.FLUSH PRN PRN PRN Reason: FLUSH AFTER USING IV ACCESS Last Admin: 09/24/17 21:17 Dose: 2 ml Warfarin Sodium (Coumadin) 3 mg PO DAILY@1600 [facility] Last Admin: 10/06/17 16:13 Dose: 3 mg Allergies/Adverse Reactions: Allergies Allergy/AdvReac Type Severity Reaction Status Date / Time No Known Allergies Allergy Verified 09/17/17 18:35 Physical Exam Vital signs: Vital Signs 10/06/17 12:00 10/06/17 16:00 10/06/17 17:00 Temperature 97.3 F L 97.6 F Pulse Rate 85 83 74 Respiratory Rate 18 18 Blood Pressure 131/87 133/80 Pulse Oximetry 96 99 10/06/17 20:00 10/06/17 20:15 10/07/17 00:00 Temperature 97.8 F 97.4 F L Pulse Rate 70 74 59 L Respiratory Rate 18 18 Blood Pressure 131/71 133/76 Pulse Oximetry 98 95 10/07/17 00:45 10/07/17 04:00 10/07/17 04:14 Temperature 97.3 F L Pulse Rate 63 70 60 Respiratory Rate 18 Blood Pressure 125/71 Pulse Oximetry 97 10/07/17 08:00 Temperature 97.4 F L Pulse Rate 69 Respiratory Rate 18 Blood Pressure 135/78 Pulse Oximetry 98 Intake & Output 10/06/17 10/07/17 10/07/17 18:59 06:59 18:59 Intake Total 940 / 940 Output Total 830 / 830 Balance 110 / 110 Weight 79.7 kg Intake: IV 100 / 100 Rocephin Inj 1,000 MG In NS Inj 100 / 100 100 ML @ 200 mls/hr IV.SIG Q24H REPLACED BY [facility] Rx#:[id number] Oral 840 / 840 Output: Urine 830 / 830 Other: # Voids 2 1 Date of Last Bowel Movement 10/05/17 # Bowel Movements 0 0 Narrative: still ataxic lue awake alert vff - Urinary Catheter Management Indwelling Urethral Catheter Cath placed during this visit: yes, but has since been removed by the nurse Reason for continuing: Not indwelling catheter Insertion date: 09/20/17 Insertion time: 18:04 Removal date: 09/22/17 Removal time: 15:00 Objective Laboratory Results - last 24 hr 10/07/17 03:49 PT 15.6 H INR 1.5 Review/Management - Diagnosis (1) CVA (cerebral vascular accident) Code(s): I63.9 - Cerebral infarction, unspecified Status: Acute Current Visit: Yes - Review/Management Plan: imp left vert acute occlusion most [place] needs coumadin started tonight and coumadin for 2 months to prevent stump embolism sq hep and asa can be dced when inr>1.9 med team plguadalupe set all this up thank u med team plguadalupe start b12 shot ldl 126 on statin ivh keep bp up looking well echo and holter pend sr so far on statin inr pend he can dc when inr>1.9 keft vert occlusion keep ivf on 09/20/17 doing well echo nl sr inr 1.5 ok to dc when inr >1.9 will need residents clinic o/p inr draws daily this week and someone to follow it reliably will need repeat mra [place] 2 [place] [facility] [place] and fu with me after that in office so i can review it med team plguadalupe set all this up thank you ----- 09/20/17 mraprelim no clot in basilar 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 09/22/17 doing better inr inc recheck 2 pm hold coumadin on statin watch for any digression with inr up i dw med team 09/23/17 stable overnoc inr 4.0 after 5 sq vit k would like lower so will give 2mg po vit k recheck mri hob 40 degrees nusu on case 09/24/17 he needs to stay in icu mri no change but major mass effect on sariah and small left pontine cva no change 09/22-09/23 inr 1.5 i am conflicted but with that much mass effect i do not think he should be on anticoagulation stable overnoc 09/27/17 exam is stable doing well neurowise he is due for coumadin dose tomorrow per nusu will defer to them on the bleed risk will recheck mri on 09/28/17 a little better every day check mr in am nusu managing coumadin 09/29/17 better every day recheck mr for any bleeding nusu on coumadin dont overshoot inr -------- 09/30/17 stable neuro and mri shows much less edema on coumadin but he was sensitive last time so please do not overshoot inir on him may only need small dose as went up to 4.9 inr last time ready for rehab o/w 10/01/17 inr pend really looking well needs rehab inpt fall risk 10/04/17 inr 2.7 stable neuro keep inr 2-2.5 ready for rehab placement issue 10/07/17 inr too low ow stable need his inr higher is he eating greens?
--- NOTE | 2017-10-07 10:28 | P.PNIM ---
Subjective Interval history: Patient reports he is feeling okay today. No new neurological symptoms. Physical Exam Vital signs: Vital Signs 10/06/17 12:00 10/06/17 16:00 10/06/17 17:00 Temperature 97.3 F L 97.6 F Pulse Rate 85 83 74 Respiratory Rate 18 18 Blood Pressure 131/87 133/80 Pulse Oximetry 96 99 10/06/17 20:00 10/06/17 20:15 10/07/17 00:00 Temperature 97.8 F 97.4 F L Pulse Rate 70 74 59 L Respiratory Rate 18 18 Blood Pressure 131/71 133/76 Pulse Oximetry 98 95 10/07/17 00:45 10/07/17 04:00 10/07/17 04:14 Temperature 97.3 F L Pulse Rate 63 70 60 Respiratory Rate 18 Blood Pressure 125/71 Pulse Oximetry 97 10/07/17 08:00 10/07/17 09:48 Temperature 97.4 F L Pulse Rate 69 70 Respiratory Rate 18 Blood Pressure 135/78 Pulse Oximetry 98 Intake & Output 10/06/17 10/07/17 10/07/17 18:59 06:59 18:59 Intake Total 940 / 940 Output Total 830 / 830 Balance 110 / 110 Weight 79.7 kg Intake: IV 100 / 100 Rocephin Inj 1,000 MG In NS Inj 100 / 100 100 ML @ 200 mls/hr IV.SIG Q24H [facility] Rx#:[id number] Oral 840 / 840 Output: Urine 830 / 830 Other: # Voids 2 1 Date of Last Bowel Movement 10/05/17 # Bowel Movements 0 0 Narrative: GENERAL: WN, WD male resting in bed in [facility]. SKIN: Warm and dry. HEENT: AT/NC. Pupils equal and round. MMM. HEART: RRR no m/r/g. LUNGS: CTAB without wheezes or crackles. ABDOMEN: +BS, soft, NT, ND. EXTREMITIES: No LE edema. NEURO: Awake and alert. Moving all extremities. UE and LE strength 5/5. Has ataxia. - Urinary Catheter Management Indwelling Urethral Catheter Cath placed during this visit: yes, but has since been removed by the nurse Reason for continuing: Not indwelling catheter Insertion date: 09/20/17 Insertion time: 18:04 Removal date: 09/22/17 Removal time: 15:00 Results - Labs CBC & Chem 7: 10/02/17 00:47 10/02/17 00:47 Laboratory Results - last 24 hr 10/07/17 03:49 PT 15.6 H INR 1.5 - Procedures TPA Assessment and Plan - Assessment (1) CVA (cerebral vascular accident) Code(s): I63.9 - Cerebral infarction, unspecified Status: Acute - Plan 66 year old male with no significant PMH admitted on 09/17 as a stroke alert after having acute onset posterior headache followed by left-sided facial numbness/droop, slurred speech and unsteady gait. 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 MRI brain showed focal acute infarction of the left cerebellum. He was started on ASA, SQ heparin , and Coumadin. On 09/20, the patient developed acute left-sided weakness, nausea , vomiting, worsening aphasia, and right-sided gaze. MRI showed worsening L cerebellar infarct and probable acute infarct of the right thalamus. He was started on a heparin drip and transferred to the unit. The patient have since been transferred to the medical floor under the hospitalist service. Strength is improving but he remains ataxic. 1. 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 - INR down to 1.5 today. Increase warfarin to 4 mg daily. Pharmacy following. - PT/OT/ST -Patient feels stronger but still having issues with ataxia. Rehab medicine consulted to determine if he is a candidate for inpatient rehabilitation. 2. UTI - U/A showing blood and trace leukocyte esterase - Culture growing pansensitive Klebsiella - Continue Rocephin while in-house, stop date today. DVT prophylaxis: on Coumadin Discharge Planning: DC planning to [facility] versus SNF placement. Discussed with case management.
[2017-10-08 07:33] LABS: INR 1.7 Ratio; Prothrombin Time 16.7 sec (9.8-11.6)
[2017-10-08] MEDS: Famotidine 20 MG Tablet PO SCH ×2 (09:58→20:52)
[2017-10-08] MEDS: Senna/Docusate Sodium 8.6/50 MG Tablet PO SCH ×2 (09:58→20:52)
--- NOTE | 2017-10-08 15:22 | P.PNIM ---
Subjective Interval history: Patient reports he is feeling okay today. No new issues. Physical Exam Vital signs: Vital Signs 10/07/17 15:58 10/07/17 16:00 10/07/17 17:02 Temperature 97.4 F L Pulse Rate 69 85 83 Respiratory Rate 18 Blood Pressure 126/86 Pulse Oximetry 97 10/07/17 20:00 10/08/17 00:00 10/08/17 08:00 Temperature 97.6 F 97.4 F L 97.2 F L Pulse Rate 76 72 77 Respiratory Rate 18 18 17 Blood Pressure 110/77 108/76 146/89 H Pulse Oximetry 98 98 96 10/08/17 09:09 10/08/17 12:00 Temperature 97.6 F Pulse Rate 70 83 Respiratory Rate 17 Blood Pressure 159/87 H Pulse Oximetry 97 Intake & Output 10/07/17 10/08/17 10/08/17 18:59 06:59 18:59 Intake Total 100 / 100 Output Total 1800 / 1800 Balance 100 / 100 -1800 / -1800 Weight 79.7 kg Intake: IV 100 / 100 Rocephin Inj 1,000 MG In NS Inj 100 / 100 100 ML @ 200 mls/hr IV.SIG Q24H [facility] Rx#:[id number] Output: Urine 1800 / 1800 Other: Date of Last Bowel Movement 10/08/17 Narrative: GENERAL: WN, WD male resting in bed in [place]. SKIN: Warm and dry. HEENT: AT/NC. Pupils equal and round. MMM. HEART: RRR no m/r/g. LUNGS: CTAB without wheezes or crackles. ABDOMEN: +BS, soft, NT, ND. EXTREMITIES: No LE edema. NEURO: Awake and alert. Moving all extremities. UE and LE strength 5/5. Has ataxia. - Urinary Catheter Management Indwelling Urethral Catheter Cath placed during this visit: yes, but has since been removed by the nurse Reason for continuing: Not indwelling catheter Insertion date: 09/20/17 Insertion time: 18:04 Removal date: 09/22/17 Removal time: 15:00 Results - Labs CBC & Chem 7: 10/02/17 00:47 10/02/17 00:47 Laboratory Results - last 24 hr 10/08/17 06:24 PT 16.7 H INR 1.7 - Procedures TPA Assessment and Plan - Assessment (1) CVA (cerebral vascular accident) Code(s): I63.9 - Cerebral infarction, unspecified Status: Acute - Plan 66 year old male with no significant PMH admitted on 09/17 as a stroke alert after having acute onset posterior headache followed by left-sided facial numbness/droop, slurred speech and unsteady gait. 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 MRI brain showed focal acute infarction of the left cerebellum. He was started on ASA, SQ heparin , and Coumadin. On 09/20, the patient developed acute left-sided weakness, nausea , vomiting, worsening aphasia, and right-sided gaze. MRI showed worsening L cerebellar infarct and probable acute infarct of the right thalamus. He was started on a heparin drip and transferred to the unit. The patient have since been transferred to the medical floor under the hospitalist service. Strength is improving but he remains ataxic. 1. Acute L cerebellar CVA and R thalamus - Initial CT and CTA brain negative - CTA neck with occlusion of L vertebral artery - Brain MRA showing occlusion of R NIPPLE MAKER - Brain MRV showing no obvious thrombosis - Neck MRA showing high-grade stenosis or near occlusion at the origin of left vertebral artery - Repeat head CT negative for hemorrhage - Repeat brain MRI showing evolving left cerebellar and R thalamus infarcts, no new infarcts or hemorrhage - 2D echo showed EF 55-60% - A1c 5.3 - TC 192, LDL 126, HDL 51, TG 72 - Troponin negative - Neuro following, recommending Coumadin with goal INR 2-3. -Coumadin dose increased yesterday to 4 mg. INR 1.7 today. Continue to monitor. Pharmacy following. - PT/OT/ST -Patient feels stronger but still having issues with ataxia. Rehab medicine consulted to determine if the patient is a candidate for [facility]. 2. Klebsiella UTI -Patient completed treatment with Rocephin DVT prophylaxis: on Coumadin Discharge Planning: DC planning to [facility] versus SNF placement. Case management following.
[2017-10-09] MEDS: Famotidine 20 MG Tablet PO SCH ×2 (08:30→22:00)
[2017-10-09] MEDS: Senna/Docusate Sodium 8.6/50 MG Tablet PO SCH ×2 (08:31→22:00)
--- NOTE | 2017-10-09 08:35 | P.PN ---
Subjective Interval history: Patient seen and examined this morning, their vitals are stable and the patient is afebrile. Denies CP or SOB. Has guitar at bedside, reports he is trying to use his fine motor skills. No overnight events. Physical Exam Vital signs: Vital Signs 10/08/17 09:09 10/08/17 12:00 10/08/17 15:57 Temperature 97.6 F Pulse Rate 70 83 93 H Respiratory Rate 17 Blood Pressure 159/87 H Pulse Oximetry 97 10/08/17 16:00 10/08/17 20:00 10/09/17 00:00 Temperature 98.2 F 97.8 F 98 F Pulse Rate 86 85 84 Respiratory Rate 17 17 17 Blood Pressure 142/83 H 146/84 H 148/82 H Pulse Oximetry 96 97 10/09/17 04:00 Temperature 97.9 F Pulse Rate 84 Respiratory Rate 17 Blood Pressure 140/80 Pulse Oximetry 97 Intake & Output 10/08/17 10/09/17 10/09/17 18:59 06:59 18:59 Output Total 800 / 800 Balance -800 / -800 Weight 79.6 kg Output: Urine 800 / 800 Other: # Voids 3 Date of Last Bowel Movement 10/08/17 # Bowel Movements 1 Narrative: GENERAL: WN, WD male resting in bed in [place]. SKIN: Warm and dry. HEENT: AT/NC. Pupils equal and round. MMM. HEART: RRR no m/r/g. LUNGS: CTAB without wheezes or crackles. ABDOMEN: soft, NT, ND. EXTREMITIES: No LE edema. NEURO: Awake and alert. Moving all extremities. UE and LE strength 5/5. Has ataxia. Some delay noted with fine movements of left hand. - Urinary Catheter Management Indwelling Urethral Catheter Cath placed during this visit: yes, but has since been removed by the nurse Reason for continuing: Not indwelling catheter Insertion date: 09/20/17 Insertion time: 18:04 Removal date: 09/22/17 Removal time: 15:00 Results - Labs CBC & Chem 7: 10/02/17 00:47 10/02/17 00:47 - Imaging ITS Impressions Chest X-Ray 09/17/17 17:37 CONCLUSION: Trace basilar atelectasis. Head CTA 09/17/17 17:37 CONCLUSION: 1. No acute occlusive disease demonstrated. 2. Intracranial atherosclerosis. 3. 2 mm anterior communicating aneurysm. Neck CTA 09/17/17 17:37 CONCLUSION: 1. Occluded left vertebral artery, age indeterminate. Widely patent right vertebral artery and basilar artery. 2. Otherwise essentially normal. Trace atherosclerosis seen of both carotid bifurcations without narrowing. Head MRA 09/20/17 00:00 CONCLUSION: 1. Occlusion of the right posterior cerebral artery at the junction of the P1 and P2 segments. 2. Intracranial vessels are otherwise patent. Head/Brain Mag Res Venography 09/20/17 00:00 CONCLUSION: 1. Narrowing of the dural sinuses at the confluence of the torcula. This is probably anatomic, however. No obvious thrombosis identified on the previous MRI. 2. Dural sinuses are otherwise widely patent. Neck MRA 09/20/17 00:00 CONCLUSION: 1. Arch vessels and both carotids are widely patent throughout. 2. Patient is right vertebral dominant. Right vertebral artery is patent throughout. 3. The origin of the left vertebral is not well seen and there may be a high- grade stenosis or near occlusion in this location. Remaining portions of the left vertebral artery are diminutive but patent. CTA of the cervical vessels could be performed for further characterization if clinically warranted. Percent stenosis is calculated using the diameter of the stenotic region over the diameter of the normal distal internal carotid artery Head CT 09/20/17 10:35 CONCLUSION: 1. Negative for hemorrhage. Cerebellum remains normal. Report was called to Dr. Prieto Head MRI 09/29/17 07:25 CONCLUSION: 1. Evolving left cerebellar and right thalamus the medial temporal lobe and less apparent in the interval without hemorrhage. 2. No new areas of infarction are identified. - Procedures TPA Assessment and Plan - Assessment (1) CVA (cerebral vascular accident) Code(s): I63.9 - Cerebral infarction, unspecified Status: Acute - Plan In summary this is a 66-year-old male with no significant medical history presented to [facility] [facility] as a stroke alert. Per ER report patient had a headache and then developed left-sided facial numbness/drop, with slurred speech and unsteady gait. 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 MRI brain showed focal acute infarction of the left cerebellum. He was started on ASA, SQ heparin, and Coumadin. On 09/20, the patient developed acute left-sided weakness, nausea, vomiting, worsening aphasia, and right-sided gaze. MRI showed worsening L cerebellar infarct and probable acute infarct of the right thalamus. He was started on a heparin drip and transferred to the unit. The patient have since been transferred to the medical floor under the hospitalist service. Strength is improving but he remains ataxic. Acute left cerebellar and right thalamus CVA - Initial CT and CTA brain negative - CTA neck with occlusion of L vertebral artery - Brain MRA showing occlusion of R HOUSE VISITOR - Brain MRV showing no obvious thrombosis - Neck MRA showing high-grade stenosis or near occlusion at the origin of left vertebral artery - Repeat head CT negative for hemorrhage - Repeat brain MRI showing evolving left cerebellar and R thalamus infarcts, no new infarcts or hemorrhage - 2D echo showed EF 55-60% - A1c 5.3 - TC 192, LDL 126, HDL 51, TG 72 - Troponin negative - Neuro following, recommending Coumadin with goal INR 2-3. -Coumadin dose increased yesterday to 4 mg. INR 1.7 today. Continue to monitor. Pharmacy following. - PT/OT/ST -Patient feels stronger but still having issues with ataxia. Rehab medicine consulted to determine if the patient is a candidate for [facility]. Klebsiella UTI - Status post 5 day treatment with Rocephin DVT prophylaxis Currently on Coumadin, subtherapeutic INR 1.7 Discharge Planning: Patient is medically stable for discharge. Patient was initially declined from [facility], family requested that the patient be reevaluated. On 831 case management spoke with Adele from [facility] stating that physician will come and evaluate the patient to make a decision on being reconsidered for rehab placement.
[2017-10-09 09:49] LABS: INR 1.8 Ratio; Prothrombin Time 18.7 sec (9.8-11.6)
[2017-10-10 06:56] LABS: INR 2.2 Ratio; Prothrombin Time 22.3 sec (9.8-11.6)
--- NOTE | 2017-10-10 07:55 | P.PN ---
Subjective Interval history: Patient seen and examined this morning, their vitals are stable and the patient is afebrile. Denies CP or SOB. Has been practicing fine hand movements with cups. No other complaints or concerns today. Physical Exam Vital signs: Vital Signs 10/09/17 08:00 10/09/17 11:45 10/09/17 12:00 Temperature 97.8 F 98 F Pulse Rate 75 78 89 Respiratory Rate 16 18 Blood Pressure 134/85 121/74 Pulse Oximetry 97 95 10/09/17 16:00 10/09/17 20:00 10/10/17 00:00 Temperature 98.1 F 97.8 F 98 F Pulse Rate 77 82 80 Respiratory Rate 17 17 17 Blood Pressure 128/70 128/74 126/74 Pulse Oximetry 96 97 97 10/10/17 04:00 Temperature 97.9 F Pulse Rate 79 Respiratory Rate 17 Blood Pressure 130/78 Pulse Oximetry 96 Intake & Output 10/09/17 10/10/17 10/10/17 18:59 06:59 18:59 Intake Total 600 / 600 Output Total 800 / 800 Balance -200 / -200 Weight 79.5 kg Intake: Oral 600 / 600 Output: Urine 800 / 800 Other: Date of Last Bowel Movement 10/08/17 # Bowel Movements 0 Narrative: GENERAL: WN, WD male resting in bed in NAD. SKIN: Warm and dry. HEENT: AT/NC. Pupils equal and round. MMM. HEART: RRR no m/r/g. LUNGS: CTAB without wheezes or crackles. ABDOMEN: soft, NT, ND. EXTREMITIES: No LE edema. NEURO: Awake and alert. Moving all extremities. UE and LE strength 5/5. Has ataxia. Some delay noted with fine movements of left hand. - Urinary Catheter Management Indwelling Urethral Catheter Cath placed during this visit: yes, but has since been removed by the nurse Reason for continuing: Not indwelling catheter Insertion date: 09/20/17 Insertion time: 18:04 Removal date: 09/22/17 Removal time: 15:00 Results - Labs CBC & Chem 7: 10/02/17 00:47 10/02/17 00:47 Laboratory Results - last 24 hr 10/09/17 10/10/17 08:50 05:34 PT 18.7 H 22.3 H INR 1.8 2.2 - Procedures TPA Assessment and Plan - Assessment (1) CVA (cerebral vascular accident) Code(s): I63.9 - Cerebral infarction, unspecified Status: Acute - Plan In summary this is a 66-year-old male with no significant medical history presented to [facility] as a stroke alert. Per ER report patient had a headache and then developed left-sided facial numbness/drop, with slurred speech and unsteady gait. 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 MRI brain showed focal acute infarction of the left cerebellum. He was started on ASA, SQ heparin, and Coumadin. On 09/20, the patient developed acute left-sided weakness, nausea, vomiting, worsening aphasia, and right-sided gaze. MRI showed worsening L cerebellar infarct and probable acute infarct of the right thalamus. He was started on a heparin drip and transferred to the unit. The patient have since been transferred to the medical floor under the hospitalist service. Strength is improving but he remains ataxic. Acute left cerebellar and right thalamus CVA - Initial CT and CTA brain negative - CTA neck with occlusion of L vertebral artery - Brain MRA showing occlusion of R SPARMAKER - Brain MRV showing no obvious thrombosis - Neck MRA showing high-grade stenosis or near occlusion at the origin of left vertebral artery - Repeat head CT negative for hemorrhage - Repeat brain MRI showing evolving left cerebellar and R thalamus infarcts, no new infarcts or hemorrhage - 2D echo showed EF 55-60% - A1c 5.3 - TC 192, LDL 126, HDL 51, TG 72 - Troponin negative - Neuro following, recommending Coumadin with goal INR 2-3. -Coumadin dose increased yesterday to 4 mg. INR 1.7 today. Continue to monitor. Pharmacy following. - PT/OT/ST -Patient feels stronger but still having issues with ataxia. Rehab medicine consulted to determine if the patient is a candidate for [facility]. Klebsiella UTI - Status post 5 day treatment with Rocephin DVT prophylaxis Currently on Coumadin, therapeutic INR 2.2 Discharge Planning: Patient is medically stable for discharge. Patient was initially declined from [facility], family requested that the patient be reevaluated. On 831 case management spoke with Adele from [facility] stating that physician will come and evaluate the patient to make a decision on being reconsidered for rehab placement.
[2017-10-10] MEDS: Senna/Docusate Sodium 8.6/50 MG Tablet PO SCH ×2 (08:07→22:42)
[2017-10-10] MEDS: Famotidine 20 MG Tablet PO SCH ×2 (08:08→22:41)
[2017-10-11 05:05] LABS: INR 2.7 Ratio; Prothrombin Time 26.8 sec (9.8-11.6)
--- NOTE | 2017-10-11 08:09 | P.PN ---
Subjective Interval history: Patient seen and examined this morning, their vitals are stable and the patient is afebrile. Wants to know where is breakfast. No complaints or concerns. NO CP or SOB. No new neurological sx. Physical Exam Vital signs: Vital Signs 10/10/17 12:00 10/10/17 16:00 10/10/17 20:00 Temperature 97.5 F L 97.5 F L 98.5 F Pulse Rate 92 H 76 76 Respiratory Rate 20 20 18 Blood Pressure 129/76 133/74 128/81 Pulse Oximetry 97 98 97 10/11/17 00:00 10/11/17 04:00 Temperature 98.7 F 98.3 F Pulse Rate 62 70 Respiratory Rate 18 18 Blood Pressure 151/77 H 125/78 Pulse Oximetry 97 98 Intake & Output 10/10/17 10/11/17 10/11/17 18:59 06:59 18:59 Output Total 400 / 400 1450 / 1450 Balance -400 / -400 -1450 / -1450 Weight 80.9 kg Output: Urine 400 / 400 1450 / 1450 Other: Date of Last Bowel Movement 10/08/17 Narrative: GENERAL: WN, WD male resting in bed in [facility]. SKIN: Warm and dry. HEENT: AT/NC. Pupils equal and round. MMM. HEART: RRR no m/r/g. LUNGS: CTAB without wheezes or crackles. ABDOMEN: soft, NT, ND. EXTREMITIES: No LE edema. NEURO: Awake and alert. Moving all extremities. UE and LE strength 5/5. Has ataxia. Some delay noted with fine movements of left hand. - Urinary Catheter Management Indwelling Urethral Catheter Cath placed during this visit: yes, but has since been removed by the nurse Reason for continuing: Not indwelling catheter Insertion date: 09/20/17 Insertion time: 18:04 Removal date: 09/22/17 Removal time: 15:00 Results - Labs CBC & Chem 7: 10/02/17 00:47 10/02/17 00:47 Laboratory Results - last 24 hr 10/11/17 03:56 PT 26.8 H INR 2.7 - Procedures TPA Assessment and Plan - Assessment (1) CVA (cerebral vascular accident) Code(s): I63.9 - Cerebral infarction, unspecified Status: Acute - Plan In summary this is a 66-year-old male with no significant medical history presented to [place] [facility] as a stroke alert. Per ER report patient had a headache and then developed left-sided facial numbness/drop, with slurred speech and unsteady gait. 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 MRI brain showed focal acute infarction of the left cerebellum. He was started on ASA, SQ heparin, and Coumadin. On 09/20, the patient developed acute left-sided weakness, nausea, vomiting, worsening aphasia, and right-sided gaze. MRI showed worsening L cerebellar infarct and probable acute infarct of the right thalamus. He was started on a heparin drip and transferred to the unit. The patient have since been transferred to the medical floor under the hospitalist service. Strength is improving but he remains ataxic. Acute left cerebellar and right thalamus CVA - Initial CT and CTA brain negative - CTA neck with occlusion of L vertebral artery - Brain MRA showing occlusion of R MINE INSPECTOR - Brain MRV showing no obvious thrombosis - Neck MRA showing high-grade stenosis or near occlusion at the origin of left vertebral artery - Repeat head CT negative for hemorrhage - Repeat brain MRI showing evolving left cerebellar and R thalamus infarcts, no new infarcts or hemorrhage - 2D echo showed EF 55-60% - A1c 5.3 - TC 192, LDL 126, HDL 51, TG 72 - Troponin negative - Neuro following, recommending Coumadin with goal INR 2-3. -Coumadin dose increased yesterday to 4 mg. INR 1.7 today. Continue to monitor. Pharmacy following. - PT/OT/ST -Patient feels stronger but still having issues with ataxia. Rehab medicine consulted to determine if the patient is a candidate for [facility]. Klebsiella UTI - Status post 5 day treatment with Rocephin DVT prophylaxis Currently on Coumadin, therapeutic INR 2.7 Discharge Planning: Patient is medically stable for discharge. Patient was initially declined from [facility], family requested that the patient be reevaluated. On 10/08 case management spoke with Adele from [facility] stating that physician will come and evaluate the patient to make a decision on being reconsidered for rehab placement.
[2017-10-11] MEDS: Famotidine 20 MG Tablet PO SCH ×2 (08:23→21:41)
[2017-10-11] MEDS: Senna/Docusate Sodium 8.6/50 MG Tablet PO SCH ×2 (16:30→21:41)
[2017-10-12 07:35] LABS: INR 2.5 Ratio; Prothrombin Time 25.1 sec (9.8-11.6)
--- NOTE | 2017-10-12 07:42 | P.PNNEU ---
Subjective Active Medications: Active Medications Acetaminophen (Tylenol) 650 mg PO Q4H PRN PRN Reason: Temp > 100.4 Last Admin: 09/21/17 20:44 Dose: 650 mg Al Hydroxide/Mg Hydroxide (Milk Of Magnesia Liq) 30 ml PO Q12H PRN PRN Reason: Mild Constipation Albuterol (Duoneb Neb (Prn)) 1 ampul NEB Q2HR NEB PRN PRN Reason: SHORTNESS OF BREATH Bisacodyl (Dulcolax Supp) 10 mg RECTAL DAILY PRN PRN Reason: SEVERE CONSITIPATION Cyanocobalamin (Vitamin B12 Inj) 1,000 mcg SQ DAILY [facility] Last Admin: 10/11/17 08:23 Dose: 1,000 mcg Enalaprilat (Vasotec Inj) 1.25 mg IV.PUSH Q4H PRN PRN Reason: For SBP > 220 or DBP > 120 Famotidine (Pepcid) 20 mg PO BID [facility] Last Admin: 10/11/17 21:41 Dose: 20 mg Lactulose (Lactulose Liq) 30 ml PO DAILY PRN PRN Reason: SEVERE CONSITIPATION Multivitamins (Theragran) 1 tab PO DAILY [facility] Last Admin: 10/11/17 08:23 Dose: 1 tab Ondansetron HCl (Zofran Odt) 4 mg PO Q6H PRN PRN Reason: NAUSEA OR VOMITING Pharmacy Profile Note (Coumadin Consult Pharmacy) 1 each OTHER UNSCH PRN PRN Reason: PHARMACY DOCUMENTATION Senna/Docusate Sodium (Paty-Colace) 1 tab PO BID [facility] Last Admin: 10/11/17 21:41 Dose: Not Given Sennosides (Senokot) 17.2 mg PO Q12H PRN PRN Reason: Moderate Constipation Sodium Chloride (Ns Flush) 2 ml IV.FLUSH BID [facility] Last Admin: 10/11/17 21:41 Dose: 2 ml Sodium Chloride (Ns Flush) 2 ml IV.FLUSH PRN PRN PRN Reason: FLUSH AFTER USING IV ACCESS Last Admin: 09/24/17 21:17 Dose: 2 ml Warfarin Sodium (Coumadin) 3 mg PO DAILY@1600 [facility] Last Admin: 10/11/17 16:26 Dose: 3 mg Allergies/Adverse Reactions: Allergies Allergy/AdvReac Type Severity Reaction Status Date / Time No Known Allergies Allergy Verified 09/17/17 18:35 Physical Exam Vital signs: Vital Signs 10/11/17 08:00 10/11/17 12:00 10/11/17 16:00 Temperature 97.4 F L 97.6 F 97.6 F Pulse Rate 70 114 H 90 Respiratory Rate 16 16 18 Blood Pressure 133/80 132/96 H 120/78 Pulse Oximetry 98 97 97 10/11/17 21:50 10/12/17 00:00 10/12/17 00:40 Temperature 98 F 97.9 F Pulse Rate 83 80 80 Respiratory Rate 17 18 Blood Pressure 129/83 125/85 Pulse Oximetry 97 97 Intake & Output 10/11/17 10/12/17 10/12/17 18:59 06:59 18:59 Intake Total 800 / 800 Output Total 450 / 450 5800 / 5800 Balance -450 / -450 -5000 / -5000 Intake: Oral 800 / 800 Output: Urine 450 / 450 5800 / 5800 Other: Date of Last Bowel Movement 10/08/17 # Bowel Movements 0 0 Narrative: awake 5/5 left ataxia still - Urinary Catheter Management Indwelling Urethral Catheter Cath placed during this visit: yes, but has since been removed by the nurse Reason for continuing: Not indwelling catheter Insertion date: 09/20/17 Insertion time: 18:04 Removal date: 09/22/17 Removal time: 15:00 Objective Laboratory Results - last 24 hr 10/12/17 06:28 PT 25.1 H INR 2.5 Review/Management - Diagnosis (1) CVA (cerebral vascular accident) Code(s): I63.9 - Cerebral infarction, unspecified Status: Acute Current Visit: Yes - Review/Management Plan: imp left vert acute occlusion most ho needs coumadin started tonight and coumadin for 2 months to prevent stump embolism sq hep and asa can be dced when inr>1.9 med team plguadalupe set all this up thank u med team plguadalupe start b12 shot ldl 126 on statin ivh keep bp up looking well echo and holter pend sr so far on statin inr pend he can dc when inr>1.9 keft vert occlusion keep ivf on 09/20/17 doing well echo nl sr inr 1.5 ok to dc when inr >1.9 will need residents clinic o/p inr draws daily this week and someone to follow it reliably will need repeat mra neck in 2 months at [facility] as not insurance and fu with me after that in office so i can review it med team valentín set all this up thank you ----- 09/20/17 mraprelim no clot in basilar probably threw a clot to the r lumber handler distally and it looks like the left vert artery has opened up some and as it did geogria threw clot up plan ivh hob down bp up iv heparin as failed sq hep until inr >1.9 risk of left cbllr bleed but risk of further embolization too great clinically looks like a r occipital cva athough mr this am suggested possible early r thalamic cva ----- 09/21/17 inr 2.2 off asa and hep the left vert origin may be stenosed plan statin and coumadin for now and in future could consider stent check mr in am. 09/22/17 doing better inr inc recheck 2 pm hold coumadin on statin watch for any digression with inr up i dw med team 09/23/17 stable overnoc inr 4.0 after 5 sq vit k would like lower so will give 2mg po vit k recheck mri hob 40 degrees [facility] on case 09/24/17 he needs to stay in icu mri no change but major mass effect on sariah and small left pontine cva no change 09/22-09/23 inr 1.5 i am conflicted but with that much mass effect i do not think he should be on anticoagulation stable overnoc 09/27/17 exam is stable doing well neurowise he is due for coumadin dose tomorrow per nu will defer to them on the bleed risk will recheck mri on 09/28/17 a little better every day check mr in am nusu managing coumadin 09/29/17 better every day recheck mr for any bleeding nusu on coumadin dont overshoot inr -------- 09/30/17 stable neuro and mri shows much less edema on coumadin but he was sensitive last time so please do not overshoot inir on him may only need small dose as went up to 4.9 inr last time ready for rehab o/w 10/01/17 inr pend really looking well needs rehab inpt fall risk 10/04/17 inr 2.7 stable neuro keep inr 2-2.5 ready for rehab placement issue 10/07/17 inr too low ow stable need his inr higher is he eating greens? 10/12/17 inr 2.5 stable neuro walks with walker placement problem
[2017-10-12] MEDS: Famotidine 20 MG Tablet PO SCH ×2 (09:12→22:02)
[2017-10-12] MEDS: Senna/Docusate Sodium 8.6/50 MG Tablet PO SCH ×2 (15:34→22:00)
--- NOTE | 2017-10-12 18:36 | P.PNIM ---
Subjective Interval history: Mr. Samuels was afebrile with stable vital signs overnight. Patient reports that he is doing well currently. No chest pain, shortness of breath, or abnormal bowel movements/urination. Physical Exam Vital signs: Vital Signs 10/11/17 21:50 10/12/17 00:00 10/12/17 00:40 Temperature 98 F 97.9 F Pulse Rate 83 80 80 Respiratory Rate 17 18 Blood Pressure 129/83 125/85 Pulse Oximetry 97 97 10/12/17 04:50 10/12/17 08:00 10/12/17 12:00 Temperature 98 F 97.3 F L 97.7 F Pulse Rate 78 71 86 Respiratory Rate 17 18 18 Blood Pressure 117/77 140/86 130/78 Pulse Oximetry 97 98 96 10/12/17 16:00 Temperature 97.2 F L Pulse Rate 86 Respiratory Rate 18 Blood Pressure 121/72 Pulse Oximetry 98 Intake & Output 10/11/17 10/12/17 10/12/17 18:59 06:59 18:59 Intake Total 1800 / 1800 Output Total 450 / 450 7800 / 7800 Balance -450 / -450 -6000 / -6000 Weight 81 kg Intake: Oral 1800 / 1800 Output: Urine 450 / 450 7800 / 7800 Urine/Stool Mix 0 / 0 Other: Date of Last Bowel Movement 10/08/17 10/08/17 # Bowel Movements 0 0 Narrative: General: No acute distress; resting in bed SKIN: Warm and dry. HEENT: MMM. CV: RRR; no murmurs. Grossly normal perfusion LUNGS: CTAB without wheezes or crackles. ABDOMEN: soft, NT, ND. EXTREMITIES: No LE edema. NEURO: Awake and alert. Moving all extremities. CN grossly intact. Grossly normal peripheral sensation/strength. Extent of ataxia not evaluated for on today's exam - Urinary Catheter Management Indwelling Urethral Catheter Cath placed during this visit: yes, but has since been removed by the nurse Reason for continuing: Not indwelling catheter Insertion date: 09/20/17 Insertion time: 18:04 Removal date: 09/22/17 Removal time: 15:00 Results - Labs CBC & Chem 7: 10/02/17 00:47 10/02/17 00:47 Laboratory Results - last 24 hr 10/12/17 06:28 PT 25.1 H INR 2.5 - Procedures TPA Assessment and Plan - Assessment (1) CVA (cerebral vascular accident) Code(s): I63.9 - Cerebral infarction, unspecified Status: Acute - Plan In summary this is a 66-year-old male with no significant medical history presented to [place] [facility] as a stroke alert. Per ER report patient had a headache and then developed left-sided facial numbness/drop, with slurred speech and unsteady gait. 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 MRI brain showed focal acute infarction of the left cerebellum. He was started on ASA, SQ heparin, and Coumadin. On 09/20, the patient developed acute left-sided weakness, nausea, vomiting, worsening aphasia, and right-sided gaze. MRI showed worsening L cerebellar infarct and probable acute infarct of the right thalamus. He was started on a heparin drip and transferred to the unit. The patient have since been transferred to the medical floor under the hospitalist service. Strength is improving but he remains ataxic. 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 -Continue to monitor INR -Coumadin per pharmacy -PT/ST/OT -[place] evaluation s/p Klebsiella UTI - Status post 5 day treatment with Rocephin DVT prophylaxis Currently on Coumadin, therapeutic INR Code Status: Full code Discharge Planning: Patient is medically stable for discharge. Patient was initially declined from [facility], family requested that the patient be reevaluated
[2017-10-13 08:20] LABS: INR 2.3 Ratio
[2017-10-13] MEDS: Senna/Docusate Sodium 8.6/50 MG Tablet PO SCH ×2 (08:39→20:59)
[2017-10-13] MEDS: Famotidine 20 MG Tablet PO SCH ×2 (08:40→20:58)
--- NOTE | 2017-10-13 17:00 | P.PNIM ---
Subjective Interval history: Mr. Samuels was afebrile with stable signs overnight. Patient was visited by his granddaughter earlier today. He has also been playing [email or web address] to attempt to rehab fingers. Patient states he is doing well; he does not report chest pain, shortness of breath, abnormal bowel movements or abnormal urination. Physical Exam Vital signs: Vital Signs 10/12/17 20:00 10/12/17 21:45 10/13/17 00:00 Temperature 97.9 F 97.7 F Pulse Rate 94 H 74 87 Respiratory Rate 16 18 Blood Pressure 144/80 H 128/83 Pulse Oximetry 98 96 10/13/17 04:00 10/13/17 08:00 10/13/17 12:00 Temperature 98 F 97.4 F L 97.7 F Pulse Rate 75 62 75 Respiratory Rate 17 14 16 Blood Pressure 127/87 132/70 139/81 Pulse Oximetry 97 97 96 Intake & Output 10/12/17 10/13/17 10/13/17 18:59 06:59 18:59 Intake Total 1200 / 1200 1035 / 1035 Output Total 800 / 800 700 / 700 Balance 1199 / 1199 235 / 235 -700 / -700 Intake: Oral 1200 / 1200 1035 / 1035 Output: Urine 800 / 800 700 / 700 Stool Other: # Voids 3 2 Date of Last Bowel Movement 10/08/17 10/12/17 # Bowel Movements 0 Narrative: General: No acute distress SKIN: Warm and dry. HEENT: MMM. CV: RRR; no murmurs. Grossly normal perfusion LUNGS: CTAB without wheezes or crackles. ABDOMEN: soft, NT, ND. EXTREMITIES: No LE edema. NEURO: Awake and alert. CN grossly intact. Grossly normal peripheral sensation/ strength. Extent of ataxia not evaluated for on today's exam - Urinary Catheter Management Indwelling Urethral Catheter Cath placed during this visit: yes, but has since been removed by the nurse Reason for continuing: Not indwelling catheter Insertion date: 09/20/17 Insertion time: 18:04 Removal date: 09/22/17 Removal time: 15:00 Results - Labs CBC & Chem 7: 10/02/17 00:47 10/02/17 00:47 Laboratory Results - last 24 hr 10/13/17 07:44 PT 23.0 H INR 2.3 - Procedures TPA Assessment and Plan - Assessment (1) CVA (cerebral vascular accident) Code(s): I63.9 - Cerebral infarction, unspecified Status: Acute - Plan In summary this is a 66-year-old male with no significant medical history presented to [place] [facility] as a stroke alert. Per ER report patient had a headache and then developed left-sided facial numbness/drop, with slurred speech and unsteady gait. 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 MRI brain showed focal acute infarction of the left cerebellum. He was started on ASA, SQ heparin, and Coumadin. On 09/20, the patient developed acute left-sided weakness, nausea, vomiting, worsening aphasia, and right-sided gaze. MRI showed worsening L cerebellar infarct and probable acute infarct of the right thalamus. He was started on a heparin drip and transferred to the unit. The patient have since been transferred to the medical floor under the hospitalist service. Strength is improving but he remains ataxic. 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 -Continue to monitor INR -Coumadin per pharmacy -PT/ST/OT -[place] evaluation s/p Klebsiella UTI - Status post 5 day treatment with Rocephin DVT prophylaxis Currently on Coumadin, therapeutic INR Code Status: Full code Discharge Planning: Patient is medically stable for discharge. Patient was initially declined from [facility], family requested that the patient be reevaluated
[2017-10-14 08:16] LABS: INR 2.5 Ratio; Prothrombin Time 25.1 sec (9.8-11.6)
[2017-10-14] MEDS: Senna/Docusate Sodium 8.6/50 MG Tablet PO SCH ×2 (08:48→21:18)
[2017-10-14] MEDS: Famotidine 20 MG Tablet PO SCH ×2 (08:48→21:17)
--- NOTE | 2017-10-14 17:14 | P.PNIM ---
Subjective Interval history: Mr. Samuels was afebrile with stable vital signs overnight. Patient reports that he is doing well; he does not report chest pain, shortness of breath, or abnormal urination or bowel movements. Patient feels he is making some progress with his rehabilitation. Physical Exam Vital signs: Vital Signs 10/13/17 20:00 10/14/17 00:00 10/14/17 04:00 Temperature 97.6 F 97.7 F 97.9 F Pulse Rate 87 74 60 Respiratory Rate 18 18 18 Blood Pressure 113/69 127/73 118/70 Pulse Oximetry 95 95 96 10/14/17 08:00 10/14/17 12:00 Temperature 97.7 F 97.2 F L Pulse Rate 78 111 H Respiratory Rate 20 20 Blood Pressure 120/73 140/92 H Pulse Oximetry 95 96 Intake & Output 10/13/17 10/14/17 10/14/17 18:59 06:59 18:59 Output Total 700 / 700 600 / 600 450 / 450 Balance -700 / -700 -600 / -600 -450 / -450 Weight 82.3 kg Output: Urine 700 / 700 600 / 600 450 / 450 Other: Post Void Residual 700 Narrative: General: No acute distress SKIN: Warm and dry. HEENT: moist mucus membranes CV: RRR; no murmurs. Grossly normal perfusion LUNGS: CTAB without wheezes or crackles. ABDOMEN: soft, nontender, nondistended EXTREMITIES: No LE edema. NEURO: Awake and alert. CN grossly intact. Grossly normal peripheral sensation/ strength. Extent of ataxia not evaluated for on today's exam - Urinary Catheter Management Indwelling Urethral Catheter Cath placed during this visit: yes, but has since been removed by the nurse Reason for continuing: Not indwelling catheter Insertion date: 09/20/17 Insertion time: 18:04 Removal date: 09/22/17 Removal time: 15:00 Results - Labs CBC & Chem 7: 10/02/17 00:47 10/02/17 00:47 Laboratory Results - last 24 hr 10/14/17 06:22 PT 25.1 H INR 2.5 - Procedures TPA Assessment and Plan - Assessment (1) CVA (cerebral vascular accident) Code(s): I63.9 - Cerebral infarction, unspecified Status: Acute - Plan In summary this is a 66-year-old male with no significant medical history presented to [facility] as a stroke alert. Per ER report patient had a headache and then developed left-sided facial numbness/drop, with slurred speech and unsteady gait. 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 MRI brain showed focal acute infarction of the left cerebellum. He was started on ASA, SQ heparin, and Coumadin. On 09/20, the patient developed acute left-sided weakness, nausea, vomiting, worsening aphasia, and right-sided gaze. MRI showed worsening L cerebellar infarct and probable acute infarct of the right thalamus. He was started on a heparin drip and transferred to the unit. The patient have since been transferred to the medical floor under the hospitalist service. Strength is improving but he remains ataxic. 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 -Continue to monitor INR -Coumadin per pharmacy -PT/ST/OT -[place] evaluation s/p Klebsiella UTI - Status post 5 day treatment with Rocephin DVT prophylaxis Currently on Coumadin, therapeutic INR (2.5 10/14) Code Status: Full code Discharge Planning: Patient is medically stable for discharge. Patient was initially declined from [facility], family requested that the patient be reevaluated
[2017-10-15 06:55] LABS: INR 2.7 Ratio; Prothrombin Time 27.4 sec (9.8-11.6)
[2017-10-15] MEDS: Famotidine 20 MG Tablet PO SCH ×2 (08:49→22:00)
[2017-10-15] MEDS: Senna/Docusate Sodium 8.6/50 MG Tablet PO SCH ×3 (08:50→22:04)
--- NOTE | 2017-10-15 14:06 | P.PNIM ---
Subjective Interval history: Patient reports he is feeling better. He was able to shower today. Physical Exam Vital signs: Vital Signs 10/14/17 16:00 10/14/17 20:00 10/15/17 00:00 Temperature 97.7 F 97.6 F 97.7 F Pulse Rate 74 73 68 Respiratory Rate 20 18 18 Blood Pressure 143/80 H 127/84 147/79 H Pulse Oximetry 97 96 97 10/15/17 04:00 10/15/17 04:48 10/15/17 08:00 Temperature 97.8 F 97.4 F L Pulse Rate 68 67 Respiratory Rate 18 18 Blood Pressure 145/79 H 142/86 H Pulse Oximetry 98 100 96 10/15/17 12:00 Temperature 97.4 F L Pulse Rate 89 Respiratory Rate 18 Blood Pressure 110/87 Pulse Oximetry 95 Intake & Output 10/14/17 10/15/17 10/15/17 18:59 06:59 18:59 Output Total 1000 / 1000 600 / 600 Balance -1000 / -1000 -600 / -600 Weight 80.9 kg Output: Urine 1000 / 1000 600 / 600 Narrative: General: No acute distress CV: RRR; no murmurs. Grossly normal perfusion LUNGS: CTAB without wheezes or crackles. ABDOMEN: soft, nontender, nondistended EXTREMITIES: No LE edema. NEURO: Awake and alert. CN grossly intact. Ataxic gait. - Urinary Catheter Management Indwelling Urethral Catheter Cath placed during this visit: yes, but has since been removed by the nurse Reason for continuing: Not indwelling catheter Insertion date: 09/20/17 Insertion time: 18:04 Removal date: 09/22/17 Removal time: 15:00 Results - Labs CBC & Chem 7: 10/02/17 00:47 10/02/17 00:47 Laboratory Results - last 24 hr 10/15/17 06:18 PT 27.4 H INR 2.7 - Procedures TPA Assessment and Plan - Assessment (1) CVA (cerebral vascular accident) Code(s): I63.9 - Cerebral infarction, unspecified Status: Acute - Plan 66 year old male with no significant PMH admitted on 09/17 as a stroke alert after having acute onset posterior headache followed by left-sided facial numbness/droop, slurred speech and unsteady gait. 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 MRI brain showed focal acute infarction of the left cerebellum. He was started on ASA, SQ heparin , and Coumadin. On 09/20, the patient developed acute left-sided weakness, nausea , vomiting, worsening aphasia, and right-sided gaze. MRI showed worsening L cerebellar infarct and probable acute infarct of the right thalamus. He was started on a heparin drip and transferred to the unit. The patient have since been transferred to the medical floor under the hospitalist service. Strength is improving but he remains ataxic. 1. 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 -On Coumadin. INR 2.7 - PT/OT/ST -Continue rehabilitation efforts. 2. Klebsiella UTI -Patient completed treatment with Rocephin DVT prophylaxis: on Coumadin Discharge Planning: DC planning to [facility] versus SNF placement. Case management following.
[2017-10-16] MEDS: Senna/Docusate Sodium 8.6/50 MG Tablet PO SCH ×2 (08:34→20:26)
[2017-10-16] MEDS: Famotidine 20 MG Tablet PO SCH ×2 (08:34→20:25)
[2017-10-16 08:52] LABS: INR 2.3 Ratio; Prothrombin Time 23.4 sec (9.8-11.6)
--- NOTE | 2017-10-16 10:24 | P.PNIM ---
Subjective Interval history: Patient reports he is feeling okay today. No new neurological changes. Physical Exam Vital signs: Vital Signs 10/15/17 12:00 10/15/17 15:51 10/15/17 20:00 Temperature 97.4 F L 97.8 F 97.6 F Pulse Rate 89 82 84 Respiratory Rate 18 20 18 Blood Pressure 110/87 129/81 148/87 H Pulse Oximetry 95 99 97 10/16/17 00:00 10/16/17 04:00 10/16/17 08:00 Temperature 98.0 F 97.8 F 97.4 F L Pulse Rate 67 68 64 Respiratory Rate 18 18 Blood Pressure 128/81 136/80 118/77 Pulse Oximetry 96 95 95 Intake & Output 10/15/17 10/16/17 10/16/17 18:59 06:59 18:59 Intake Total 240 / 240 Output Total 1150 / 1150 1900 / 1900 Balance -910 / -910 -1900 / -1900 Weight 80 kg Intake: Oral 240 / 240 Output: Urine 1150 / 1150 1900 / 1900 Other: # Voids 3 Date of Last Bowel Movement 10/12/17 10/14/17 Narrative: General: No acute distress CV: RRR; no murmurs. Grossly normal perfusion LUNGS: CTAB without wheezes or crackles. ABDOMEN: soft, nontender, nondistended EXTREMITIES: No LE edema. NEURO: Awake and alert. CN grossly intact. Ataxic gait. - Urinary Catheter Management Indwelling Urethral Catheter Cath placed during this visit: yes, but has since been removed by the nurse Reason for continuing: Not indwelling catheter Insertion date: 09/20/17 Insertion time: 18:04 Removal date: 09/22/17 Removal time: 15:00 Results - Labs CBC & Chem 7: 10/02/17 00:47 10/02/17 00:47 Laboratory Results - last 24 hr 10/16/17 07:43 PT 23.4 H INR 2.3 - Procedures TPA Assessment and Plan - Assessment (1) CVA (cerebral vascular accident) Code(s): I63.9 - Cerebral infarction, unspecified Status: Acute - Plan 66 year old male with no significant PMH admitted on 09/17 as a stroke alert after having acute onset posterior headache followed by left-sided facial numbness/droop, slurred speech and unsteady gait. 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 MRI brain showed focal acute infarction of the left cerebellum. He was started on ASA, SQ heparin , and Coumadin. On 09/20, the patient developed acute left-sided weakness, nausea , vomiting, worsening aphasia, and right-sided gaze. MRI showed worsening L cerebellar infarct and probable acute infarct of the right thalamus. He was started on a heparin drip and transferred to the unit. The patient have since been transferred to the medical floor under the hospitalist service. Strength is improving but he remains ataxic. 1. 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 -On Coumadin. INR therapeutic - PT/OT/ST -Continue rehabilitation efforts. Awaiting for raul bed at [place]. 2. Klebsiella UTI -Patient completed treatment with Rocephin DVT prophylaxis: on Coumadin Discharge Planning: DC planning to [place] versus SNF placement. Case management following.
[2017-10-17 08:29] LABS: Prothrombin Time 20.5 sec (9.8-11.6)
[2017-10-17] MEDS: Famotidine 20 MG Tablet PO SCH ×2 (08:51→22:40)
[2017-10-17] MEDS: Senna/Docusate Sodium 8.6/50 MG Tablet PO SCH ×2 (08:51→22:44)
--- NOTE | 2017-10-17 10:01 | P.PNIM ---
Subjective Interval history: Patient reports he is feeling okay today. No new issues. Physical Exam Vital signs: Vital Signs 10/16/17 12:00 10/16/17 16:00 10/16/17 20:00 Temperature 97.4 F L 98 F 97.5 F L Pulse Rate 86 86 74 Respiratory Rate 18 16 18 Blood Pressure 135/84 133/80 126/76 Pulse Oximetry 97 96 95 10/17/17 00:00 10/17/17 08:00 Temperature 98 F 97.4 F L Pulse Rate 68 71 Respiratory Rate 18 18 Blood Pressure 149/85 H 132/88 Pulse Oximetry 97 96 Intake & Output 10/16/17 10/17/17 10/17/17 18:59 06:59 18:59 Intake Total 820 / 820 Output Total 1000 / 1000 Balance 820 / 820 -1000 / -1000 Weight 80 kg Intake: Oral 480 / 480 Tube Feeding 300 / 300 Tube Irrigant 40 / 40 Output: Urine 1000 / 1000 Other: # Voids 3 Date of Last Bowel Movement 10/16/17 10/16/17 10/16/17 # Bowel Movements 1 Narrative: General: No acute distress CV: RRR; no murmurs. Grossly normal perfusion LUNGS: CTAB without wheezes or crackles. ABDOMEN: soft, nontender, nondistended EXTREMITIES: No LE edema. NEURO: Awake and alert. CN grossly intact. Ataxic gait. - Urinary Catheter Management Indwelling Urethral Catheter Cath placed during this visit: yes, but has since been removed by the nurse Reason for continuing: Not indwelling catheter Insertion date: 09/20/17 Insertion time: 18:04 Removal date: 09/22/17 Removal time: 15:00 Results - Labs CBC & Chem 7: 10/02/17 00:47 10/02/17 00:47 Laboratory Results - last 24 hr 10/17/17 07:20 PT 20.5 H INR 2.0 - Procedures TPA Assessment and Plan - Assessment (1) CVA (cerebral vascular accident) Code(s): I63.9 - Cerebral infarction, unspecified Status: Acute - Plan 66 year old male with no significant PMH admitted on 09/17 as a stroke alert after having acute onset posterior headache followed by left-sided facial numbness/droop, slurred speech and unsteady gait. 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 MRI brain showed focal acute infarction of the left cerebellum. He was started on ASA, SQ heparin , and Coumadin. On 09/20, the patient developed acute left-sided weakness, nausea , vomiting, worsening aphasia, and right-sided gaze. MRI showed worsening L cerebellar infarct and probable acute infarct of the right thalamus. He was started on a heparin drip and transferred to the unit. The patient have since been transferred to the medical floor under the hospitalist service. Strength is improving but he remains ataxic. 1. 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 -On Coumadin. INR therapeutic. We will keep him on 3 mg daily and check INR every 2-3 days. - PT/OT/ST -Continue rehabilitation efforts. Awaiting for raul bed at [place]. 2. Klebsiella UTI -Patient completed treatment with Rocephin DVT prophylaxis: on Coumadin Discharge Planning: DC planning to [place] versus SNF placement. Case management following.
--- NOTE | 2017-10-18 07:34 | P.PNNEU ---
Subjective Subjective Comments: ambulates with one hand walker Active Medications: Active Medications Acetaminophen (Tylenol) 650 mg PO Q4H PRN PRN Reason: Temp > 100.4 Last Admin: 09/21/17 20:44 Dose: 650 mg Al Hydroxide/Mg Hydroxide (Milk Of Magnesia Liq) 30 ml PO Q12H PRN PRN Reason: Mild Constipation Albuterol (Duoneb Neb (Prn)) 1 ampul NEB Q2HR NEB PRN PRN Reason: SHORTNESS OF BREATH Bisacodyl (Dulcolax Supp) 10 mg RECTAL DAILY PRN PRN Reason: SEVERE CONSITIPATION Enalaprilat (Vasotec Inj) 1.25 mg IV.PUSH Q4H PRN PRN Reason: For SBP > 220 or DBP > 120 Famotidine (Pepcid) 20 mg PO BID [facility] Last Admin: 10/17/17 22:40 Dose: 20 mg Lactulose (Lactulose Liq) 30 ml PO DAILY PRN PRN Reason: SEVERE CONSITIPATION Multivitamins (Theragran) 1 tab PO DAILY [facility] Last Admin: 10/17/17 08:51 Dose: 1 tab Ondansetron HCl (Zofran Odt) 4 mg PO Q6H PRN PRN Reason: NAUSEA OR VOMITING Senna/Docusate Sodium (Paty-Colace) 1 tab PO BID [facility] Last Admin: 10/17/17 22:44 Dose: Not Given Sennosides (Senokot) 17.2 mg PO Q12H PRN PRN Reason: Moderate Constipation Sodium Chloride (Ns Flush) 2 ml IV.FLUSH BID [facility] Last Admin: 10/17/17 22:45 Dose: 2 ml Sodium Chloride (Ns Flush) 2 ml IV.FLUSH PRN PRN PRN Reason: FLUSH AFTER USING IV ACCESS Last Admin: 09/24/17 21:17 Dose: 2 ml Warfarin Sodium (Coumadin) 3 mg PO DAILY@1600 [facility] Last Admin: 10/17/17 16:39 Dose: 3 mg Allergies/Adverse Reactions: Allergies Allergy/AdvReac Type Severity Reaction Status Date / Time No Known Allergies Allergy Verified 09/17/17 18:35 Physical Exam Vital signs: Vital Signs 10/17/17 08:00 10/17/17 11:57 10/17/17 16:00 Temperature 97.4 F L 97.5 F L 97.4 F L Pulse Rate 71 93 H 72 Respiratory Rate Blood Pressure 132/88 115/76 130/73 Pulse Oximetry 96 94 L 96 10/17/17 20:00 10/18/17 00:00 10/18/17 04:00 Temperature 98.5 F 98.1 F 97.2 F L Pulse Rate 84 59 L 58 L Respiratory Rate Blood Pressure 120/80 137/84 149/81 H Pulse Oximetry 95 97 99 Intake & Output 10/17/17 10/18/17 10/18/17 18:59 06:59 18:59 Intake Total 720 / 720 Output Total 1400 / 1400 1300 / 1300 Balance -680 / -680 -1300 / -1300 Weight 80 kg Intake: Oral 720 / 720 Output: Urine 1400 / 1400 1300 / 1300 Other: # Voids 2 Date of Last Bowel Movement 10/16/17 10/16/17 Narrative: very ataxic left arm and leg and falls to left standing foot slipped out - Urinary Catheter Management Indwelling Urethral Catheter Cath placed during this visit: yes, but has since been removed by the nurse Reason for continuing: Not indwelling catheter Insertion date: 09/20/17 Insertion time: 18:04 Removal date: 09/22/17 Removal time: 15:00 Objective Laboratory Results - last 24 hr 10/17/17 07:20 PT 20.5 H INR 2.0 Review/Management - Diagnosis (1) CVA (cerebral vascular accident) Code(s): I63.9 - Cerebral infarction, unspecified Status: Acute Current Visit: Yes - Review/Management Plan: imp left vert acute occlusion most ho needs coumadin started tonight and coumadin for 2 months to prevent stump embolism sq hep and asa can be dced when inr>1.9 med team plz set all this up thank u med team plz start b12 shot ldl 126 on statin ivh keep bp up looking well echo and holter pend sr so far on statin inr pend he can dc when inr>1.9 keft vert occlusion keep ivf on 09/20/17 doing well echo nl sr inr 1.5 ok to dc when inr >1.9 will need residents clinic o/p inr draws daily this week and someone to follow it reliably will need repeat mra neck in 2 months at [facility] as not insurance and fu with me after that in office so i can review it med team valentín set all this up thank you ----- 09/20/17 mraprelim no clot in basilar probably threw a clot to the r 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 09/22/17 doing better inr inc recheck 2 pm hold coumadin on statin watch for any digression with inr up i dw med team 09/23/17 stable overnoc inr 4.0 after 5 sq vit k would like lower so will give 2mg po vit k recheck mri [facility] 40 degrees [facility] on case 09/24/17 he needs to stay in icu mri no change but major mass effect on sariah and small left pontine cva no change 09/22-09/23 inr 1.5 i am conflicted but with that much mass effect i do not think he should be on anticoagulation stable overnoc 09/27/17 exam is stable doing well neurowise he is due for coumadin dose tomorrow per [facility] will defer to them on the bleed risk will recheck mri on 09/28/17 a little better every day check mr in am [facility] managing coumadin 09/29/17 better every day recheck mr for any bleeding nusu on coumadin dont overshoot inr -------- 09/30/17 stable neuro and mri shows much less edema on coumadin but he was sensitive last time so please do not overshoot inir on him may only need small dose as went up to 4.9 inr last time ready for rehab o/w 10/01/17 inr pend really looking well needs rehab inpt fall risk 10/04/17 inr 2.7 stable neuro keep inr 2-2.5 ready for rehab placement issue 10/07/17 inr too low ow stable need his inr higher is he eating greens? 10/12/17 inr 2.5 stable neuro walks with walker placement problem 10/18/17 neds rehab high fall risk left vert stenosis origin at some point will recheck cta and could consider stent origin left vert in a month when edema from cva resolved
[2017-10-18] MEDS: Senna/Docusate Sodium 8.6/50 MG Tablet PO SCH ×2 (08:03→21:44)
[2017-10-18] MEDS: Famotidine 20 MG Tablet PO SCH ×2 (08:04→21:44)
--- NOTE | 2017-10-18 13:54 | P.PNIM ---
Subjective Interval history: Patient reports he is feeling okay. No new issues. Physical Exam Vital signs: Vital Signs 10/17/17 16:00 10/17/17 20:00 10/18/17 00:00 Temperature 97.4 F L 98.5 F 98.1 F Pulse Rate 72 84 59 L Respiratory Rate 18 18 18 Blood Pressure 130/73 120/80 137/84 Pulse Oximetry 96 95 97 10/18/17 04:00 10/18/17 08:00 10/18/17 12:00 Temperature 97.2 F L 98 F 97.4 F L Pulse Rate 58 L 70 88 Respiratory Rate 18 19 19 Blood Pressure 149/81 H 147/97 H 131/85 Pulse Oximetry 99 96 95 Intake & Output 10/17/17 10/18/17 10/18/17 18:59 06:59 18:59 Intake Total 720 / 720 Output Total 1400 / 1400 1300 / 1300 Balance -680 / -680 -1300 / -1300 Weight 82.4 kg Intake: Oral 720 / 720 Output: Urine 1400 / 1400 1300 / 1300 Other: # Voids 2 Date of Last Bowel Movement 10/16/17 10/16/17 10/17/17 Narrative: General: No acute distress CV: RRR; no murmurs. Grossly normal perfusion LUNGS: CTAB without wheezes or crackles. ABDOMEN: soft, nontender, nondistended EXTREMITIES: No LE edema. NEURO: Awake and alert. CN grossly intact. Ataxic gait. - Urinary Catheter Management Indwelling Urethral Catheter Cath placed during this visit: yes, but has since been removed by the nurse Reason for continuing: Not indwelling catheter Insertion date: 09/20/17 Insertion time: 18:04 Removal date: 09/22/17 Removal time: 15:00 Results - Labs CBC & Chem 7: 10/02/17 00:47 10/02/17 00:47 - Procedures TPA Assessment and Plan - Assessment (1) CVA (cerebral vascular accident) Code(s): I63.9 - Cerebral infarction, unspecified Status: Acute - Plan 66 year old male with no significant PMH admitted on 09/17 as a stroke alert after having acute onset posterior headache followed by left-sided facial numbness/droop, slurred speech and unsteady gait. 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 MRI brain showed focal acute infarction of the left cerebellum. He was started on ASA, SQ heparin , and Coumadin. On 09/20, the patient developed acute left-sided weakness, nausea , vomiting, worsening aphasia, and right-sided gaze. MRI showed worsening L cerebellar infarct and probable acute infarct of the right thalamus. He was started on a heparin drip and transferred to the unit. The patient have since been transferred to the medical floor under the hospitalist service. Strength is improving but he remains ataxic. 1. 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 -On Coumadin. INR therapeutic. We will keep him on 3 mg daily and check INR every 2-3 days. - PT/OT/ST -Continue rehabilitation efforts. Awaiting for raul bed at [place]. They are waiting for court paperwork. 2. Klebsiella UTI -Patient completed treatment with Rocephin DVT prophylaxis: on Coumadin Discharge Planning: DC planning to [place] versus SNF placement. Case management following.
[2017-10-19 08:40] LABS: INR 2.2 Ratio; Prothrombin Time 22.1 sec (9.8-11.6)
[2017-10-19] MEDS: Famotidine 20 MG Tablet PO SCH ×2 (08:41→20:53)
[2017-10-19] MEDS: Senna/Docusate Sodium 8.6/50 MG Tablet PO SCH ×2 (08:41→20:53)
--- NOTE | 2017-10-19 08:50 | P.PN ---
Subjective Interval history: Multiple patient with CVA. Patient seen and examined. Patient states he is doing okay. He denies any new medical complaints. He denies any headache, dizziness, visual disturbance, numbness or tingling. He denies any chest pain or shortness of breath. Physical Exam Vital signs: Vital Signs 10/18/17 12:00 10/18/17 16:00 10/18/17 19:43 Temperature 97.4 F L 97.8 F 97.9 F Pulse Rate 88 77 98 H Respiratory Rate 18 Blood Pressure 131/85 139/92 H 139/85 Pulse Oximetry 95 98 95 10/19/17 00:13 10/19/17 04:32 Temperature 97.9 F 97.6 F Pulse Rate 72 72 Respiratory Rate Blood Pressure 133/83 115/67 Pulse Oximetry 98 99 Intake & Output 10/18/17 10/19/17 10/19/17 18:59 06:59 18:59 Intake Total 1100 / 1100 Output Total 1000 / 1000 Balance 100 / 100 Weight 82.5 kg Intake: Oral 1100 / 1100 Output: Urine 1000 / 1000 Other: Date of Last Bowel Movement 10/17/17 10/18/17 10/18/17 Narrative: GENERAL: WDWN male patient, INAD. Awake and alert. Appears comfortable. SKIN: Warm and dry. HEAD: Atraumatic. Normocephalic. EYES: Pupils equal and round. No scleral icterus. No injection or drainage. ENT: No nasal bleeding or discharge. Mucous membranes pink and moist. NECK: Trachea midline. CARDIOVASCULAR: Regular rate and rhythm. RESPIRATORY: No accessory muscle use. Clear to auscultation. Breath sounds equal bilaterally. GASTROINTESTINAL: Abdomen soft, non-tender, nondistended. +BS. MUSCULOSKELETAL: Extremities without clubbing, cyanosis, or edema. No obvious deformities. NEUROLOGICAL: Awake and alert. No obvious cranial nerve deficits. Motor grossly within normal limits. No focal neurologic finding appreciate. Normal speech. PSYCHIATRIC: Appropriate mood and affect; insight and judgment normal. - Urinary Catheter Management Indwelling Urethral Catheter Cath placed during this visit: yes, but has since been removed by the nurse Reason for continuing: Not indwelling catheter Insertion date: 09/20/17 Insertion time: 18:04 Removal date: 09/22/17 Removal time: 15:00 Results - Labs CBC & Chem 7: 10/02/17 00:47 10/02/17 00:47 Laboratory Results - last 24 hr 10/19/17 07:30 PT 22.1 H INR 2.2 - Procedures TPA Assessment and Plan - Assessment (1) CVA (cerebral vascular accident) Code(s): I63.9 - Cerebral infarction, unspecified Status: Acute - Plan 66 year old male with no significant PMH admitted on 09/17 as a stroke alert after having acute onset posterior headache followed by left-sided facial numbness/droop, slurred speech and unsteady gait. 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 MRI brain showed focal acute infarction of the left cerebellum. He was started on ASA, SQ heparin , and Coumadin. On 09/20, the patient developed acute left-sided weakness, nausea , vomiting, worsening aphasia, and right-sided gaze. MRI showed worsening L cerebellar infarct and probable acute infarct of the right thalamus. He was started on a heparin drip and transferred to the unit. The patient have since been transferred to the medical floor under the hospitalist service. Strength is improving but he remains ataxic. 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 INR therapeutic. We will keep him on 3 mg daily and check INR every 2-3 days. - PT/OT/ST - fall precautions -Continue rehabilitation efforts. Awaiting for raul bed at [place]. They are waiting for court paperwork. Klebsiella UTI -Patient completed treatment with Rocephin DVT prophylaxis: on Coumadin Code Status: FULL Discussed Condition With: patient, nursing staff, Dr. Gómez Discharge Planning: Difficult placement. CM assisting with ongoing discharge planning. Awaiting Ra[facility] bed at [place].
--- NOTE | 2017-10-20 07:37 | P.PN ---
Subjective Interval history: Follow up on patient with CVA. Patient seen and examined. Patient witnessed mobilizing himself around the unit in wheelchair. Patient denies any acute medical complaints. States he is okay. Denies any fever or chills. Discussed with nursing staff, no acute issues noted overnight. Physical Exam Vital signs: Vital Signs 10/19/17 08:00 10/19/17 12:00 10/19/17 16:00 Temperature 97.4 F L 94.6 F L 97.2 F L Pulse Rate 64 101 H 84 Respiratory Rate 20 20 20 Blood Pressure 143/85 H 128/78 141/79 H Pulse Oximetry 95 95 95 10/19/17 20:00 10/20/17 00:00 10/20/17 04:00 Temperature 98.1 F 97.8 F 97.5 F L Pulse Rate 77 75 61 Respiratory Rate 20 19 18 Blood Pressure 133/96 H 130/72 135/90 Pulse Oximetry 98 95 96 Intake & Output 10/19/17 10/20/17 10/20/17 18:59 06:59 18:59 Intake Total 1100 / 1100 Output Total 850 / 850 800 / 800 Balance -850 / -850 300 / 300 Weight 86.5 kg Intake: Oral 1100 / 1100 Output: Urine 850 / 850 800 / 800 Other: Date of Last Bowel Movement 10/18/17 10/19/17 Narrative: GENERAL: WDWN male patient. No significant change. Not in any acute distress. Awake and alert. Appears comfortable. SKIN: Warm and dry. HEENT: Atraumatic. Normocephalic. Pupils equal and round. No scleral icterus. No injection or drainage. No nasal bleeding or discharge. Mucous membranes pink and moist. NECK: Trachea midline. CARDIOVASCULAR: Regular rate and rhythm. RESPIRATORY: No accessory muscle use. Clear to auscultation. Breath sounds equal bilaterally. GASTROINTESTINAL: Abdomen soft, non-tender, nondistended. +BS. MUSCULOSKELETAL: Extremities without clubbing, cyanosis, or edema. No obvious deformities. NEUROLOGICAL: Awake and alert. No obvious cranial nerve deficits. Motor grossly within normal limits. No focal neurologic finding appreciate. Normal speech. PSYCHIATRIC: Appropriate mood and affect; insight and judgment normal. - Urinary Catheter Management Indwelling Urethral Catheter Cath placed during this visit: yes, but has since been removed by the nurse Reason for continuing: Not indwelling catheter Insertion date: 09/20/17 Insertion time: 18:04 Removal date: 09/22/17 Removal time: 15:00 Results - Labs CBC & Chem 7: 10/02/17 00:47 10/02/17 00:47 Laboratory Results - last 24 hr 10/19/17 07:30 PT 22.1 H INR 2.2 - Procedures TPA Assessment and Plan - Assessment (1) CVA (cerebral vascular accident) Code(s): I63.9 - Cerebral infarction, unspecified Status: Acute - Plan 66 year old male with no significant PMH admitted on 09/17 as a stroke alert after having acute onset posterior headache followed by left-sided facial numbness/droop, slurred speech and unsteady gait. 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 MRI brain showed focal acute infarction of the left cerebellum. He was started on ASA, SQ heparin , and Coumadin. On 09/20, the patient developed acute left-sided weakness, nausea , vomiting, worsening aphasia, and right-sided gaze. MRI showed worsening L cerebellar infarct and probable acute infarct of the right thalamus. He was started on a heparin drip and transferred to the unit. The patient have since been transferred to the medical floor under the hospitalist service. Strength is improving but he remains ataxic. 10/20 Patient is stable. No significant change noted. Discussed with nursing staff, no acute events overnight. Continue with current plan of care. 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 INR therapeutic. We will keep him on 3 mg daily and check INR every 2-3 days. - PT/OT/ST - fall precautions -Continue rehabilitation efforts. Awaiting for raul bed at [place]. They are waiting for court paperwork. Klebsiella UTI -Patient completed treatment with Rocephin DVT prophylaxis: on Coumadin Code Status: FULL Discussed Condition With: patient, nursing staff, Dr. Gómez Discharge Planning: Difficult placement. CM assisting with ongoing discharge planning. Awaiting [facility] bed at [place].
[2017-10-20] MEDS: Famotidine 20 MG Tablet PO SCH ×2 (09:11→21:16)
[2017-10-20] MEDS: Senna/Docusate Sodium 8.6/50 MG Tablet PO SCH ×2 (09:11→21:16)
[2017-10-20] MEDS: Acetaminophen 325 MG Tablet PO PRN (18:37)
[2017-10-21] MEDS ORDERED: Phenol 1.4% 180 ML Spray Bottle OROPHARYNG PRN (09:12)
--- NOTE | 2017-10-21 09:16 | P.PN ---
Subjective Interval history: Follow up on patient with CVA. Patient seen and examined. Patient complaining of sore throat. Denies any other complaints. Denies any fever or chills. Denies any cough, chest pain or shortness of breath. He denies any N/V or abdominal pain. Physical Exam Vital signs: Vital Signs 10/20/17 12:00 10/20/17 16:00 10/20/17 19:35 Temperature 97.3 F L 97.3 F L 98.7 F Pulse Rate 79 81 92 H Respiratory Rate 17 17 18 Blood Pressure 144/81 H 170/93 H 138/77 Pulse Oximetry 94 L 97 96 10/21/17 00:00 10/21/17 04:00 10/21/17 06:21 Temperature 98.3 F 98.1 F Pulse Rate 84 80 Respiratory Rate 18 18 18 Blood Pressure 159/88 H 146/81 H Pulse Oximetry 98 97 10/21/17 08:34 Temperature 97.5 F L Pulse Rate 79 Respiratory Rate 18 Blood Pressure 132/86 Pulse Oximetry Intake & Output 10/20/17 10/21/17 10/21/17 18:59 06:59 18:59 Intake Total 1100 / 1100 Output Total 1250 / 1250 1200 / 1200 Balance -150 / -150 -1200 / -1200 Weight 83.8 kg Intake: Oral 1100 / 1100 Output: Urine 1250 / 1250 1200 / 1200 Other: # Voids 1 Date of Last Bowel Movement 10/20/17 10/20/17 # Bowel Movements 1 Narrative: GENERAL: WDWN male patient. No significant change. Not in any acute distress. Awake and alert. Appears comfortable. SKIN: Warm and dry. HEENT: Atraumatic. Normocephalic. Pupils equal and round. No scleral icterus. No injection or drainage. No nasal bleeding or discharge. Mucous membranes pink and moist. NECK: Trachea midline. CARDIOVASCULAR: Regular rate and rhythm. RESPIRATORY: No accessory muscle use. Clear to auscultation. Breath sounds equal bilaterally. GASTROINTESTINAL: Abdomen soft, non-tender, nondistended. +BS. MUSCULOSKELETAL: Extremities without clubbing, cyanosis, or edema. No obvious deformities. NEUROLOGICAL: Awake and alert. No obvious cranial nerve deficits. Motor grossly within normal limits. No focal neurologic finding appreciate. Normal speech. PSYCHIATRIC: Appropriate mood and affect; insight and judgment normal. - Urinary Catheter Management Indwelling Urethral Catheter Cath placed during this visit: yes, but has since been removed by the nurse Reason for continuing: Not indwelling catheter Insertion date: 09/20/17 Insertion time: 18:04 Removal date: 09/22/17 Removal time: 15:00 Results - Labs CBC & Chem 7: 10/02/17 00:47 10/02/17 00:47 - Procedures TPA Assessment and Plan - Assessment (1) CVA (cerebral vascular accident) Code(s): I63.9 - Cerebral infarction, unspecified Status: Acute - Plan 66 year old male with no significant PMH admitted on 09/17 as a stroke alert after having acute onset posterior headache followed by left-sided facial numbness/droop, slurred speech and unsteady gait. 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 MRI brain showed focal acute infarction of the left cerebellum. He was started on ASA, SQ heparin , and Coumadin. On 09/20, the patient developed acute left-sided weakness, nausea , vomiting, worsening aphasia, and right-sided gaze. MRI showed worsening L cerebellar infarct and probable acute infarct of the right thalamus. He was started on a heparin drip and transferred to the unit. The patient have since been transferred to the medical floor under the hospitalist service. Strength is improving but he remains ataxic. 10/21 C/o mild sore throat. No other symptoms. Patient is stable. No significant change. He is afebrile. VSS. 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 INR therapeutic. We will keep him on 3 mg daily and check INR every 2-3 days. - PT/OT/ST - fall precautions -Continue rehabilitation efforts. Awaiting for raul bed at [place]. They are waiting for court paperwork. Klebsiella UTI -Patient completed treatment with Rocephin DVT prophylaxis: on Coumadin Code Status: FULL Discussed Condition With: patient, nursing staff, Dr. Gómez Discharge Planning: Difficult placement. CM assisting with ongoing discharge planning. Awaiting [facility] bed at [place].
[2017-10-21] MEDS: Senna/Docusate Sodium 8.6/50 MG Tablet PO SCH ×2 (09:38→20:44)
[2017-10-21] MEDS: Famotidine 20 MG Tablet PO SCH ×2 (09:38→20:43)
[2017-10-21] MEDS: Acetaminophen 325 MG Tablet PO PRN (18:04)
--- NOTE | 2017-10-22 07:32 | P.PN ---
Subjective Interval history: Patient is stable. No significant change. Patient reports his sore throat has improved. Reports intermittent sore tooth on the right states he knows it is loose. He denies any fever chills. Denies any chest pain or shortness of breath. Physical Exam Vital signs: Vital Signs 10/21/17 08:34 10/21/17 12:00 10/21/17 16:00 Temperature 97.5 F L 98.2 F 98.8 F Pulse Rate 79 87 82 Respiratory Rate 18 20 19 Blood Pressure 132/86 132/83 140/83 Pulse Oximetry 93 L 96 10/21/17 20:00 10/22/17 00:00 10/22/17 04:00 Temperature 98.7 F 97.4 F L 97.4 F L Pulse Rate 81 67 76 Respiratory Rate 18 18 18 Blood Pressure 138/73 142/92 H 128/74 Pulse Oximetry 95 98 97 Intake & Output 10/21/17 10/22/17 10/22/17 18:59 06:59 18:59 Intake Total 1080 / 1080 Output Total 700 / 700 Balance 1080 / 1080 -700 / -700 Weight 80.8 kg Intake: Oral 1080 / 1080 Output: Urine 700 / 700 Other: # Voids 6 # Bowel Movements 1 Narrative: GENERAL: WDWN male patient, INAD. Awake and alert. Appears comfortable. SKIN: Warm and dry. HEENT: Atraumatic. Normocephalic. Pupils equal and round. No scleral icterus. No injection or drainage. No nasal bleeding or discharge. Mucous membranes pink and moist. NECK: Trachea midline. CARDIOVASCULAR: Regular rate and rhythm. RESPIRATORY: No accessory muscle use. Clear to auscultation. Breath sounds equal bilaterally. GASTROINTESTINAL: Abdomen soft, non-tender, nondistended. +BS. MUSCULOSKELETAL: Extremities without clubbing, cyanosis, or edema. No obvious deformities. NEUROLOGICAL: Awake and alert. No obvious cranial nerve deficits. Motor grossly within normal limits. No focal neurologic finding appreciate. Normal speech. PSYCHIATRIC: Appropriate mood and affect; insight and judgment normal. - Urinary Catheter Management Indwelling Urethral Catheter Cath placed during this visit: yes, but has since been removed by the nurse Reason for continuing: Not indwelling catheter Insertion date: 09/20/17 Insertion time: 18:04 Removal date: 09/22/17 Removal time: 15:00 Results - Labs CBC & Chem 7: 10/02/17 00:47 10/02/17 00:47 - Procedures TPA Assessment and Plan - Assessment (1) CVA (cerebral vascular accident) Code(s): I63.9 - Cerebral infarction, unspecified Status: Acute - Plan 66 year old male with no significant PMH admitted on 09/17 as a stroke alert after having acute onset posterior headache followed by left-sided facial numbness/droop, slurred speech and unsteady gait. 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 MRI brain showed focal acute infarction of the left cerebellum. He was started on ASA, SQ heparin , and Coumadin. On 09/20, the patient developed acute left-sided weakness, nausea , vomiting, worsening aphasia, and right-sided gaze. MRI showed worsening L cerebellar infarct and probable acute infarct of the right thalamus. He was started on a heparin drip and transferred to the unit. The patient have since been transferred to the medical floor under the hospitalist service. Strength is improving but he remains ataxic. 10/22 Sore throat improved. Reports occasional right sided tooth pain, states that he know the tooth is loose. No complaints of tooth pain today. Will start on Peridex s/s BID. No fever or chills. Patient is stable. No significant change. He is afebrile. VSS. 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 INR therapeutic. We will keep him on 3 mg daily and check INR every 2-3 days. - PT/OT/ST - fall precautions -Continue rehabilitation efforts. Awaiting for raul bed at [place]. They are waiting for court paperwork. Klebsiella UTI -Patient completed treatment with Rocephin DVT prophylaxis: on Coumadin Code Status: FULL Discussed Condition With: patient, nursing staff, Dr. Gómez Discharge Planning: Difficult placement. CM assisting with ongoing discharge planning. Awaiting [facility] bed at [place].
[2017-10-22] MEDS: Famotidine 20 MG Tablet PO SCH ×2 (08:40→20:48)
[2017-10-22] MEDS: Senna/Docusate Sodium 8.6/50 MG Tablet PO SCH ×2 (08:40→20:50)
[2017-10-22 16:19] LABS: INR 2.5 Ratio; Prothrombin Time 25.6 sec (9.8-11.6)
[2017-10-23] MEDS: Chlorhexidine Gluconate 0.12% Liq 15 ML UDC SWISH-SPIT SCH ×3 (03:01→21:04)
[2017-10-23] MEDS: Famotidine 20 MG Tablet PO SCH ×2 (08:25→20:43)
[2017-10-23] MEDS: Senna/Docusate Sodium 8.6/50 MG Tablet PO SCH ×2 (08:26→21:04)
--- NOTE | 2017-10-23 10:39 | P.PN ---
Subjective Interval history: Follow CVA. Patient seen and examined. Patient denies any complaints overnight. States his sore throat continues to improve. Denies any fever or chills. Denies any chest pain or shortness of breath. Physical Exam Vital signs: Vital Signs 10/22/17 12:00 10/22/17 16:00 10/22/17 20:00 Temperature 98.6 F 98.2 F 97.9 F Pulse Rate 86 77 79 Respiratory Rate Blood Pressure 121/81 117/68 138/84 Pulse Oximetry 96 96 99 10/23/17 00:00 10/23/17 04:00 10/23/17 08:00 Temperature 98.2 F 98.0 F 97.4 F L Pulse Rate 63 70 64 Respiratory Rate 16 Blood Pressure 145/84 H 140/80 136/81 Pulse Oximetry 96 95 95 Intake & Output 10/22/17 10/23/17 10/23/17 18:59 06:59 18:59 Output Total 1300 / 1300 Balance -1300 / -1300 Weight 80.2 kg Output: Urine 1300 / 1300 Other: Date of Last Bowel Movement 10/21/17 10/22/17 Narrative: GENERAL: WDWN male patient, INAD. Awake and alert. Appears comfortable lying in bed. SKIN: Warm and dry. HEENT: Atraumatic. Normocephalic. Pupils equal and round. No scleral icterus. No injection or drainage. No nasal bleeding or discharge. Mucous membranes pink and moist. NECK: Trachea midline. CARDIOVASCULAR: Regular rate and rhythm. RESPIRATORY: No accessory muscle use. Clear to auscultation. Breath sounds equal bilaterally. GASTROINTESTINAL: Abdomen soft, non-tender, nondistended. +BS. MUSCULOSKELETAL: Extremities without clubbing, cyanosis, or edema. No obvious deformities. NEUROLOGICAL: Awake and alert. No obvious cranial nerve deficits. Motor grossly within normal limits. No focal neurologic finding appreciate. Normal speech. PSYCHIATRIC: Appropriate mood and affect; insight and judgment normal. - Urinary Catheter Management Indwelling Urethral Catheter Cath placed during this visit: yes, but has since been removed by the nurse Reason for continuing: Not indwelling catheter Insertion date: 09/20/17 Insertion time: 18:04 Removal date: 09/22/17 Removal time: 15:00 Results - Labs CBC & Chem 7: 10/02/17 00:47 10/02/17 00:47 Laboratory Results - last 24 hr 10/22/17 15:40 PT 25.6 H INR 2.5 - Procedures TPA Assessment and Plan - Assessment (1) CVA (cerebral vascular accident) Code(s): I63.9 - Cerebral infarction, unspecified Status: Acute - Plan 66 year old male with no significant PMH admitted on 09/17 as a stroke alert after having acute onset posterior headache followed by left-sided facial numbness/droop, slurred speech and unsteady gait. 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 MRI brain showed focal acute infarction of the left cerebellum. He was started on ASA, SQ heparin , and Coumadin. On 09/20, the patient developed acute left-sided weakness, nausea , vomiting, worsening aphasia, and right-sided gaze. MRI showed worsening L cerebellar infarct and probable acute infarct of the right thalamus. He was started on a heparin drip and transferred to the unit. The patient have since been transferred to the medical floor under the hospitalist service. Strength is improving but he remains ataxic. 10/23 Sore throat improved. Reports occasional right sided tooth pain, states that he know the tooth is loose. No complaints of tooth pain today. Will start on Peridex s/s BID. No fever or chills. Patient is stable. No significant change. He is afebrile. VSS. 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 INR therapeutic. We will keep him on 3 mg daily and check INR every 2-3 days. INR 2.5 10/22/17. - PT/OT/ST - fall precautions - Continue rehabilitation efforts. Awaiting for raul bed at [facility]. They are waiting for court paperwork. Klebsiella UTI -Patient completed treatment with Rocephin Dental caries, chronic -Peridex s/s BID DVT prophylaxis: on Coumadin Code Status: FULL Discussed Condition With: patient, nursing staff, Dr. Gómez Discharge Planning: Difficult placement. CM assisting with ongoing discharge planning. Awaiting [facility] bed at [facility].
--- NOTE | 2017-10-24 07:36 | P.PN ---
Subjective Interval history: Patient seen and examined. No significant change. Patient is stable. He is afebrile. Vital signs stable. Discussed with nursing staff, no acute issues noted overnight. Physical Exam Vital signs: Vital Signs 10/23/17 08:00 10/23/17 12:00 10/23/17 16:00 Temperature 97.4 F L 97.8 F 98.2 F Pulse Rate 64 84 75 Respiratory Rate 16 16 14 Blood Pressure 136/81 129/70 130/78 Pulse Oximetry 95 98 96 10/23/17 20:00 10/24/17 00:00 10/24/17 04:00 Temperature 98.5 F 98.6 F 98.1 F Pulse Rate 86 80 76 Respiratory Rate 18 Blood Pressure 146/89 H 140/88 134/77 Pulse Oximetry 97 98 98 Intake & Output 10/23/17 10/24/17 10/24/17 18:59 06:59 18:59 Weight 79.6 kg Other: # Voids 3 Date of Last Bowel Movement 10/22/17 10/23/17 Narrative: GENERAL: WDWN male patient. Awake and alert. Appears comfortable lying in bed. Not in any acute distress. SKIN: Warm and dry. HEENT: Atraumatic. Normocephalic. Pupils equal and round. No scleral icterus. No injection or drainage. No nasal bleeding or discharge. Mucous membranes pink and moist. NECK: Trachea midline. CARDIOVASCULAR: Regular rate and rhythm. RESPIRATORY: No accessory muscle use. Clear to auscultation. Breath sounds equal bilaterally. GASTROINTESTINAL: Abdomen soft, non-tender, nondistended. +BS. MUSCULOSKELETAL: Extremities without clubbing, cyanosis, or edema. No obvious deformities. NEUROLOGICAL: Awake and alert. No obvious cranial nerve deficits. Motor grossly within normal limits. No focal neurologic finding appreciate. Normal speech. PSYCHIATRIC: Appropriate mood and affect; insight and judgment normal. - Urinary Catheter Management Indwelling Urethral Catheter Cath placed during this visit: yes, but has since been removed by the nurse Reason for continuing: Not indwelling catheter Insertion date: 09/20/17 Insertion time: 18:04 Removal date: 09/22/17 Removal time: 15:00 Results - Labs CBC & Chem 7: 10/02/17 00:47 10/02/17 00:47 - Procedures TPA Assessment and Plan - Assessment (1) CVA (cerebral vascular accident) Code(s): I63.9 - Cerebral infarction, unspecified Status: Acute - Plan 66 year old male with no significant PMH admitted on 09/17 as a stroke alert after having acute onset posterior headache followed by left-sided facial numbness/droop, slurred speech and unsteady gait. 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 MRI brain showed focal acute infarction of the left cerebellum. He was started on ASA, SQ heparin , and Coumadin. On 09/20, the patient developed acute left-sided weakness, nausea , vomiting, worsening aphasia, and right-sided gaze. MRI showed worsening L cerebellar infarct and probable acute infarct of the right thalamus. He was started on a heparin drip and transferred to the unit. The patient have since been transferred to the medical floor under the hospitalist service. Strength is improving but he remains ataxic. 10/24 no significant change. Patient stable. He is afebrile. Vital signs stable. Discussed with nursing staff, no acute issues noted. 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 INR therapeutic. We will keep him on 3 mg daily and check INR every 2-3 days. INR 2.5 10/22/17. - PT/OT/ST - fall precautions - Continue rehabilitation efforts. Awaiting for raul bed at [place]. They are waiting for court paperwork. Klebsiella UTI -Patient completed treatment with Rocephin Dental caries, chronic -Peridex s/s BID DVT prophylaxis: on Coumadin Code Status: FULL Discussed Condition With: patient, nursing staff, Dr. Gómez Discharge Planning: Difficult placement. CM assisting with ongoing discharge planning. Awaiting Raul bed at [place].
[2017-10-24] MEDS: Chlorhexidine Gluconate 0.12% Liq 15 ML UDC SWISH-SPIT SCH ×2 (08:00→20:51)
[2017-10-24] MEDS: Famotidine 20 MG Tablet PO SCH ×2 (08:00→20:51)
[2017-10-24] MEDS: Senna/Docusate Sodium 8.6/50 MG Tablet PO SCH ×2 (08:00→20:52)
--- NOTE | 2017-10-25 07:31 | P.PN ---
Subjective Interval history: Follow up on patient with CVA. Patient seen and examined. Patient states his right-sided tooth and gum pain is improving. He denies any fever or chills. He denies any sore throat. He denies any chest pain or shortness of breath. Physical Exam Vital signs: Vital Signs 10/24/17 12:00 10/24/17 16:00 10/24/17 20:00 Temperature 98.5 F 98.4 F 97.7 F Pulse Rate 80 82 83 Respiratory Rate 20 20 18 Blood Pressure 114/74 136/78 139/82 Pulse Oximetry 97 95 96 10/25/17 00:00 10/25/17 04:00 Temperature 97.9 F 98.3 F Pulse Rate 80 64 Respiratory Rate 18 18 Blood Pressure 140/85 149/84 H Pulse Oximetry 97 98 Intake & Output 10/24/17 10/25/17 10/25/17 18:59 06:59 18:59 Weight 79.8 kg Other: # Voids 3 Date of Last Bowel Movement 10/23/17 10/24/17 Narrative: GENERAL: WDWN male patient, INAD. Awake and alert. Appears comfortable lying in bed. SKIN: Warm and dry. HEENT: Atraumatic. Normocephalic. Pupils equal and round. No scleral icterus. No injection or drainage. No nasal bleeding or discharge. Mucous membranes pink and moist. NECK: Trachea midline. CARDIOVASCULAR: Regular rate and rhythm. RESPIRATORY: No accessory muscle use. Clear to auscultation. Breath sounds equal bilaterally. GASTROINTESTINAL: Abdomen soft, non-tender, nondistended. +BS. MUSCULOSKELETAL: Extremities without clubbing, cyanosis, or edema. No obvious deformities. NEUROLOGICAL: Awake and alert. No obvious cranial nerve deficits. Motor grossly within normal limits. No focal neurologic finding appreciate. Normal speech. PSYCHIATRIC: Appropriate mood and affect; insight and judgment normal. - Urinary Catheter Management Indwelling Urethral Catheter Cath placed during this visit: yes, but has since been removed by the nurse Reason for continuing: Not indwelling catheter Insertion date: 09/20/17 Insertion time: 18:04 Removal date: 09/22/17 Removal time: 15:00 Results - Labs CBC & Chem 7: 10/02/17 00:47 10/02/17 00:47 - Procedures TPA Assessment and Plan - Assessment (1) CVA (cerebral vascular accident) Code(s): I63.9 - Cerebral infarction, unspecified Status: Acute - Plan 66 year old male with no significant PMH admitted on 09/17 as a stroke alert after having acute onset posterior headache followed by left-sided facial numbness/droop, slurred speech and unsteady gait. 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 MRI brain showed focal acute infarction of the left cerebellum. He was started on ASA, SQ heparin , and Coumadin. On 09/20, the patient developed acute left-sided weakness, nausea , vomiting, worsening aphasia, and right-sided gaze. MRI showed worsening L cerebellar infarct and probable acute infarct of the right thalamus. He was started on a heparin drip and transferred to the unit. The patient have since been transferred to the medical floor under the hospitalist service. Strength is improving but he remains ataxic. 10/25 Patient is stable. No significant change. He is afebrile. Vital signs stable. Discussed with nursing staff, no overnight events. 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 INR therapeutic. We will keep him on 3 mg daily and check INR every 2-3 days. INR 2.5 10/22/17. - PT/OT/ST - fall precautions - Continue rehabilitation efforts. Awaiting for raul bed at [place]. They are waiting for court paperwork. Klebsiella UTI -Patient completed treatment with Rocephin Dental caries, chronic -Peridex s/s BID DVT prophylaxis: on Coumadin Code Status: FULL Discussed Condition With: patient, nursing staff, Dr. Cuellar Discharge Planning: Difficult placement. CM assisting with ongoing discharge planning. Awaiting Raul bed at [place].
[2017-10-25] MEDS: Senna/Docusate Sodium 8.6/50 MG Tablet PO SCH ×2 (09:56→20:11)
[2017-10-25] MEDS: Chlorhexidine Gluconate 0.12% Liq 15 ML UDC SWISH-SPIT SCH ×2 (09:56→20:12)
[2017-10-25] MEDS: Famotidine 20 MG Tablet PO SCH ×2 (09:57→20:11)
[2017-10-26] MEDS: Chlorhexidine Gluconate 0.12% Liq 15 ML UDC SWISH-SPIT SCH ×2 (09:18→20:18)
[2017-10-26] MEDS: Famotidine 20 MG Tablet PO SCH ×2 (09:18→20:18)
[2017-10-26] MEDS: Senna/Docusate Sodium 8.6/50 MG Tablet PO SCH ×2 (09:19→20:19)
--- NOTE | 2017-10-26 10:37 | P.PN ---
Subjective Interval history: Follow up on patient with CVA. Patient seen and examined. Patient states he slept well. He denies any tooth or gum pain today. He denies any fever or chills. He denies any chest pain or shortness of breath. He reports he is progressing with therapy. Physical Exam Vital signs: Vital Signs 10/25/17 12:00 10/25/17 20:00 10/26/17 00:00 Temperature 97.8 F 98.4 F 97.2 F L Pulse Rate 84 77 81 Respiratory Rate Blood Pressure 135/91 H 132/75 143/78 H Pulse Oximetry 98 95 97 10/26/17 03:06 10/26/17 03:42 10/26/17 08:00 Temperature 97.7 F 98.5 F Pulse Rate 63 71 Respiratory Rate Blood Pressure 137/84 125/76 Pulse Oximetry 96 98 Intake & Output 10/25/17 10/26/17 10/26/17 18:59 06:59 18:59 Intake Total 1080 / 1080 Output Total 1000 / 1000 Balance 80 / 80 Weight 79.8 kg Intake: Oral 1080 / 1080 Output: Urine 1000 / 1000 Other: # Voids 2 Date of Last Bowel Movement 10/24/17 10/25/17 # Bowel Movements 1 Narrative: GENERAL: WDWN male patient, INAD. Lying in bed, awake and alert. Appears comfortable. SKIN: Warm and dry. HEENT: Atraumatic. Normocephalic. Pupils equal and round. No scleral icterus. No injection or drainage. No nasal bleeding or discharge. Mucous membranes pink and moist. NECK: Trachea midline. CARDIOVASCULAR: Regular rate and rhythm. RESPIRATORY: No accessory muscle use. Clear to auscultation. Breath sounds equal bilaterally. GASTROINTESTINAL: Abdomen soft, non-tender, nondistended. +BS. MUSCULOSKELETAL: Extremities without clubbing, cyanosis, or edema. No obvious deformities. NEUROLOGICAL: Awake and alert. No obvious cranial nerve deficits. Motor grossly within normal limits. No focal neurologic finding appreciate. Normal speech. PSYCHIATRIC: Appropriate mood and affect; insight and judgment normal. - Urinary Catheter Management Indwelling Urethral Catheter Cath placed during this visit: yes, but has since been removed by the nurse Reason for continuing: Not indwelling catheter Insertion date: 09/20/17 Insertion time: 18:04 Removal date: 09/22/17 Removal time: 15:00 Results - Labs CBC & Chem 7: 10/02/17 00:47 10/02/17 00:47 - Procedures TPA Assessment and Plan - Assessment (1) CVA (cerebral vascular accident) Code(s): I63.9 - Cerebral infarction, unspecified Status: Acute - Plan 66 year old male with no significant PMH admitted on 09/17 as a stroke alert after having acute onset posterior headache followed by left-sided facial numbness/droop, slurred speech and unsteady gait. 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 MRI brain showed focal acute infarction of the left cerebellum. He was started on ASA, SQ heparin , and Coumadin. On 09/20, the patient developed acute left-sided weakness, nausea , vomiting, worsening aphasia, and right-sided gaze. MRI showed worsening L cerebellar infarct and probable acute infarct of the right thalamus. He was started on a heparin drip and transferred to the unit. The patient have since been transferred to the medical floor under the hospitalist service. Strength is improving but he remains ataxic. 10/26 No significant change. He is stable. Vital signs stable. He is afebrile. Discussed with nursing staff, no overnight events. 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 INR therapeutic. We will keep him on 3 mg daily and check INR every 2-3 days. INR 2.5 10/22/17. Repeat INR today. - PT/OT/ST - fall precautions - Continue rehabilitation efforts. Awaiting raul bed at [place]. They are waiting for court paperwork, patient has criminal history. Klebsiella UTI -Patient completed treatment with Rocephin Dental caries, chronic -Peridex s/s BID DVT prophylaxis: on Coumadin Code Status: FULL Discussed Condition With: patient, nursing staff, Dr. Cuellar Discharge Planning: Difficult placement. CM assisting with ongoing discharge planning. Awaiting Raul bed at [place].
[2017-10-26 12:29] LABS: INR 2.8 Ratio; Prothrombin Time 28.4 sec (9.8-11.6)
[2017-10-27] MEDS: Famotidine 20 MG Tablet PO SCH ×2 (10:16→20:23)
[2017-10-27] MEDS: Senna/Docusate Sodium 8.6/50 MG Tablet PO SCH ×2 (10:16→20:23)
[2017-10-27] MEDS: Chlorhexidine Gluconate 0.12% Liq 15 ML UDC SWISH-SPIT SCH ×2 (10:16→20:23)
--- NOTE | 2017-10-27 10:52 | P.PN ---
Subjective Interval history: Follow up on patient with CVA. Patient seen and examined. Patient denies any complaints. No significant change. Patient is stable. He is afebrile, VSS. Physical Exam Vital signs: Vital Signs 10/26/17 12:00 10/26/17 16:00 10/26/17 20:17 Temperature 98.1 F 98 F 98.2 F Pulse Rate 90 77 76 Respiratory Rate 16 Blood Pressure 129/83 121/78 123/68 Pulse Oximetry 97 97 98 10/26/17 23:32 10/27/17 00:47 10/27/17 02:15 Temperature 98.4 F Pulse Rate 65 Respiratory Rate 18 Blood Pressure 120/80 Pulse Oximetry 95 10/27/17 03:43 10/27/17 08:00 Temperature 98.2 F 98.2 F Pulse Rate 68 68 Respiratory Rate 18 Blood Pressure 133/70 149/80 H Pulse Oximetry 96 94 L Intake & Output 10/26/17 10/27/17 10/27/17 18:59 06:59 18:59 Intake Total 1080 / 1080 Balance 1080 / 1080 Weight 79.7 kg Intake: Oral 1080 / 1080 Other: # Voids 5 1 Date of Last Bowel Movement 10/26/17 10/26/17 10/25/17 # Bowel Movements 1 Narrative: GENERAL: WDWN male patient. Lying in bed, awake and alert. Appears comfortable. In no acute distress. SKIN: Warm and dry. HEENT: Atraumatic. Normocephalic. Pupils equal and round. No scleral icterus. No injection or drainage. No nasal bleeding or discharge. Mucous membranes pink and moist. NECK: Trachea midline. CARDIOVASCULAR: Regular rate and rhythm. RESPIRATORY: No accessory muscle use. Clear to auscultation. Breath sounds equal bilaterally. GASTROINTESTINAL: Abdomen soft, non-tender, nondistended. +BS. MUSCULOSKELETAL: Extremities without clubbing, cyanosis, or edema. No obvious deformities. NEUROLOGICAL: Awake and alert. No obvious cranial nerve deficits. Motor grossly within normal limits. No focal neurologic finding appreciate. Normal speech. PSYCHIATRIC: Appropriate mood and affect; insight and judgment normal. - Urinary Catheter Management Indwelling Urethral Catheter Cath placed during this visit: yes, but has since been removed by the nurse Reason for continuing: Not indwelling catheter Insertion date: 09/20/17 Insertion time: 18:04 Removal date: 09/22/17 Removal time: 15:00 Results - Labs CBC & Chem 7: 10/02/17 00:47 10/02/17 00:47 Laboratory Results - last 24 hr 10/26/17 12:05 PT 28.4 H INR 2.8 - Procedures TPA Assessment and Plan - Assessment (1) CVA (cerebral vascular accident) Code(s): I63.9 - Cerebral infarction, unspecified Status: Acute - Plan 66 year old male with no significant PMH admitted on 09/17 as a stroke alert after having acute onset posterior headache followed by left-sided facial numbness/droop, slurred speech and unsteady gait. 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 MRI brain showed focal acute infarction of the left cerebellum. He was started on ASA, SQ heparin , and Coumadin. On 09/20, the patient developed acute left-sided weakness, nausea , vomiting, worsening aphasia, and right-sided gaze. MRI showed worsening L cerebellar infarct and probable acute infarct of the right thalamus. He was started on a heparin drip and transferred to the unit. The patient have since been transferred to the medical floor under the hospitalist service. Strength is improving but he remains ataxic. 10/27 Patient remains stable. No significant change. Vital signs stable. He is afebrile. INR 2.8 yesterday. Repeat INR in am. Discussed with nursing staff, no overnight events. 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 INR therapeutic. We will keep him on 3 mg daily and check INR every 2-3 days. INR 2.8 10/26/17. Repeat in am. - PT/OT/ST - fall precautions - Continue rehabilitation efforts. Awaiting raul bed at [place]. They are waiting for court paperwork, patient has criminal history. Klebsiella UTI -Patient completed treatment with Rocephin Dental caries, chronic -Peridex s/s BID DVT prophylaxis: on Coumadin Code Status: FULL Discussed Condition With: patient, nursing staff, Dr. Cuellar Discharge Planning: Difficult placement. CM assisting with ongoing discharge planning. Awaiting Raul bed at [place].
--- NOTE | 2017-10-27 16:58 | P.CONREH ---
History of Present Illness Service: Physical medicine and rehabilitation Consult date: 10/27/17 Reason for Consult: Comprehensive rehabilitation evaluation Primary Care Provider: UNKNOWN Chief Complaint: Cerebellar ischemic stroke History of Present Illness: Bo Samuels is a 66-year-old [id number] male admitted [facility] 11/25 with left facial numbness and droop with slurred speech and unsteady gait. Head CT was negative. CTA showed occlusion left vertebral artery. Brain MRI showed left cerebellar infarct. He was started on Coumadin. On 09/20/17 he developed increased weakness in left upper and lower extremity with nausea vomiting, right gaze preference and aphasia. Brain MRI showed significant progression of restricted diffusion in the left perihilar hemisphere in the PICA distribution. He was started on IV heparin. Review of Systems Constitutional: Denies headache(s) Eyes: Denies double vision Ears, Nose, Mouth, and Throat: Denies difficulty swallowing Cardiovascular: Denies chest pain, Denies shortness of breath Respiratory: Denies cough Gastrointestinal: Denies abdominal pain, Denies constipation Genitourinary: Denies urinary incontinence Musculoskeletal: Reports abnormal walking Skin/Breast: Denies rash Neurologic: Reports unsteadiness, Denies confusion, Denies numbness, Denies tingling/numbness/burning sensations Psychiatric: Denies confusion Endocrine: Denies flushing Hematologic/Lymphatic: Denies easy bruising Allergic/Immunologic: Denies wheezing PMFSH - History History Provided By: Patient - Medical History Medical History: Medical History (Last Reviewed 10/26/17 @ 15:11 by Jenna Danielson) Patient denies medical problems - Surgical History Surgical History: Surgical History (Last Reviewed 10/26/17 @ 15:11 by Jenna Danielson) No history of previous surgery - Family History Family History: Family History (Last Reviewed 10/26/17 @ 15:11 by Jenna Danielson) Other Family history of stroke - Social History I have reviewed the patient's Social History: Yes - Tobacco History Second Hand Smoke Exposure: No Tobacco Use In Past 30 Days: No Smoking Status: Former smoker Tobacco Type: Cigarettes - Alcohol History How Often Do You Have a Drink Containing Alcohol: Never - Substance Use History Substance History: No History of Abuse - Travel History Recent Travel in the [facility] Within the Last 8 Weeks: No Recent Travel Out of the Country Within the Last 8 Weeks: No - Immunization History Tetanus Immunization: Unsure Hx Influenza Vaccine This Season: No Medications and Allergies Active Medications: Active Medications Acetaminophen (Tylenol) 650 mg PO Q4H PRN PRN Reason: Temp > 100.4 Last Admin: 10/21/17 18:04 Dose: 650 mg Al Hydroxide/Mg Hydroxide (Milk Of Magnesia Liq) 30 ml PO Q12H PRN PRN Reason: Mild Constipation Albuterol (Duoneb Neb (Prn)) 1 ampul NEB Q2HR NEB PRN PRN Reason: SHORTNESS OF BREATH Bisacodyl (Dulcolax Supp) 10 mg RECTAL DAILY PRN PRN Reason: SEVERE CONSITIPATION Chlorhexidine Gluconate (Peridex 0.12% Liq) 5 ml SWISH-SPIT BID [facility] Last Admin: 10/27/17 10:16 Dose: 5 ml Enalaprilat (Vasotec Inj) 1.25 mg IV.PUSH Q4H PRN PRN Reason: For SBP > 220 or DBP > 120 Famotidine (Pepcid) 20 mg PO BID [facility] Last Admin: 10/27/17 10:16 Dose: 20 mg Lactulose (Lactulose Liq) 30 ml PO DAILY PRN PRN Reason: SEVERE CONSITIPATION Multivitamins (Theragran) 1 tab PO DAILY [facility] Last Admin: 10/27/17 10:16 Dose: 1 tab Ondansetron HCl (Zofran Odt) 4 mg PO Q6H PRN PRN Reason: NAUSEA OR VOMITING Senna/Docusate Sodium (Paty-Colace) 1 tab PO BID [facility] Last Admin: 10/27/17 10:16 Dose: Not Given Sennosides (Senokot) 17.2 mg PO Q12H PRN PRN Reason: Moderate Constipation Sodium Chloride (Ns Flush) 2 ml IV.FLUSH BID [facility] Last Admin: 10/27/17 10:16 Dose: 2 ml Sodium Chloride (Ns Flush) 2 ml IV.FLUSH PRN PRN PRN Reason: FLUSH AFTER USING IV ACCESS Last Admin: 09/24/17 21:17 Dose: 2 ml Throat Lozenges (Chloraseptic [place]) 2 spray OROPHARYNG Q2H PRN PRN Reason: SORE THROAT Tramadol HCl (Ultram) 50 mg PO Q8H PRN PRN Reason: PAIN SCALE 6 TO 10 Last Admin: 10/21/17 04:30 Dose: 50 mg Warfarin Sodium (Coumadin) 3 mg PO DAILY@1600 FREYA Last Admin: 10/27/17 15:39 Dose: 3 mg Allergies Allergy/AdvReac Type Severity Reaction Status Date / Time No Known Allergies Allergy Verified 09/17/17 18:35 Home Medications Medication Instructions Recorded Confirmed Type No Known Home Medications 09/17/17 09/17/17 History Exam - Physical Examination Vital Signs / I&O: Vital Signs 10/26/17 20:17 10/26/17 23:32 10/27/17 00:47 Temperature 98.2 F 98.4 F Pulse Rate 76 65 Respiratory Rate 16 18 Blood Pressure 123/68 120/80 Pulse Oximetry 98 95 10/27/17 02:15 10/27/17 03:43 10/27/17 08:00 Temperature 98.2 F 98.2 F Pulse Rate 68 68 Respiratory Rate 18 18 18 Blood Pressure 133/70 149/80 H Pulse Oximetry 96 94 L 10/27/17 12:00 Temperature 97 F L Pulse Rate 88 Respiratory Rate 18 Blood Pressure 124/77 Pulse Oximetry 97 Intake & Output 10/26/17 10/27/17 10/27/17 18:59 06:59 18:59 Intake Total 1080 / 1080 Balance 1080 / 1080 Weight 79.7 kg Intake: Oral 1080 / 1080 Other: # Voids 5 1 Date of Last Bowel Movement 10/26/17 10/26/17 10/25/17 # Bowel Movements 1 Intake & Output 10/25/17 10/26/17 10/27/17 10/28/17 06:59 06:59 06:59 06:59 Intake Total 1080 / 1080 1080 / 1080 Output Total 1000 / 1000 Balance 80 / 80 1080 / 1080 Weight 79.8 kg 79.8 kg 79.7 kg General: No acute distress Respiratory: Lungs CTA, Non-labored respirations, BS equal Gastrointestinal: Positive bowel sounds, Non-distended, Non-tender Date of Last Bowel Movement: 10/25/17 Cardiovascular: Normal rate, No edema, Regular rhythm Skin: No rash Psychiatric: Cooperative, Appropriate mood & affect - Neurologic Orientation: oriented to: Self, Place, Time, Situation Neurologic: Cranial nerves (Intact grossly 2 through 12), Speech (Intelligible) , Coordination (Ataxic left upper and lower extremity) Motor: Right Upper Extremity (5/5), Left Upper Extremity (4+/5), Right Lower Extremity (5/5), Left Lower Extremity (4+/5) DTRs: Normal Clonus: Negative Results - Labs CBC & Chem 7: 10/02/17 00:47 10/02/17 00:47 Assessment and Plan (1) CVA (cerebral vascular accident) Status: Acute Code(s): I63.9 - Cerebral infarction, unspecified - Plan 1. Physical therapy is mobilizing and now minimal assistance sit to stand and ambulating 26 feet min to mod assist with a rolling walker. 2. Occupational Therapy is addressing ADLs and now modified independent for feeding and progressing with ADL independence 3. Case management is addressing discharge planning for ongoing rehab care 4. Will continue follow while hospitalized and as appropriate at discharge Thank you for this consult (1) CVA (cerebral vascular accident) Qualifiers: CVA mechanism: thrombosis Precerebral and cerebral artery: posterior cerebral artery Laterality of affected vessel: right Qualified Code(s): I63.331 - Cerebral infarction due to thrombosis of right posterior cerebral artery
[2017-10-28 05:06] LABS: Baso % (Auto) 0.7 % (0.0-2.0); Eos # (Auto) 0.2 th/mm3 (0.0-0.4); Eos % (Auto) 2.8 % (0.0-4.0); Hematocrit 39.7 % (39.0-51.0); Hemoglobin 13.1 gm/dL (13.0-17.0); Lymph % (Auto) 31.8 % (9.0-44.0); Mean Corpuscular HGB Conc 33.1 % (32.0-36.0); Mean Corpuscular Volume 87.6 fL (80.0-100.0); Mean Platelet Volume 6.8 fL (7.0-11.0); Mono # (Auto) 0.5 th/mm3 (0.0-0.9); Mono % (Auto) 8.7 % (0.0-8.0); Neut # (Auto) 3.5 th/mm3 (1.8-7.7); Platelet Count 333 th/mm3 (150-450); Prothrombin Time 30.5 sec (9.8-11.6); Red Blood Count 4.54 mil/mm3 (4.50-5.90); Red Cell Distribution Width 13.9 % (11.6-17.2); White Blood Count 6.2 th/mm3 (4.0-11.0)
[2017-10-28 05:55] LABS: Calcium 8.8 mg/dL (8.5-10.1); Carbon Dioxide 27.1 meq/L (21.0-32.0); Potassium 3.9 meq/L (3.5-5.1)
[2017-10-28] MEDS: Chlorhexidine Gluconate 0.12% Liq 15 ML UDC SWISH-SPIT SCH ×2 (08:12→21:07)
[2017-10-28] MEDS: Senna/Docusate Sodium 8.6/50 MG Tablet PO SCH ×2 (08:12→21:09)
[2017-10-28] MEDS: Famotidine 20 MG Tablet PO SCH ×2 (08:12→21:07)
--- NOTE | 2017-10-28 15:22 | P.PNIM ---
Subjective Interval history: The patient denied any pain. He was breathing comfortably. He said he was tolerating all his medications. He said he was fitted for a wheelchair. He said he worked with physical therapy. Discussed with nursing. Physical Exam Vital signs: Vital Signs 10/27/17 16:00 10/27/17 20:00 10/28/17 00:00 Temperature 97.1 F L 97.6 F 97.6 F Pulse Rate 83 82 66 Respiratory Rate 18 Blood Pressure 122/86 136/77 118/69 Pulse Oximetry 96 96 97 10/28/17 04:00 10/28/17 07:00 10/28/17 08:00 Temperature 97.7 F 98 F Pulse Rate 77 76 Respiratory Rate 18 20 Blood Pressure 128/70 137/71 Pulse Oximetry 97 98 10/28/17 12:00 Temperature 97.3 F L Pulse Rate 77 Respiratory Rate 20 Blood Pressure 130/72 Pulse Oximetry Intake & Output 10/27/17 10/28/17 10/28/17 18:59 06:59 18:59 Intake Total 1080 / 1080 Output Total 1100 / 1100 Balance -20 Weight 83.9 kg Intake: Oral 1080 / 1080 Output: Urine 1100 / 1100 Other: # Voids 3 Date of Last Bowel Movement 10/27/17 10/27/17 10/27/17 Narrative: GENERAL: No distress. SKIN: Warm and dry. HEENT: Atraumatic. Normocephalic. Pupils equal and round. No scleral icterus. No injection or drainage. No nasal bleeding or discharge. Mucous membranes pink and moist. NECK: Trachea midline. CARDIOVASCULAR: Regular rate and rhythm. RESPIRATORY: No accessory muscle use. Clear to auscultation. Breath sounds equal bilaterally. GASTROINTESTINAL: Abdomen soft, non-tender, nondistended. +BS. MUSCULOSKELETAL: Extremities without clubbing, cyanosis, or edema. No obvious deformities. NEUROLOGICAL: Awake and alert. No obvious cranial nerve deficits. Motor grossly within normal limits. No focal neurologic finding appreciate. Normal speech. PSYCHIATRIC: Appropriate mood and affect; insight and judgment normal. - Urinary Catheter Management Indwelling Urethral Catheter Cath placed during this visit: yes, but has since been removed by the nurse Reason for continuing: Not indwelling catheter Insertion date: 09/20/17 Insertion time: 18:04 Removal date: 09/22/17 Removal time: 15:00 Results - Labs CBC & Chem 7: 10/28/17 04:15 10/28/17 04:15 Laboratory Results - last 24 hr 10/28/17 10/28/17 10/28/17 04:15 04:15 04:15 WBC 6.2 RBC 4.54 Hgb 13.1 Hct 39.7 MCV 87.6 MCH 29.0 MCHC 33.1 RDW 13.9 Plt Count 333 MPV 6.8 L Neut % (Auto) 56.0 Lymph % (Auto) 31.8 Parker % (Auto) 8.7 H Eos % (Auto) 2.8 Baso % (Auto) 0.7 Neut # (Auto) 3.5 Lymph # (Auto) 2.0 Parker # (Auto) 0.5 Eos # (Auto) 0.2 Baso # (Auto) 0.0 WBC Differential . Differential Comment Auto diff final PT 30.5 H INR 3.0 Sodium 141 Potassium 3.9 Chloride 106 Carbon Dioxide 27.1 Anion Gap 8 BUN 13 Creatinine 0.87 Estimated GFR 88 L Random Glucose 87 Calcium 8.8 - Procedures TPA Assessment and Plan - Assessment (1) CVA (cerebral vascular accident) Code(s): I63.9 - Cerebral infarction, unspecified Status: Acute - Plan 66 year old male with no significant PMH admitted on 09/17 as a stroke alert after having acute onset posterior headache followed by left-sided facial numbness/droop, slurred speech and unsteady gait. 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 MRI brain showed focal acute infarction of the left cerebellum. He was started on ASA, SQ heparin , and Coumadin. On 09/20, the patient developed acute left-sided weakness, nausea , vomiting, worsening aphasia, and right-sided gaze. MRI showed worsening L cerebellar infarct and probable acute infarct of the right thalamus. He was started on a heparin drip and transferred to the unit. The patient have since been transferred to the medical floor under the hospitalist service. Strength is improving but he remains ataxic. 10/28: Patient remains stable. No significant change. Vital signs stable. He is afebrile. INR 3, hold Coumadin. Repeat INR in am. Discussed with nursing staff, no overnight events. 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 INR therapeutic. We will keep him on 3 mg daily and check INR every 2-3 days. INR 2.8 10/26/17. Repeat in am. - PT/OT/ST - fall precautions - Continue rehabilitation efforts. Awaiting raul bed at [facility]. They are waiting for court paperwork, patient has criminal history. Klebsiella UTI -Patient completed treatment with Rocephin Dental caries, chronic -Peridex s/s BID DVT prophylaxis: on Coumadin (1) CVA (cerebral vascular accident) Qualifiers: CVA mechanism: thrombosis Precerebral and cerebral artery: posterior cerebral artery Laterality of affected vessel: right Qualified Code(s): I63.331 - Cerebral infarction due to thrombosis of right posterior cerebral artery
[2017-10-28 20:39] VITALS: RESP 18
[2017-10-29 05:18] VITALS: O2SAT 96
[2017-10-29 06:22] LABS: INR 2.2 Ratio; Prothrombin Time 22.7 sec (9.8-11.6)
[2017-10-29 08:29] VITALS: BP 121/72; PULSE 72; TEMP 98
[2017-10-29] MEDS: Famotidine 20 MG Tablet PO SCH (09:51)
[2017-10-29] MEDS: Senna/Docusate Sodium 8.6/50 MG Tablet PO SCH (09:51)
[2017-10-29] MEDS: Chlorhexidine Gluconate 0.12% Liq 15 ML UDC SWISH-SPIT SCH (09:51)
--- NOTE | 2017-10-29 09:54 | P.DS ---
Date of admission: 09/17/17 21:21 Primary care physician: UNKNOWN Brief History from admission: This is a 66-year-old male with no significant PMH was brought to the ER by EMS as a Stroke Alert. Pt reports acute onset of posterior headache followed by left-sided facial numbness/droop, slurred speech and unsteady gait. States Son In Law with him and called EMS. No h/o CVA in the past. Not on ASA or anticoagulation. On arrival, BP 176/80, HR 58, O2 sat 98% on 2L NC, Afebrile. CBC unremarkable. INR 1.0. Chemistry essentially unremarkable except for BUN 21. S/p eval by Dr. Prieto in ER, CT Head with no acute findings. CTA Head negative. CTA Neck with occluded left vertebral artery, age indeterminate, widely patent right vertebral artery and basilar artery. MRI Head with focal acute infarct of the left cerebellum. MRA Neck pending. Symptoms currently resolved except for mild residual slurred speech. Patient update on day of discharge: The pt was feeling well. He was looking forward to rehab. No acute concerns. DS: Diagnosis - Discharge Diagnosis (1) CVA (cerebral vascular accident) Status: Acute DS: Medications - Discharge Medications Prescriptions: atorvastatin 40 mg PO HS #30 tab DS: Summary Hospital Course: CVA 66 year old male with no significant PMH admitted on 09/17 as a stroke alert after having acute onset posterior headache followed by left-sided facial numbness/droop, slurred speech and unsteady gait. CT and CTA head were negative ; CTA neck showed complete occlusion of left vertebral artery. MRI brain showed focal acute infarction of the left cerebellum. Neurology was consulted. He was started on ASA, SQ heparin and Coumadin. On 09/20, the patient developed acute left-sided weakness, nausea, vomiting, worsening aphasia, and right-sided gaze. MRI showed worsening L cerebellar infarct and probable acute infarct of the right thalamus. He was started on a heparin drip and transferred to the unit. Brain MRV showing no obvious thrombosis. Neck MRA showing high-grade stenosis or near occlusion at the origin of left vertebral artery. Repeat head CT negative for hemorrhage. Repeat brain MRI showing evolving left cerebellar and R thalamus infarcts, no new infarcts or hemorrhage. 2D echo showed EF 55-60%. A1c 5.3%. TC 192, LDL 126, HDL 51, TG 72. He was continued on a statin. He will continue Coumadin upon discharge. He will follow up with neurology. He will be discharged to inpatient rehab. Klebsiella UTI Patient completed treatment with Rocephin. Dental caries Chronic. The pt received Peridex s/s BID. - Time Spent with Patient Total time spent providing and/or coordinating discharge services: Greater than 30 minutes - Quality: Stroke Last date observed well: 09/17/17 Last time observed well: 16:45 - Quality: VTE Deep Vein Thrombosis/Pulmonary Embolism Present on Admission: No Exam Vital signs: Vital Signs 10/28/17 12:00 10/28/17 16:00 10/28/17 20:00 Temperature 97.3 F L 97.9 F 97.6 F Pulse Rate 77 73 77 Respiratory Rate 20 20 18 Blood Pressure 130/72 115/74 141/81 H Pulse Oximetry 97 97 10/28/17 23:56 10/29/17 04:00 10/29/17 08:00 Temperature 97.7 F 97.9 F 98 F Pulse Rate 80 80 72 Respiratory Rate 18 18 18 Blood Pressure 139/79 140/80 121/72 Pulse Oximetry 100 96 96 Intake & Output 10/28/17 10/29/17 10/29/17 18:59 06:59 18:59 Intake Total 620 / 620 Output Total 5 / 5 Balance 615 / 615 Weight 83.9 kg Intake: Oral 620 / 620 Output: Urine 4 / 4 Stool / Other: # Voids 3 Date of Last Bowel Movement 10/28/17 10/28/17 Results Procedures completed during hospitalization: TPA Labs on day of discharge: Labs from last 24 hours 10/29/17 04:58 PT 22.7 H INR 2.2 - Impressions ITS Impressions Chest X-Ray 09/17/17 17:37 CONCLUSION: Trace basilar atelectasis. Head CTA 09/17/17 17:37 CONCLUSION: 1. No acute occlusive disease demonstrated. 2. Intracranial atherosclerosis. 3. 2 mm anterior communicating aneurysm. Neck CTA 09/17/17 17:37 CONCLUSION: 1. Occluded left vertebral artery, age indeterminate. Widely patent right vertebral artery and basilar artery. 2. Otherwise essentially normal. Trace atherosclerosis seen of both carotid bifurcations without narrowing. Head MRA 09/20/17 00:00 CONCLUSION: 1. Occlusion of the right posterior cerebral artery at the junction of the P1 and P2 segments. 2. Intracranial vessels are otherwise patent. Head/Brain Mag Res Venography 09/20/17 00:00 CONCLUSION: 1. Narrowing of the dural sinuses at the confluence of the torcula. This is probably anatomic, however. No obvious thrombosis identified on the previous MRI. 2. Dural sinuses are otherwise widely patent. Neck MRA 09/20/17 00:00 CONCLUSION: 1. Arch vessels and both carotids are widely patent throughout. 2. Patient is right vertebral dominant. Right vertebral artery is patent throughout. 3. The origin of the left vertebral is not well seen and there may be a high- grade stenosis or near occlusion in this location. Remaining portions of the left vertebral artery are diminutive but patent. CTA of the cervical vessels could be performed for further characterization if clinically warranted. Percent stenosis is calculated using the diameter of the stenotic region over the diameter of the normal distal internal carotid artery Head CT 09/20/17 10:35 CONCLUSION: 1. Negative for hemorrhage. Cerebellum remains normal. Report was called to Dr. Prieto Head MRI 09/29/17 07:25 CONCLUSION: 1. Evolving left cerebellar and right thalamus the medial temporal lobe and less apparent in the interval without hemorrhage. 2. No new areas of infarction are identified. Discharge Plan - Discharge Disposition Patient Disposition: 62 Rehab Inpatient - Discharge Condition Condition: Stable - Discharge Order Discharge Orders: Discharge Order (Routine); Ordered 10/29/17 Ordered By: John Paul Mariee - Discharge Details Anticipated Discharge Date: 10/29/17 Discharge Comment: OK to discharge once I have seen the patient, thanks - Physicians Team Primary Care Provider: UNKNOWN, Attending Provider: John Paul Mariee Other Providers: Rohan Prieto MD ; Osmel Kidd MD ; Nelson Hanson MD ; Faith Miller MD ; [facility]
== END 2017-10-29 10:21 ==
LOC: NEPE 17:34 → NEDA 21:21 → N06 23:21 → N03 09-20 11:16 → N05 09-28 18:35
PROVIDERS: ADMIT Hospitalist; ATTEND Hospitalist